=== PATIENT | female | born 1980 | race Caucasian/White ===

== ENCOUNTER 2017-02-12 12:36 | Emergency (ER) | payer MEDICAID, OTHER ==
[~2017-02-12] VITALS: Ht 185.4 cm; Wt 174.6 kg
[2017-02-12] MEDS ORDERED: METF500T4 (12:55)
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
--- NOTE | 2017-02-12 13:52 | Diagnostic Imaging Report ---
EXAMINATION: CT scan of the thoracic and lumbar spine was performed without intravenous contrast. Coronal and sagittal reconstructions were performed. INDICATION: Fall. FINDINGS: CT THORACIC SPINE: The alignment of the posterior spinal line is satisfactory. The vertebral body heights are preserved. There is straightening of the normal kyphotic curvature, probably positional. There is satisfactory alignment of the facet joints. Minimal anterior osteophytes at the mid thoracic spine levels are seen. No fracture is identified. CT LUMBAR SPINE: There is satisfactory alignment of the posterior spinal line. Posterior osteophytes at the L2-3 and L5-S1 levels are seen. There is no compression fracture. There is no pars defect or fracture seen. The alignment of the facet joints is satisfactory. No fracture is seen. Vacuum phenomenon at the SI joints with mild degenerative sclerosis is suggested. There is suggestion of spinal canal stenosis of a probably moderate degree at the L2-3 level from disc herniation and posterior osteophytes. IMPRESSION: CT THORACIC SPINE: No fracture is seen. CT LUMBAR SPINE: 1. No fracture is seen. 2. Prominent disc herniation and posterior osteophytes at the L2-3 level appear to result in spinal canal stenosis which can be better evaluated with a followup outpatient MRI evaluation when the patient recovers from the acute injury. Dictated by: Dictated on workstation # [id number]
--- NOTE | 2017-02-12 13:56 | Diagnostic Imaging Report ---
Supine AP view of the chest. INDICATION: Fall. FINDINGS: There is elevation of the right hemidiaphragm. No prior studies are available to assess for from chronicity. Minimal right basilar atelectasis is also seen. The heart size is normal. No effusion or pneumothorax. The mediastinum and maida appear unremarkable. IMPRESSION: Elevation of the right hemidiaphragm with mild right basilar atelectasis. Dictated by: Dictated on workstation # [id number]
--- NOTE | 2017-02-12 13:58 | Diagnostic Imaging Report ---
EXAMINATION: AP view of the pelvis. INDICATION: Fall. FINDINGS: Mild deformity of the symphysis pubis is seen which may relate to prior injury or vaginal delivery. No acute fracture. Mild spur formation at the lateral aspect of the right acetabulum and along the greater trochanter is seen. The SI joints have normal alignment. Normal alignment of the hip joints is also seen. IMPRESSION: No acute process. Dictated by: Dictated on workstation # [id number]
--- NOTE | 2017-02-12 14:02 | Diagnostic Imaging Report ---
PROCEDURE: CT head and CT cervical spine without contrast. TECHNIQUE: Multiple contiguous axial images were obtained through the brain and cervical spine without the use of intravenous contrast. Sagittal and coronal reformations through the cervical spine were then performed. INDICATION: Fall. FINDINGS: CT head: There is no intracranial hemorrhage, edema or mass effect. The brain parenchyma and garsia-white matter differentiation is preserved. No hydrocephalus. No extra-axial fluid collection is seen. The calvarium, the paranasal sinuses and orbits appear grossly unremarkable. CT cervical spine: There is straightening of the cervical spine. The vertebral body heights are preserved. There is preserved disc heights. The alignment of the posterior spinal line, and the facet joints and the lateral masses of C1 and C2 and atlantooccipital joints is satisfactory. There is no widening of the predental space. No fracture seen. IMPRESSION: CT head: Unremarkable exam. CT cervical spine: No fracture seen. Dictated by: Dictated on workstation # [id number]
--- NOTE | 2017-02-12 14:03 | Diagnostic Imaging Report ---
INDICATION: Pain status post fall. COMPARISON: None. FINDINGS: Two views of the right forearm show no fractures, dislocations, or other acute bony abnormalities identified. Joint spaces are well maintained throughout. The soft tissues appear unremarkable. No radiopaque foreign bodies are identified. IMPRESSION: No acute fractures or dislocations of the right forearm. Dictated by: Dictated on workstation # [id number]
[2017-02-12] MEDS ORDERED: NAPR500T4 PO (14:18)
[2017-02-12] MEDS ORDERED: CYCL10TA9 PO (14:18)
[2017-02-12 14:23] VITALS: BP 131/64
== END 2017-02-12 14:23 | disposition home or self-care (01) ==
LOC: ER 12:41
DX: M54.5 Low back pain (principal); G89.29 Other chronic pain; E66.01 Morbid (severe) obesity due to excess calories; E11.9 Type 2 diabetes mellitus without complications; F41.9 Anxiety disorder, unspecified; F32.9 Major depressive disorder, single episode, unspecified; F12.10 Cannabis abuse, uncomplicated; F15.10 Other stimulant abuse, uncomplicated; F17.210 Nicotine dependence, cigarettes, uncomplicated; Z87.59 Personal history of other complications of pregnancy, childbirth and the puerperium; Z98.51 Tubal ligation status; W18.30XA Fall on same level, unspecified, initial encounter
CPT/HCPCS: 70450; 71010; 72125; 72128; 72131; 72170; 73090; 82962; 99283

== ENCOUNTER 2017-03-22 22:25 | Emergency (ER) | payer MEDICAID ==
[~2017-03-22] VITALS: Ht 185.4 cm; Wt 174.6 kg
[~2017-03-22 22:25] MED LIST: CYCL10TA9 PO; METF500T4; NAPR500T4 PO
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
[2017-03-23] MEDS ORDERED: AZIT250T12 PO (00:11)
[2017-03-23 00:15] VITALS: BP 133/70
[2017-03-23] MEDS ORDERED: AZITHROMYCIN 250 MG TAB (ZITHROMAX) PO ONE (00:15)
[2017-03-23] MEDS ORDERED: FLUT9.9S NSEACH (00:18)
== END 2017-03-23 00:15 | disposition home or self-care (01) ==
LOC: EDUNIT# 22:25 → ER 22:27
DX: H66.91 Otitis media, unspecified, right ear (principal); J01.90 Acute sinusitis, unspecified; E11.9 Type 2 diabetes mellitus without complications; E66.01 Morbid (severe) obesity due to excess calories; F41.9 Anxiety disorder, unspecified; F32.9 Major depressive disorder, single episode, unspecified; Z79.84 Long term (current) use of oral hypoglycemic drugs; Z87.59 Personal history of other complications of pregnancy, childbirth and the puerperium; Z98.51 Tubal ligation status; Z86.73 Personal history of transient ischemic attack (TIA), and cerebral infarction without residual deficits
CPT/HCPCS: 99283

== ENCOUNTER 2017-05-17 18:03 | Emergency (ER) | payer MEDICAID ==
[~2017-05-17] VITALS: Ht 185.4 cm; Wt 181.4 kg
[~2017-05-17 18:03] MED LIST changes: +AZIT250T12 PO; +FLUT9.9S NSEACH; +NAPR-915 PO; -NAPR500T4 PO
--- NOTE | 2017-05-17 18:25 | ED Abdominal Pain ---
General Chief Complaint: Abdominal/GI Problems Stated Complaint: ABD PAIN Nursing Triage Note: ARRIVED VIA AMB TO ROOM 07. COMPLAINS OF ABD PAIN/N/V/D Sepsis Screen: No Definite Risk Source of Information: Patient Exam Limitations: No Limitations History of Present Illness Date Seen by Provider: May 17, 2017 Time Seen by Provider: 18:24 Initial Comments To ER with c/o nausea, vomiting, diarrhea, fever up to 101, abdominal cramping x3 days. Timing/Duration: 2-3 Days Severity/Quality: Cramping Location: Generalized Abdomen Radiation: No Radiation Activities at Onset: None Allergies and Home Medications Allergies Coded Allergies: fentanyl (Verified Allergy, Severe, SOA, 02/12/17) morphine (Verified Allergy, Severe, SOA, 02/12/17) Penicillins (Verified Allergy, Unknown, 02/12/17) codeine (Verified Allergy, Unknown, 02/12/17) hydromorphone (Verified Allergy, Unknown, 02/12/17) iodine (Verified Allergy, Unknown, 02/12/17) latex (Verified Allergy, Unknown, 02/12/17) tramadol (Verified Allergy, Unknown, 02/12/17) Review of Systems Constitutional: see HPI, fever EENTM: No Symptoms Reported Respiratory: No Symptoms Reported Cardiovascular: No Symptoms Reported Gastrointestinal: See HPI, Abdominal Pain, Blood Streaked Stools, Diarrhea, Nausea, Vomiting Genitourinary: No Symptoms Reported Musculoskeletal: no symptoms reported Skin: no symptoms reported Psychiatric/Neurological: No Symptoms Reported Endocrine: No Symptoms Reported Past Vwtsirt-Ixclbu-Geompw Hx Patient Social History Type Used: Cigarettes 2nd Hand Smoke Exposure: No Recent Foreign Travel: No Contact w/Someone Who Travel: No Recent Infectious Disease Expo: No Recent Hopitalizations: No Seasonal Allergies Seasonal Allergies: No Surgeries History of Surgeries: Yes ( X 2; BTL; BREAST BIOPSY-BENIGN) Surgeries: Breast, Section, Gallbladder, Tubal Ligation Respiratory History of Respiratory Disorde: Yes (PT STATES SHE WAS ON A VENTILATOR AND IN A COMA AFTER THE OF A CHILD) Cardiovascular History of Cardiac Disorders: No Neurological History of Neurological Disord: Yes (PT STATES SHE WAS ON A VENTILATOR AND IN A COMA AFTER THE OF A CHILD) Neurological Disorders: Stroke Reproductive System Female Reproductive Disorders: Denies [employer] History: Tubal Ligation Genitourinary History of Genitourinary Disor: No Gastrointestinal History of Gastrointestinal Di: No Musculoskeletal History of Musculoskeletal Dis: Yes (FREQUENT FALLY) Musculoskeletal Disorders: Chronic Back Pain Endocrine History of Endocrine Disorders: Yes (MORBID OBESITY) Endocrine Disorders: Diabetes, Non-Insulin dep HEENT History of HEENT Disorders: No Cancer History of Cancer: No Psychosocial History of Psychiatric Problem: Yes Behavioral Health Disorders: Anxiety, Depression Integumentary History of Skin or Integumenta: No Blood Transfusions History of Blood Disorders: No Physical Exam Vital Signs VS - Last 72 Hours, by Label 05/17/17 18:10 Temp 98.4 Pulse 105 Resp 18 B/P (MAP) 110/78 (89) Pulse Ox 95 Capillary Refill : Less Than 3 Seconds General Appearance: WD/WN, no apparent distress, obese HEENT: PERRL/EOMI, normal ENT inspection Respiratory: normal breath sounds, no respiratory distress, no accessory muscle use Cardiovascular: regular rate, rhythm, no murmur Gastrointestinal: normal bowel sounds, soft, tenderness Extremities: normal range of motion, non-tender, normal inspection Neurologic/Psychiatric: alert, normal mood/affect, oriented x 3 Skin: normal color, warm/dry Progress/Results/Core Measures Results/Orders Lab Results Laboratory Tests Test 05/17/17 18:35 05/17/17 18:44 Range/Units White Blood Count 8.3 4.3-11.0 10^3/uL Red Blood Count 5.15 4.35-5.85 10^6/uL Hemoglobin 15.2 11.5-16.0 G/DL Hematocrit 45 35-52 % Mean Corpuscular Volume 88 80-99 FL Mean Corpuscular Hemoglobin 30 25-34 PG Mean Corpuscular Hemoglobin Concent 34 32-36 G/DL Red Cell Distribution Width 13.3 10.0-14.5 % Platelet Count 357 130-400 10^3/uL Mean Platelet Volume 8.9 7.4-10.4 FL Neutrophils (%) (Auto) 63 42-75 % Lymphocytes (%) (Auto) 27 12-44 % Monocytes (%) (Auto) 8 0-12 % Eosinophils (%) (Auto) 2 0-10 % Basophils (%) (Auto) 0 0-10 % Neutrophils # (Auto) 5.2 1.8-7.8 X 10^3 Lymphocytes # (Auto) 2.3 1.0-4.0 X 10^3 Monocytes # (Auto) 0.7 0.0-1.0 X 10^3 Eosinophils # (Auto) 0.2 0.0-0.3 10^3/uL Basophils # (Auto) 0.0 0.0-0.1 10^3/uL Sodium Level 140 135-145 MMOL/L Potassium Level 3.8 3.6-5.0 MMOL/L Chloride Level 102 98-107 MMOL/L Carbon Dioxide Level 23 21-32 MMOL/L Anion Gap 15 H 5-14 MMOL/L Blood Urea Nitrogen 13 7-18 MG/DL Creatinine 0.66 0.60-1.30 MG/DL Estimat Glomerular Filtration Rate > 60 BUN/Creatinine Ratio 20 Glucose Level 159 H 70-105 MG/DL Calcium Level 9.1 8.5-10.1 MG/DL Total Bilirubin 0.9 0.1-1.0 MG/DL Aspartate Amino Transf (AST/SGOT) 70 H 5-34 U/L Alanine Aminotransferase (ALT/SGPT) 54 0-55 U/L Alkaline Phosphatase 130 40-136 U/L Total Protein 7.4 6.4-8.2 GM/DL Albumin 4.0 3.2-4.5 GM/DL Lipase 13 8-78 U/L Urine Color YELLOW Urine Clarity SLIGHTLY CLOUDY Urine pH 6 5-9 Urine Specific [place] 1.020 1.016-1.022 Urine Protein 2+ H NEGATIVE Urine Glucose (UA) NEGATIVE NEGATIVE Urine Ketones NEGATIVE NEGATIVE Urine Nitrite POSITIVE H NEGATIVE Urine Bilirubin NEGATIVE NEGATIVE Urine Urobilinogen 1 NORMAL MG/DL Urine Leukocyte Esterase 1+ H NEGATIVE Urine RBC (Auto) NEGATIVE NEGATIVE Urine RBC RARE /HPF Urine WBC 5-10 H /HPF Urine Squamous Epithelial Cells 25-50 H /HPF Urine Renal Epithelial Cells NONE /HPF Urine Crystals NONE /LPF Urine Bacteria LARGE H /HPF Urine Casts PRESENT /LPF Urine Hyaline Casts 5-10 H /LPF Urine Mucus NEGATIVE /LPF Urine Culture Indicated YES My Orders Orders - CLAIRE DE LEON APRN Cbc With Automated Diff (05/17/17 18:21) Comprehensive Metabolic Panel (05/17/17 18:21) Lipase (05/17/17 18:21) Ua Culture If Indicated (05/17/17 18:21) Saline Lock/Iv-Start (05/17/17 18:21) Urine Bedside (05/17/17 18:21) Lactated Ringers (Lr 1000 Ml Iv Solution (05/17/17 18:30) Ondansetron Injection (Zofran Injectio (05/17/17 18:30) Hyoscyamine Sl Tablet (Levsin Sl Tablet) (05/17/17 18:30) Urine Culture (05/17/17 18:44) Medications Given in ED Current Medications Medications Dose Ordered Sig/Maurice Route Start Time Stop Time Status Last Admin Dose Admin Hyoscyamine Sulfate 0.25 mg ONCE ONCE PO 05/17/17 18:30 05/17/17 18:31 DC 05/17/17 18:35 0.25 MG Ondansetron HCl 8 mg ONCE ONCE IVP 05/17/17 18:30 05/17/17 18:31 DC 05/17/17 18:35 8 MG Vital Signs/I&O Vital Sign - Last 12Hours 05/17/17 18:10 Temp 98.4 Pulse 105 Resp 18 B/P (MAP) 110/78 (89) Pulse Ox 95 Blood Pressure Mean: 89 Departure Impression Impression: Primary Impression: Nausea vomiting and diarrhea Additional Impression: Urinary tract infection Disposition: 01 HOME, SELF-CARE Condition: Stable Departure-Patient Inst. Decision time for Depature: 19:16 Referrals: NO,LOCAL PHYSICIAN (PCP/Family) Primary Care Physician Patient Instructions: [id number], Urinary Tract Infection, Adult (DC) Add. Discharge Instructions: 1. Drink plenty of fluids. Gatorade or Pedialyte would be a great choice. Use the nausea medication as directed to keep nausea under control. Antibiotics as directed for the bladder infection, Levsin as directed for the abdominal cramping. All discharge instructions reviewed with patient and/or family. Voiced understanding. Scripts Ondansetron (Zofran Odt) 8 Mg Tab.rapdis 8 MG PO Q6H Y for NAUSEA/VOMITING-1ST LINE, #10 TAB Prov: CLAIRE DE LEON APRN 05/17/17 Sulfamethoxazole/Trimethoprim (Bactrim Ds Tablet) 1 Each Tablet 1 EACH PO BID, #10 TAB Prov: CLAIRE DE LEON APRN 05/17/17 Hyoscyamine Sulfate (Levsin-Sl) 0.125 Mg Tab.subl 0.125 MG SL Q4H Y for CRAMPS, #10 TAB Prov: CLAIRE DE LEON APRN 05/17/17 Work/School Note: Work Release Form Date Seen in the Emergency Department: May 17, 2017 Return to Work: May 20, 2017 CLAIRE DE LEON APRN May 17, 2017 18:25
[2017-05-17] MEDS ORDERED: HYOSCYAMINE 0.125 MG (LEVSIN) TAB PO ONE (18:30)
[2017-05-17] MEDS ORDERED: ONDANSETRON 4 MG/2 ML (SDV) Z0FRAN IVP ONE (18:30)
[2017-05-17] MEDS ORDERED: LACTATED RINGERS 1,000 ML IV SCH (18:30)
[2017-05-17 18:52] LABS: BILIRUBIN,URINE NEGATIVE (NEGATIVE); CLARITY,URINE SLIGHTLY CLOUDY; COLOR,URINE YELLOW; GLUCOSE, URINE (UA) NEGATIVE (NEGATIVE); KETONES,URINE NEGATIVE (NEGATIVE); LEUKOCYTE ESTERASE ,URINE 1+ (NEGATIVE); NITRITE,URINE POSITIVE (NEGATIVE); PH,URINE 6 (5-9); PROTEIN,URINE 2+ (NEGATIVE); UROBILINOGEN,URINE 1 MG/DL (NORMAL)
[2017-05-17 18:56] LABS: BASOPHILS % (AUTO) 0 % (0-10); EOSINOPHILS # (AUTO) 0.2 10^3/uL (0.0-0.3); EOSINOPHILS % (AUTO) 2 % (0-10); HEMATOCRIT 45 % (35-52); HEMOGLOBIN 15.2 G/DL (11.5-16.0); LYMPHOCYTES # (AUTO) 2.3 X 10^3 (1.0-4.0); LYMPHOCYTES % (AUTO) 27 % (12-44); MEAN CORPUSCULAR HEMOGLOBIN 30 PG (25-34); MEAN CORPUSCULAR HGB CONC 34 G/DL (32-36); MEAN CORPUSCULAR VOLUME 88 FL (80-99); MEAN PLATELET VOLUME 8.9 FL (7.4-10.4); MONOCYTES # (AUTO) 0.7 X 10^3 (0.0-1.0); MONOCYTES % (AUTO) 8 % (0-12); NEUTROPHILS # (AUTO) 5.2 X 10^3 (1.8-7.8); NEUTROPHILS % (AUTO) 63 % (42-75); PLATELET COUNT 357 10^3/uL (130-400); RED BLOOD COUNT 5.15 10^6/uL (4.35-5.85); RED CELL DISTRIBUTION WIDTH 13.3 % (10.0-14.5); WHITE BLOOD COUNT 8.3 10^3/uL (4.3-11.0)
[2017-05-17 19:01] LABS: ALANINE AMINOTRANSFERASE 54 U/L (0-55); ALKALINE PHOSPHATASE 130 U/L (40-136); BILIRUBIN,TOTAL 0.9 MG/DL (0.1-1.0); BUN/CREATININE RATIO 20; CALCIUM 9.1 MG/DL (8.5-10.1); CARBON DIOXIDE 23 MMOL/L (21-32); CHLORIDE 102 MMOL/L (98-107); CREATININE SERUM 0.66 MG/DL (0.60-1.30); GFR ESTIMATED > 60; GLUCOSE 159 MG/DL (70-105); LIPASE 13 U/L (8-78); POTASSIUM 3.8 MMOL/L (3.6-5.0); SODIUM 140 MMOL/L (135-145); TOTAL PROTEIN 7.4 GM/DL (6.4-8.2)
[2017-05-17 19:14] LABS: BACTERIA,URINE LARGE /HPF; RBC,URINE RARE /HPF; SQUAMOUS EPITHELIAL CELL,UR 25-50 /HPF
[2017-05-17] MEDS ORDERED: ONDA8TAB9 PO (19:18)
[2017-05-17] MEDS ORDERED: HYOS0.1283 SL (19:18)
[2017-05-17] MEDS ORDERED: SULF1TAB35 PO (19:18)
[2017-05-17] MEDS ORDERED: IBUPROFEN 800 MG (MOTRIN) TAB PO ONE (19:30)
[2017-05-17] MEDS ORDERED: TRIM/SULFAMETH 160/800 (SEPTRA DS) TAB PO ONE (19:30)
[2017-05-17 19:32] VITALS: BP 115/74
== END 2017-05-17 19:32 | disposition home or self-care (01) ==
LOC: EDUNIT# 18:03 → ER 18:04
DX: N39.0 Urinary tract infection, site not specified (principal); R11.2 Nausea with vomiting, unspecified; R19.7 Diarrhea, unspecified; F41.9 Anxiety disorder, unspecified; F32.9 Major depressive disorder, single episode, unspecified; E11.9 Type 2 diabetes mellitus without complications; E66.01 Morbid (severe) obesity due to excess calories; Z32.00 Encounter for pregnancy test, result unknown; Z98.51 Tubal ligation status; Z86.73 Personal history of transient ischemic attack (TIA), and cerebral infarction without residual deficits; Z87.59 Personal history of other complications of pregnancy, childbirth and the puerperium; Z88.0 Allergy status to penicillin; Z91.040 Latex allergy status; Z88.5 Allergy status to narcotic agent; Z88.1 Allergy status to other antibiotic agents; Z91.041 Radiographic dye allergy status
CPT/HCPCS: 36415; 80053; 81000; 83690; 84703; 85025; 87077; 87088; 87186; 96361; 96374

== ENCOUNTER 2017-06-19 15:57 | Emergency (ER) | payer MEDICAID ==
[~2017-06-19] VITALS: Ht 182.9 cm; Wt 186.0 kg
[~2017-06-19 15:57] MED LIST changes: +HYOS0.1283 SL; +ONDA8TAB9 PO; +SULF1TAB35 PO
[2017-06-19 16:27] LABS: BILIRUBIN,URINE NEGATIVE (NEGATIVE); CLARITY,URINE CLEAR; COLOR,URINE YELLOW; GLUCOSE, URINE (UA) NEGATIVE (NEGATIVE); KETONES,URINE NEGATIVE (NEGATIVE); LEUKOCYTE ESTERASE ,URINE 1+ (NEGATIVE); NITRITE,URINE NEGATIVE (NEGATIVE); PH,URINE 7 (5-9); PROTEIN,URINE 3+ (NEGATIVE); UROBILINOGEN,URINE 1 MG/DL (NORMAL)
[2017-06-19] MEDS ORDERED: ONDA8TAB13 (16:32)
[2017-06-19] MEDS ORDERED: RANI150T11 (16:32)
[2017-06-19] MEDS ORDERED: SITA1TAB2 (16:32)
[2017-06-19 16:34] LABS: BASOPHILS % (AUTO) 0 % (0-10); EOSINOPHILS # (AUTO) 0.1 10^3/uL (0.0-0.3); EOSINOPHILS % (AUTO) 1 % (0-10); HEMATOCRIT 43 % (35-52); HEMOGLOBIN 13.8 G/DL (11.5-16.0); LYMPHOCYTES # (AUTO) 1.7 X 10^3 (1.0-4.0); LYMPHOCYTES % (AUTO) 22 % (12-44); MEAN CORPUSCULAR HEMOGLOBIN 30 PG (25-34); MEAN CORPUSCULAR HGB CONC 32 G/DL (32-36); MEAN CORPUSCULAR VOLUME 92 FL (80-99); MEAN PLATELET VOLUME 9.2 FL (7.4-10.4); MONOCYTES # (AUTO) 0.6 X 10^3 (0.0-1.0); MONOCYTES % (AUTO) 7 % (0-12); NEUTROPHILS # (AUTO) 5.5 X 10^3 (1.8-7.8); NEUTROPHILS % (AUTO) 69 % (42-75); PLATELET COUNT 303 10^3/uL (130-400); RED BLOOD COUNT 4.64 10^6/uL (4.35-5.85)
[2017-06-19] MEDS ORDERED: ONDANSETRON 4 MG/2 ML (SDV) Z0FRAN IVP ONE (16:45)
[2017-06-19] MEDS ORDERED: KETOROLAC 30 MG/ML VIAL IVP ONE (16:45)
--- NOTE | 2017-06-19 16:45 | ED Abdominal Pain ---
General Chief Complaint: Abdominal/GI Problems Stated Complaint: ABD PAINS, PAINS FROM 7YR OLD CSECTION Nursing Triage Note: TO ROOM C/O LOW ABD PAIN FOR 4 WEEKS WAS SEEN IN ED AT THAT TIME. WAS SEEN AT [facility] 2 WEKS AGO AND STARED ON ZANTAC Sepsis Screen: No Definite Risk Source of Information: Patient Exam Limitations: No Limitations History of Present Illness Date Seen by Provider: Jun 19, 2017 Time Seen by Provider: 16:44 Initial Comments Suprapubic and RLQ abdominal pain for 4 weeks. Alternating diarrhea/ constipation. No dysuria. Timing/Duration: 2-3 Days Severity/Quality: Moderate Location: LLQ Radiation: No Radiation Activities at Onset: None Associated Symptoms: Nausea/Vomiting Allergies and Home Medications Allergies Coded Allergies: fentanyl (Verified Allergy, Severe, SOA, 02/12/17) morphine (Verified Allergy, Severe, SOA, 02/12/17) Penicillins (Verified Allergy, Unknown, 02/12/17) codeine (Verified Allergy, Unknown, 02/12/17) hydromorphone (Verified Allergy, Unknown, 02/12/17) iodine (Verified Allergy, Unknown, 02/12/17) latex (Verified Allergy, Unknown, 02/12/17) tramadol (Verified Allergy, Unknown, 02/12/17) Home Medications Dicyclomine HCl 20 Mg Tablet, 20 MG PO QID Prescribed by: CLAIRE DE LEON on 06/19/178 Hyoscyamine Sulfate 0.125 Mg Tab.subl, 0.125 MG SL Q4H PRN for CRAMPS Prescribed by: CLAIRE DE LEON on 05/17/171917 Ondansetron 8 Mg Tab.rapdis, 8 MG PO Q6H PRN for NAUSEA/VOMITING-1ST LINE Prescribed by: CLAIRE DE LEON on 05/17/171917 Review of Systems Constitutional: see HPI, No chills (History), No fever EENTM: No Symptoms Reported Respiratory: No Symptoms Reported Cardiovascular: No Symptoms Reported Gastrointestinal: See HPI, Abdominal Pain, Constipated, Diarrhea, Nausea Genitourinary: No Symptoms Reported Musculoskeletal: no symptoms reported Skin: no symptoms reported Psychiatric/Neurological: No Symptoms Reported Past Xmistcq-Xewnaj-Wtlack Hx Patient Social History Alcohol Use: Denies Use Recreational Drug Use: No Smoking Status: Former Smoker Type Used: Cigarettes 2nd Hand Smoke Exposure: No Recent Foreign Travel: No Contact w/Someone Who Travel: No Recent Infectious Disease Expo: No Recent Hopitalizations: No Seasonal Allergies Seasonal Allergies: No Surgeries History of Surgeries: Yes ( X 2; BTL; BREAST BIOPSY-BENIGN) Surgeries: Breast, Section, Gallbladder, Tubal Ligation Respiratory History of Respiratory Disorde: Yes (PT STATES SHE WAS ON A VENTILATOR AND IN A COMA AFTER THE OF A CHILD) Cardiovascular History of Cardiac Disorders: No Neurological History of Neurological Disord: Yes (PT STATES SHE WAS ON A VENTILATOR AND IN A COMA AFTER THE OF A CHILD) Neurological Disorders: Stroke Reproductive System Female Reproductive Disorders: Denies [employer] History: Tubal Ligation Genitourinary History of Genitourinary Disor: No Gastrointestinal History of Gastrointestinal Di: No Musculoskeletal History of Musculoskeletal Dis: Yes (FREQUENT FALLY) Musculoskeletal Disorders: Chronic Back Pain Endocrine History of Endocrine Disorders: Yes (MORBID OBESITY) Endocrine Disorders: Diabetes, Non-Insulin dep HEENT History of HEENT Disorders: No Cancer History of Cancer: No Psychosocial History of Psychiatric Problem: Yes Behavioral Health Disorders: Anxiety, Depression Integumentary History of Skin or Integumenta: No Blood Transfusions History of Blood Disorders: No Physical Exam Vital Signs VS - Last 72 Hours, by Label 06/19/17 16:03 Temp 97.7 Pulse 86 Resp 18 B/P (MAP) 140/107 (118) Pulse Ox 98 O2 Delivery Room Air Capillary Refill : Less Than 3 Seconds General Appearance: WD/WN, no apparent distress, obese HEENT: PERRL/EOMI, normal ENT inspection Neck: non-tender, full range of motion Respiratory: normal breath sounds, no respiratory distress, no accessory muscle use Cardiovascular: regular rate, rhythm, no murmur Gastrointestinal: normal bowel sounds, soft, tenderness (LLQ) Extremities: normal range of motion, non-tender Neurologic/Psychiatric: alert, normal mood/affect, oriented x 3 Skin: normal color, warm/dry Progress/Results/Core Measures Results/Orders Lab Results Laboratory Tests Test 06/19/17 16:15 Range/Units White Blood Count 8.0 4.3-11.0 10^3/uL Red Blood Count 4.64 4.35-5.85 10^6/uL Hemoglobin 13.8 11.5-16.0 G/DL Hematocrit 43 35-52 % Mean Corpuscular Volume 92 80-99 FL Mean Corpuscular Hemoglobin 30 25-34 PG Mean Corpuscular Hemoglobin Concent 32 32-36 G/DL Red Cell Distribution Width 14.0 10.0-14.5 % Platelet Count 303 130-400 10^3/uL Mean Platelet Volume 9.2 7.4-10.4 FL Neutrophils (%) (Auto) 69 42-75 % Lymphocytes (%) (Auto) 22 12-44 % Monocytes (%) (Auto) 7 0-12 % Eosinophils (%) (Auto) 1 0-10 % Basophils (%) (Auto) 0 0-10 % Neutrophils # (Auto) 5.5 1.8-7.8 X 10^3 Lymphocytes # (Auto) 1.7 1.0-4.0 X 10^3 Monocytes # (Auto) 0.6 0.0-1.0 X 10^3 Eosinophils # (Auto) 0.1 0.0-0.3 10^3/uL Basophils # (Auto) 0.0 0.0-0.1 10^3/uL Urine Color YELLOW Urine Clarity CLEAR Urine pH 7 5-9 Urine Specific [place] 1.010 L 1.016-1.022 Urine Protein 3+ H NEGATIVE Urine Glucose (UA) NEGATIVE NEGATIVE Urine Ketones NEGATIVE NEGATIVE Urine Nitrite NEGATIVE NEGATIVE Urine Bilirubin NEGATIVE NEGATIVE Urine Urobilinogen 1 NORMAL MG/DL Urine Leukocyte Esterase 1+ H NEGATIVE Urine RBC (Auto) NEGATIVE NEGATIVE Urine RBC NONE /HPF Urine WBC 2-5 /HPF Urine Squamous Epithelial Cells 5-10 /HPF Urine Crystals NONE /LPF Urine Bacteria NONE /HPF Urine Casts NONE /LPF Urine Mucus SMALL H /LPF Urine Culture Indicated NO Sodium Level 138 135-145 MMOL/L Potassium Level 4.2 3.6-5.0 MMOL/L Chloride Level 99 98-107 MMOL/L Carbon Dioxide Level 30 21-32 MMOL/L Anion Gap 9 5-14 MMOL/L Blood Urea Nitrogen 9 7-18 MG/DL Creatinine 0.60 0.60-1.30 MG/DL Estimat Glomerular Filtration Rate > 60 BUN/Creatinine Ratio 15 Glucose Level 161 H 70-105 MG/DL Calcium Level 8.8 8.5-10.1 MG/DL Total Bilirubin 0.7 0.1-1.0 MG/DL Aspartate Amino Transf (AST/SGOT) 50 H 5-34 U/L Alanine Aminotransferase (ALT/SGPT) 37 0-55 U/L Alkaline Phosphatase 113 40-136 U/L Total Protein 7.0 6.4-8.2 GM/DL Albumin 3.9 3.2-4.5 GM/DL My Orders Orders - CLAIRE DE LEON APRN Cbc With Automated Diff (06/19/17 16:07) Comprehensive Metabolic Panel (06/19/17 16:07) Ua Culture If Indicated (06/19/17 16:07) Urine Bedside (06/19/17 16:07) Saline Lock/Iv-Start (06/19/17 16:07) Ct Abdomen/Pelvis Wo (06/19/17 16:45) Ketorolac Injection (Toradol Injection) (06/19/17 16:45) Ondansetron Injection (Zofran Injectio (06/19/17 16:45) Medications Given in ED Current Medications Medications Dose Ordered Sig/Maurice Route Start Time Stop Time Status Last Admin Dose Admin Ketorolac Tromethamine 30 mg ONCE ONCE IVP 06/19/17 16:45 06/19/17 16:48 DC 06/19/17 17:00 30 MG Ondansetron HCl 4 mg ONCE ONCE IVP 06/19/17 16:45 06/19/17 16:48 DC 06/19/17 16:59 4 MG Vital Signs/I&O Vital Sign - Last 12Hours 06/19/17 16:03 Temp 97.7 Pulse 86 Resp 18 B/P (MAP) 140/107 (118) Pulse Ox 98 O2 Delivery Room Air Blood Pressure Mean: 118 Point of Care Testing Urine -Bedside: Negative Departure Communication (Admissions) Progress Notes 1736- I suspect her symptoms may be due to irritable bowel in the absence of findings on CT, labs, ua Impression Impression: Primary Impression: LLQ abdominal pain Disposition: 01 HOME, SELF-CARE Condition: Stable Departure-Patient Inst. Decision time for Depature: 17:32 Referrals: CONNIE MALAVE MD (PCP) Primary Care Physician [facility] (Family) Primary Care Physician Patient Instructions: NO INSTRUCTIONS GIVEN Add. Discharge Instructions: 1. Return to ER for any concerns 2. Medication as directed 2. Follow-up with your doctor this week. All discharge instructions reviewed with patient and/or family. Voiced understanding. Scripts Ondansetron (Zofran Odt) 8 Mg Tab.rapdis 8 MG PO Q6H Y for PAIN-SEVERE, #10 TAB Prov: CLAIRE DE LEON APRN 06/19/17 Dicyclomine HCl (Dicyclomine HCl) 20 Mg Tablet 20 MG PO QID, #28 TAB Prov: CLAIRE DE LEON APRN 06/19/17 CLAIRE DE LEON APRN Jun 19, 2017 16:45
[2017-06-19 16:46] LABS: ALANINE AMINOTRANSFERASE 37 U/L (0-55); ALBUMIN 3.9 GM/DL (3.2-4.5); ALKALINE PHOSPHATASE 113 U/L (40-136); BILIRUBIN,TOTAL 0.7 MG/DL (0.1-1.0); BUN/CREATININE RATIO 15; CALCIUM 8.8 MG/DL (8.5-10.1); CARBON DIOXIDE 30 MMOL/L (21-32); CHLORIDE 99 MMOL/L (98-107); GFR ESTIMATED > 60; GLUCOSE 161 MG/DL (70-105); POTASSIUM 4.2 MMOL/L (3.6-5.0); SODIUM 138 MMOL/L (135-145)
--- NOTE | 2017-06-19 17:06 | Diagnostic Imaging Report ---
PROCEDURE: CT abdomen and pelvis without contrast. TECHNIQUE: Multiple contiguous axial images were obtained through the abdomen and pelvis without the use of intravenous contrast. INDICATION: Abdominal pain. COMPARISON: None. FINDINGS: Lung bases are clear. Cholecystectomy. The liver, pancreas, spleen, adrenals, kidneys and collecting systems are negative on this noncontrast exam. Negative appendix. The reproductive structures are grossly unremarkable. No free intraperitoneal air or fluid. No lymphadenopathy. No evidence of bowel obstruction. Fat-containing umbilical hernia, measuring up to 5.2 cm. Possible spondylotic changes in the lower cervical spine. No acute osseous findings. IMPRESSION: 1. No acute CT findings in the abdomen or pelvis on this noncontrast exam. 2. Fat-containing umbilical hernia measuring up to 5.2 cm. There is no substantial inflammatory change or fluid collections about this hernia at this time. Dictated by: Dictated on workstation # [id number]
[2017-06-19] MEDS ORDERED: DICY20TA10 PO (17:38)
[2017-06-19] MEDS ORDERED: ONDA8TAB9 PO (18:11)
[2017-06-19] MEDS ORDERED: DICYCLOMINE 10 MG (BENTYL) CAP PO SCH (18:15)
[2017-06-19 18:29] VITALS: BP 142/92
== END 2017-06-19 18:29 | disposition home or self-care (01) ==
LOC: EDUNIT# 15:57 → ER 16:00
DX: R10.32 Left lower quadrant pain (principal); E66.01 Morbid (severe) obesity due to excess calories; E11.9 Type 2 diabetes mellitus without complications; F41.9 Anxiety disorder, unspecified; F32.9 Major depressive disorder, single episode, unspecified; Z88.5 Allergy status to narcotic agent; Z88.0 Allergy status to penicillin; Z68.43 Body mass index [BMI] 50.0-59.9, adult; Z88.8 Allergy status to other drugs, medicaments and biological substances; Z91.040 Latex allergy status; Z91.041 Radiographic dye allergy status; Z88.6 Allergy status to analgesic agent; Z87.891 Personal history of nicotine dependence; Z87.59 Personal history of other complications of pregnancy, childbirth and the puerperium; Z98.51 Tubal ligation status; Z86.73 Personal history of transient ischemic attack (TIA), and cerebral infarction without residual deficits
CPT/HCPCS: 36415; 74176; 80053; 81000; 84703; 85025; 96374; 96375

== ENCOUNTER 2017-07-28 22:24 | Emergency (ER) | payer MEDICAID ==
[~2017-07-28] VITALS: Ht 185.4 cm; Wt 181.9 kg
[~2017-07-28 22:24] MED LIST changes: +DICY20TA10 PO; -METF500T4; +METF500T5; +ONDA8TAB13; +RANI150T11; +SITA1TAB2
[2017-07-28] MEDS ORDERED: FLUO40CA (22:35)
[2017-07-28] MEDS ORDERED: METF500T5 (22:35)
--- NOTE | 2017-07-28 22:35 | ED Upper Extremity ---
General Chief Complaint: Upper Extremity Stated Complaint: L ELBOW PAIN Source: patient Exam Limitations: no limitations History of Present Illness Date Seen by Provider: July 28, 2017 Time Seen by Provider: 22:35 Initial Comments To ER with left elbow pain. This began about a month ago when she mentioned it to her doctor. The pain then resolved. Today, the pain recurred, with extension the pain goes all the way down the arm starting at the elbow, when flexing the elbow the pain is over the medial epicondyle. No known injury. Onset: just prior to arrival Severity: moderate Pain/Injury Location: left elbow Modifying Factors: Worse With Movement Allergies and Home Medications Allergies Coded Allergies: fentanyl (Verified Allergy, Severe, SOA, 02/12/17) morphine (Verified Allergy, Severe, SOA, 02/12/17) Penicillins (Verified Allergy, Unknown, 02/12/17) codeine (Verified Allergy, Unknown, 02/12/17) hydromorphone (Verified Allergy, Unknown, 02/12/17) iodine (Verified Allergy, Unknown, 02/12/17) latex (Verified Allergy, Unknown, 02/12/17) tramadol (Verified Allergy, Unknown, 02/12/17) Home Medications Dicyclomine HCl 20 Mg Tablet, 20 MG PO QID Prescribed by: CLAIRE DE LEON on 06/19/17 1738 Ondansetron 8 Mg Tab.rapdis, 8 MG PO Q6H PRN for NAUSEA/VOMITING-1ST LINE Prescribed by: CLAIRE DE LEON on 05/17/17 1918 Patient Home Medication List Home Medication List Reviewed: Yes Constitutional: see HPI EENTM: see HPI Respiratory: no symptoms reported Cardiovascular: no symptoms reported Genitourinary: no symptoms reported Musculoskeletal: see HPI Skin: no symptoms reported Psychiatric/Neurological: No Symptoms Reported Past Rrfoyee-Pnluvy-Gqyplk Hx Patient Social History Type Used: Cigarettes 2nd Hand Smoke Exposure: No Recent Foreign Travel: No Contact w/Someone Who Travel: No Recent Hopitalizations: No Seasonal Allergies Seasonal Allergies: No Past Medical History Surgeries: Yes ( X 2; BTL; BREAST BIOPSY-BENIGN) Breast, Section, Gallbladder, Tubal Ligation Respiratory: Yes (PT STATES SHE WAS ON A VENTILATOR AND IN A COMA AFTER THE OF A CHILD) Cardiac: No Neurological: Yes (PT STATES SHE WAS ON A VENTILATOR AND IN A COMA AFTER THE OF A CHILD) Stroke Female Reproductive Disorders: Denies 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 Genitourinary: No Gastrointestinal: No Musculoskeletal: Yes (FREQUENT FALLY) Chronic Back Pain Endocrine: Yes (MORBID OBESITY) Diabetes, Non-Insulin dep HEENT: No Cancer: No Psychosocial: Yes Anxiety, Depression Integumentary: No Blood Disorders: No Physical Exam Vital Signs Capillary Refill : General Appearance: WD/WN, no apparent distress, obese HEENT: PERRL/EOMI, normal ENT inspection Neck: non-tender, full range of motion Respiratory: no respiratory distress, no accessory muscle use Gastrointestinal: normal bowel sounds, non tender Shoulder: normal inspection, non-tender Elbow/Forearm: normal inspection, normal ROM (Pain changes in location with range of motion, when flexed pain is over the medial humerus epicondyle, when extended pain goes down the dorsal aspect of the arm all the way to the wrist.) , Left Neurologic/Psychiatric: alert, normal mood/affect, oriented x 3 Skin: normal color, warm/dry Comments Radial pulses +2, distal sensation is normal. Progress/Results/Core Measures Results/Orders My Orders Orders - CLAIRE DE LEON APRN Elbow, Left, 3 Views (07/28/17 22:34) Departure Impression Primary Impression: Left elbow pain Additional Impression: Medial epicondylitis, left elbow Disposition: 01 HOME, SELF-CARE Condition: Stable Departure-Patient Inst. Decision time for Depature: 22:41 Referrals: CONNIE MALAVE MD (PCP) Primary Care Physician [facility] (Family) Primary Care Physician Patient Instructions: Medial Epicondylitis (DC), Medial Epicondylitis Exercises Add. Discharge Instructions: 1. Ice pack to left elbow several times per day. 2. Follow up with your dotor next week for recurrent pain 3. Antiinflammatories as directed All discharge instructions reviewed with patient and/or family. Voiced understanding. Scripts Naproxen (Naprosyn) 500 Mg Tablet 500 MG PO BID PRN for PAIN-MODERATE TO SEVERE, #30 TAB Prov: CLAIRE DE LEON APRN 07/28/17 CLAIRE DE LEON APRN July 28, 2017 22:35
[2017-07-28] MEDS ORDERED: NAPR-1071 PO (22:43)
[2017-07-28] MEDS ORDERED: KETOROLAC 60 MG/2 ML VIAL IM ONE (22:45)
[2017-07-28 22:53] VITALS: BP 121/89
--- NOTE | 2017-07-29 06:27 | Diagnostic Imaging Report ---
EXAMINATION: ELBOW, LEFT, 3 VIEWS. INDICATION: Left elbow pain x1 month. COMPARISON: None. FINDINGS: Small, subcentimeter well-corticated osseous bodies adjacent to both the medial and lateral distal humeral epicondyles. Moderate degenerative changes in the left elbow . No left elbow joint effusion. Soft tissue shadows are unremarkable. No radiopaque foreign bodies. IMPRESSION: 1. Small well-corticated osseous bodies adjacent to both the medial and lateral humeral epicondyles may be due to old avulsion fractures. No acute fractures are identified. No left elbow joint effusion. 2. Moderate degenerative changes in the left elbow. Dictated by: Dictated on workstation # [id number]
== END 2017-07-28 22:53 | disposition home or self-care (01) ==
LOC: EDUNIT# 22:24 → ER 22:25
DX: M77.02 Medial epicondylitis, left elbow (principal); E66.01 Morbid (severe) obesity due to excess calories; E11.9 Type 2 diabetes mellitus without complications; F41.9 Anxiety disorder, unspecified; F32.9 Major depressive disorder, single episode, unspecified; Z88.5 Allergy status to narcotic agent; Z88.0 Allergy status to penicillin; Z88.8 Allergy status to other drugs, medicaments and biological substances; Z91.040 Latex allergy status; Z88.6 Allergy status to analgesic agent; Z87.59 Personal history of other complications of pregnancy, childbirth and the puerperium; Z98.51 Tubal ligation status; Z86.73 Personal history of transient ischemic attack (TIA), and cerebral infarction without residual deficits
CPT/HCPCS: 73080; 96372

== ENCOUNTER 2017-09-22 19:31 | Emergency (ER) | payer MEDICAID ==
[~2017-09-22] VITALS: Ht 185.4 cm; Wt 185.1 kg
[~2017-09-22 19:31] MED LIST changes: +FLUO40CA; +NAPR-1071 PO
--- OUTSIDE RECORDS SUMMARY | 2017-09-22 19:36 | XMS REPORT ---
Author Author ALEXIS Holguin Organization [facility] Address [address] [place] [address] Care Team Providers Care Fur Farmer Name Role Phone ALEXIS Holguin Unavailable PROBLEMS Type Condition ICD9-CM Code [id number] Code Onset Dates Condition Status SNOMED Code Problem Left elbow pain M25.522 Active 08452916 Problem BMI 50.0-59.9, adult Z68.43 Active 745951131 Problem Type 2 diabetes mellitus without complication, without long-term current use of insulin E11.9 Active 080248777 Problem ESTHELA (obstructive sleep apnea) G47.33 Active 81192020 Problem Essential hypertension I10 Active 70593418 ALLERGIES Substance Reaction Event Type Date Status Penicillin G Sodium Unknown Drug Allergy Feb, Active Iodine Unknown Drug Allergy Feb, Active "all pain meds except Hydrocodone" Unknown Non Drug Allergy Feb, Active ENCOUNTERS Encounter Location Date Diagnosis [place] [id number] [place] [address]47[address] 5175 Aug, [place] [id number] [place] [address] 20629- 6558 Aug, [facility] [id number] [place] [address] 63776- 4391 July, Left elbow pain M25.522 ; BMI 50.0-59.9, adult Z68.43 and Essential hypertension I10 [facility] [address] [address] Jun, [facility] [id number] [place] [address] 59172- 4260 18 Jun, 2017 Abdominal wall pain R10.9 and BMI 50.0-59.9, adult Z68.43 [place] [id number] [place] [address] 07787- 8537 Jun, [place] [address] 39[address]- [address] Jun, Left lower quadrant pain R10.32 ; Blood in stool K92.1 and BMI 50.0-59.9, adult Z68.43 [place] [address] [address]- 4887 May, [place] [id number] [place] [address] 09836- 5666 May, [place] [address] 78[address]- 99[address] May, Type 2 diabetes mellitus without complication, without long- term current use of insulin E11.9 ; BMI 50.0-59.9, adult Z68.43 and Generalized abdominal pain R10.84 [facility] [place] [id number] [place] [address]228 [address]1367 May, [place] [id number] [place] [address] 83552- 3036 May, [place] [id number] [place] [address] 02561- 8810 Mar, [facility] [place] [id number] [place] [address]298 Mar, [place] [id number] [place] [address] 31266- 7941 Mar, Type 2 diabetes mellitus without complication, without long- term current use of insulin E11.9 ; BMI 50.0-59.9, adult Z68.43 ; Acute suppurative otitis media of both ears without spontaneous rupture of tympanic membranes, recurrence not specified H66.003 ; ESTHELA (obstructive sleep apnea) G47.33 and Essential hypertension I10 [place] [id number] [place] [address] 35254- 6909 Mar, [facility] [address] [facility] [id number] [place] [address] Feb, BMI 50.0-59.9, adult Z68.43 ; Encounter for immunization Z23 and Cough R05 [facility] [address] [facility] [id number] [place] [address] Jan, [facility] [address] [facility] [id number] [address] Jan, [facility] [address] [facility] [id number] [address] Jan, Type 2 diabetes mellitus without complication, without long -term current use of insulin E11.9 ; BMI 50.0-59.9, adult Z68.43 ; BMI 60.0-69.9 , adult Z68.44 and Family history of coronary artery disease Z82.49 IMMUNIZATIONS Vaccine Route Administration Date Status FLULAVAL QUAD (6 MO AND UP) 2016 IM Intramuscular Mar 14, 2017 Administered SOCIAL HISTORY Never Assessed REASON FOR VISIT chest congestion/feels like chest is full of fluid paulino witt PLAN OF CARE Activity Details Follow Up prn Reason: VITAL SIGNS Height 71.5 in 2017-03-14 Weight 393.4 lbs 2017-03-14 Temperature 97.8 degrees Fahrenheit 2017-03-14 Heart Rate 98 bpm 2017-03-14 Respiratory Rate 22 2017-03-14 Oximetry 97 % 2017-03-14 BMI 54.10 kg/m2 2017-03-14 Blood pressure systolic 122 mmHg 2017-03-14 Blood pressure diastolic 68 mmHg 2017-03-14 MEDICATIONS Medication Instructions Dosage Frequency Start Date End Date Duration Status Glucocard Expression Monitor w/Device as directed Jan, Active Tessalon Perles 100 mg Orally Three times a day as needed for cough 1 capsule Active Metformin HCl 500 MG Orally Take one tablet daily with meals x 7 days then increase to twice daily with meals. as directed Jan, 30 day(s) Active Glucocard Expression Test - In Vitro 2 times a day as directed 12h Jan, Active RESULTS No Results PROCEDURES Procedure Date Ordered Result Body Site MEASURE BLOOD OXYGEN LEVEL Mar 14, 2017 FLULAVAL QUAD (6 MO AND UP) 2016Mar 14, 2017 SINGLE IMMUNIZATION ADMIN Mar 14, 2017 INSTRUCTIONS MEDICATIONS ADMINISTERED No Known Medications MEDICAL (GENERAL) HISTORY Type Description Date Medical History Type 2 Diabetes Medical History Sleep apnea Surgical History section x2 Surgical History lumpectomy, right breast Surgical History cholecystectomy Surgical History bilateral tubal ligation (BTL) Hospitalization History Collapsed lung-Coma for 9 days 2008 Hospitalization History Chest pain/pulled muscle in chest-[facility] [place], [place] 2011
--- OUTSIDE RECORDS SUMMARY | 2017-09-22 19:36 | XMS REPORT ---
Author Author CONNIE MALAVE Organization [facility] Address [address] [place] [address] Care Team Providers Care Mixed Animal Veterinarian Name Role Phone CONNIE MALAVE Unavailable PROBLEMS Type Condition ICD9-CM Code UIT49-YA Code Onset Dates Condition Status SNOMED Code Problem Type 2 diabetes mellitus without complication, without long-term current use of insulin E11.9 Active 280245862 Problem Seasonal allergies J30.2 Active 945148319 Problem Sleep apnea, unspecified type G47.30 Active 14144602 Problem Essential hypertension I10 Active 92105864 Problem ESTHELA (obstructive sleep apnea) G47.33 Active 90383931 Problem Left elbow pain M25.522 Active 40069505 Problem BMI 50.0-59.9, adult Z68.43 Active 142748133 ALLERGIES No Information ENCOUNTERS Encounter Location Date Diagnosis [place] [address] [address] Oct, [place] [address] 17[address]- 1585 Aug, [place] [id number] [place] [address] 16923- 0365 Aug, [place] [address] 08923- [address]172 Aug, BMI 50.0-59.9, adult Z68.43 ; Sleep apnea, unspecified type G47.30 and Seasonal allergies J30.2 [place] [address] 71426- [address]61 July, Left elbow pain M25.522 ; BMI 50.0-59.9, adult Z68.43 and Essential hypertension I10 [place] [address] 13290- 18[address] Jun, [facility] [address] [address] Jun, Abdominal wall pain R10.9 and BMI 50.0-59.9, adult Z68.43 [place] [address] [address] Jun, [facility] [address] [place] [id number] [place] [address] 82503- 7363 Jun, Left lower quadrant pain R10.32 ; Blood in stool K92.1 and BMI 50.0-59.9, adult Z68.43 [place] [id number] [place] [address] 17089- 4253 30 May, 2017 [place] [id number] [place] [address] 78606- 0823 May, [place] [id number] [place] [address] 14644- 2060 May, Type 2 diabetes mellitus without complication, without long- term current use of insulin E11.9 ; BMI 50.0-59.9, adult Z68.43 and Generalized abdominal pain R10.84 [facility] [facility] [address] [address] May, [place] [address] [address] May, [facility] [id number] [place] [address] 45652- 4209 Mar, [facility] [id number] [place] [address] 21683 -8310 Mar, [place] [id number] [place] [address] 74467- 6603 Mar, Type 2 diabetes mellitus without complication, without long- term current use of insulin E11.9 ; BMI 50.0-59.9, adult Z68.43 ; Acute suppurative otitis media of both ears without spontaneous rupture of tympanic membranes, recurrence not specified H66.003 ; ESTHELA (obstructive sleep apnea) G47.33 and Essential hypertension I10 [facility] [id number] [place] [address] 60511- 7348 Mar, [facility] [id number] [place] [address] Feb, BMI 50.0-59.9, adult Z68.43 ; Encounter for immunization Z23 and Cough R05 [facility] [address] [id number] [place] [address] 45067- 0474 Jan, [facility] [address] 07[address]- 2540 Jan, [facility] [id number] [place] [address] 69825 -0535 Jan, Type 2 diabetes mellitus without complication, without long -term current use of insulin E11.9 ; BMI 50.0-59.9, adult Z68.43 ; BMI 60.0-69.9 , adult Z68.44 and Family history of coronary artery disease Z82.49 IMMUNIZATIONS No Known Immunizations SOCIAL HISTORY Never Assessed REASON FOR VISIT Referrals-[facility] PLAN OF CARE VITAL SIGNS MEDICATIONS Medication Instructions Dosage Frequency Start Date End Date Duration Status Fluoxetine HCl 20 MG 1 tablet x1 week and then take 2 to equal 40mg Mar, 30 day(s) Active RESULTS No Results PROCEDURES No Known procedures INSTRUCTIONS MEDICATIONS ADMINISTERED No Known Medications MEDICAL (GENERAL) HISTORY Type Description Date Medical History Type 2 Diabetes Medical History Sleep apnea Surgical History section x2 Surgical History lumpectomy, right breast Surgical History cholecystectomy Surgical History bilateral tubal ligation (BTL) Hospitalization History Collapsed lung-Coma for 9 days 2008 Hospitalization History Chest pain/pulled muscle in chest-[facility] [place], [place] 2011
--- OUTSIDE RECORDS SUMMARY | 2017-09-22 19:36 | XMS REPORT ---
Author Author LETA ROJAS [facility] Address [address] [place] [address] Care Team Providers Care Senior Software Qa Engineer Name Role Phone LETA ROJAS Unavailable PROBLEMS Type Condition ICD9-CM Code TRQ88-[id number] Code Onset Dates Condition Status SNOMED Code Problem Type 2 diabetes mellitus without complication, without long-term current use of insulin E11.9 Active 511985016 Problem Seasonal allergies J30.2 Active 741990269 Problem Sleep apnea, unspecified type G47.30 Active 16922040 Problem Essential hypertension I10 Active 36738686 Problem ESTHELA (obstructive sleep apnea) G47.33 Active 33444343 Problem Left elbow pain M25.522 Active 20248085 Problem BMI 50.0-59.9, adult Z68.43 Active 424524097 ALLERGIES No Information ENCOUNTERS Encounter Location Date Diagnosis [place] [address] [address] Oct, [place] [address] [address]- [address] Aug, [place] [address] [address]- [address] Aug, [place] [address] 17987- [address]657 Aug, BMI 50.0-59.9, adult Z68.43 ; Sleep apnea, unspecified type G47.30 and Seasonal allergies J30.2 [place] [address] 6[address]- [address] July, Left elbow pain M25.522 ; BMI 50.0-59.9, adult Z68.43 and Essential hypertension I10 [place] [address] 19797- [address] Jun, [facility] [id number] [place] [address] 36659- 8294 Jun, Abdominal wall pain R10.9 and BMI 50.0-59.9, adult Z68.43 [place] [id number] [place] [address] 46636- 2572 Jun, [facility] [address] [id number] [place] [address] 76266- 8002 Jun, Left lower quadrant pain R10.32 ; Blood in stool K92.1 and BMI 50.0-59.9, adult Z68.43 [place] [id number] [place] [address] 96201- [address] May, [place] [address] [id number] [place] [address] 39357- 6270 May, [place] [id number] [place] [address] 42940- 4154 May, Type 2 diabetes mellitus without complication, without long- term current use of insulin E11.9 ; BMI 50.0-59.9, adult Z68.43 and Generalized abdominal pain R10.84 [facility] [address] [address] May, [place] [address] [place] [address] 53088- 6852 May, [facility] [address] [place] [address] 67033- 4777 Mar, [facility] [address] [id number] [place] [address] 03635 -2880 Mar, [facility] [id number] [place] [address] 4[address]- 2627 Mar, Type 2 diabetes mellitus without complication, without long- term current use of insulin E11.9 ; BMI 50.0-59.9, adult Z68.43 ; Acute suppurative otitis media of both ears without spontaneous rupture of tympanic membranes, recurrence not specified H66.003 ; ESTHELA (obstructive sleep apnea) G47.33 and Essential hypertension I10 [facility] [address] [id number] [place] [address] 98849- 6820 Mar, [facility] [address] [place] [id number] [place] [address]43 -[address]695 Feb, BMI 50.0-59.9, adult Z68.43 ; Encounter for immunization Z23 and Cough R05 [facility] [address] [address]- [address] Jan, [facility] [address] 86[address]- 9876 Jan, [facility] [address] [place] [id number] [place] [address] 75498 -[address]296 Jan, Type 2 diabetes mellitus without complication, without long -term current use of insulin E11.9 ; BMI 50.0-59.9, adult Z68.43 ; BMI 60.0-69.9 , adult Z68.44 and Family history of coronary artery disease Z82.49 IMMUNIZATIONS No Known Immunizations SOCIAL HISTORY Never Assessed REASON FOR VISIT PLAN OF CARE VITAL SIGNS MEDICATIONS Unknown Medications RESULTS No Results PROCEDURES No Known procedures INSTRUCTIONS MEDICATIONS ADMINISTERED No Known Medications MEDICAL (GENERAL) HISTORY Type Description Date Medical History Type 2 Diabetes Medical History Sleep apnea Surgical History section x2 Surgical History lumpectomy, right breast Surgical History cholecystectomy Surgical History bilateral tubal ligation (BTL) Hospitalization History Collapsed lung-Coma for 9 days 2008 Hospitalization History Chest pain/pulled muscle in chest-[facility] [place], [place] 2011
[2017-09-22 19:59] LABS: BASOPHILS % (AUTO) 0 % (0-10); EOSINOPHILS # (AUTO) 0.1 10^3/uL (0.0-0.3); EOSINOPHILS % (AUTO) 1 % (0-10); HEMATOCRIT 41 % (35-52); HEMOGLOBIN 13.8 G/DL (11.5-16.0); LYMPHOCYTES # (AUTO) 1.6 X 10^3 (1.0-4.0); LYMPHOCYTES % (AUTO) 25 % (12-44); MEAN CORPUSCULAR HEMOGLOBIN 31 PG (25-34); MEAN CORPUSCULAR HGB CONC 34 G/DL (32-36); MEAN CORPUSCULAR VOLUME 91 FL (80-99); MONOCYTES # (AUTO) 0.4 X 10^3 (0.0-1.0); MONOCYTES % (AUTO) 6 % (0-12); NEUTROPHILS # (AUTO) 4.4 X 10^3 (1.8-7.8); NEUTROPHILS % (AUTO) 67 % (42-75); PLATELET COUNT 280 10^3/uL (130-400); RED BLOOD COUNT 4.44 10^6/uL (4.35-5.85); RED CELL DISTRIBUTION WIDTH 13.4 % (10.0-14.5); WHITE BLOOD COUNT 6.5 10^3/uL (4.3-11.0)
[2017-09-22 20:11] LABS: ALANINE AMINOTRANSFERASE 51 U/L (0-55); ALBUMIN 3.9 GM/DL (3.2-4.5); ALKALINE PHOSPHATASE 112 U/L (40-136); BILIRUBIN,TOTAL 0.6 MG/DL (0.1-1.0); BUN/CREATININE RATIO 9; CALCIUM 9.6 MG/DL (8.5-10.1); CARBON DIOXIDE 25 MMOL/L (21-32); CHLORIDE 101 MMOL/L (98-107); CREATININE SERUM 0.65 MG/DL (0.60-1.30); GFR ESTIMATED > 60; GLUCOSE 214 MG/DL (70-105); SODIUM 140 MMOL/L (135-145); TOTAL PROTEIN 6.7 GM/DL (6.4-8.2)
--- NOTE | 2017-09-22 20:12 | ED Chest Pain ---
General Chief Complaint: Chest Pain Stated Complaint: CHEST PAIN/NECK AND ARM PAIN Nursing Triage Note: PATIENT STATES THAT SHE WOKE UP WITH SEVERE CHEST PAIN THAT RADIATES DOWN BILAT ARMS AND UP NECK. SHE IS ALSO SOA AND NAUSEATED. SHE STATES IT HURTS HER CHEST TO WEAR A BRA.SHE ALSO STATES THAT ROLAIDS AND XANAX HAVE NOT HELPED HER SYMPTOMS. Nursing Sepsis Screen: No Definite Risk Source: patient Exam Limitations: no limitations History of Present Illness Date Seen by Provider: Sep 22, 2017 Time Seen by Provider: 20:10 Initial Comments to ER per private vehicle with reports of chest pain left-sided in location that radiates to the left arm and left side of her neck constant since this morning. She does have associated shortness of breath. She is overweight and diabetic. She denies any history of this. Timing/Duration: 12 hours Severity/Quality: moderate Location: central Radiation: arms, neck Activities at Onset: none ASA po SHOPPING INSPECTOR: No NTG SL SHOPPING INSPECTOR: No Allergies and Home Medications Allergies Coded Allergies: fentanyl (Verified Allergy, Severe, SOA, 02/12/17) morphine (Verified Allergy, Severe, SOA, 02/12/17) Penicillins (Verified Allergy, Unknown, 02/12/17) codeine (Verified Allergy, Unknown, 02/12/17) hydromorphone (Verified Allergy, Unknown, 02/12/17) iodine (Verified Allergy, Unknown, 02/12/17) latex (Verified Allergy, Unknown, 02/12/17) tramadol (Verified Allergy, Unknown, 02/12/17) Home Medications Dicyclomine HCl 20 Mg Tablet, 20 MG PO QID Prescribed by: CLAIRE DE LEON on 06/19/17 1738 Doxycycline Monohydrate 100 Mg Tablet, 100 MG PO BID Prescribed by: CLAIRE DE LEON on 09/22/17 2108 Naproxen 500 Mg Tablet, 500 MG PO BID PRN for PAIN-MODERATE TO SEVERE Prescribed by: CLAIRE DE LEON on 07/28/17 2243 Ondansetron 8 Mg Tab.rapdis, 8 MG PO Q6H PRN for NAUSEA/VOMITING-1ST LINE Prescribed by: CLAIRE DE LEON on 05/17/17 1918 Patient Home Medication List Home Medication List Reviewed: Yes Review of Systems Constitutional: see HPI EENTM: No Symptoms Reported Respiratory: No Symptoms Reported Cardiovascular: See HPI, Chest Pain Gastrointestinal: See HPI Genitourinary: No Symptoms Reported Musculoskeletal: no symptoms reported Skin: no symptoms reported Psychiatric/Neurological: No Symptoms Reported Endocrine: No Symptoms Reported Hematologic/Lymphatic: No Symptoms Reported Past Mliiumm-Suicxh-Afupzg Hx Patient Social History Type Used: Cigarettes 2nd Hand Smoke Exposure: No Recent Foreign Travel: No Contact w/Someone Who Travel: No Recent Infectious Disease Expo: No Recent Hopitalizations: No Seasonal Allergies Seasonal Allergies: No Past Medical History Surgeries: Yes ( X 2; BTL; BREAST BIOPSY-BENIGN) Breast, Section, Gallbladder, Tubal Ligation Respiratory: Yes (PT STATES SHE WAS ON A VENTILATOR AND IN A COMA AFTER THE OF A CHILD) Cardiac: No Neurological: Yes (PT STATES SHE WAS ON A VENTILATOR AND IN A COMA AFTER THE OF A CHILD) Stroke Female Reproductive Disorders: Denies 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 Genitourinary: No Gastrointestinal: No Musculoskeletal: Yes (FREQUENT FALLY) Chronic Back Pain Endocrine: Yes (MORBID OBESITY) Diabetes, Non-Insulin dep HEENT: No Cancer: No Psychosocial: Yes Anxiety, Depression Integumentary: No Blood Disorders: No Physical Exam Vital Signs Vital Signs - First Documented 09/22/17 19:33 Temp 98.8 Pulse 90 Resp 18 B/P (MAP) 141/91 (108) Pulse Ox 95 O2 Delivery Room Air Capillary Refill : Less Than 3 Seconds General Appearance: No Apparent Distress, WD/WN, Obese, Other (no distress, heart rate 88, oxygen saturation 96% on room air.) HEENT: PERRL/EOMI, TMs Normal Neck: Full Range of Motion, Normal Inspection Respiratory: No Accessory Muscle Use, No Respiratory Distress Cardiovascular: Regular Rate, Rhythm, Normal Peripheral Pulses Gastrointestinal: Normal Bowel Sounds, Non Tender, Soft Extremity: Normal Capillary Refill, Normal Inspection Neurologic/Psychiatric: Alert, Oriented x3 Skin: Normal Color, Warm/Dry Progress/Results/Core Measures Results/Orders Lab Results Laboratory Tests Test 09/22/17 19:39 09/22/17 19:58 09/22/17 20:05 Range/Units White Blood Count 6.5 4.3-11.0 10^3/uL Red Blood Count 4.44 4.35-5.85 10^6/uL Hemoglobin 13.8 11.5-16.0 G/DL Hematocrit 41 35-52 % Mean Corpuscular Volume 91 80-99 FL Mean Corpuscular Hemoglobin 31 25-34 PG Mean Corpuscular Hemoglobin Concent 34 32-36 G/DL Red Cell Distribution Width 13.4 10.0-14.5 % Platelet Count 280 130-400 10^3/uL Mean Platelet Volume 9.0 7.4-10.4 FL Neutrophils (%) (Auto) 67 42-75 % Lymphocytes (%) (Auto) 25 12-44 % Monocytes (%) (Auto) 6 0-12 % Eosinophils (%) (Auto) 1 0-10 % Basophils (%) (Auto) 0 0-10 % Neutrophils # (Auto) 4.4 1.8-7.8 X 10^3 Lymphocytes # (Auto) 1.6 1.0-4.0 X 10^3 Monocytes # (Auto) 0.4 0.0-1.0 X 10^3 Eosinophils # (Auto) 0.1 0.0-0.3 10^3/uL Basophils # (Auto) 0.0 0.0-0.1 10^3/uL Sodium Level 140 135-145 MMOL/L Potassium Level 4.0 3.6-5.0 MMOL/L Chloride Level 101 98-107 MMOL/L Carbon Dioxide Level 25 21-32 MMOL/L Anion Gap 14 5-14 MMOL/L Blood Urea Nitrogen 6 L 7-18 MG/DL Creatinine 0.65 0.60-1.30 MG/DL Estimat Glomerular Filtration Rate > 60 BUN/Creatinine Ratio 9 Glucose Level 214 H 70-105 MG/DL Calcium Level 9.6 8.5-10.1 MG/DL Total Bilirubin 0.6 0.1-1.0 MG/DL Aspartate Amino Transf (AST/SGOT) 45 H 5-34 U/L Alanine Aminotransferase (ALT/SGPT) 51 0-55 U/L Alkaline Phosphatase 112 40-136 U/L Troponin I < 0.30 <0.30 NG/ML Total Protein 6.7 6.4-8.2 GM/DL Albumin 3.9 3.2-4.5 GM/DL D-Dimer 0.38 0.00-0.49 UG/ML B-Type Natriuretic Peptide 34.3 <100.0 PG/ML Urine Color YELLOW Urine Clarity CLEAR Urine pH 6 5-9 Urine Specific [place] 1.020 1.016-1.022 Urine Protein 3+ H NEGATIVE Urine Glucose (UA) 3+ H NEGATIVE Urine Ketones NEGATIVE NEGATIVE Urine Nitrite NEGATIVE NEGATIVE Urine Bilirubin NEGATIVE NEGATIVE Urine Urobilinogen NORMAL NORMAL MG/DL Urine Leukocyte Esterase 1+ H NEGATIVE Urine RBC (Auto) NEGATIVE NEGATIVE Urine RBC NONE /HPF Urine WBC 2-5 /HPF Urine Squamous Epithelial Cells 5-10 /HPF Urine Crystals NONE /LPF Urine Bacteria TRACE /HPF Urine Casts NONE /LPF Urine Mucus NEGATIVE /LPF Urine Culture Indicated NO My Orders Orders - CLAIRE DE LEON APRN Cbc With Automated Diff (09/22/17 19:53) Comprehensive Metabolic Panel (09/22/17 19:53) Ua Culture If Indicated (09/22/17 19:53) Urine Bedside (09/22/17 19:53) Iv Heplock-Insert (Order) (09/22/17 19:53) Ekg Tracing (09/22/17 19:53) Troponin I (09/22/17 19:53) Chest Pa/Lat (2 View) (09/22/17 19:53) BNP (09/22/17 20:08) Ketorolac Injection (Toradol Injection) (09/22/17 20:15) Orphenadrine Injection (Norflex Injectio (09/22/17 20:15) Fibrin Degradation Products (09/22/17 20:10) Albuterol/Ipra Inhalation Soln (Duoneb I (09/22/17 20:30) Svn Small Volume Nebulizer (09/22/17 20:29) Medications Given in ED Current Medications Medications Dose Ordered Sig/Maurice Route Start Time Stop Time Status Last Admin Dose Admin Albuterol/ Ipratropium 3 ml ONCE ONCE INH 09/22/17 20:30 09/22/17 20:31 DC 09/22/17 20:38 3 ML Ketorolac Tromethamine 15 mg ONCE ONCE IVP 09/22/17 20:15 09/22/17 20:16 DC 09/22/17 20:31 15 MG Orphenadrine Citrate 60 mg ONCE ONCE IV 09/22/17 20:15 09/22/17 20:16 DC 09/22/17 20:31 60 MG Vital Signs/I&O 09/22/17 09/22/17 19:33 20:38 Temp 98.8 Pulse 90 Resp 18 B/P (MAP) 141/91 (108) Pulse Ox 95 96 O2 Delivery Room Air Room Air Blood Pressure Mean: 108 Urine -Bedside: Negative Diagnostic Imaging Diagonstic Imaging: Xray Plain Films/CT/US/NM/MRI: chest Comments NAME: [facility] REC#: [id number] PT STATUS: REG ER : 1980 PHYSICIAN: CLAIRE DE LEON APRN ADMIT DATE: 09/22/17/ER Draft Date of Exam:09/22/17 CHEST PA/LAT (2 VIEW) INDICATION: Left upper chest pain. COMPARISON: 02/12/2017. FINDINGS: Stable asymmetric elevation of right hemidiaphragm. There is a small amount of compressive subsegmental atelectasis in the right lung base associated with the asymmetric hemidiaphragm elevation. Potential patchy opacities in left lower lobe in retrocardiac position. No pleural effusion or pneumothorax. Heart is normal in size. IMPRESSION: Potential patchy airspace consolidations in left lower lobe. If patient has appropriate symptoms, this could represent pneumonia. Otherwise, this may be due to atelectasis. Dictated on workstation # [id number] Dict: 09/22/172048 Trans: 09/22/17 2100 [facility] [id number] Interpreted by: EVELYN BLACKBURN MD Electronically signed by: Departure Communication (Admissions) 2110-feeling better at this time, sleeping. Oxygen saturation 94% rroom air. Did not notice any improvement after the DuoNeb. Impression Primary Impression: LLL pneumonia Disposition: HOME, SELF-CARE Condition: Stable/Unchanged Departure-Patient Inst. Decision time for Depature: 21:07 Referrals: CONNIE MALAVE MD (PCP) Primary Care Physician [facility]/JAMIE (Family) Primary Care Physician Patient Instructions: Community-Acquired Pneumonia in Adults Add. Discharge Instructions: Antibiotics as directed starting tomorrow. Return to ER for any worsening shortness of breath, high fevers or other concerns. Follow-up with your doctor later this week. Scripts Doxycycline Monohydrate (Doxycycline Monohydrate) 100 Mg Tablet 100 MG PO BID, #14 TAB Prov: CLAIRE DE LEON APRN 09/22/17 Work/School Note: Work Release Form Date Seen in the Emergency Department: Sep 22, 2017 Return to Work: Sep 25, 2017 CLAIRE DE LEON APRN Sep 22, 2017 20:12
[2017-09-22 20:13] LABS: BILIRUBIN,URINE NEGATIVE (NEGATIVE); CLARITY,URINE CLEAR; COLOR,URINE YELLOW; GLUCOSE, URINE (UA) 3+ (NEGATIVE); KETONES,URINE NEGATIVE (NEGATIVE); LEUKOCYTE ESTERASE ,URINE 1+ (NEGATIVE); NITRITE,URINE NEGATIVE (NEGATIVE); PH,URINE 6 (5-9); PROTEIN,URINE 3+ (NEGATIVE); UROBILINOGEN,URINE NORMAL (NORMAL)
[2017-09-22] MEDS ORDERED: ORPHENADRINE 60 MG/2 ML (NORFLEX) AMP IV ONE (20:15)
[2017-09-22] MEDS ORDERED: KETOROLAC 30 MG/ML VIAL IVP ONE (20:15)
[2017-09-22 20:25] LABS: BACTERIA,URINE TRACE /HPF
[2017-09-22] MEDS ORDERED: RT-ALBUTEROL/IPRATROPIUM 3 ML (DUONEB) VIAL INH ONE (20:30)
--- NOTE | 2017-09-22 21:01 | Diagnostic Imaging Report ---
INDICATION: Left upper chest pain. COMPARISON: 02/12/2017. FINDINGS: Stable asymmetric elevation of right hemidiaphragm. There is a small amount of compressive subsegmental atelectasis in the right lung base associated with the asymmetric hemidiaphragm elevation. Potential patchy opacities in left lower lobe in retrocardiac position. No pleural effusion or pneumothorax. Heart is normal in size. IMPRESSION: Potential patchy airspace consolidations in left lower lobe. If patient has appropriate symptoms, this could represent pneumonia. Otherwise, this may be due to atelectasis. Dictated by: Dictated on workstation # [id number]
[2017-09-22] MEDS ORDERED: DOXY100T19 PO (21:08)
[2017-09-22] MEDS ORDERED: DOXYCYCLINE 100 MG (VIBRAMYCIN) TABLET PO SCH (21:15)
[2017-09-22 21:19] VITALS: BP 141/91
== END 2017-09-22 21:22 | disposition home or self-care (01) ==
LOC: EDUNIT# 19:31 → ER 19:32
DX: J18.1 Lobar pneumonia, unspecified organism (principal); E66.01 Morbid (severe) obesity due to excess calories; F41.9 Anxiety disorder, unspecified; F32.9 Major depressive disorder, single episode, unspecified; E11.9 Type 2 diabetes mellitus without complications; Z86.73 Personal history of transient ischemic attack (TIA), and cerebral infarction without residual deficits; Z87.59 Personal history of other complications of pregnancy, childbirth and the puerperium; Z98.51 Tubal ligation status; Z98.890 Other specified postprocedural states; Z88.5 Allergy status to narcotic agent; Z88.0 Allergy status to penicillin; Z88.6 Allergy status to analgesic agent; Z88.8 Allergy status to other drugs, medicaments and biological substances; Z91.040 Latex allergy status; Z68.43 Body mass index [BMI] 50.0-59.9, adult
CPT/HCPCS: 36415; 71046; 80053; 81000; 83880; 84484; 84703; 85025; 85379; 93005; 94640; 96374; 96375

== ENCOUNTER → 2017-10-16 | Outpatient (CLI) | payer MEDICAID ==
[~2017-10-16] MED LIST changes: +DOXY100T19 PO; +REGADENOSON 0.4 MG/5 ML SYR (LEXISCAN) IV ONE
[2017-10-16] MEDS: CATHETER FLUSH 10 ML SYR IV PRN ×2 (07:52→09:26)
[2017-10-16 09:24] VITALS: BP 140/93
--- NOTE | 2017-10-16 17:07 | Cardiology Stress Test Report ---
Stress Test Report Type of NM Stress Test: Test Type: LEXISCAN 0.4MG/5ML Date of Procedure/Referring: Date of Procedure: Oct 16, 2017 PCP Kerry Boland MD Admitting Physician Kerry Boland MD Indications: Atypical chest pain, diabetes, morbid obesity. Baseline Blood Pressure: Blood Pressure Systolic: 140 Blood Pressure Diastolic: 93 Summary: The patient was brought to the stress lab after informed consent was taken. Lexiscan stress test was performed according to the protocol. 0.4 mg of IV Lexiscan was given. Low-grade exercise was performed. Baseline EKG showed sinus rhythm at 85 BPM with blood pressure 153/90 mmHg. Maximum heart rate of 107 bpm and blood pressure of 140/93 mmHg. No chest pain, EKG changes or arrhythmias were noted. 10.42 mCi of Myoview were given for rest imaging and 31.1 mCi of Myoview were given for stress imaging. Transient ischemic dilatation score 1.11. Ejection fraction 61 percent with no wall motion abnormalities. Nondiagnostic due to morbid obesity. Conclusion: Nondiagnostic myocardial perfusion imaging due to morbid obesity. Coronary angiography is recommended if high risk for obstructive CAD. Hesham ROCA MD Oct 16, 2017 5:07 pm
== END ==
LOC: CARD 07:32
PROVIDERS: ATTEND Family Medicine
DX: R07.89 Other chest pain (principal)
CPT/HCPCS: 78452; 93017

== ENCOUNTER 2017-12-09 21:09 | Emergency (ER) | payer MEDICAID ==
[~2017-12-09] VITALS: Ht 185.4 cm; Wt 176.0 kg
[~2017-12-09 21:09] MED LIST changes: +METF-397; -METF500T5; -REGADENOSON 0.4 MG/5 ML SYR (LEXISCAN) IV ONE
--- OUTSIDE RECORDS SUMMARY | 2017-12-09 21:14 | XMS REPORT ---
Author Author CONNIE MALAVE Organization [facility] Address [address] [place] [address] Care Team Providers Care Aeroplane Pilot Name Role Phone CONNIE MALAVE Unavailable PROBLEMS Type Condition ICD9-CM Code [id number] Code Onset Dates Condition Status SNOMED Code Problem Type 2 diabetes mellitus without complication, without long-term current use of insulin E11.9 Active 679293411 Problem Seasonal allergies J30.2 Active 390729132 Problem Sleep apnea, unspecified type G47.30 Active 27843844 Problem Essential hypertension I10 Active 73468424 Problem ESTHELA (obstructive sleep apnea) G47.33 Active 10892806 Problem Left elbow pain M25.522 Active 19629351 Problem BMI 50.0-59.9, adult Z68.43 Active 823147619 ALLERGIES No Information ENCOUNTERS Encounter Location Date Diagnosis [facility] [address] [address] Dec, [facility] [address] [address] Nov, [facility] [id number] [place] [address] Nov, [facility] [address] [address] 17 Nov, 2017 [facility] [address] [address] 12 Nov, 2017 BMI 50.0-59.9, adult Z68.43 and Viral gastroenteritis A08.4 [facility] [id number] [place] [address] Oct, Injury of left knee, initial encounter S89.92XA and BMI 50.0-59.9, adult Z68.43 [place] [id number] [place] [address] Oct, [place] [address] [address] Sep, Atypical chest pain R07.89 ; Pneumonia due to infectious organism, unspecified laterality, unspecified part of lung J18.9 ; BMI 50.0-59.9 , adult Z68.43 and Sleep apnea, unspecified type G47.30 [place] [address] [address] Aug, [place] [address] [address] Aug, BMI 50.0-59.9, adult Z68.43 ; Sleep apnea, unspecified type G47.30 ; Seasonal allergies J30.2 and Generalized abdominal pain R10.84 [place] [address] [address] July, Left elbow pain M25.522 ; BMI 50.0-59.9, adult Z68.43 and Essential hypertension I10 [place] [address] [address] Jun, [place] [id number] [place] [address] Jun, Abdominal wall pain R10.9 and BMI 50.0-59.9, adult Z68.43 [place] [id number] [place] [address] Jun, [place] [address] [address] Jun, Left lower quadrant pain R10.32 ; Blood in stool K92.1 and BMI 50.0-59.9, adult Z68.43 [place] [id number] [place] [address] May, [place] [id number] [place] [address] May, [place] [id number] [place] [address] May, Type 2 diabetes mellitus without complication, without long- term current use of insulin E11.9 ; BMI 50.0-59.9, adult Z68.43 and Generalized abdominal pain R10.84 [facility] [place] [id number] [place] [address] May, [place] [id number] [place] [address] May, [place] [id number] [place] [address] Mar, [facility] [place] [id number] [place] [address] Mar, [place] [id number] [place] [address] Mar, Type 2 diabetes mellitus without complication, without long- term current use of insulin E11.9 ; BMI 50.0-59.9, adult Z68.43 ; Acute suppurative otitis media of both ears without spontaneous rupture of tympanic membranes, recurrence not specified H66.003 ; ESTHELA (obstructive sleep apnea) G47.33 and Essential hypertension I10 [place] [id number] [place] [address] Mar, [facility] [place] [id number] [place] [address] Feb, BMI 50.0-59.9, adult Z68.43 ; Encounter for immunization Z23 and Cough R05 [place] [id number] [place] [address] Jan, [place] [id number] [place] [address] Jan, [facility] [id number] [place] [address] Jan, Type 2 diabetes mellitus without complication, without long -term current use of insulin E11.9 ; BMI 50.0-59.9, adult Z68.43 ; BMI 60.0-69.9 , adult Z68.44 and Family history of coronary artery disease Z82.49 IMMUNIZATIONS No Known Immunizations SOCIAL HISTORY Never Assessed REASON FOR VISIT Requests return call PLAN OF CARE VITAL SIGNS MEDICATIONS Unknown [...] Hospitalization History Chest pain/pulled muscle in chest-[facility] [place], [place] 2011
--- OUTSIDE RECORDS SUMMARY | 2017-12-09 21:15 | XMS REPORT ---
Author Author CONNIE MALAVE Organization [facility] Address [address] [place] [address] Care Team Providers Care Digester Name Role Phone CONNIE MALAVE Unavailable PROBLEMS Type Condition ICD9-CM Code [id number] Code Onset Dates Condition Status SNOMED Code Problem Type 2 diabetes mellitus without complication, without long-term current use of insulin E11.9 Active 865017104 Problem Seasonal allergies J30.2 Active 252832145 Problem Sleep apnea, unspecified type G47.30 Active 01049533 Problem Essential hypertension I10 Active 11015846 Problem ESTHELA (obstructive sleep apnea) G47.33 Active 39033953 Problem Left elbow pain M25.522 Active 72141063 Problem BMI 50.0-59.9, adult Z68.43 Active 659633099 ALLERGIES Substance Reaction Event Type Date Status Penicillin G Sodium Unknown Drug Allergy Jun, Active Iodine Unknown Drug Allergy Jun, Active "all pain meds except Hydrocodone" Unknown Non Drug Allergy Jun, Active ENCOUNTERS Encounter Location Date Diagnosis [place] [id number] [place] [address] Nov, [place] [id number] [place] [address] Oct, [facility] [id number] [place] [address] Sep, Atypical chest pain R07.89 ; Pneumonia due to infectious organism, unspecified laterality, unspecified part of lung J18.9 ; BMI 50.0-59.9 , adult Z68.43 and Sleep apnea, unspecified type G47.30 [place] [id number] [place] [address] Aug, [place] [address] [place] [address] Aug, BMI 50.0-59.9, adult Z68.43 ; Sleep apnea, unspecified type G47.30 ; Seasonal allergies J30.2 and Generalized abdominal pain R10.84 [place] [id number] [place] [address] July, Left elbow pain M25.522 ; BMI 50.0-59.9, adult Z68.43 and Essential hypertension I10 [place] [address] [address] Jun, [place] [address] [address] Jun, Abdominal wall pain R10.9 and BMI 50.0-59.9, adult Z68.43 [place] [address] [address] Jun, [place] [address] [address] Jun, Left lower quadrant pain R10.32 ; Blood in stool K92.1 and BMI 50.0-59.9, adult Z68.43 [place] [id number] [place] [address] May, [place] [id number] [place] [address] May, [place] [address] [address] May, Type 2 diabetes mellitus without complication, without long- term current use of insulin E11.9 ; BMI 50.0-59.9, adult Z68.43 and Generalized abdominal pain R10.84 [facility] [id number] [place] [address] May, [place] [address] [address] May, [place] [id number] [place] [address] Mar, [place] [address] [address] Mar, [place] [address] [address] Mar, Type 2 diabetes mellitus without complication, without long- term current use of insulin E11.9 ; BMI 50.0-59.9, adult Z68.43 ; Acute suppurative otitis media of both ears without spontaneous rupture of tympanic membranes, recurrence not specified H66.003 ; ESTHELA (obstructive sleep apnea) G47.33 and Essential hypertension I10 [place] [address] [address] Mar, [place] [address] [address] Feb, BMI 50.0-59.9, adult Z68.43 ; Encounter for immunization Z23 and Cough R05 [address] [address] Jan, [place] [address] [address] Jan, [place] [address] [address] Jan, Type 2 diabetes mellitus without complication, without long -term current use of insulin E11.9 ; BMI 50.0-59.9, adult Z68.43 ; BMI 60.0-69.9 , adult Z68.44 and Family history of coronary artery disease Z82.49 IMMUNIZATIONS Vaccine Route Administration Date Status TORADOL (IM) 60 MG/2ML (UP TO 15 MG) IM Intramuscular July 09, 2017 Administered SOCIAL HISTORY Never Assessed REASON FOR VISIT trouble walking/pain --tcuppettRn, -Left groin/lower abd pain x 1 week PLAN OF CARE Activity Details Follow Up 2 Weeks with Krystian for f.u abd pain Reason: VITAL SIGNS Height 71.5 in 2017-07-09 Weight 404.4 lbs 2017-07-09 Temperature 97.5 degrees Fahrenheit 2017-07-09 Heart Rate 88 bpm 2017-07-09 Respiratory Rate 20 2017-07-09 BMI 55.61 kg/m2 2017-07-09 Blood pressure systolic 138 mmHg 2017-07-09 Blood pressure diastolic 90 mmHg 2017-07-09 MEDICATIONS Medication Instructions Dosage Frequency Start Date End Date Duration Status Glucocard Expression Monitor w/Device as directed Jan, Active Janumet 50-500 MG Orally Twice a day 1 tablet with meals 12h May, 30 day(s) Active Test strips glucocard expression Mar, Active Prozac 40 MG Orally Once a day 1 capsule 24h Active Glucocard Expression Test - In Vitro 2 times a day as directed 12h Jan, Active Metformin HCl 500 mg Orally Twice a day 1 tablet with meals 12h Mar, 30 day(s) Not-Taking Ondansetron HCl 8 MG Active Dicyclomine HCl 20 mg Orally 2 times a day 1 tablet 12h May, Sep, 30 day(s) Not-Taking Ranitidine HCl 150 MG Orally Once a day 1 tablet at bedtime 24h May, 30 day(s) Active RESULTS No Results PROCEDURES Procedure Date Ordered Result Body Site TORADOL (IM) 60 MG/2ML (UP TO 15 MG) July 09, 2017 THER/PROPH/DIAG INJ, SC/IM July 09, 2017 INSTRUCTIONS MEDICATIONS ADMINISTERED No Known Medications MEDICAL (GENERAL) HISTORY Type Description Date Medical History Type 2 Diabetes Medical History Sleep apnea Surgical History section x2 Surgical History lumpectomy, right breast Surgical History cholecystectomy Surgical History bilateral tubal ligation (BTL) Hospitalization History Collapsed lung-[facility] for 9 days 2008 Hospitalization History Chest pain/pulled muscle in chest-[facility] [place], [place] 2011
--- OUTSIDE RECORDS SUMMARY | 2017-12-09 21:15 | XMS REPORT ---
Author Author CONNIE MALAVE Organization [facility] Address [address] [place] [address] Care Team Providers Care Transferrer Name Role Phone CONNIE MALAVE Unavailable PROBLEMS Type Condition ICD9-CM Code FUU54-ZE Code Onset Dates Condition Status SNOMED Code Problem Type 2 diabetes mellitus without complication, without long-term current use of insulin E11.9 Active 058123784 Problem Seasonal allergies J30.2 Active 938468832 Problem Sleep apnea, unspecified type G47.30 Active 30605671 Problem Essential hypertension I10 Active 10085883 Problem ESTHELA (obstructive sleep apnea) G47.33 Active 77697232 Problem Left elbow pain M25.522 Active 00287003 Problem BMI 50.0-59.9, adult Z68.43 Active 624063349 ALLERGIES Substance Reaction Event Type Date Status Penicillin G Sodium Unknown Drug Allergy Sep, Active Iodine Unknown Drug Allergy Sep, Active "all pain meds except Hydrocodone" Unknown Non Drug Allergy Sep, Active ENCOUNTERS Encounter Location Date Diagnosis [facility] [id number] [place] [address] 11687- 6416 Nov, [facility] [id number] [place] [address] 46428- 2494 Nov, [facility] [id number] [place] [address] 28037- 3732 Nov, [facility] [id number] [place] [address] 89037 -3075 Oct, Injury of left knee, initial encounter S89.92XA and BMI 50.0-59.9, adult Z68.43 [facility] [id number] [place] [address] 79840- 2156 Oct, [facility] [id number] [place] [address] 54674- 6449 Sep, Atypical chest pain R07.89 ; Pneumonia due to infectious organism, unspecified laterality, unspecified part of lung J18.9 ; BMI 50.0-59.9 , adult Z68.43 and Sleep apnea, unspecified type G47.30 [place] [id number] [place] [address] 11528- 1176 Aug, [place] [address] 64082- 1194 Aug, BMI 50.0-59.9, adult Z68.43 ; Sleep apnea, unspecified type G47.30 ; Seasonal allergies J30.2 and Generalized abdominal pain R10.84 [place] [address] 16813- 4358 July, Left elbow pain M25.522 ; BMI 50.0-59.9, adult Z68.43 and Essential hypertension I10 [place] [address] 24593- 3232 Jun, [place] [address] 93385- 6122 18 Jun, 2017 Abdominal wall pain R10.9 and BMI 50.0-59.9, adult Z68.43 [place] [id number] [place] [address] 24342- 0093 Jun, [place] [address] 78437- 5131 Jun, Left lower quadrant pain R10.32 ; Blood in stool K92.1 and BMI 50.0-59.9, adult Z68.43 [place] [address] 99480- 9407 May, [place] [address] 31530- 3638 May, [place] [address] 69044- 0052 May, Type 2 diabetes mellitus without complication, without long- term current use of insulin E11.9 ; BMI 50.0-59.9, adult Z68.43 and Generalized abdominal pain R10.84 [facility] [place] [address] [address] May, [place] [address] 0[address]- 5733 May, [place] [address] 17952- 9351 Mar, [facility] [address] 158[address]9487 Mar, [place] [address] 86417- 2940 Mar, Type 2 diabetes mellitus without complication, without long- term current use of insulin E11.9 ; BMI 50.0-59.9, adult Z68.43 ; Acute suppurative otitis media of both ears without spontaneous rupture of tympanic membranes, recurrence not specified H66.003 ; ESTHELA (obstructive sleep apnea) G47.33 and Essential hypertension I10 [place] [address] 88439- 0695 Mar, [facility] [address] [address]89 Feb, BMI 50.0-59.9, adult Z68.43 ; Encounter for immunization Z23 and Cough R05 [address] [address]- [address]67 Jan, [address] 73372- 3437 Jan, [facility] [address] 71865 [address] Jan, Type 2 diabetes mellitus without complication, without long -term current use of insulin E11.9 ; BMI 50.0-59.9, adult Z68.43 ; BMI 60.0-69.9 , adult Z68.44 and Family history of coronary artery disease Z82.49 IMMUNIZATIONS No Known Immunizations SOCIAL HISTORY Never Assessed REASON FOR VISIT Pneumonia f/u , having shortness of breath -- perez ayala PLAN OF CARE Activity Details Follow Up 4 Weeks with Krystian waters stress testing Reason: Pending Test Lexiscan Stress Nuclear Test VITAL SIGNS Height 71.5 in 2017-10-01 Weight 405.0 lbs 2017-10-01 Temperature 98.7 degrees Fahrenheit 2017-10-01 Heart Rate 95 bpm 2017-10-01 Respiratory Rate 24 2017-10-01 Oximetry 95 % 2017-10-01 BMI 55.69 kg/m2 2017-10-01 Blood pressure systolic 138 mmHg 2017-10-01 Blood pressure diastolic 92 mmHg 2017-10-01 MEDICATIONS Medication Instructions Dosage Frequency Start Date End Date Duration Status Glucocard Expression Monitor w/Device as directed Jan, Active Aspir-81 81 MG Orally Once a day 1 tablet 24h 11 Sep, 2017 Oct, 30 day(s) Active Glucocard Expression Test - In Vitro 2 times a day as directed 12h 24 Jan, 2017 Active Ranitidine HCl 150 MG Orally Once a day 1 tablet at bedtime 24h May, 30 day(s) Active Janumet 50-500 MG Orally Twice a day 1 tablet with meals 12h May, 30 day(s) Active Prozac 40 MG Orally Once a day 1 capsule 24h Active Claritin 10 mg Orally Once a day 1 tablet 24h 13 Aug, 2017 Mar, 30 day(s) Active RESULTS No Results [...] Hospitalization History Chest pain/pulled muscle in chest[place], [place] 2011
--- OUTSIDE RECORDS SUMMARY | 2017-12-09 21:15 | XMS REPORT ---
Author Author CONNIE MALAVE Organization [facility] Address [address] [place] [address] Care Team Providers Care Orthotic Practitioner Name Role Phone CONNIE MALAVE Unavailable PROBLEMS Type Condition ICD9-CM Code PZP24-DN Code Onset Dates Condition Status SNOMED Code Problem Type 2 diabetes mellitus without complication, without long-term current use of insulin E11.9 Active 057164797 Problem Seasonal allergies J30.2 Active 605510748 Problem Sleep apnea, unspecified type G47.30 Active 57486427 Problem Essential hypertension I10 Active 57780909 Problem ESTHELA (obstructive sleep apnea) G47.33 Active 14138328 Problem Left elbow pain M25.522 Active 12151411 Problem BMI 50.0-59.9, adult Z68.43 Active 785866385 ALLERGIES No Information ENCOUNTERS Encounter Location Date Diagnosis [facility] [address] [address] 19 Nov, 2017 [facility] [address] 5[address] 5495 17 Nov, 2017 [facility] [address] 28881- 9969 Nov, [facility] [id number] [place] [address] 66313 -1002 Oct, Injury of left knee, initial encounter S89.92XA and BMI 50.0-59.9, adult Z68.43 [facility] [address] 88781- 8839 Oct, [facility] [id number] [place] [address] 57444- 7841 Sep, Atypical chest pain R07.89 ; Pneumonia due to infectious organism, unspecified laterality, unspecified part of lung J18.9 ; BMI 50.0-59.9 , adult Z68.43 and Sleep apnea, unspecified type G47.30 [place] [address] [place] [id number] [place] [address] 59799- 9146 28 Aug, 2017 [place] [address] [place] [id number] [place] [address] 03412- 1659 13 Aug, 2017 BMI 50.0-59.9, adult Z68.43 ; Sleep apnea, unspecified type G47.30 ; Seasonal allergies J30.2 and Generalized abdominal pain R10.84 [place] [address] 92072- 4612 July, Left elbow pain M25.522 ; BMI 50.0-59.9, adult Z68.43 and Essential hypertension I10 [place] [address] 92167- 9209 Jun, [place] [address] 47401- 4211 18 Jun, 2017 Abdominal wall pain R10.9 and BMI 50.0-59.9, adult Z68.43 [place] [address] [place] [id number] [place] [address] 73624- 7108 Jun, [place] [address] [place] [address] [id number] [place] [address] 52624- 8485 Jun, Left lower quadrant pain R10.32 ; Blood in stool K92.1 and BMI 50.0-59.9, adult Z68.43 [place] [address] [place] [id number] [place] [address] 25515- 9758 May, [place] [address] 31919- 1042 May, [place] [address] [place] [id number] [place] [address] 27465- 8075 May, Type 2 diabetes mellitus without complication, without long- term current use of insulin E11.9 ; BMI 50.0-59.9, adult Z68.43 and Generalized abdominal pain R10.84 [facility] [place] [address] [id number] [place] [address] 81143 -5356 May, [place] [address] 58455- 7707 May, [place] [address] 41314- 7176 Mar, [facility] [place] [address] [address] [id number] [place] [address] 35745 -9555 Mar, [place] [address] 52719- 9223 Mar, Type 2 diabetes mellitus without complication, without long- term current use of insulin E11.9 ; BMI 50.0-59.9, adult Z68.43 ; Acute suppurative otitis media of both ears without spontaneous rupture of tympanic membranes, recurrence not specified H66.003 ; ESTHELA (obstructive sleep apnea) G47.33 and Essential hypertension I10 [place] [address] [place] [id number] [place] [address] 98910- 0883 Mar, [facility] [place] [id number] [place] [address] 67602 -4343 Feb, BMI 50.0-59.9, adult Z68.43 ; Encounter for immunization Z23 and Cough R05 [place] [id number] [place] [address] 76399- 7286 Jan, [place] [address] [place] [id number] [place] [address] 54614- 8249 Jan, [facility] [place] [id number] [place] [address] 99517 -6528 Jan, Type 2 diabetes mellitus without complication, [...] Hospitalization History Chest pain/pulled muscle in chest-[facility], [place] 2011
--- OUTSIDE RECORDS SUMMARY | 2017-12-09 21:15 | XMS REPORT ---
Author Author CONNIE MALAVE Organization [facility] Address [address] [place] [address] Care Team Providers Care Cardiographer Name Role Phone CONNIE MALAVE Unavailable PROBLEMS Type Condition ICD9-CM Code ZIN56-CU Code Onset Dates Condition Status SNOMED Code Problem Type 2 diabetes mellitus without complication, without long-term current use of insulin E11.9 Active 495114623 Problem Seasonal allergies J30.2 Active 692094691 Problem Sleep apnea, unspecified type G47.30 Active 28160939 Problem Essential hypertension I10 Active 55397764 Problem ESTHELA (obstructive sleep apnea) G47.33 Active 36731967 Problem Left elbow pain M25.522 Active 82791797 Problem BMI 50.0-59.9, adult Z68.43 Active 542405879 ALLERGIES Substance Reaction Event Type Date Status Penicillin G Sodium Unknown Drug Allergy Aug, Active Iodine Unknown Drug Allergy Aug, Active "all pain meds except Hydrocodone" Unknown Non Drug Allergy Aug, Active ENCOUNTERS Encounter Location Date Diagnosis [facility] [address] [id number] [place] [address] 41156- 1159 Dec, [facility] [id number] [place] [address] 82704- 9602 Nov, [facility] [id number] [place] [address] 66359- 6651 Nov, [facility] [id number] [place] [address] 71034 -5115 Oct, Injury of left knee, initial encounter S89.92XA and BMI 50.0-59.9, adult Z68.43 [facility] [id number] [place] [address] 90778- 4693 Oct, [facility] [id number] [place] [address] 28555- 7522 Sep, Atypical chest pain R07.89 ; Pneumonia due to infectious organism, unspecified laterality, unspecified part of lung J18.9 ; BMI 50.0-59.9 , adult Z68.43 and Sleep apnea, unspecified type G47.30 [place] [address] [id number] [place] [address] 80453- 9564 Aug, [place] [address] 90758- 9759 Aug, BMI 50.0-59.9, adult Z68.43 ; Sleep apnea, unspecified type G47.30 ; Seasonal allergies J30.2 and Generalized abdominal pain R10.84 [place] [address] 67002- 5183 July, Left elbow pain M25.522 ; BMI 50.0-59.9, adult Z68.43 and Essential hypertension I10 [place] [address] 61807- 7513 Jun, [place] [address] 23204- 0569 18 Jun, 2017 Abdominal wall pain R10.9 and BMI 50.0-59.9, adult Z68.43 [place] [address] [place] [address] [id number] [place] [address] 06767- 8900 Jun, [place] [address] 09636- 9167 Jun, Left lower quadrant pain R10.32 ; Blood in stool K92.1 and BMI 50.0-59.9, adult Z68.43 [place] [address] 81319- 4915 May, [place] [address] 03804- 2132 May, [place] [address] 13502- 8181 May, Type 2 diabetes mellitus without complication, without long- term current use of insulin E11.9 ; BMI 50.0-59.9, adult Z68.43 and Generalized abdominal pain R10.84 [facility] [place] [address] 67897 -6939 May, [place] [address] 72705- 8967 May, [place] [address] 61451- 2890 Mar, [facility] [address] 36[address] -4309 Mar, [place] [address] 26391- 8558 Mar, Type 2 diabetes mellitus without complication, without long- term current use of insulin E11.9 ; BMI 50.0-59.9, adult Z68.43 ; Acute suppurative otitis media of both ears without spontaneous rupture of tympanic membranes, recurrence not specified H66.003 ; ESTHELA (obstructive sleep apnea) G47.33 and Essential hypertension I10 [place] [address] 13038- 9479 Mar, [facility] [address] 57566 -8731 Feb, BMI 50.0-59.9, adult Z68.43 ; Encounter for immunization Z23 and Cough R05 [address] 48710- 1811 Jan, [address] 58553- 9611 Jan, [facility] [address] 82823 -7819 Jan, Type 2 diabetes mellitus without complication, without long -term current use of insulin E11.9 ; BMI 50.0-59.9, adult Z68.43 ; BMI 60.0-69.9 , adult Z68.44 and Family history of coronary artery disease Z82.49 IMMUNIZATIONS No Known Immunizations SOCIAL HISTORY Never Assessed REASON FOR VISIT Weight management.--[email or web address], --Increased fatigue. Has sleep apnea, but does not have cpap machine. Never finished the testing for it in [place] before she moved., --Too early for DM visit. Needs to be after the for insurance PLAN OF CARE Activity Details Follow Up 3 Months with Krystian for weight management Reason: VITAL SIGNS Height 71.5 in 2017-09-03 Weight 408.5 lbs 2017-09-03 Temperature 98.2 degrees Fahrenheit 2017-09-03 Heart Rate 88 bpm 2017-09-03 Respiratory Rate 20 2017-09-03 BMI 56.17 kg/m2 2017-09-03 Blood pressure systolic 118 mmHg 2017-09-03 Blood pressure diastolic 82 mmHg 2017-09-03 MEDICATIONS Medication Instructions Dosage Frequency Start Date End Date Duration Status Glucocard Expression Test - In Vitro 2 times a day as directed 12h 24 Jan, 2017 Active Claritin 10 mg Orally Once a day 1 tablet 24h 13 Aug, 2017 Mar, 30 day(s) Active Janumet 50-500 MG Orally Twice a day 1 tablet with meals 12h May, 30 day(s) Active Naproxen 500 MG Orally every 12 hrs 1 tablet with food or milk as needed 12h Not-Taking Prozac 40 MG Orally Once a day 1 capsule 24h Active Glucocard Expression Monitor w/Device as directed Jan, Active Ranitidine HCl 150 MG Orally Once [...] Hospitalization History Chest pain/pulled muscle in chest[place], [place] 2011
--- OUTSIDE RECORDS SUMMARY | 2017-12-09 21:15 | XMS REPORT ---
Author Author CONNIE MALAVE Organization [facility] Address [address] [place] [address] Care Team Providers Care Floor Renovator Name Role Phone CONNIE MALAVE Unavailable PROBLEMS Type Condition ICD9-CM Code YPA64-LD Code Onset Dates Condition Status SNOMED Code Problem Type 2 diabetes mellitus without complication, without long-term current use of insulin E11.9 Active 473654608 Problem Seasonal allergies J30.2 Active 756724623 Problem Sleep apnea, unspecified type G47.30 Active 96059114 Problem Essential hypertension I10 Active 09401304 Problem ESTHELA (obstructive sleep apnea) G47.33 Active 35326337 Problem Left elbow pain M25.522 Active 51667839 Problem BMI 50.0-59.9, adult Z68.43 Active 203319721 ALLERGIES No Information ENCOUNTERS Encounter Location Date Diagnosis [place] [address] [place] [id number] [place] [address] 09951- 8987 Oct, [place] [address] 40269- 6173 Sep, Atypical chest pain R07.89 ; Pneumonia due to infectious organism, unspecified laterality, unspecified part of lung J18.9 ; BMI 50.0-59.9 , adult Z68.43 and Sleep apnea, unspecified type G47.30 [facility] [address] [place] [address] [id number] [place] [address] 12118- 7431 Aug, [place] [address] 53345- 1618 Aug, BMI 50.0-59.9, adult Z68.43 ; Sleep apnea, unspecified type G47.30 ; Seasonal allergies J30.2 and Generalized abdominal pain R10.84 [place] [address] [place] [id number] [place] [address] 56665- 3595 July, Left elbow pain M25.522 ; BMI 50.0-59.9, adult Z68.43 and Essential hypertension I10 [facility] [address] [place] [id number] [place] [address] 80143- 0062 Jun, [facility] [address] [place] [id number] [place] [address] 82985- 3410 Jun, Abdominal wall pain R10.9 and BMI 50.0-59.9, adult Z68.43 [facility] [address] [place] [id number] [place] [address] 70327- 8667 Jun, [facility] [address] [place] [id number] [place] [address] 54662- 8857 Jun, Left lower quadrant pain R10.32 ; Blood in stool K92.1 and BMI 50.0-59.9, adult Z68.43 [facility] [address] [place] [id number] [place] [address] 20976- 4267 30 May, 2017 [facility] [address] [place] [id number] [place] [address] 00966- 3619 May, [facility] [address] [place] [id number] [place] [address] 81317- 2764 May, Type 2 diabetes mellitus without complication, without long- term current use of insulin E11.9 ; BMI 50.0-59.9, adult Z68.43 and Generalized abdominal pain R10.84 [facility] [address] [place] [address] 07034 -1962 May, [facility] [address] [place] [id number] [place] [address] 29338- 1258 May, [facility] [address] [place] [id number] [place] [address] 08914- 2016 Mar, [facility] [address] [place] [address] 89837 -2518 Mar, [facility] [address] [place] [id number] [place] [address] 65961- 1140 Mar, Type 2 diabetes mellitus without complication, without long- term current use of insulin E11.9 ; BMI 50.0-59.9, adult Z68.43 ; Acute suppurative otitis media of both ears without spontaneous rupture of tympanic membranes, recurrence not specified H66.003 ; ESTHELA (obstructive sleep apnea) G47.33 and Essential hypertension I10 [facility] [address] 17681- 2486 Mar, [facility] [address] 65579 -8379 Feb, BMI 50.0-59.9, adult Z68.43 ; Encounter for immunization Z23 and Cough R05 [place] [id number] [place] [address] 07577- 7419 Jan, [address] [address]- 7429 Jan, [place] [id number] [place] [address] 77126 -4869 Jan, Type 2 diabetes mellitus without complication, without long -term current use of insulin E11.9 ; BMI 50.0-59.9, adult Z68.43 ; BMI 60.0-69.9 , adult Z68.44 and Family history of coronary artery disease Z82.49 IMMUNIZATIONS No Known Immunizations SOCIAL HISTORY Never Assessed REASON FOR VISIT Medication refill request PLAN OF CARE VITAL SIGNS MEDICATIONS Unknown [...] Hospitalization History Chest pain/pulled muscle in chest-[facility], [place] 2011
--- OUTSIDE RECORDS SUMMARY | 2017-12-09 21:15 | XMS REPORT ---
Author Author CONNIE MALAVE Organization [facility] Address [address] [place] [address] Care Team Providers Care Provider Scribe Name Role Phone CONNIE MALAVE Unavailable PROBLEMS Type Condition ICD9-CM Code QIE03-UM Code Onset Dates Condition Status SNOMED Code Problem Type 2 diabetes mellitus without complication, without long-term current use of insulin E11.9 Active 079307492 Problem Seasonal allergies J30.2 Active 501342157 Problem Sleep apnea, unspecified type G47.30 Active 35126587 Problem Essential hypertension I10 Active 58557270 Problem ESTHELA (obstructive sleep apnea) G47.33 Active 34690282 Problem Left elbow pain M25.522 Active 32095922 Problem BMI 50.0-59.9, adult Z68.43 Active 079367618 ALLERGIES Substance Reaction Event Type Date Status Penicillin G Sodium Unknown Drug Allergy July, Active Iodine Unknown Drug Allergy July, Active "all pain meds except Hydrocodone" Unknown Non Drug Allergy July, Active ENCOUNTERS Encounter Location Date Diagnosis [place] [id number] [place] [address] 05169- 5137 Oct, [place] [address] [place] [address] 06166- 6767 Sep, Atypical chest pain R07.89 ; Pneumonia due to infectious organism, unspecified laterality, unspecified part of lung J18.9 ; BMI 50.0-59.9 , adult Z68.43 and Sleep apnea, unspecified type G47.30 [place] [address] [place] [address] 56154- 9687 Aug, [place] [address] [place] [address] 18529- 5916 Aug, BMI 50.0-59.9, adult Z68.43 ; Sleep apnea, unspecified type G47.30 ; Seasonal allergies J30.2 and Generalized abdominal pain R10.84 [place] [address] 07019- 6137 July, Left elbow pain M25.522 ; BMI 50.0-59.9, adult Z68.43 and Essential hypertension I10 [place] [address] 47993- 6651 Jun, [place] [address] 22159- 7060 Jun, Abdominal wall pain R10.9 and BMI 50.0-59.9, adult Z68.43 [place] [address] 04055- 6425 Jun, [place] [address] 15283- 3425 Jun, Left lower quadrant pain R10.32 ; Blood in stool K92.1 and BMI 50.0-59.9, adult Z68.43 [place] [address] [place] [id number] [place] [address] 44413- 6193 May, [place] [address] 20923- 5868 May, [place] [address] [place] [id number] [place] [address] 01234- 4429 May, Type 2 diabetes mellitus without complication, without long- term current use of insulin E11.9 ; BMI 50.0-59.9, adult Z68.43 and Generalized abdominal pain R10.84 [facility] [address] [place] [id number] [place] [address] 20765 -3315 May, [facility] [address] 60020- 8559 May, [facility] [address] 68568- 9131 Mar, [facility] [address] 068[address] -3024 Mar, [place] [address] 64154- 1934 Mar, Type 2 diabetes mellitus without complication, without long- term current use of insulin E11.9 ; BMI 50.0-59.9, adult Z68.43 ; Acute suppurative otitis media of both ears without spontaneous rupture of tympanic membranes, recurrence not specified H66.003 ; ESTHELA (obstructive sleep apnea) G47.33 and Essential hypertension I10 [place] [address] 42074- 6203 Mar, [facility] [address] 40547 -8327 Feb, BMI 50.0-59.9, adult Z68.43 ; Encounter for immunization Z23 and Cough R05 [place] [address] 53731- 5835 Jan, [place] [address] 79759- 0384 Jan, [place] [address] 57936 -2558 Jan, Type 2 diabetes mellitus without complication, without long -term current use of insulin E11.9 ; BMI 50.0-59.9, adult Z68.43 ; BMI 60.0-69.9 , adult Z68.44 and Family history of coronary artery disease Z82.49 IMMUNIZATIONS No Known Immunizations SOCIAL HISTORY Never Assessed REASON FOR VISIT Hospital f/u- [facility], had a bone spur on left elbow PLAN OF CARE Activity Details Follow Up 4 Weeks with [facility] weight management Reason: VITAL SIGNS Height 71.5 in 2017-08-05 Weight 403 lbs 2017-08-05 Temperature 98.1 degrees Fahrenheit 2017-08-05 Heart Rate 92 bpm 2017-08-05 Respiratory Rate 20 2017-08-05 BMI 55.42 kg/m2 2017-08-05 Blood pressure systolic 116 mmHg 2017-08-05 Blood pressure diastolic 74 mmHg 2017-08-05 MEDICATIONS Medication Instructions Dosage Frequency Start Date End Date Duration Status Naproxen 500 MG Orally every 12 hrs 1 tablet with food or milk as needed 12h Active Prozac 40 MG Orally Once a day 1 capsule 24h Active Glucocard Expression Test - In Vitro 2 times a day as directed 12h 24 Jan, 2017 Active Glucocard Expression Monitor w/Device as directed Jan, Active Janumet 50-500 MG Orally Twice a day 1 tablet with meals 12h May, 30 day(s) Active Ranitidine HCl 150 MG Orally Once [...] Hospitalization History Chest pain/pulled muscle in chest-[facility] [place], [place] 2011
--- OUTSIDE RECORDS SUMMARY | 2017-12-09 21:15 | XMS REPORT ---
Author Author CONNIE MALAVE Organization [facility] Address [address] [place] [address] Care Team Providers Care Laboratory Specialist Name Role Phone CONNIE MALAVE Unavailable PROBLEMS Type Condition ICD9-CM Code XDN77-LM Code Onset Dates Condition Status SNOMED Code Problem Type 2 diabetes mellitus without complication, without long-term current use of insulin E11.9 Active 772896404 Problem Seasonal allergies J30.2 Active 410199054 Problem Sleep apnea, unspecified type G47.30 Active 08249592 Problem Essential hypertension I10 Active 21624583 Problem ESTHELA (obstructive sleep apnea) G47.33 Active 36553015 Problem Left elbow pain M25.522 Active 15996626 Problem BMI 50.0-59.9, adult Z68.43 Active 110086217 ALLERGIES Substance Reaction Event Type Date Status Penicillin G Sodium Unknown Drug Allergy Jun, Active Iodine Unknown Drug Allergy Jun, Active "all pain meds except Hydrocodone" Unknown Non Drug Allergy Jun, Active ENCOUNTERS Encounter Location Date Diagnosis [place] [address] [place] [id number] [place] [address] 66567- 5881 Oct, [place] [address] [place] [id number] [place] [address] 24702- 2565 Oct, [facility] [address] [place] [id number] [place] [address] 75892- 0244 Sep, Atypical chest pain R07.89 ; Pneumonia due to infectious organism, unspecified laterality, unspecified part of lung J18.9 ; BMI 50.0-59.9 , adult Z68.43 and Sleep apnea, unspecified type G47.30 [place] [address] [place] [id number] [place] [address] 76511- 4575 Aug, [facility] [address] [place] [address]01 Aug, BMI 50.0-59.9, adult Z68.43 ; Sleep apnea, unspecified type G47.30 ; Seasonal allergies J30.2 and Generalized abdominal pain R10.84 [place] [address] [place] [id number] [place] [address] 95926- 5119 July, Left elbow pain M25.522 ; BMI 50.0-59.9, adult Z68.43 and Essential hypertension I10 [place] [address] 34820- 6202 Jun, [place] [address] 29915- 5735 Jun, Abdominal wall pain R10.9 and BMI 50.0-59.9, adult Z68.43 [place] [address] 53819- 2457 Jun, [place] [address] 55377- 4808 Jun, Left lower quadrant pain R10.32 ; Blood in stool K92.1 and BMI 50.0-59.9, adult Z68.43 [place] [address] [place] [id number] [place] [address] 41416- 2804 May, [place] [address] [place] [id number] [place] [address] 67104- 3934 May, [place] [address] 46288- 4685 May, Type 2 diabetes mellitus without complication, without long- term current use of insulin E11.9 ; BMI 50.0-59.9, adult Z68.43 and Generalized abdominal pain R10.84 [facility] [address] [place] [id number] [place] [address] 66298 -8595 May, [place] [address] 71054- 7592 May, [facility] [address] [place] [id number] [place] [address] 71931- 6079 Mar, [place] [address] 96131 -9214 Mar, [place] [address] 24150- 3105 Mar, Type 2 diabetes mellitus without complication, without long- term current use of insulin E11.9 ; BMI 50.0-59.9, adult Z68.43 ; Acute suppurative otitis media of both ears without spontaneous rupture of tympanic membranes, recurrence not specified H66.003 ; ESTHELA (obstructive sleep apnea) G47.33 and Essential hypertension I10 [place] [address] 67200- 1044 Mar, [place] [address] 20697 -9283 Feb, BMI 50.0-59.9, adult Z68.43 ; Encounter for immunization Z23 and Cough R05 [place] [address] 94072- 5922 Jan, [place] [address] 17187- 7941 Jan, [place] [address] 92473 -4016 Jan, Type 2 diabetes mellitus without complication, without long -term current use of insulin E11.9 ; BMI 50.0-59.9, adult Z68.43 ; BMI 60.0-69.9 , adult Z68.44 and Family history of coronary artery disease Z82.49 IMMUNIZATIONS No Known Immunizations SOCIAL HISTORY Never Assessed REASON FOR VISIT Hospital f/u--[facility] PLAN OF CARE Activity Details Follow Up make appt after scope is completed Reason: VITAL SIGNS Height 71.5 in 2017-06-24 Weight 404.4 lbs 2017-06-24 Temperature 98.4 degrees Fahrenheit 2017-06-24 Heart Rate 92 bpm 2017-06-24 Respiratory Rate 20 2017-06-24 BMI 55.61 kg/m2 2017-06-24 Blood pressure systolic 124 mmHg 2017-06-24 Blood pressure diastolic 78 mmHg 2017-06-24 MEDICATIONS Medication Instructions Dosage Frequency Start Date End Date Duration Status Glucocard Expression Monitor w/Device as directed Jan, Active Glucocard Expression Test - In Vitro 2 times a day as directed 12h Jan, Active Janumet 50-500 MG Orally Twice a day 1 tablet with meals 12h May, 30 day(s) Active Metformin HCl 500 mg Orally Twice a day 1 tablet with meals 12h Mar, 30 day(s) Not-Taking Test strips glucocard expression Mar, Active Dicyclomine HCl 20 mg Orally 2 times a day 1 tablet 12h May, Sep, 30 day(s) Active Ranitidine HCl 150 MG Orally Once a day 1 tablet at bedtime 24h May, 30 day(s) Active Prozac 40 MG Orally Once a day 1 capsule 24h Active Ondansetron HCl 8 MG Active RESULTS No Results PROCEDURES No Known procedures INSTRUCTIONS MEDICATIONS ADMINISTERED No Known Medications MEDICAL (GENERAL) HISTORY Type Description Date Medical History Type 2 Diabetes Medical History Sleep apnea Surgical History section x2 Surgical History lumpectomy, right breast Surgical History cholecystectomy Surgical History bilateral tubal ligation (BTL) Hospitalization History Collapsed lung-[facility] for 9 days 2008 Hospitalization History Chest pain/pulled muscle in chest-[facility] [place], [place] 2011
--- OUTSIDE RECORDS SUMMARY | 2017-12-09 21:16 | XMS REPORT ---
Author Author CONNIE MALAVE Organization [facility] [place] Address [address] [place] [address] Care Team Providers Care Quarter Seamer Name Role Phone CONNIE MALAVE Unavailable PROBLEMS Type Condition ICD9-CM Code TLC65-NF Code Onset Dates Condition Status SNOMED Code Problem Type 2 diabetes mellitus without complication, without long-term current use of insulin E11.9 Active 059039738 Problem Seasonal allergies J30.2 Active 669982812 Problem Sleep apnea, unspecified type G47.30 Active 27225117 Problem Essential hypertension I10 Active 09327456 Problem ESTHELA (obstructive sleep apnea) G47.33 Active 08468832 Problem Left elbow pain M25.522 Active 33309021 Problem BMI 50.0-59.9, adult Z68.43 Active 510314824 ALLERGIES No Information ENCOUNTERS Encounter Location Date Diagnosis [place] [address] [address]250- 5038 Oct, [place] [address] 50626- 3081 Oct, [place] [address] [place] [id number] [place] [address] 20006- 3300 Sep, Atypical chest pain R07.89 ; Pneumonia due to infectious organism, unspecified laterality, unspecified part of lung J18.9 ; BMI 50.0-59.9 , adult Z68.43 and Sleep apnea, unspecified type G47.30 [place] [address] 50980- 9039 Aug, [place] [address] 02401- 5338 Aug, BMI 50.0-59.9, adult Z68.43 ; Sleep apnea, unspecified type G47.30 ; Seasonal allergies J30.2 and Generalized abdominal pain R10.84 [facility] [place] [address] [place] [id number] [place] [address] 24854- 7793 July, Left elbow pain M25.522 ; BMI 50.0-59.9, adult Z68.43 and Essential hypertension I10 [facility] [address] [place] [id number] [place] [address] 52692- 8295 Jun, [facility] [address] [place] [id number] [place] [address] 61557- 3773 Jun, Abdominal wall pain R10.9 and BMI 50.0-59.9, adult Z68.43 [place] [address] [place] [id number] [place] [address] 17475- 0398 Jun, [place] [address] [place] [id number] [place] [address] 92889- 8500 Jun, Left lower quadrant pain R10.32 ; Blood in stool K92.1 and BMI 50.0-59.9, adult Z68.43 [place] [address] [place] [id number] [place] [address] 87312- 6234 May, [place] [address] [place] [id number] [place] [address] 52050- 5492 May, [place] [address] [place] [id number] [place] [address] 12652- 4545 May, Type 2 diabetes mellitus without complication, without long- term current use of insulin E11.9 ; BMI 50.0-59.9, adult Z68.43 and Generalized abdominal pain R10.84 [facility] [address] [place] [id number] [place] [address] 88131 -3197 May, [facility] [address] [place] [id number] [place] [address] 33508- 7439 May, [facility] [place] [address] [place] [address] 61181- 8677 Mar, [facility] [address] [place] [id number] [place] [address] 31669 -2496 Mar, [facility] [place] [address] [place] [id number] [place] [address] 87548- 1627 Mar, Type 2 diabetes mellitus without complication, without long- term current use of insulin E11.9 ; BMI 50.0-59.9, adult Z68.43 ; Acute suppurative otitis media of both ears without spontaneous rupture of tympanic membranes, recurrence not specified H66.003 ; ESTHELA (obstructive sleep apnea) G47.33 and Essential hypertension I10 [place] [address] 35404- 1862 Mar, [facility] [address] 77121 -8793 Feb, BMI 50.0-59.9, adult Z68.43 ; Encounter for immunization Z23 and Cough R05 [address] 93484- 2453 Jan, [facility] [place] [address] [place] [id number] [place] [address] 91783- 7276 Jan, [facility] [address] [place] [id number] [place] [address] 62172 -4700 Jan, Type 2 diabetes mellitus without complication, without long -term current use of insulin E11.9 ; BMI 50.0-59.9, adult Z68.43 ; BMI 60.0-69.9 , adult Z68.44 and Family history of coronary artery disease Z82.49 IMMUNIZATIONS No Known Immunizations SOCIAL HISTORY Never Assessed REASON FOR VISIT FYI only PLAN OF CARE VITAL SIGNS MEDICATIONS Unknown [...] Hospitalization History Chest pain/pulled muscle in chest[place] [place], [place] 2011
--- OUTSIDE RECORDS SUMMARY | 2017-12-09 21:16 | XMS REPORT ---
Author Author CONNIE MALAVE Organization [facility] Address [address] [place] [address] Care Team Providers Care Shirt Creaser Name Role Phone CONNIE MALAVE Unavailable PROBLEMS Type Condition ICD9-CM Code OOL00-YJ Code Onset Dates Condition Status SNOMED Code Problem Type 2 diabetes mellitus without complication, without long-term current use of insulin E11.9 Active 334030371 Problem Seasonal allergies J30.2 Active 945490014 Problem Sleep apnea, unspecified type G47.30 Active 53509992 Problem Essential hypertension I10 Active 15217500 Problem ESTHELA (obstructive sleep apnea) G47.33 Active 99591987 Problem Left elbow pain M25.522 Active 48430753 Problem BMI 50.0-59.9, adult Z68.43 Active 800975753 ALLERGIES No Information ENCOUNTERS Encounter Location Date Diagnosis [place] [address] 72482- 9201 Oct, [place] [address] 84951- 6361 Oct, [place] [address] [place] [id number] [place] [address] 11699- 0212 Sep, Atypical chest pain R07.89 ; Pneumonia due to infectious organism, unspecified laterality, unspecified part of lung J18.9 ; BMI 50.0-59.9 , adult Z68.43 and Sleep apnea, unspecified type G47.30 [place] [address] 94343- 2707 Aug, [place] [address] 81384- 4186 Aug, BMI 50.0-59.9, adult Z68.43 ; Sleep apnea, unspecified type G47.30 and Seasonal allergies J30.2 [facility] [address] [place] [id number] [place] [address] 79053- 6535 July, Left elbow pain M25.522 ; BMI 50.0-59.9, adult Z68.43 and Essential hypertension I10 [place] [address] [place] [id number] [place] [address] 38444- 9404 Jun, [facility] [address] 94754- 9579 Jun, Abdominal wall pain R10.9 and BMI 50.0-59.9, adult Z68.43 [place] [address] 50379- 3798 Jun, [place] [address] [place] [id number] [place] [address] 72394- 1569 Jun, Left lower quadrant pain R10.32 ; Blood in stool K92.1 and BMI 50.0-59.9, adult Z68.43 [place] [address] [place] [id number] [place] [address] 25864- 2450 May, [place] [address] [place] [id number] [place] [address] 99968- 3337 May, [place] [address] [place] [id number] [place] [address] 18574- 2541 May, Type 2 diabetes mellitus without complication, without long- term current use of insulin E11.9 ; BMI 50.0-59.9, adult Z68.43 and Generalized abdominal pain R10.84 [facility] [address] [place] [id number] [place] [address] 49200 -8633 May, [facility] [address] [place] [id number] [place] [address] 94823- 3961 May, [facility] [address] [place] [id number] [place] [address] 63788- 5097 Mar, [facility] [address] [place] [id number] [place] [address] 74630 -9195 Mar, [facility] [address] [place] [address] 33126- 2097 Mar, Type 2 diabetes mellitus without complication, without long- term current use of insulin E11.9 ; BMI 50.0-59.9, adult Z68.43 ; Acute suppurative otitis media of both ears without spontaneous rupture of tympanic membranes, recurrence not specified H66.003 ; ESTHELA (obstructive sleep apnea) G47.33 and Essential hypertension I10 [facility] [address] [place] [id number] [place] [address] 14945- 2706 Mar, [facility] [address] 49861 -5091 Feb, BMI 50.0-59.9, adult Z68.43 ; Encounter for immunization Z23 and Cough R05 [address] 54756- 7756 Jan, [facility] [address] [place] [id number] [place] [address] 34397- 1520 Jan, [facility] [address] [place] [id number] [place] [address] 57129 -2451 Jan, Type 2 diabetes mellitus without complication, [...] Hospitalization History Chest pain/pulled muscle in [place] [place], [place] 2011
--- OUTSIDE RECORDS SUMMARY | 2017-12-09 21:16 | XMS REPORT ---
Author Author CONNIE MALAVE Organization [facility] Address [address] [place] [address] Care Team Providers Care District Scout Executive Name Role Phone CONNIE MALAVE Unavailable PROBLEMS Type Condition ICD9-CM Code [id number] Code Onset Dates Condition Status SNOMED Code Problem Type 2 diabetes mellitus without complication, without long-term current use of insulin E11.9 Active 917504988 Problem Seasonal allergies J30.2 Active 485892188 Problem Sleep apnea, unspecified type G47.30 Active 53021190 Problem Essential hypertension I10 Active 82095860 Problem ESTHELA (obstructive sleep apnea) G47.33 Active 95225563 Problem Left elbow pain M25.522 Active 13533618 Problem BMI 50.0-59.9, adult Z68.43 Active 034805601 ALLERGIES Substance Reaction Event Type Date Status Penicillin G Sodium Unknown Drug Allergy May, Active Iodine Unknown Drug Allergy May, Active "all pain meds except Hydrocodone" Unknown Non Drug Allergy May, Active ENCOUNTERS Encounter Location Date Diagnosis [place] [id number] [place] [id number] [place] [address]45- 6180 Oct, [place] [address] [place] [id number] [place] [address] 64726- 6445 Oct, [facility] [id number] [place] [address] 91435- 7624 Sep, Atypical chest pain R07.89 ; Pneumonia due to infectious organism, unspecified laterality, unspecified part of lung J18.9 ; BMI 50.0-59.9 , adult Z68.43 and Sleep apnea, unspecified type G47.30 [place] [address] [place] [id number] [place] [address] 14288- 0245 Aug, [facility] [address] [place] [address] Aug, BMI 50.0-59.9, adult Z68.43 ; Sleep apnea, unspecified type G47.30 and Seasonal allergies J30.2 [place] [address] [address] July, Left elbow pain M25.522 ; BMI 50.0-59.9, adult Z68.43 and Essential hypertension I10 [place] [address] 70784- 1775 Jun, [place] [address] 8[address]- 7103 Jun, Abdominal wall pain R10.9 and BMI 50.0-59.9, adult Z68.43 [place] [address] 94[address]- 0110 Jun, [place] [address] 71413- 0026 Jun, Left lower quadrant pain R10.32 ; Blood in stool K92.1 and BMI 50.0-59.9, adult Z68.43 [place] [id number] [place] [address] 18434- 2215 May, [place] [id number] [place] [address] 34746- 1593 May, [place] [address] 6[address]- 1145 May, Type 2 diabetes mellitus without complication, without long- term current use of insulin E11.9 ; BMI 50.0-59.9, adult Z68.43 and Generalized abdominal pain R10.84 [facility] [id number] [place] [address] 62[address] -1127 May, [place] [id number] [place] [address] 12794- 7846 May, [place] [address] 14441- 3614 Mar, [facility] [address] 495[address] Mar, [place] [address] 87381- 5288 Mar, Type 2 diabetes mellitus without complication, without long- term current use of insulin E11.9 ; BMI 50.0-59.9, adult Z68.43 ; Acute suppurative otitis media of both ears without spontaneous rupture of tympanic membranes, recurrence not specified H66.003 ; ESTHELA (obstructive sleep apnea) G47.33 and Essential hypertension I10 [address] [address]- [address] Mar, [facility] [address] [address] Feb, BMI 50.0-59.9, adult Z68.43 ; Encounter for immunization Z23 and Cough R05 [place] [address] 96428- 9640 Jan, [address] [address]- 66[address] Jan, [facility] [address] 9110[address] Jan, Type 2 diabetes mellitus without complication, without long -term current use of insulin E11.9 ; BMI 50.0-59.9, adult Z68.43 ; BMI 60.0-69.9 , adult Z68.44 and Family history of coronary artery disease Z82.49 IMMUNIZATIONS No Known Immunizations SOCIAL HISTORY Never Assessed REASON FOR VISIT Diabetes fu -- perez ayala, patient wanst to fu also from her ER visit , feeling nauseas after eating and having stomach pain PLAN OF CARE Activity Details Follow Up 3 Months with [facility] f/u DM Reason: VITAL SIGNS Height 71.5 in 2017-06-09 Weight 398.0 lbs 2017-06-09 Temperature 97.5 degrees Fahrenheit 2017-06-09 BMI 54.73 kg/m2 2017-06-09 Blood pressure systolic 138 mmHg 2017-06-09 Blood pressure diastolic 86 mmHg 2017-06-09 MEDICATIONS Medication Instructions Dosage Frequency Start Date End Date Duration Status Glucocard Expression Test - In Vitro 2 times a day as directed 12h 24 Jan, 2017 Active Janumet 50-500 MG Orally Twice a day 1 tablet with meals 12h May, 30 day(s) Active Metformin HCl 500 mg Orally Twice a day 1 tablet with meals 12h Mar, 30 day(s) Active Test strips glucocard expression Mar, Active Glucocard Expression Monitor w/Device as directed Jan, Active Ranitidine HCl 150 MG Orally Once a day 1 tablet at bedtime 24h May, 30 day(s) Active RESULTS Name Result Date Reference Range A1C (IN HOUSE) 2017-06-09 A1C IN HOUSE 9.1 4.3 - 5.6 % Previous A1c 8.7 Lot [id number] Exp date 01/2019 H PYLORI (IN HOUSE) 2017-06-09 H. PYLORI negative Control + Lot # [id number] Exp date 08/2017 PROCEDURES Procedure Date Ordered Result Body Site IMMUNOASSAY,INFECTIOUS AGENT June 09, 2017 INSTRUCTIONS MEDICATIONS ADMINISTERED No Known Medications MEDICAL (GENERAL) HISTORY Type Description Date Medical History Type 2 Diabetes Medical History Sleep apnea Surgical History section x2 Surgical History lumpectomy, right breast Surgical History cholecystectomy Surgical History bilateral tubal ligation (BTL) Hospitalization History Collapsed lung-Coma for 9 days 2008 Hospitalization History Chest pain/pulled muscle in chest-[facility] [place], [place] 2011
--- OUTSIDE RECORDS SUMMARY | 2017-12-09 21:16 | XMS REPORT ---
Author Author CONNIE ALBARADO Organization [facility] Address [address] [place] [address] Care Team Providers Care Physicist Astrophysics Name Role Phone CONNIE ALBARADO Unavailable PROBLEMS Type Condition ICD9-CM Code LPH58-LH Code Onset Dates Condition Status SNOMED Code Problem Type 2 diabetes mellitus without complication, without long-term current use of insulin E11.9 Active 274008233 Problem Seasonal allergies J30.2 Active 515428103 Problem Sleep apnea, unspecified type G47.30 Active 49991380 Problem Essential hypertension I10 Active 33378009 Problem ESTHELA (obstructive sleep apnea) G47.33 Active 14065349 Problem Left elbow pain M25.522 Active 44729866 Problem BMI 50.0-59.9, adult Z68.43 Active 206913976 ALLERGIES Substance Reaction Event Type Date Status Penicillin G Sodium Unknown Drug Allergy May, Active Iodine Unknown Drug Allergy May, Active "all pain meds except Hydrocodone" Unknown Non Drug Allergy May, Active ENCOUNTERS Encounter Location Date Diagnosis [place] [address] [place] [id number] [place] [address] 77396- 6567 Oct, [place] [address] [place] [id number] [place] [address] 92645- 0966 Oct, [facility] [id number] [place] [address] 13957- 4138 Sep, Atypical chest pain R07.89 ; Pneumonia due to infectious organism, unspecified laterality, unspecified part of lung J18.9 ; BMI 50.0-59.9 , adult Z68.43 and Sleep apnea, unspecified type G47.30 [place] [address] [place] [id number] [place] [address] 35494- 0942 Aug, [facility] [address] [place] [address] Aug, BMI 50.0-59.9, adult Z68.43 ; Sleep apnea, unspecified type G47.30 and Seasonal allergies J30.2 [place] [address] [address]- [address]377 July, Left elbow pain M25.522 ; BMI 50.0-59.9, adult Z68.43 and Essential hypertension I10 [place] [address] [address]- [address] Jun, [place] [address] 51226- 7118 Jun, Abdominal wall pain R10.9 and BMI 50.0-59.9, adult Z68.43 [place] [address] 00954- 5449 Jun, [place] [address] 75029- 7875 Jun, Left lower quadrant pain R10.32 ; Blood in stool K92.1 and BMI 50.0-59.9, adult Z68.43 [place] [address] [id number] [place] [address] 43906- 6802 May, [place] [address] [address] [id number] [place] [address] 81135- 0306 May, [place] [address] 90140- 9757 May, Type 2 diabetes mellitus without complication, without long- term current use of insulin E11.9 ; BMI 50.0-59.9, adult Z68.43 and Generalized abdominal pain R10.84 [facility] [address] [id number] [place] [address] 99897 -4738 May, [place] [address] [address] [id number] [place] [address] 42061- 0944 May, [place] [address] [address] [id number] [place] [address] 52137- 8549 Mar, [address] [address] Mar, [address] 0[address]- 4160 Mar, Type 2 diabetes mellitus without complication, without long- term current use of insulin E11.9 ; BMI 50.0-59.9, adult Z68.43 ; Acute suppurative otitis media of both ears without spontaneous rupture of tympanic membranes, recurrence not specified H66.003 ; ESTHELA (obstructive sleep apnea) G47.33 and Essential hypertension I10 [address] [address]- 9615 Mar, [address] 81830 -6258 Feb, BMI 50.0-59.9, adult Z68.43 ; Encounter for immunization Z23 and Cough R05 [address] 09[address]- 5618 Jan, [address] 82923- 6490 Jan, [address] 61425 -[address] Jan, Type 2 diabetes mellitus without complication, without long -term current use of insulin E11.9 ; BMI 50.0-59.9, adult Z68.43 ; BMI 60.0-69.9 , adult Z68.44 and Family history of coronary artery disease Z82.49 IMMUNIZATIONS No Known Immunizations SOCIAL HISTORY Never Assessed REASON FOR VISIT was in the ER for bladder infection and N/D and cramping in stomach. was told to fu with pcp. pt has an appt with dr albarado on friday. sudha, pt has missed her behavioral health appt.X 3 because she hasnt felt like going and because her cell phone has no minutes on it. , Instructed pt to keep her fu appt with dr albarado on friday and can go to the ER if she becomes worse. pt verbalized understanding PLAN OF CARE VITAL SIGNS Height 71.5 in 2017-06-06 Weight 297.2 lbs 2017-06-06 Temperature 97.5 degrees Fahrenheit 2017-06-06 Heart Rate 90 bpm 2017-06-06 Respiratory Rate 20 2017-06-06 BMI 40.87 kg/m2 2017-06-06 Blood pressure systolic 146 mmHg 2017-06-06 Blood pressure diastolic 84 mmHg 2017-06-06 MEDICATIONS Medication Instructions Dosage Frequency Start Date End Date Duration Status Glucocard Expression Test - In Vitro 2 times a day as directed 12h 24 Jan, 2017 Active Naproxen 500 MG Orally every 12 hrs 1 tablet with food or milk as needed 12h Not-Taking Flexeril 10 MG Orally Three times a day 1 tablet as needed 8h Not- Taking Test strips glucocard expression Mar, Active Metformin HCl 500 mg Orally 2 times a day as directed 12h 21 Jan, 2017 Active Glucocard Expression Monitor w/Device as directed Jan, Active Metformin HCl 500 mg Orally Twice a day 1 tablet with meals 12h Mar, 30 day(s) Active Tessalon Perles 100 mg Orally Three times a day as needed for cough 1 capsule Not-Taking Fluoxetine HCl 40 MG Orally Once a day 1 capsule in the morning 24h Mar 30 day(s) Not-Taking RESULTS No Results PROCEDURES No Known procedures INSTRUCTIONS MEDICATIONS ADMINISTERED No Known Medications MEDICAL (GENERAL) HISTORY Type Description Date Medical History Type 2 Diabetes Medical History Sleep apnea Surgical History section x2 Surgical History lumpectomy, right breast Surgical History cholecystectomy Surgical History bilateral tubal ligation (BTL) Hospitalization History Collapsed lung-Coma for 9 days 2008 Hospitalization History Chest pain/pulled muscle in chest-[facility] [place], [place] 2011
--- OUTSIDE RECORDS SUMMARY | 2017-12-09 21:16 | XMS REPORT ---
Author Author CONNIE MALAVE Organization [facility] Address [address] [place] [address] Care Team Providers Care Cogeneration Technician Name Role Phone CONNIE MALAVE Unavailable PROBLEMS Type Condition ICD9-CM Code [id number] Code Onset Dates Condition Status SNOMED Code Problem Type 2 diabetes mellitus without complication, without long-term current use of insulin E11.9 Active 964031491 Problem Seasonal allergies J30.2 Active 713221419 Problem Sleep apnea, unspecified type G47.30 Active 53979225 Problem Essential hypertension I10 Active 01605415 Problem ESTHELA (obstructive sleep apnea) G47.33 Active 19159923 Problem Left elbow pain M25.522 Active 31326984 Problem BMI 50.0-59.9, adult Z68.43 Active 272880080 ALLERGIES No Information ENCOUNTERS Encounter Location Date Diagnosis [place] [address] [address] Oct, [place] [address] 8[address]- 0677 Oct, [place] [address] [place] [id number] [place] [address] 89508- 1734 Sep, Atypical chest pain R07.89 ; Pneumonia due to infectious organism, unspecified laterality, unspecified part of lung J18.9 ; BMI 50.0-59.9 , adult Z68.43 and Sleep apnea, unspecified type G47.30 [place] [address] 36766- 8307 Aug, [place] [address] 71[address]- [address]10 Aug, BMI 50.0-59.9, adult Z68.43 ; Sleep apnea, unspecified type G47.30 and Seasonal allergies J30.2 [facility] [address] [place] [id number] [place] [address] 02937- 2904 July, Left elbow pain M25.522 ; BMI 50.0-59.9, adult Z68.43 and Essential hypertension I10 [place] [address] [id number] [place] [address] 75164- 8427 Jun, [facility] [address] 39267- 4569 Jun, Abdominal wall pain R10.9 and BMI 50.0-59.9, adult Z68.43 [place] [address] 43367- [address] Jun, [place] [address] [place] [address] [address] [place] [address] 43411- 1368 Jun, Left lower quadrant pain R10.32 ; Blood in stool K92.1 and BMI 50.0-59.9, adult Z68.43 [place] [address] [place] [address] [place] [address] 36047- 6136 May, [place] [address] [place] [address] [id number] [place] [address] 79168- 4642 May, [place] [address] [place] [address] [address] [place] [address] 37615- 7913 May, Type 2 diabetes mellitus without complication, without long- term current use of insulin E11.9 ; BMI 50.0-59.9, adult Z68.43 and Generalized abdominal pain R10.84 [facility] [address] [place] [id number] [place] [address] 25618 -7698 May, [facility] [address] [place] [id number] [place] [address] 34048- 3413 May, [facility] [address] [place] [address] [id number] [place] [address] 12467- 6041 Mar, [facility] [address] [place] [id number] [place] [address] 50539 -2705 Mar, [facility] [address] [place] [id number] [place] [address] 45187- 2934 Mar, Type 2 diabetes mellitus without complication, without long- term current use of insulin E11.9 ; BMI 50.0-59.9, adult Z68.43 ; Acute suppurative otitis media of both ears without spontaneous rupture of tympanic membranes, recurrence not specified H66.003 ; ESTHELA (obstructive sleep apnea) G47.33 and Essential hypertension I10 [facility] [address] [place] [id number] [place] [address] 88261- 2264 Mar, [facility] [address] [address]83 Feb, BMI 50.0-59.9, adult Z68.43 ; Encounter for immunization Z23 and Cough R05 [place] [address] 70285- 1219 Jan, [facility] [address] [place] [address] [id number] [place] [address] 34137- 7415 Jan, [facility] [address] [place] [address] [id number] [place] [address] 24601 -3245 Jan, Type 2 diabetes mellitus without complication, without long -term current use of insulin E11.9 ; BMI 50.0-59.9, adult Z68.43 ; BMI 60.0-69.9 , adult Z68.44 and Family history of coronary artery disease Z82.49 IMMUNIZATIONS No Known Immunizations SOCIAL HISTORY Never Assessed REASON FOR VISIT Phone call PLAN OF CARE VITAL SIGNS MEDICATIONS Medication Instructions Dosage Frequency Start Date End Date Duration Status Dicyclomine HCl 20 mg Orally 2 times a day 1 tablet 12h May, Sep, 30 day(s) Active RESULTS No Results PROCEDURES [...] Hospitalization History Chest pain/pulled muscle in chest-[facility] [place], [place] 2012
--- OUTSIDE RECORDS SUMMARY | 2017-12-09 21:16 | XMS REPORT ---
Author Author CONNIE MALAVE Organization [facility] Address [address] [place] [address] Care Team Providers Care Oracle Sql Developer Name Role Phone CONNIE MALAVE Unavailable PROBLEMS Type Condition ICD9-CM Code EJH76-QR Code Onset Dates Condition Status SNOMED Code Problem Type 2 diabetes mellitus without complication, without long-term current use of insulin E11.9 Active 458004153 Problem Seasonal allergies J30.2 Active 154723424 Problem Sleep apnea, unspecified type G47.30 Active 43410143 Problem Essential hypertension I10 Active 83303339 Problem ESTHELA (obstructive sleep apnea) G47.33 Active 80139712 Problem Left elbow pain M25.522 Active 56549920 Problem BMI 50.0-59.9, adult Z68.43 Active 462871866 ALLERGIES Substance Reaction Event Type Date Status Penicillin G Sodium Unknown Drug Allergy Mar, Active Iodine Unknown Drug Allergy Mar, Active "all pain meds except Hydrocodone" Unknown Non Drug Allergy Mar, Active ENCOUNTERS Encounter Location Date Diagnosis [place] [address] [place] [id number] [place] [address] 17027- 4699 Oct, [facility] [address] [place] [id number] [place] [address] 06366- 4513 Aug, [facility] [address] [id number] [place] [address] 73023- 0519 Aug, [facility] [address] [address]35- [address]88 Aug, BMI 50.0-59.9, adult Z68.43 ; Sleep apnea, unspecified type G47.30 and Seasonal allergies J30.2 [facility] [address] [id number] [place] [address] 34412- 7661 July, Left elbow pain M25.522 ; BMI 50.0-59.9, adult Z68.43 and Essential hypertension I10 [facility] [id number] [place] [address] 60520- 3513 Jun, [facility] [id number] [place] [address] 21543- 9644 18 Jun, 2017 Abdominal wall pain R10.9 and BMI 50.0-59.9, adult Z68.43 [facility] [address] 15482- 8573 Jun, [facility] [address] 04904- 7357 Jun, Left lower quadrant pain R10.32 ; Blood in stool K92.1 and BMI 50.0-59.9, adult Z68.43 [place] [address] [place] [id number] [place] [address] 93598- 2650 30 May, 2017 [facility] [id number] [place] [address] 38934- 9115 May, [facility] [address] [place] [id number] [place] [address] 39292- 5942 May, Type 2 diabetes mellitus without complication, without long- term current use of insulin E11.9 ; BMI 50.0-59.9, adult Z68.43 and Generalized abdominal pain R10.84 [facility] [id number] [place] [address] 18470 -2247 May, [facility] [id number] [place] [address] 49712- 7823 May, [facility] [address] [place] [address] [id number] [place] [address] 71304- 4842 Mar, [facility] [address] [id number] [place] [address] 76709 -3651 Mar, [facility] [address] [place] [address] [id number] [place] [address] 51346- 5879 Mar, Type 2 diabetes mellitus without complication, without long- term current use of insulin E11.9 ; BMI 50.0-59.9, adult Z68.43 ; Acute suppurative otitis media of both ears without spontaneous rupture of tympanic membranes, recurrence not specified H66.003 ; ESTHELA (obstructive sleep apnea) G47.33 and Essential hypertension I10 [facility] [address] [address]- [address]64 Mar, [facility] [address] [address] -[address] Feb, BMI 50.0-59.9, adult Z68.43 ; Encounter for immunization Z23 and Cough R05 [place] [address] 36807- 7645 Jan, [place] [address] 78669- 4285 Jan, [facility] [address] [address] Jan, Type 2 diabetes mellitus without complication, without long -term current use of insulin E11.9 ; BMI 50.0-59.9, adult Z68.43 ; BMI 60.0-69.9 , adult Z68.44 and Family history of coronary artery disease Z82.49 IMMUNIZATIONS No Known Immunizations SOCIAL HISTORY Never Assessed REASON FOR VISIT Establish Care-tjanssenMA, Diabetic check, wt gain, sleep apnea (no machine, needs help getting one), ER visit Friday night, Ear infection in the RT ear, which has now went to the left side. ER gave her medication but she was unable to fill it. , -previously on prozac to help with depression, questions about getting back on it. PLAN OF CARE Activity Details Follow Up 2 Months with Krystian f/u RELL Reason: VITAL SIGNS Height 71.5 in 2017-03-27 Weight 394.5 lbs 2017-03-27 Temperature 99.3 degrees Fahrenheit 2017-03-27 Heart Rate 92 bpm 2017-03-27 Respiratory Rate 20 2017-03-27 BMI 54.25 kg/m2 2017-03-27 Blood pressure systolic 152 mmHg 2017-03-27 Blood pressure diastolic 80 mmHg 2017-03-27 MEDICATIONS Medication Instructions Dosage Frequency Start Date End Date Duration Status Tessalon Perles 100 mg Orally Three times a day as needed for cough 1 capsule Active Metformin HCl 500 mg Orally Twice a day 1 tablet with meals 12h Mar, 30 day(s) Active Azithromycin 250 MG Orally Once a day 2 tablets on the first day, then 1 tablet daily for 4 days 24h Mar, Mar, 5 day(s) Active Test strips glucocard expression Mar, Active Glucocard Expression Monitor w/Device as directed Jan, Active Naproxen 500 MG Orally every 12 hrs 1 tablet with food or milk as needed 12h Active Glucocard Expression Test - In Vitro 2 times a day as directed 12h Jan, Active Flexeril 10 MG Orally Three times a day 1 tablet as needed 8h Active Metformin HCl 500 mg Orally 2 times a day as directed 12h Jan, Active RESULTS No Results PROCEDURES No Known procedures INSTRUCTIONS MEDICATIONS ADMINISTERED No Known Medications MEDICAL (GENERAL) HISTORY Type Description Date Medical History Type 2 Diabetes Medical History Sleep apnea Surgical History section x2 Surgical History lumpectomy, right breast Surgical History cholecystectomy Surgical History bilateral tubal ligation (BTL) Hospitalization History Collapsed lung-Coma for 9 days 2008 Hospitalization History Chest pain/pulled muscle in chest-[facility] [place], [place] 2011
--- OUTSIDE RECORDS SUMMARY | 2017-12-09 21:16 | XMS REPORT ---
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 Name Role Phone CONNIE MALAVE Unavailable PROBLEMS Type Condition ICD9-CM Code BEG08-MP Code Onset Dates Condition Status SNOMED Code Problem Type 2 diabetes mellitus without complication, without long-term current use of insulin E11.9 Active 973567508 Problem Seasonal allergies J30.2 Active 190810206 Problem Sleep apnea, unspecified type G47.30 Active 52333575 Problem Essential hypertension I10 Active 92548786 Problem ESTHELA (obstructive sleep apnea) G47.33 Active 41878601 Problem Left elbow pain M25.522 Active 35034312 Problem BMI 50.0-59.9, adult Z68.43 Active 898228822 ALLERGIES No Information ENCOUNTERS Encounter Location Date Diagnosis [place] [id number] [address] Oct, [place] [address] [address] Oct, [place] [address] [place] [id number] [place] [address] Sep, Atypical chest pain R07.89 ; Pneumonia due to infectious organism, unspecified laterality, unspecified part of lung J18.9 ; BMI 50.0-59.9 , adult Z68.43 and Sleep apnea, unspecified type G47.30 [place] [address] [address] Aug, [place] [address] [address] Aug, BMI 50.0-59.9, adult Z68.43 ; Sleep apnea, unspecified type G47.30 and Seasonal allergies J30.2 [facility] [address] [place] [id number] [place] [address] July, Left elbow pain M25.522 ; BMI 50.0-59.9, adult Z68.43 and Essential hypertension I10 [place] [address] [place] [id number] [place] [address] Jun, [facility] [address] [address] Jun, Abdominal wall pain R10.9 and BMI 50.0-59.9, adult Z68.43 [place] [address] [address] Jun, [place] [address] [place] [id number] [place] [address] Jun, Left lower quadrant pain R10.32 ; Blood in stool K92.1 and BMI 50.0-59.9, adult Z68.43 [place] [address] [place] [id number] [place] [address] May, [place] [address] [place] [id number] [place] [address]- [address] May, [place] [address] [place] [id number] [place] [address]- [address] May, Type 2 diabetes mellitus without complication, without long- term current use of insulin E11.9 ; BMI 50.0-59.9, adult Z68.43 and Generalized abdominal pain R10.84 [facility] [address] [place] [id number] [place] [address] May, [facility] [address] [place] [id number] [place] [address] 94[address]- 38[address] May, [facility] [address] [place] [id number] [place] [address] 95681- 6692 Mar, [facility] [address] [place] [id number] [place] [address] Mar, [facility] [address] [place] [address] 28[address]- [address] Mar, Type 2 diabetes mellitus without complication, without long- term current use of insulin E11.9 ; BMI 50.0-59.9, adult Z68.43 ; Acute suppurative otitis media of both ears without spontaneous rupture of tympanic membranes, recurrence not specified H66.003 ; ESTHELA (obstructive sleep apnea) G47.33 and Essential hypertension I10 [facility] [address] [place] [id number] [place] [address] Mar, [facility] [address] [address] Feb, BMI 50.0-59.9, adult Z68.43 ; Encounter for immunization Z23 and Cough R[address] [address] Jan, [facility] [address] [place] [id number] [place] [address]56- [address] Jan, [facility] [address] [place] [id number] [place] [address] Jan, Type 2 diabetes mellitus without complication, without long -term current use of insulin E11.9 ; BMI 50.0-59.9, adult Z68.43 ; BMI 60.0-69.9 , adult Z68.44 and Family history of coronary artery disease Z82.49 IMMUNIZATIONS No Known Immunizations SOCIAL HISTORY Never Assessed REASON FOR VISIT refill PLAN OF CARE VITAL SIGNS MEDICATIONS Medication Instructions Dosage Frequency Start Date End Date Duration Status Fluoxetine HCl 40 MG Orally Once a day 1 capsule in the morning 24h Mar 30 day(s) Active RESULTS No Results PROCEDURES [...] Hospitalization History Chest pain/pulled muscle in chest[place] [place], [place] 2011
--- OUTSIDE RECORDS SUMMARY | 2017-12-09 21:17 | XMS REPORT ---
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 Name Role Phone CONNIE MALAVE Unavailable PROBLEMS Type Condition ICD9-CM Code OVI96-HL Code Onset Dates Condition Status SNOMED Code Problem Type 2 diabetes mellitus without complication, without long-term current use of insulin E11.9 Active 057199345 Problem Seasonal allergies J30.2 Active 558150356 Problem Sleep apnea, unspecified type G47.30 Active 50480486 Problem Essential hypertension I10 Active 80528113 Problem ESTHELA (obstructive sleep apnea) G47.33 Active 75042026 Problem Left elbow pain M25.522 Active 31630331 Problem BMI 50.0-59.9, adult Z68.43 Active 456081516 ALLERGIES Substance Reaction Event Type Date Status Penicillin G Sodium Unknown Drug Allergy Mar, Active Iodine Unknown Drug Allergy Mar, Active "all pain meds except Hydrocodone" Unknown Non Drug Allergy Mar, Active ENCOUNTERS Encounter Location Date Diagnosis [place] [id number] [place] [id number] [place] [address] Oct, [facility] [place] [address] [place] [id number] [place] [address] Aug, [facility] [place] [address] [place] [id number] [place] [address]- [address] Aug, [facility] [place] [address] [address] Aug, BMI 50.0-59.9, adult Z68.43 ; Sleep apnea, unspecified type G47.30 and Seasonal allergies J30.2 [facility] [place] [address] [place] [id number] [place] [address]- [address] July, Left elbow pain M25.522 ; BMI 50.0-59.9, adult Z68.43 and Essential hypertension I10 [facility] [place] [address] [place] [id number] [place] [address]- [address] Jun, [facility] [place] [address] [place] [id number] [place] [address] 58068- [address] 18 Jun, 2017 Abdominal wall pain R10.9 and BMI 50.0-59.9, adult Z68.43 [facility] [place] [address] [address] Jun, [facility] [place] [address] [address]- [address] Jun, Left lower quadrant pain R10.32 ; Blood in stool K92.1 and BMI 50.0-59.9, adult Z68.43 [place] [address] [place] [id number] [place] [address]- [address] 30 May, 2017 [facility] [place] [address] [place] [id number] [place] [address] 6[address]- [address] May, [facility] [place] [address] [place] [id number] [place] [address]- [address] May, Type 2 diabetes mellitus without complication, without long- term current use of insulin E11.9 ; BMI 50.0-59.9, adult Z68.43 and Generalized abdominal pain R10.84 [facility] [address] [place] [id number] [place] [address] May, [facility] [place] [address] [place] [id number] [place] [address]678- [address] May, [facility] [place] [address] [place] [id number] [place] [address]- [address] Mar, [facility] [address] [place] [id number] [place] [address] Mar, [facility] [place] [address] [place] [id number] [place] [address] 16886- 267[address] Mar, Type 2 diabetes mellitus without complication, without long- term current use of insulin E11.9 ; BMI 50.0-59.9, adult Z68.43 ; Acute suppurative otitis media of both ears without spontaneous rupture of tympanic membranes, recurrence not specified H66.003 ; ESTHELA (obstructive sleep apnea) G47.33 and Essential hypertension I10 [facility] [place] [address] [address] Mar, [facility] [address] [address] Feb, BMI 50.0-59.9, adult Z68.43 ; Encounter for immunization Z23 and Cough R05 [place] [address] [address] Jan, [facility] [place] [address] [address] Jan, [facility] [address] [address] Jan, Type 2 diabetes mellitus without complication, without long -term current use of insulin E11.9 ; BMI 50.0-59.9, adult Z68.43 ; BMI 60.0-69.9 , adult Z68.44 and Family history of coronary artery disease Z82.49 IMMUNIZATIONS No Known Immunizations SOCIAL HISTORY Never Assessed REASON FOR VISIT [facility] PLAN OF CARE VITAL SIGNS MEDICATIONS Medication Instructions Dosage Frequency Start Date End Date Duration Status Glucocard Expression Monitor w/Device as directed Jan, Active Glucocard Expression Test - In Vitro 2 times a day as directed 12h Jan, Active Metformin HCl 500 MG Orally Take one tablet daily with meals x 7 days then increase to twice daily with meals. as directed Jan, 30 day(s) Active Tessalon Perles 100 mg Orally Three times a day as needed for cough 1 capsule Not-Taking RESULTS No Results PROCEDURES No Known procedures INSTRUCTIONS MEDICATIONS ADMINISTERED No Known Medications MEDICAL (GENERAL) HISTORY Type Description Date Medical History Type 2 Diabetes Medical History Sleep apnea Surgical History section x2 Surgical History lumpectomy, right breast Surgical History cholecystectomy Surgical History bilateral tubal ligation (BTL) Hospitalization History Collapsed lung-[facility] for 9 days 2008 Hospitalization History Chest pain/pulled muscle in chest-[facility] [place], [place] 2012
--- OUTSIDE RECORDS SUMMARY | 2017-12-09 21:18 | XMS REPORT | Continuity of Care Document ---
Author Author [facility] Address Unknown Phone Unavailable Allergies Active Description Code Type Severity Reaction Onset Reported/Identified Relationship to Patient Clinical Status Yes fentanyl [id number] Drug Allergy Severe SOA 02/12/2017 Yes morphine [id number] Drug Allergy Severe SOA 02/12/2017 Yes codeine [id number] Drug Allergy Unknown N/A 02/12/2017 Yes hydromorphone [id number] Drug Allergy Unknown N/A 02/12/2017 Yes iodine [id number] Drug Allergy Unknown N/A 02/12/2017 Yes latex [id number] Drug Allergy Unknown N/A 02/12/2017 Yes Penicillins [id number] Drug Allergy Unknown N/A 02/12/2017 Yes tramadol [id number] Drug Allergy Unknown N/A 02/12/2017 Medications There is no data. Problems Date Dx Coded Attending Type Code Diagnosis Diagnosed By 02/12/2017 JANINE MEHTA DO, Ot E11.9 TYPE 2 DIABETES MELLITUS WITHOUT COMPLIC 02/12/2017 JANINE MEHTA DO Ot E66.01 MORBID (SEVERE) OBESITY DUE TO EXCESS CA 02/12/2017 JANINE MEHTA DO Ot F12.10 CANNABIS ABUSE, UNCOMPLICATED 02/12/2017 JANINE MEHTA DO Ot F15.10 OTHER STIMULANT ABUSE, UNCOMPLICATED 02/12/2017 JANINE MEHTA DO Ot F17.210 NICOTINE DEPENDENCE, CIGARETTES, UNCOMPL 02/12/2017 JANINE MEHTA DO Ot F32.9 MAJOR DEPRESSIVE DISORDER, SINGLE EPISOD 02/12/2017 JANINE MEHTA DO Ot F41.9 ANXIETY DISORDER, UNSPECIFIED 02/12/2017 JANINE MEHTA DO Ot G89.29 OTHER CHRONIC PAIN 02/12/2017 JANINE MEHTA DO Ot M54.5 LOW BACK PAIN 02/12/2017 JANINE MEHTA DO Ot R51 HEADACHE 02/12/2017 JANINE MEHTA DO Ot W18.30XA FALL ON SAME LEVEL, UNSPECIFIED, INITIAL 02/12/2017 TYSON JANINE REDMAN Ot Z87.59 PERSONAL HISTORY OF COMP OF PREG, CHLDBR 02/12/2017 TYSON JANINE REDMAN Ot Z98.51 TUBAL LIGATION STATUS 03/20/2017 TYSON JANINE REDMAN K Ot E11.9 TYPE 2 DIABETES MELLITUS WITHOUT COMPLIC 03/20/2017 TYSON LACIE REDMANA K Ot E66.01 MORBID (SEVERE) OBESITY DUE TO EXCESS CA 03/20/2017 TYSON , JANINE K Ot F12.10 CANNABIS ABUSE, UNCOMPLICATED 03/20/2017 TYSON , JANINE K Ot F15.10 OTHER STIMULANT ABUSE, UNCOMPLICATED 03/20/2017 TYSON , JANINE K Ot F17.210 NICOTINE DEPENDENCE, CIGARETTES, UNCOMPL 03/20/2017 TYSON JANINE K Ot F32.9 MAJOR DEPRESSIVE DISORDER, SINGLE EPISOD 03/20/2017 TYSON JANINE K Ot F41.9 ANXIETY DISORDER, UNSPECIFIED 03/20/2017 TYSON JANINE REDMAN Ot G89.29 OTHER CHRONIC PAIN 03/20/2017 TYSON JANINE REDMAN K Ot M54.5 LOW BACK PAIN 03/20/2017 TYSON JANINE REDMAN Ot R51 HEADACHE 03/20/2017 TYSON JANINE REDMAN Ot W18.30XA FALL ON SAME LEVEL, UNSPECIFIED, INITIAL 03/20/2017 TYSON JANINE REDMAN Ot Z87.59 PERSONAL HISTORY OF COMP OF PREG, CHLDBR 03/20/2017 TYSON JANINE REDMAN Ot Z98.51 TUBAL LIGATION STATUS 03/23/2017 BREANNE ROCHE, REY Redmond Ot E11.9 TYPE 2 DIABETES MELLITUS WITHOUT COMPLIC 03/23/2017 BREANNE ROCHE, REY Redmond Ot E66.01 MORBID (SEVERE) OBESITY DUE TO EXCESS CA 03/23/2017 REY RAYMUNDO MD Ot F32.9 MAJOR DEPRESSIVE DISORDER, SINGLE EPISOD 03/23/2017 REY RAYMUNDO MD Ot F41.9 ANXIETY DISORDER, UNSPECIFIED 03/23/2017 REY RAYMUNDO MD Ot H66.91 OTITIS MEDIA, UNSPECIFIED, RIGHT EAR 03/23/2017 REY RAYMUNDO MD Ot H92.01 OTALGIA, RIGHT EAR 03/23/2017 REY RAYMUNDO MD Ot J01.90 ACUTE SINUSITIS, UNSPECIFIED 03/23/2017 REY RAYMUNDO MD Ot Z79.84 PENITENTIARY (CURRENT) USE OF ORAL HYPOGLYC 03/23/2017 REY RAYMUNDO MD Ot Z86.73 PRSNL HX OF TIA (TIA), AND CEREB INFRC W 03/23/2017 REY RAYMUNDO MD Ot Z87.59 PERSONAL HISTORY OF COMP OF PREG, CHLDBR 03/23/2017 REY RAYMUNDO MD Ot Z98.51 TUBAL LIGATION STATUS 05/02/2017 REY RAYMUNDO MD Ot E11.9 TYPE 2 DIABETES MELLITUS WITHOUT COMPLIC 05/02/2017 REY RAYMUNDO MD Ot E66.01 MORBID (SEVERE) OBESITY DUE TO EXCESS CA 05/02/2017 REY RAYMUNDO MD Ot F32.9 MAJOR DEPRESSIVE DISORDER, SINGLE EPISOD 05/02/2017 REY RAYMUNDO MD Ot F41.9 ANXIETY DISORDER, UNSPECIFIED 05/02/2017 REY RAYMUNDO MD Ot H66.91 OTITIS MEDIA, UNSPECIFIED, RIGHT EAR 05/02/2017 REY RAYMUNDO MD Ot H92.01 OTALGIA, RIGHT EAR 05/02/2017 REY RAYMUNDO MD Ot J01.90 ACUTE SINUSITIS, UNSPECIFIED 05/02/2017 REY RAYMUNDO MD Ot Z79.84 PENITENTIARY (CURRENT) USE OF ORAL HYPOGLYC 05/02/2017 REY RAYMUNDO MD Ot Z86.73 PRSNL HX OF TIA (TIA), AND CEREB INFRC W 05/02/2017 REY RAYMUNDO MD Ot Z87.59 PERSONAL HISTORY OF COMP OF PREG, CHLDBR 05/02/2017 REY RAYMUNDO MD Ot Z98.51 TUBAL LIGATION STATUS 05/17/2017 CLAIRE DE LEON APRN Ot E11.9 TYPE 2 DIABETES MELLITUS WITHOUT COMPLIC 05/17/2017 CLAIRE DE LEON APRN Ot E66.01 MORBID (SEVERE) OBESITY DUE TO EXCESS CA 05/17/2017 CLAIRE DE LEON APRN Ot F32.9 MAJOR DEPRESSIVE DISORDER, SINGLE EPISOD 05/17/2017 CLAIRE DE LEON APRN Ot F41.9 ANXIETY DISORDER, UNSPECIFIED 05/17/2017 CLAIRE DE LEON APRN Ot N39.0 URINARY TRACT INFECTION, SITE NOT SPECIF 05/17/2017 CLAIRE DE LEON APRN Ot R11.2 NAUSEA WITH VOMITING, UNSPECIFIED 05/17/2017 CLAIRE DE LEON APRN Ot R19.7 DIARRHEA, UNSPECIFIED 05/17/2017 CLAIRE DE LEON APRN Ot Z32.00 ENCOUNTER FOR TEST, RESULT UNK 05/17/2017 CLAIRE DE LEON APRN Ot Z86.73 PRSNL HX OF TIA (TIA), AND CEREB INFRC W 05/17/2017 CLAIRE DE LEON APRN Ot Z87.59 PERSONAL HISTORY OF COMP OF PREG, CHLDBR 05/17/2017 CLAIRE DE LEON APRN Ot Z88.0 ALLERGY STATUS TO PENICILLIN 05/17/2017 CLAIRE DE LEON APRN Ot Z88.1 ALLERGY STATUS TO OTHER ANTIBIOTIC AGENT 05/17/2017 CLAIRE DE LEON APRN Ot Z88.5 ALLERGY STATUS TO NARCOTIC AGENT STATUS 05/17/2017 CLAIRE DE LEON APRN Ot Z91.040 LATEX ALLERGY STATUS 05/17/2017 CLAIRE DE LEON APRN Ot Z91.041 RADIOGRAPHIC DYE ALLERGY STATUS 05/17/2017 CLAIRE DE LEON APRN Ot Z98.51 TUBAL LIGATION STATUS 05/19/2017 CLAIRE DE LEON APRN Ot E11.9 TYPE 2 DIABETES MELLITUS WITHOUT COMPLIC 05/19/2017 CLAIRE DE LEON APRN Ot E66.01 MORBID (SEVERE) OBESITY DUE TO EXCESS CA 05/19/2017 CLAIRE DE LEON APRN Ot F32.9 MAJOR DEPRESSIVE DISORDER, SINGLE EPISOD 05/19/2017 CLAIRE DE LEON APRN Ot F41.9 ANXIETY DISORDER, UNSPECIFIED 05/19/2017 CLAIRE DE LEON APRN Ot N39.0 URINARY TRACT INFECTION, SITE NOT SPECIF 05/19/2017 CLAIRE DE LEON APRN Ot R11.2 NAUSEA WITH VOMITING, UNSPECIFIED 05/19/2017 CLAIRE DE LEON APRN Ot R19.7 DIARRHEA, UNSPECIFIED 05/19/2017 CLAIRE DE LEON APRN Ot Z32.00 ENCOUNTER FOR TEST, RESULT UNK 05/19/2017 CLAIRE DE LEON APRN Ot Z86.73 PRSNL HX OF TIA (TIA), AND CEREB INFRC W 05/19/2017 CLAIRE DE LEON APRN Ot Z87.59 PERSONAL HISTORY OF COMP OF PREG, CHLDBR 05/19/2017 CLAIRE DE LEON APRN Ot Z88.0 ALLERGY STATUS TO PENICILLIN 05/19/2017 CLAIRE DE LEON APRN Ot Z88.1 ALLERGY STATUS TO OTHER ANTIBIOTIC AGENT 05/19/2017 CLAIRE DE LEON APRN Ot Z88.5 ALLERGY STATUS TO NARCOTIC AGENT STATUS 05/19/2017 CLAIRE DE LEON APRN Ot Z91.040 LATEX ALLERGY STATUS 05/19/2017 CLAIRE DE LEON APRN Ot Z91.041 RADIOGRAPHIC DYE ALLERGY STATUS 05/19/2017 CLAIRE DE LEON APRN Ot Z98.51 TUBAL LIGATION STATUS 06/19/2017 CLAIRE DE LEON APRN Ot E11.9 TYPE 2 DIABETES MELLITUS WITHOUT COMPLIC 06/19/2017 CLAIRE DE LEON APRN Ot E66.01 MORBID (SEVERE) OBESITY DUE TO EXCESS CA 06/19/2017 CLAIRE DE LEON APRN Ot F32.9 MAJOR DEPRESSIVE DISORDER, SINGLE EPISOD 06/19/2017 CLAIRE DE LEON APRN Ot F41.9 ANXIETY DISORDER, UNSPECIFIED 06/19/2017 CLAIRE DE LEON APRN Ot R10.31 RIGHT LOWER QUADRANT PAIN 06/19/2017 CLAIRE DE LEON APRN Ot R10.32 LEFT LOWER QUADRANT PAIN 06/19/2017 CLAIRE DE LEON APRN Ot Z68.43 BODY MASS INDEX (BMI) 50-59.9 , ADULT 06/19/2017 CLAIRE DE LEON APRN Ot Z86.73 PRSNL HX OF TIA (TIA), AND CEREB INFRC W 06/19/2017 CLAIRE DE LEON APRN Ot Z87.59 PERSONAL HISTORY OF COMP OF PREG, CHLDBR 06/19/2017 CLAIRE DE LEON APRN Ot Z87.891 PERSONAL HISTORY OF NICOTINE DEPENDENCE 06/19/2017 CLAIRE DE LEON APRN Ot Z88.0 ALLERGY STATUS TO PENICILLIN 06/19/2017 CLAIRE DE LEON APRN Ot Z88.5 ALLERGY STATUS TO NARCOTIC AGENT STATUS 06/19/2017 CLAIRE DE LEON APRN Ot Z88.6 ALLERGY STATUS TO ANALGESIC AGENT STATUS 06/19/2017 CLAIRE DE LEON APRN Ot Z88.8 ALLERGY STATUS TO OTH DRUG/MEDS/BIOL SUB 06/19/2017 CLAIRE DE LEON APRN Ot Z91.040 LATEX ALLERGY STATUS 06/19/2017 CLAIRE DE LEON APRN Ot Z91.041 RADIOGRAPHIC DYE ALLERGY STATUS 06/19/2017 CLAIRE DE LEON APRN Ot Z98.51 TUBAL LIGATION STATUS 06/23/2017 CLAIRE DE LEON APRN Ot E11.9 TYPE 2 DIABETES MELLITUS WITHOUT COMPLIC 06/23/2017 CLAIRE DE LEON APRN Ot E66.01 MORBID (SEVERE) OBESITY DUE TO EXCESS CA 06/23/2017 CLAIRE DE LEON APRN Ot F32.9 MAJOR DEPRESSIVE DISORDER, SINGLE EPISOD 06/23/2017 CLAIRE DE LEON APRN Ot F41.9 ANXIETY DISORDER, UNSPECIFIED 06/23/2017 CLAIRE DE LEON APRN Ot R10.31 RIGHT LOWER QUADRANT PAIN 06/23/2017 CLAIRE DE LEON APRN Ot R10.32 LEFT LOWER QUADRANT PAIN 06/23/2017 CLAIRE DE LEON APRN Ot Z68.43 BODY MASS INDEX (BMI) 50-59.9 , ADULT 06/23/2017 CLAIRE DE LEON APRN Ot Z86.73 PRSNL HX OF TIA (TIA), AND CEREB INFRC W 06/23/2017 CLAIRE DE LEON APRN Ot Z87.59 PERSONAL HISTORY OF COMP OF PREG, CHLDBR 06/23/2017 CLAIRE DE LEON APRN Ot Z87.891 PERSONAL HISTORY OF NICOTINE DEPENDENCE 06/23/2017 CLAIRE DE LEON APRN Ot Z88.0 ALLERGY STATUS TO PENICILLIN 06/23/2017 CLAIRE DE LEON APRN Ot Z88.5 ALLERGY STATUS TO NARCOTIC AGENT STATUS 06/23/2017 CLAIRE DE LEON APRN Ot Z88.6 ALLERGY STATUS TO ANALGESIC AGENT STATUS 06/23/2017 CLAIRE DE LEON APRN Ot Z88.8 ALLERGY STATUS TO OTH DRUG/MEDS/BIOL SUB 06/23/2017 CLAIRE DE LEON APRN Ot Z91.040 LATEX ALLERGY STATUS 06/23/2017 CLAIRE DE LEON APRN Ot Z91.041 RADIOGRAPHIC DYE ALLERGY STATUS 06/23/2017 CLAIRE DE LEON APRN Ot Z98.51 TUBAL LIGATION STATUS 07/28/2017 CLAIRE DE LEON APRN Ot E11.9 TYPE 2 DIABETES MELLITUS WITHOUT COMPLIC 07/28/2017 CLAIRE DE LEON APRN Ot E66.01 MORBID (SEVERE) OBESITY DUE TO EXCESS CA 07/28/2017 CLAIRE DE LEON APRN Ot F32.9 MAJOR DEPRESSIVE DISORDER, SINGLE EPISOD 07/28/2017 CLAIRE DE LEON APRN Ot F41.9 ANXIETY DISORDER, UNSPECIFIED 07/28/2017 CLAIRE DE LEON APRN Ot M25.522 PAIN IN LEFT ELBOW 07/28/2017 CLAIRE DE LEON APRN Ot M77.02 MEDIAL EPICONDYLITIS, LEFT ELBOW 07/28/2017 CLAIRE DE LEON APRN Ot Z86.73 PRSNL HX OF TIA (TIA), AND CEREB INFRC W 07/28/2017 CLAIRE DE LEON APRN Ot Z87.59 PERSONAL HISTORY OF COMP OF PREG, CHLDBR 07/28/2017 CLAIRE DE LEON APRN Ot Z88.0 ALLERGY STATUS TO PENICILLIN 07/28/2017 CLAIRE DE LEON APRN Ot Z88.5 ALLERGY STATUS TO NARCOTIC AGENT STATUS 07/28/2017 CLAIRE DE LEON APRN Ot Z88.6 ALLERGY STATUS TO ANALGESIC AGENT STATUS 07/28/2017 CLAIRE DE LEON APRN Ot Z88.8 ALLERGY STATUS TO OTH DRUG/MEDS/BIOL SUB 07/28/2017 CLAIRE DE LEON APRN Ot Z91.040 LATEX ALLERGY STATUS 07/28/2017 CLAIRE DE LEON APRN Ot Z98.51 TUBAL LIGATION STATUS 07/30/2017 CLAIRE DE LEON APRN Ot E11.9 TYPE 2 DIABETES MELLITUS WITHOUT COMPLIC 07/30/2017 CLAIRE DE LEON APRN Ot E66.01 MORBID (SEVERE) OBESITY DUE TO EXCESS CA 07/30/2017 CLAIRE DE LEON APRN Ot F32.9 MAJOR DEPRESSIVE DISORDER, SINGLE EPISOD 07/30/2017 CLAIRE DE LEON APRN Ot F41.9 ANXIETY DISORDER, UNSPECIFIED 07/30/2017 CLAIRE DE LEON APRN Ot M25.522 PAIN IN LEFT ELBOW 07/30/2017 CLAIRE DE LEON APRN Ot M77.02 MEDIAL EPICONDYLITIS, LEFT ELBOW 07/30/2017 CLAIRE DE LEON APRN Ot Z86.73 PRSNL HX OF TIA (TIA), AND CEREB INFRC W 07/30/2017 CLAIRE DE LEON APRN Ot Z87.59 PERSONAL HISTORY OF COMP OF PREG, CHLDBR 07/30/2017 CLAIRE DE LEON APRN Ot Z88.0 ALLERGY STATUS TO PENICILLIN 07/30/2017 CLAIRE DE LEON APRN Ot Z88.5 ALLERGY STATUS TO NARCOTIC AGENT STATUS 07/30/2017 CLAIRE DE LEON APRN Ot Z88.6 ALLERGY STATUS TO ANALGESIC AGENT STATUS 07/30/2017 CLAIRE DE LEON APRN Ot Z88.8 ALLERGY STATUS TO OTH DRUG/MEDS/BIOL SUB 07/30/2017 CLAIRE DE LEON APRN Ot Z91.040 LATEX ALLERGY STATUS 07/30/2017 CLAIRE DE LEON APRN Ot Z98.51 TUBAL LIGATION STATUS 09/22/2017 CLAIRE DE LEON APRN Ot E11.9 TYPE 2 DIABETES MELLITUS WITHOUT COMPLIC 09/22/2017 CLAIRE DE LEON APRN Ot E66.01 MORBID (SEVERE) OBESITY DUE TO EXCESS CA 09/22/2017 CLAIRE DE LEON APRN Ot F32.9 MAJOR DEPRESSIVE DISORDER, SINGLE EPISOD 09/22/2017 CLAIRE DE LEON APRN Ot F41.9 ANXIETY DISORDER, UNSPECIFIED 09/22/2017 CLAIRE DE LEON APRN Ot J18.1 LOBAR PNEUMONIA, UNSPECIFIED ORGANISM 09/22/2017 CLAIRE DE LEON APRN Ot R07.9 CHEST PAIN, UNSPECIFIED 09/22/2017 CLAIRE DE LEON APRN Ot Z68.43 BODY MASS INDEX (BMI) 50-59.9 , ADULT 09/22/2017 CLAIRE DE LEON APRN Ot Z86.73 PRSNL HX OF TIA (TIA), AND CEREB INFRC W 09/22/2017 CLAIRE DE LEON APRN Ot Z87.59 PERSONAL HISTORY OF COMP OF PREG, CHLDBR 09/22/2017 CLAIRE DE LEON APRN Ot Z88.0 ALLERGY STATUS TO PENICILLIN 09/22/2017 CLAIRE DE LEON APRN Ot Z88.5 ALLERGY STATUS TO NARCOTIC AGENT STATUS 09/22/2017 CLAIRE DE LEON APRN Ot Z88.6 ALLERGY STATUS TO ANALGESIC AGENT STATUS 09/22/2017 CLAIRE DE LEON APRN Ot Z88.8 ALLERGY STATUS TO OTH DRUG/MEDS/BIOL SUB 09/22/2017 CLAIRE DE LEON APRN Ot Z91.040 LATEX ALLERGY STATUS 09/22/2017 CLAIRE DE LEON APRN Ot Z98.51 TUBAL LIGATION STATUS 09/22/2017 CLAIRE DE LEON APRN Ot Z98.890 OTHER SPECIFIED POSTPROCEDURAL STATES 09/24/2017 CLAIRE DE LEON APRN Ot E11.9 TYPE 2 DIABETES MELLITUS WITHOUT COMPLIC 09/24/2017 CLAIRE DE LEON APRN Ot E66.01 MORBID (SEVERE) OBESITY DUE TO EXCESS CA 09/24/2017 CLAIRE DE LEON APRN Ot F32.9 MAJOR DEPRESSIVE DISORDER, SINGLE EPISOD 09/24/2017 CLAIRE DE LEON APRN Ot F41.9 ANXIETY DISORDER, UNSPECIFIED 09/24/2017 CLAIRE DE LEON APRN Ot J18.1 LOBAR PNEUMONIA, UNSPECIFIED ORGANISM 09/24/2017 CLAIRE DE LEON APRN Ot R07.9 CHEST PAIN, UNSPECIFIED 09/24/2017 CLAIRE DE LEON APRN Ot Z68.43 BODY MASS INDEX (BMI) 50-59.9 , ADULT 09/24/2017 CLAIRE DE LEON APRN Ot Z86.73 PRSNL HX OF TIA (TIA), AND CEREB INFRC W 09/24/2017 CLAIRE DE LEON APRN Ot Z87.59 PERSONAL HISTORY OF COMP OF PREG, CHLDBR 09/24/2017 CLAIRE DE LEON APRN Ot Z88.0 ALLERGY STATUS TO PENICILLIN 09/24/2017 CLAIRE DE LEON APRN Ot Z88.5 ALLERGY STATUS TO NARCOTIC AGENT STATUS 09/24/2017 CLAIRE DE LEON APRN Ot Z88.6 ALLERGY STATUS TO ANALGESIC AGENT STATUS 09/24/2017 CLAIRE DE LEON APRN Ot Z88.8 ALLERGY STATUS TO OTH DRUG/MEDS/BIOL SUB 09/24/2017 CLAIRE DE LEON APRN Ot Z91.040 LATEX ALLERGY STATUS 09/24/2017 CLAIRE DE LEON APRN Ot Z98.51 TUBAL LIGATION STATUS 09/24/2017 CLAIRE DE LEON APRN Ot Z98.890 OTHER SPECIFIED POSTPROCEDURAL STATES 09/24/2017 CLAIRE DE LEON APRN Ot E11.9 TYPE 2 DIABETES MELLITUS WITHOUT COMPLIC 09/24/2017 CLAIRE DE LEON APRN Ot E66.01 MORBID (SEVERE) OBESITY DUE TO EXCESS CA 09/24/2017 CLAIRE DE LEON APRN Ot F32.9 MAJOR DEPRESSIVE DISORDER, SINGLE EPISOD 09/24/2017 CLAIRE DE LEON APRN Ot F41.9 ANXIETY DISORDER, UNSPECIFIED 09/24/2017 CLAIRE DE LEON APRN Ot J18.1 LOBAR PNEUMONIA, UNSPECIFIED ORGANISM 09/24/2017 CLAIRE DE LEON APRN Ot R07.9 CHEST PAIN, UNSPECIFIED 09/24/2017 CLAIRE DE LEON APRN Ot Z68.43 BODY MASS INDEX (BMI) 50-59.9 , ADULT 09/24/2017 CLAIRE DE LEON APRN Ot Z86.73 PRSNL HX OF TIA (TIA), AND CEREB INFRC W 09/24/2017 CLAIRE DE LEON APRN Ot Z87.59 PERSONAL HISTORY OF COMP OF PREG, CHLDBR 09/24/2017 CLAIRE DE LEON APRN Ot Z88.0 ALLERGY STATUS TO PENICILLIN 09/24/2017 CLAIRE DE LEON APRN Ot Z88.5 ALLERGY STATUS TO NARCOTIC AGENT STATUS 09/24/2017 CLAIRE DE LEON APRN Ot Z88.6 ALLERGY STATUS TO ANALGESIC AGENT STATUS 09/24/2017 CLAIRE DE LEON APRN Ot Z88.8 ALLERGY STATUS TO OTH DRUG/MEDS/BIOL SUB 09/24/2017 CLAIRE DE LEON APRN Ot Z91.040 LATEX ALLERGY STATUS 09/24/2017 CLAIRE DE LEON APRN Ot Z98.51 TUBAL LIGATION STATUS 09/24/2017 CLAIRE DE LEON APRN Ot Z98.890 OTHER SPECIFIED POSTPROCEDURAL STATES 09/30/2017 CLAIRE DE LEON APRN Ot E11.9 TYPE 2 DIABETES MELLITUS WITHOUT COMPLIC 09/30/2017 CLAIRE DE LEON APRN Ot E66.01 MORBID (SEVERE) OBESITY DUE TO EXCESS CA 09/30/2017 CLAIRE DE LEON APRN Ot F32.9 MAJOR DEPRESSIVE DISORDER, SINGLE EPISOD 09/30/2017 CLAIRE DE LEON APRN Ot F41.9 ANXIETY DISORDER, UNSPECIFIED 09/30/2017 CLAIRE DE LEON APRN Ot N39.0 URINARY TRACT INFECTION, SITE NOT SPECIF 09/30/2017 CLAIRE DE LEON APRN Ot R11.2 NAUSEA WITH VOMITING, UNSPECIFIED 09/30/2017 CLAIRE DE LEON APRN Ot R19.7 DIARRHEA, UNSPECIFIED 09/30/2017 CLAIRE DE LEON APRN Ot Z32.00 ENCOUNTER FOR TEST, RESULT UNK 09/30/2017 CLAIRE DE LEON APRN Ot Z86.73 PRSNL HX OF TIA (TIA), AND CEREB INFRC W 09/30/2017 CLAIRE DE LEON APRN Ot Z87.59 PERSONAL HISTORY OF COMP OF PREG, CHLDBR 09/30/2017 CLAIRE DE LEON APRN Ot Z88.0 ALLERGY STATUS TO PENICILLIN 09/30/2017 CLAIRE DE LEON APRN Ot Z88.1 ALLERGY STATUS TO OTHER ANTIBIOTIC AGENT 09/30/2017 CLAIRE DE LEON APRN Ot Z88.5 ALLERGY STATUS TO NARCOTIC AGENT STATUS 09/30/2017 CLAIRE DE LEON APRN Ot Z91.040 LATEX ALLERGY STATUS 09/30/2017 CLAIRE DE LEON APRN Ot Z91.041 RADIOGRAPHIC DYE ALLERGY STATUS 09/30/2017 CLAIRE DE LEON APRN Ot Z98.51 TUBAL LIGATION STATUS 10/20/2017 ANANDA ROCHE, CONNIE Leblanc Ot R07.89 OTHER CHEST PAIN 11/12/2017 CHARLEEN HARO HEDGE [employer]D ACCOUNTANT Ot S89.92XA UNSPECIFIED INJURY OF LEFT LOWER LEG, IN 11/27/2017 CHARLEEN HARO HED[employer]D ACCOUNTANT Ot S89.92XA UNSPECIFIED INJURY OF LEFT LOWER LEG, IN Procedures There is no data. Results Test Result Range Capillary blood glucose measurement by glucometer (mass/volume) - 02/12/17 13: 04 Capillary blood glucose measurement by glucometer (mass/volume) 207 mg/dL 70-110 Comprehensive metabolic panel - 05/17/17 18:35 Serum or plasma sodium measurement (moles/volume) 140 mmol/L 135-145 Serum or plasma potassium measurement (moles/volume) 3.8 mmol/L 3.6-5.0 Serum or plasma chloride measurement (moles/volume) 102 mmol/L 98-107 Carbon dioxide 23 mmol/L 21-32 Serum or plasma anion gap determination (moles/volume) 15 mmol/L 5-14 Serum or plasma urea nitrogen measurement (mass/volume) 13 mg/dL 7-18 Serum or plasma creatinine measurement (mass/volume) 0.66 mg/dL 0.60-1.30 Serum or plasma urea nitrogen/creatinine mass ratio 20 NRG Serum or plasma creatinine measurement with calculation of estimated glomerular filtration rate > NRG Serum or plasma glucose measurement (mass/volume) 159 mg/dL 70-105 Serum or plasma calcium measurement (mass/volume) 9.1 mg/dL 8.5-10.1 Serum or plasma total bilirubin measurement (mass/volume) 0.9 mg/dL 0.1-1.0 Serum or plasma alkaline phosphatase measurement (enzymatic activity/volume) 130 U/L 40-136 Serum or plasma aspartate aminotransferase measurement (enzymatic activity/ volume) 70 U/L 5-34 Serum or plasma alanine aminotransferase measurement (enzymatic activity/volume ) 54 U/L 0-55 Serum or plasma protein measurement (mass/volume) 7.4 g/dL 6.4-8.2 Serum or plasma albumin measurement (mass/volume) 4.0 g/dL 3.2-4.5 Lipase - 05/17/17 18:35 Lipase 13 U/L 8-78 Complete blood count (CBC) with automated white blood cell (WBC) differential - 05/17/17 18:35 Blood leukocytes automated count (number/volume) 8.3 10*3/uL 4.3-11.0 Blood erythrocytes automated count (number/volume) 5.15 10*6/uL 4.35-5.85 Venous blood hemoglobin measurement (mass/volume) 15.2 g/dL 11.5-16.0 Blood hematocrit (volume fraction) 45 % 35-52 Automated erythrocyte mean corpuscular volume 88 [foz_us] 80-99 Automated erythrocyte mean corpuscular hemoglobin (mass per erythrocyte) 30 pg 25-34 Automated erythrocyte mean corpuscular hemoglobin concentration measurement ( mass/volume) 34 g/dL 32-36 Automated erythrocyte distribution width ratio 13.3 % 10.0-14.5 Automated blood platelet count (count/volume) 357 10*3/uL 130-400 Automated blood platelet mean volume measurement 8.9 [foz_us] 7.4-10.4 Automated blood neutrophils/100 leukocytes 63 % 42-75 Automated blood lymphocytes/100 leukocytes 27 % 12-44 Blood monocytes/100 leukocytes 8 % 0-12 Automated blood eosinophils/100 leukocytes 2 % 0-10 Automated blood basophils/100 leukocytes 0 % 0-10 Blood neutrophils automated count (number/volume) 5.2 10*3 1.8-7.8 Blood lymphocytes automated count (number/volume) 2.3 10*3 1.0-4.0 Blood monocytes automated count (number/volume) 0.7 10*3 0.0-1.0 Automated eosinophil count 0.2 10*3/uL 0.0-0.3 Automated blood basophil count (count/volume) 0.0 10*3/uL 0.0-0.1 Complete urinalysis with reflex to culture - 05/17/17 18:44 Urine color determination YELLOW NRG Urine clarity determination SLIGHTLY CLOUDY NRG Urine pH measurement by test strip 6 5-9 Specific gravity of urine by test strip 1.020 1.016- 1.022 Urine protein assay by test strip, semi-quantitative 2+ NEGATIVE Urine glucose detection by automated test strip NEGATIVE NEGATIVE Erythrocytes detection in urine sediment by light microscopy NEGATIVE NEGATIVE Urine ketones detection by automated test strip NEGATIVE NEGATIVE Urine nitrite detection by test strip POSITIVE NEGATIVE Urine total bilirubin detection by test strip NEGATIVE NEGATIVE Urine urobilinogen measurement by automated test strip (mass/volume) 1 mg/dL NORMAL Urine leukocyte esterase detection by dipstick 1+ NEGATIVE Automated urine sediment erythrocyte count by microscopy (number/high power field) RARE NRG Automated urine sediment leukocyte count by microscopy (number/high power field ) [HPF] NRG Bacteria detection in urine sediment by light microscopy LARGE NRG Squamous epithelial cells detection in urine sediment by light microscopy 25-50 NRG Crystals detection in urine sediment by light microscopy NONE NRG Casts detection in urine sediment by light microscopy PRESENT NRG Mucus detection in urine sediment by light microscopy NEGATIVE NRG Complete urinalysis with reflex to culture YES NRG Hyaline casts detection in urine sediment by light microscopy 5-10 NRG Renal epithelial cells detection in urine sediment by light microscopy NONE NRG Bacterial urine culture - 05/17/17 18:44 Bacterial urine culture [id number] NRG COLONY COUNT >100,000/ML NRG FTX;REPORTABLE SENSITIVITY REPORTED 05/19/17 8:30 NRG FREE TEXT ENTRY 2 PLUS, MIXED GRAM POSITIVES 10-100,000/ML NRG FREE TEXT ENTRY 3 > 3 ISOLATES NRG Bacterial susceptibility panel - 05/17/17 18:44 Gentamicin susceptibility test by minimum inhibitory concentration < = NRG Trimethoprim/sulfamethoxazole susceptibility test by minimum inhibitoryconcentration S NRG Ampicillin susceptibility test by minimum inhibitory concentration < = NRG Tobramycin susceptibility test by minimum inhibitory concentration < = NRG Cefazolin susceptibility test by minimum inhibitory concentration < = NRG Ceftriaxone susceptibility test by minimum inhibitory concentration <= NRG Ampicillin/sulbactam susceptibility test by minimum inhibitory concentration <= NRG Piperacillin/tazobactam susceptibility test by minimum inhibitory concentration S NRG Ciprofloxacin susceptibility test by minimum inhibitory concentration <= NRG Meropenem susceptibility test by minimum inhibitory concentration < = NRG Nitrofurantoin susceptibility test by minimum inhibitory concentration <= NRG Aztreonam susceptibility test by minimum inhibitory concentration < = NRG Extended spectrum beta lactamase (ESBL) producing bacteria susceptibility test by minimum inhibitory concentration - NRG Complete urinalysis with reflex to culture - 06/19/17 16:15 Urine color determination YELLOW NRG Urine clarity determination CLEAR NRG Urine pH measurement by test strip 7 5-9 Specific gravity of urine by test strip 1.010 1.016- 1.022 Urine protein assay by test strip, semi-quantitative 3+ NEGATIVE Urine glucose detection by automated test strip NEGATIVE NEGATIVE Erythrocytes detection in urine sediment by light microscopy NEGATIVE NEGATIVE Urine ketones detection by automated test strip NEGATIVE NEGATIVE Urine nitrite detection by test strip NEGATIVE NEGATIVE Urine total bilirubin detection by test strip NEGATIVE NEGATIVE Urine urobilinogen measurement by automated test strip (mass/volume) 1 mg/dL NORMAL Urine leukocyte esterase detection by dipstick 1+ NEGATIVE Automated urine sediment erythrocyte count by microscopy (number/high power field) NONE NRG Automated urine sediment leukocyte count by microscopy (number/high power field ) [HPF] NRG Bacteria detection in urine sediment by light microscopy NONE NRG Squamous epithelial cells detection in urine sediment by light microscopy 5-10 NRG Crystals detection in urine sediment by light microscopy NONE NRG Casts detection in urine sediment by light microscopy NONE NRG Mucus detection in urine sediment by light microscopy SMALL NRG Complete urinalysis with reflex to culture NO NRG Complete blood count (CBC) with automated white blood cell (WBC) differential - 06/19/17 16:15 Blood leukocytes automated count (number/volume) 8.0 10*3/uL 4.3-11.0 Blood erythrocytes automated count (number/volume) 4.64 10*6/uL 4.35-5.85 Venous blood hemoglobin measurement (mass/volume) 13.8 g/dL 11.5-16.0 Blood hematocrit (volume fraction) 43 % 35-52 Automated erythrocyte mean corpuscular volume 92 [foz_us] 80-99 Automated erythrocyte mean corpuscular hemoglobin (mass per erythrocyte) 30 pg 25-34 Automated erythrocyte mean corpuscular hemoglobin concentration measurement ( mass/volume) 32 g/dL 32-36 Automated erythrocyte distribution width ratio 14.0 % 10.0-14.5 Automated blood platelet count (count/volume) 303 10*3/uL 130-400 Automated blood platelet mean volume measurement 9.2 [foz_us] 7.4-10.4 Automated blood neutrophils/100 leukocytes 69 % 42-75 Automated blood lymphocytes/100 leukocytes 22 % 12-44 Blood monocytes/100 leukocytes 7 % 0-12 Automated blood eosinophils/100 leukocytes 1 % 0-10 Automated blood basophils/100 leukocytes 0 % 0-10 Blood neutrophils automated count (number/volume) 5.5 10*3 1.8-7.8 Blood lymphocytes automated count (number/volume) 1.7 10*3 1.0-4.0 Blood monocytes automated count (number/volume) 0.6 10*3 0.0-1.0 Automated eosinophil count 0.1 10*3/uL 0.0-0.3 Automated blood basophil count (count/volume) 0.0 10*3/uL 0.0-0.1 Comprehensive metabolic panel - 06/19/17 16:15 Serum or plasma sodium measurement (moles/volume) 138 mmol/L 135-145 Serum or plasma potassium measurement (moles/volume) 4.2 mmol/L 3.6-5.0 Serum or plasma chloride measurement (moles/volume) 99 mmol/L 98-107 Carbon dioxide 30 mmol/L 21-32 Serum or plasma anion gap determination (moles/volume) 9 mmol/L 5-14 Serum or plasma urea nitrogen measurement (mass/volume) 9 mg/dL 7-18 Serum or plasma creatinine measurement (mass/volume) 0.60 mg/dL 0.60-1.30 Serum or plasma urea nitrogen/creatinine mass ratio 15 NRG Serum or plasma creatinine measurement with calculation of estimated glomerular filtration rate > NRG Serum or plasma glucose measurement (mass/volume) 161 mg/dL 70-105 Serum or plasma calcium measurement (mass/volume) 8.8 mg/dL 8.5-10.1 Serum or plasma total bilirubin measurement (mass/volume) 0.7 mg/dL 0.1-1.0 Serum or plasma alkaline phosphatase measurement (enzymatic activity/volume) 113 U/L 40-136 Serum or plasma aspartate aminotransferase measurement (enzymatic activity/ volume) 50 U/L 5-34 Serum or plasma alanine aminotransferase measurement (enzymatic activity/volume ) 37 U/L 0-55 Serum or plasma protein measurement (mass/volume) 7.0 g/dL 6.4-8.2 Serum or plasma albumin measurement (mass/volume) 3.9 g/dL 3.2-4.5 Complete blood count (CBC) with automated white blood cell (WBC) differential - 09/22/17 19:39 Blood leukocytes automated count (number/volume) 6.5 10*3/uL 4.3-11.0 Blood erythrocytes automated count (number/volume) 4.44 10*6/uL 4.35-5.85 Venous blood hemoglobin measurement (mass/volume) 13.8 g/dL 11.5-16.0 Blood hematocrit (volume fraction) 41 % 35-52 Automated erythrocyte mean corpuscular volume 91 [foz_us] 80-99 Automated erythrocyte mean corpuscular hemoglobin (mass per erythrocyte) 31 pg 25-34 Automated erythrocyte mean corpuscular hemoglobin concentration measurement ( mass/volume) 34 g/dL 32-36 Automated erythrocyte distribution width ratio 13.4 % 10.0-14.5 Automated blood platelet count (count/volume) 280 10*3/uL 130-400 Automated blood platelet mean volume measurement 9.0 [foz_us] 7.4-10.4 Automated blood neutrophils/100 leukocytes 67 % 42-75 Automated blood lymphocytes/100 leukocytes 25 % 12-44 Blood monocytes/100 leukocytes 6 % 0-12 Automated blood eosinophils/100 leukocytes 1 % 0-10 Automated blood basophils/100 leukocytes 0 % 0-10 Blood neutrophils automated count (number/volume) 4.4 10*3 1.8-7.8 Blood lymphocytes automated count (number/volume) 1.6 10*3 1.0-4.0 Blood monocytes automated count (number/volume) 0.4 10*3 0.0-1.0 Automated eosinophil count 0.1 10*3/uL 0.0-0.3 Automated blood basophil count (count/volume) 0.0 10*3/uL 0.0-0.1 Comprehensive metabolic panel - 09/22/17 19:39 Serum or plasma sodium measurement (moles/volume) 140 mmol/L 135-145 Serum or plasma potassium measurement (moles/volume) 4.0 mmol/L 3.6-5.0 Serum or plasma chloride measurement (moles/volume) 101 mmol/L 98-107 Carbon dioxide 25 mmol/L 21-32 Serum or plasma anion gap determination (moles/volume) 14 mmol/L 5-14 Serum or plasma urea nitrogen measurement (mass/volume) 6 mg/dL 7-18 Serum or plasma creatinine measurement (mass/volume) 0.65 mg/dL 0.60-1.30 Serum or plasma urea nitrogen/creatinine mass ratio 9 NRG Serum or plasma creatinine measurement with calculation of estimated glomerular filtration rate > NRG Serum or plasma glucose measurement (mass/volume) 214 mg/dL 70-105 Serum or plasma calcium measurement (mass/volume) 9.6 mg/dL 8.5-10.1 Serum or plasma total bilirubin measurement (mass/volume) 0.6 mg/dL 0.1-1.0 Serum or plasma alkaline phosphatase measurement (enzymatic activity/volume) 112 U/L 40-136 Serum or plasma aspartate aminotransferase measurement (enzymatic activity/ volume) 45 U/L 5-34 Serum or plasma alanine aminotransferase measurement (enzymatic activity/volume ) 51 U/L 0-55 Serum or plasma protein measurement (mass/volume) 6.7 g/dL 6.4-8.2 Serum or plasma albumin measurement (mass/volume) 3.9 g/dL 3.2-4.5 Serum or plasma troponin i.cardiac measurement (mass/volume) - 09/22/17 19:39 Serum or plasma troponin i.cardiac measurement (mass/volume) < ng/ mL <0.30 Fibrin D-dimer FEU measurement in platelet poor plasma (mass/volume) - 19:58 Fibrin D-dimer FEU measurement in platelet poor plasma (mass/volume) 0.38 ug/mL 0.00-0.49 Serum or plasma lithium measurement (moles/volume) - 09/22/17 19:58 BNP level 34.3 pg/mL <100.0 Complete urinalysis with reflex to culture - 09/22/17 20:05 Urine color determination YELLOW NRG Urine clarity determination CLEAR NRG Urine pH measurement by test strip 6 5-9 Specific gravity of urine by test strip 1.020 1.016- 1.022 Urine protein assay by test strip, semi-quantitative 3+ NEGATIVE Urine glucose detection by automated test strip 3+ NEGATIVE Erythrocytes detection in urine sediment by light microscopy NEGATIVE NEGATIVE Urine ketones detection by automated test strip NEGATIVE NEGATIVE Urine nitrite detection by test strip NEGATIVE NEGATIVE Urine total bilirubin detection by test strip NEGATIVE NEGATIVE Urine urobilinogen measurement by automated test strip (mass/volume) NORMAL NORMAL Urine leukocyte esterase detection by dipstick 1+ NEGATIVE Automated urine sediment erythrocyte count by microscopy (number/high power field) NONE NRG Automated urine sediment leukocyte count by microscopy (number/high power field ) [HPF] NRG Bacteria detection in urine sediment by light microscopy TRACE NRG Squamous epithelial cells detection in urine sediment by light microscopy 5-10 NRG Crystals detection in urine sediment by light microscopy NONE NRG Casts detection in urine sediment by light microscopy NONE NRG Mucus detection in urine sediment by light microscopy NEGATIVE NRG Complete urinalysis with reflex to culture NO NRG Encounters ACCT No. Visit Date/Time Discharge Status Pt. Type Provider Facility Loc./Unit Complaint [id number] 10/01/2017 15:40:00 10/01/2017 23:59:59 CLS Outpatient CONNIE MALAVE [facility] [id number] 11/11/2017 17:37:00 11/11/2017 23:59:59 CLS Outpatient CHARLEEN HARO APRN [facility] RAD INJURY OF LEFT KNEE, INITIAL ENCOUNTER [id number] 10/16/2017 07:32:00 10/16/2017 23:59:59 CLS Outpatient CONNIE MALAVE MD [facility] CARD ATYPICAL CHEST PAIN [id number] 09/22/2017 19:32:00 09/22/2017 21:22:00 DIS Emergency CLAIRE DE LEON HEDGE FUND ACCOUNTANT [facility] ER CHEST PAIN/NECK AND ARM PAIN [id number] 07/28/2017 22:25:00 07/28/2017 22:53:00 DIS Emergency CLAIRE DE LEON HEDGE FUND ACCOUNTANT [facility] ER L ELBOW PAIN [id number] 06/19/2017 16:00:00 06/19/2017 18:29:00 DIS Emergency CLAIRE DE LEON APRN [facility] ER ABD PAINS, PAINS FROM 7YR OLD CSECTION [id number] 05/17/2017 18:04:00 05/17/2017 19:32:00 DIS Outpatient CLAIRE DE LEON APRN [facility] ER ABD PAIN [id number] 03/22/2017 22:27:00 03/23/2017 00:15:00 DIS Emergency BREANNE ROCHE, REY Redmond [facility] ER EAR PAIN [id number] 02/12/2017 12:41:00 02/12/2017 14:23:00 DIS Emergency JANINE MEHTA DO [facility] ER FALL,BACK/SHOULDER PAIN
--- NOTE | 2017-12-09 22:32 | ED GU-Female ---
General Chief Complaint: -Female Stated Complaint: BOIL IN PELVIC REGION Nursing Triage Note: Pt c/o vaginal dryness that began approximately two days ago. Pt states, "My taint feels like it is scratched." Pt bwgan using new toilet paper two days ago and is correlating the symptoms with that. Nursing Sepsis Screen: No Definite Risk Source: patient Exam Limitations: no limitations History of Present Illness Date Seen by Provider: Dec 09, 2017 Time Seen by Provider: 22:30 Initial Comments Patient is a 37 year old female who presents to the emergency room with complains of pain to the area between her perineal area. She reports that she thinks that she feels like she scratched the area. She reports changing toilet paper brands and thinks she might be allergic to the new paper. Timing/Duration: other (two days ago) Severity/Quality: burning Activities at Onset: none Associated Symptoms: denies symptoms Allergies and Home Medications Allergies Coded Allergies: fentanyl (Verified Allergy, Severe, SOA, 02/12/17) morphine (Verified Allergy, Severe, SOA, 02/12/17) Penicillins (Verified Allergy, Unknown, 02/12/17) codeine (Verified Allergy, Unknown, 02/12/17) hydromorphone (Verified Allergy, Unknown, 02/12/17) iodine (Verified Allergy, Unknown, 02/12/17) latex (Verified Allergy, Unknown, 02/12/17) tramadol (Verified Allergy, Unknown, 02/12/17) Home Medications Dicyclomine HCl 20 Mg Tablet, 20 MG PO QID Prescribed by: CLAIRE DE LEON on 06/19/17 1738 Doxycycline Monohydrate 100 Mg Tablet, 100 MG PO BID Prescribed by: CLAIRE DE LEON on 09/22/17 2108 Naproxen 500 Mg Tablet, 500 MG PO BID PRN for PAIN-MODERATE TO SEVERE Prescribed by: CLAIRE DE LEON on 07/28/17 2243 Ondansetron 8 Mg Tab.rapdis, 8 MG PO Q6H PRN for NAUSEA/VOMITING-1ST LINE Prescribed by: CALIRE DE LEON on 05/17/17 1918 Patient Home Medication List Home Medication List Reviewed: Yes Review of Systems Review of Systems Constitutional: see HPI; No chills, No fever Genitourinary: see HPI, pain (to perianal area) All Other Systemes Reviewed Negative Unless Noted: Yes Past Aahowog-Xjmlzg-Gbkgoj Hx Past Med/Social Hx: Reviewed Nursing Past Med/Soc Hx Patient Social History Alcohol Use: Denies Use Recreational Drug Use: No Smoking Status: Former Smoker Type Used: Cigarettes 2nd Hand Smoke Exposure: No Recent Foreign Travel: No Contact w/Someone Who Travel: No Recent Infectious Disease Expo: No Recent Hopitalizations: No Seasonal Allergies Seasonal Allergies: No Past Medical History Surgeries: Yes ( X 2; BTL; BREAST BIOPSY-BENIGN) Breast, Section, Gallbladder, Tubal Ligation Respiratory: Yes (PT STATES SHE WAS ON A VENTILATOR AND IN A COMA AFTER THE OF A CHILD) Cardiac: No Neurological: Yes (PT STATES SHE WAS ON A VENTILATOR AND IN A COMA AFTER THE OF A CHILD) Stroke Female Reproductive Disorders: Denies DIRECTOR 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 0oz. 175.430434in; BMI Method:Stated General Appearance: WD/WN, no apparent distress Cardiovascular: normal peripheral pulses, regular rate, rhythm, no edema, no gallop, no JVD, no murmur Respiratory: chest non-tender, lungs clear, normal breath sounds, no respiratory distress, no accessory muscle use, respiratory distress Pelvic: lesions (there is a fissure to the area between the vagina and the anus. Exam was assiasted by Jillian STRICKLAND.) Neurologic/Psychiatric: alert, normal mood/affect, oriented x 3 Skin: normal color, warm/dry Progress/Results/Core Measures Suspected Sepsis Recent Fever Within 48 Hours: No Infection Criteria Present: None New/Unexplained Altered Menta: No Sepsis Screen: No Definite Risk SIRS Temperature:97.9 Pulse: 90 Respiratory Rate: 12 Blood Pressure 145 /95 Mean: 112 Results/Orders My Orders Orders - BERNOTDEBBIE Lidocaine 2% Viscous 15 Ml (Xylocaine Vi (12/09/17 22:45) Mupirocin Ointment (Bactroban Ointment (12/10/17 09:00) Mupirocin Ointment (Bactroban Ointment (12/09/17 22:47) Medications Given in ED Current Medications Medications Dose Ordered Sig/Maurice Route Start Time Stop Time Status Last Admin Dose Admin Lidocaine HCl 5 ml ONCE ONCE PO 12/09/17 22:45 12/09/17 22:46 DC 12/09/17 22:53 5 ML Mupirocin 22 gm STK-MED ONCE .ROUTE 12/09/17 22:47 12/09/17 22:51 DC 12/09/17 22:53 22 GM Vital Signs/I&O 12/09/17 12/09/17 21:45 22:55 Temp 97.9 97.9 Pulse 90 90 Resp 12 12 B/P (MAP) 145/95 (112) 145/95 (112) Pulse Ox 95 95 O2 Delivery Room Air Room Air Capillary Refill : Less Than 3 Seconds Blood Pressure Mean: 112 Progress Note : Time: 22:40 Progress Note I have seen and evaluated the patient. I have given her bactroban ointment and topical lidocaine for use. She has an appointment with [facility] later this week for a check up already in place. She agrees with plan of care, return precautions were given. Departure Impression Primary Impression: Perianal fissure Disposition: 01 HOME, SELF-CARE Condition: Stable/Unchanged Departure-Patient Inst. Decision time for Depature: 22:42 Referrals: CONNIE MALAVE MD (PCP/Family) Primary Care Physician Patient Instructions: Anal Fissure (DC) Add. Discharge Instructions: Applied antibiotic ointment 2-3 times per day. Use the topical lidocaine as needed for discomfort. Tylenol and ibuprofen for pain. Follow-up with Dr. Malave at [facility] within 1 week for recheck. Return back to the emergency room for any worsening symptoms or concerns as needed. All discharge instructions reviewed with patient and/or family. Voiced understanding. DEBBIE RAMIREZ Dec 09, 2017 22:32
[2017-12-09] MEDS ORDERED: LIDOCAINE 2% VISCOUS 15 ML UDC PO ONE (22:45)
[2017-12-09] MEDS ORDERED: MUPIROCIN 2% OINT 22 GM (BACTROBAN) TUBE ONE (22:47)
[2017-12-09 22:55] VITALS: BP 145/95
[2017-12-10] MEDS ORDERED: MUPIROCIN 2% OINT 22 GM (BACTROBAN) TUBE TOP SCH (09:00)
== END 2017-12-09 22:55 | disposition home or self-care (01) ==
LOC: EDUNIT# 21:09 → ER 21:10
DX: K60.2 Anal fissure, unspecified (principal); E11.9 Type 2 diabetes mellitus without complications; E66.01 Morbid (severe) obesity due to excess calories; F41.9 Anxiety disorder, unspecified; F32.9 Major depressive disorder, single episode, unspecified; Z91.81 History of falling; Z98.890 Other specified postprocedural states; Z86.73 Personal history of transient ischemic attack (TIA), and cerebral infarction without residual deficits; Z98.51 Tubal ligation status; Z87.891 Personal history of nicotine dependence; Z88.5 Allergy status to narcotic agent; Z88.0 Allergy status to penicillin; Z88.6 Allergy status to analgesic agent; Z88.8 Allergy status to other drugs, medicaments and biological substances; Z91.041 Radiographic dye allergy status; Z91.040 Latex allergy status
CPT/HCPCS: 99284

== ENCOUNTER 2018-01-02 16:46 | Emergency (ER) | payer MEDICAID ==
[~2018-01-02] VITALS: Ht 185.4 cm; Wt 188.2 kg
[2018-01-02 17:30] VITALS: BP 105/56
[2018-01-02] MEDS ORDERED: ASPIRIN 81 MG CHEW (CHILDREN'S ASA) PO ONE (17:30)
[2018-01-02 17:32] LABS: BASOPHILS % (AUTO) 0 % (0-10); EOSINOPHILS # (AUTO) 0.1 10^3/uL (0.0-0.3); EOSINOPHILS % (AUTO) 1 % (0-10); HEMATOCRIT 45 % (35-52); LYMPHOCYTES # (AUTO) 1.6 X 10^3 (1.0-4.0); LYMPHOCYTES % (AUTO) 16 % (12-44); MEAN CORPUSCULAR HEMOGLOBIN 30 PG (25-34); MEAN CORPUSCULAR HGB CONC 33 G/DL (32-36); MEAN CORPUSCULAR VOLUME 89 FL (80-99); MONOCYTES # (AUTO) 0.6 X 10^3 (0.0-1.0); MONOCYTES % (AUTO) 5 % (0-12); NEUTROPHILS % (AUTO) 78 % (42-75); PLATELET COUNT 299 10^3/uL (130-400); RED BLOOD COUNT 5.06 10^6/uL (4.35-5.85); RED CELL DISTRIBUTION WIDTH 13.8 % (10.0-14.5); WHITE BLOOD COUNT 10.3 10^3/uL (4.3-11.0)
[2018-01-02 17:38] LABS: PROTHROMBIN TIME PATIENT 13.1 SEC (12.2-14.7)
[2018-01-02 17:45] LABS: ALANINE AMINOTRANSFERASE 44 U/L (0-55); ALBUMIN 3.8 GM/DL (3.2-4.5); ALKALINE PHOSPHATASE 114 U/L (40-136); BILIRUBIN,TOTAL 0.8 MG/DL (0.1-1.0); BUN/CREATININE RATIO 15; CARBON DIOXIDE 25 MMOL/L (21-32); CHLORIDE 99 MMOL/L (98-107); CREATININE SERUM 0.67 MG/DL (0.60-1.30); GFR ESTIMATED > 60; GLUCOSE 241 MG/DL (70-105); LIPASE 20 U/L (8-78); MAGNESIUM 1.5 MG/DL (1.8-2.4); POTASSIUM 4.2 MMOL/L (3.6-5.0); SODIUM 137 MMOL/L (135-145); TOTAL PROTEIN 7.3 GM/DL (6.4-8.2)
[2018-01-02 17:51] LABS: MYOGLOBIN SERUM 22.5 NG/ML (10.0-92.0)
[2018-01-02 18:00] VITALS: BP 120/77
--- NOTE | 2018-01-02 18:00 | ED Chest Pain ---
General Chief Complaint: Chest Pain Stated Complaint: CP SINCE YESTERDAY/BILAT ARM PAIN/NECK PAIN/NAUSEA Source: patient Exam Limitations: no limitations History of Present Illness Date Seen by Provider: Jan 02, 2018 Time Seen by Provider: 17:59 Initial Comments To ER with reports of chest pain since yesterday, bilateral arm pain and neck pain and nausea. Timing/Duration: 24 hours Severity/Quality: moderate Location: central Radiation: arms Activities at Onset: none ASA po CUSHION COVER INSPECTOR: No NTG SL CUSHION COVER INSPECTOR: No Associated Symptoms: nausea/vomiting Allergies and Home Medications Allergies Coded Allergies: fentanyl (Verified Allergy, Severe, SOA, 02/12/17) morphine (Verified Allergy, Severe, SOA, 02/12/17) Penicillins (Verified Allergy, Unknown, 02/12/17) codeine (Verified Allergy, Unknown, 02/12/17) hydromorphone (Verified Allergy, Unknown, 02/12/17) iodine (Verified Allergy, Unknown, 02/12/17) latex (Verified Allergy, Unknown, 02/12/17) tramadol (Verified Allergy, Unknown, 02/12/17) Home Medications Dicyclomine HCl 20 Mg Tablet, 20 MG PO QID Prescribed by: CLAIRE DE LEON on 06/19/17 1738 Doxycycline Monohydrate 100 Mg Tablet, 100 MG PO BID Prescribed by: CLAIRE DE LEON on 09/22/17 2108 Naproxen 500 Mg Tablet, 500 MG PO BID PRN for PAIN-MODERATE TO SEVERE Prescribed by: CLAIRE DE LEON on 07/28/17 2243 Ondansetron 8 Mg Tab.rapdis, 8 MG PO Q6H PRN for NAUSEA/VOMITING-1ST LINE Prescribed by: CLAIRE DE LEON on 05/17/17 1918 Patient Home Medication List Home Medication List Reviewed: Yes Review of Systems Review of Systems Constitutional: see HPI EENTM: No Symptoms Reported Respiratory: No Symptoms Reported Cardiovascular: See HPI, Chest Pain Gastrointestinal: See HPI, Nausea Genitourinary: No Symptoms Reported Musculoskeletal: no symptoms reported Skin: no symptoms reported Psychiatric/Neurological: No Symptoms Reported Endocrine: No Symptoms Reported Hematologic/Lymphatic: No Symptoms Reported Past Vkccuaw-Gxynus-Mrlqyd Hx Patient Social History Type Used: Cigarettes 2nd Hand Smoke Exposure: No Recent Hopitalizations: No Seasonal Allergies Seasonal Allergies: No Past Medical History Surgeries: Yes ( X 2; BTL; BREAST BIOPSY-BENIGN) Breast, Section, Gallbladder, Tubal Ligation Respiratory: Yes (PT STATES SHE WAS ON A VENTILATOR AND IN A COMA AFTER THE OF A CHILD) Cardiac: No Neurological: Yes (PT STATES SHE WAS ON A VENTILATOR AND IN A COMA AFTER THE OF A CHILD) Stroke Female Reproductive Disorders: Denies 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 0oz. 175.080793kc; BMI Method:Stated General Appearance: No Apparent Distress, WD/WN, Obese HEENT: TMs Normal Respiratory: No Accessory Muscle Use, No Respiratory Distress Extremity: Normal Capillary Refill, Normal Inspection Neurologic/Psychiatric: Alert, Oriented x3 Skin: Normal Color, Warm/Dry Progress/Results/Core Measures Results/Orders Lab Results Laboratory Tests Test 01/02/18 17:15 Range/Units White Blood Count 10.3 4.3-11.0 10^3/uL Red Blood Count 5.06 4.35-5.85 10^6/uL Hemoglobin 15.0 11.5-16.0 G/DL Hematocrit 45 35-52 % Mean Corpuscular Volume 89 80-99 FL Mean Corpuscular Hemoglobin 30 25-34 PG Mean Corpuscular Hemoglobin Concent 33 32-36 G/DL Red Cell Distribution Width 13.8 10.0-14.5 % Platelet Count 299 130-400 10^3/uL Mean Platelet Volume 9.0 7.4-10.4 FL Neutrophils (%) (Auto) 78 H 42-75 % Lymphocytes (%) (Auto) 16 12-44 % Monocytes (%) (Auto) 5 0-12 % Eosinophils (%) (Auto) 1 0-10 % Basophils (%) (Auto) 0 0-10 % Neutrophils # (Auto) 8.0 H 1.8-7.8 X 10^3 Lymphocytes # (Auto) 1.6 1.0-4.0 X 10^3 Monocytes # (Auto) 0.6 0.0-1.0 X 10^3 Eosinophils # (Auto) 0.1 0.0-0.3 10^3/uL Basophils # (Auto) 0.0 0.0-0.1 10^3/uL Prothrombin Time 13.1 12.2-14.7 SEC INR Comment 1.0 0.8-1.4 Activated Partial Thromboplast Time 25 24-35 SEC D-Dimer 0.27 0.00-0.49 UG/ML Sodium Level 137 135-145 MMOL/L Potassium Level 4.2 3.6-5.0 MMOL/L Chloride Level 99 98-107 MMOL/L Carbon Dioxide Level 25 21-32 MMOL/L Anion Gap 13 5-14 MMOL/L Blood Urea Nitrogen 10 7-18 MG/DL Creatinine 0.67 0.60-1.30 MG/DL Estimat Glomerular Filtration Rate > 60 BUN/Creatinine Ratio 15 Glucose Level 241 H 70-105 MG/DL Calcium Level 9.0 8.5-10.1 MG/DL Corrected Calcium 9.2 8.5-10.1 MG/DL Magnesium Level 1.5 L 1.8-2.4 MG/DL Total Bilirubin 0.8 0.1-1.0 MG/DL Aspartate Amino Transf (AST/SGOT) 54 H 5-34 U/L Alanine Aminotransferase (ALT/SGPT) 44 0-55 U/L Alkaline Phosphatase 114 40-136 U/L Myoglobin 22.5 10.0-92.0 NG/ML Troponin I < 0.30 <0.30 NG/ML B-Type Natriuretic Peptide 10.7 <100.0 PG/ML Total Protein 7.3 6.4-8.2 GM/DL Albumin 3.8 3.2-4.5 GM/DL Lipase 20 8-78 U/L My Orders Orders - CLAIRE DE LEON APRN Cbc With Automated Diff (01/02/18 17:) Magnesium (01/02/18:) Chest 1 View, Ap/Pa Only (01/02/18) Ekg Tracing (01/02/18) Cardiac Profile 1 (01/02/18) Comprehensive Metabolic Panel (01/02/18:) Myoglobin Serum (01/02/18:) Protime With Inr (01/02/18) Partial Thromboplastin Time (10/12/18 17:27) O2 (01/02/18 17:27) Monitor-Rhythm Ecg Trace Only (01/02/18 17:27) Lipid Panel (01/03/18 06:00) Aspirin Chewable Tablet (Baby Aspirin Ch (01/02/18 17:30) Saline Lock/Iv-Start (01/02/18 17:27) Lipase (01/02/18 17:27) BNP (01/02/18 17:) Fibrin Degradation Products (01/02/18 17:) Medications Given in ED Current Medications Medications Dose Ordered Sig/Maurice Route Start Time Stop Time Status Last Admin Dose Admin Aspirin 324 mg ONCE ONCE PO 01/02/18 17:30 01/02/18 17:31 DC 01/02/18 17:55 324 MG Departure Impression Primary Impression: Chest pain Disposition: 01 HOME, SELF-CARE Condition: Stable Departure-Patient Inst. Decision time for Depature: 18:05 Referrals: CONNIE MALAVE MD (PCP/Family) Primary Care Physician Patient Instructions: Chest Pain That Is Not Caused by the Heart (DC) CLAIRE DE LEON APRN Jan 02, 2018 18:00
--- NOTE | 2018-01-02 18:02 | Diagnostic Imaging Report ---
INDICATION: Chest pain radiating to the arms. FINDINGS: Portable chest shows normal heart size and vascularity. The lungs are clear. There is no effusion or pneumothorax. IMPRESSION: Normal chest. There is no change from 09/22/2017. Dictated by: Dictated on workstation # [id number]
[2018-01-02] MEDS ORDERED: MAGNESIUM OXIDE (MAG-OX)400 MG TAB PO ONE (18:15)
[2018-01-02] MEDS ORDERED: KETOROLAC 30 MG/ML VIAL IVP ONE (18:30)
[2018-01-02 18:40] VITALS: BP 120/81
--- OUTSIDE RECORDS SUMMARY | 2018-01-03 12:08 | XMS REPORT ---
Author Author CONNIE MALAVE Organization [facility] Address [address] [place] [address] Care Team Providers Care Delinquent Tax Collector Assistant Name Role Phone CONNIE MALAVE Unavailable PROBLEMS Type Condition ICD9-CM Code JUF79-VQ Code Onset Dates Condition Status SNOMED Code Problem Essential hypertension I10 Active 81378363 Problem Type 2 diabetes mellitus without complication, without long-term current use of insulin E11.9 Active 703467559 Problem Anxiety state, unspecified F41.1 Active 328075887 Problem Seasonal allergies J30.2 Active 872302266 Problem BMI 50.0-59.9, adult Z68.43 Active 440135755 Problem ESTHELA (obstructive sleep apnea) G47.33 Active 20638219 Problem Sleep apnea, unspecified type G47.30 Active 51936712 Problem Left elbow pain M25.522 Active 23310914 ALLERGIES No Information ENCOUNTERS Encounter Location Date Diagnosis [facility] [id number] [place] [address] 65937- 7686 Dec, [facility] [id number] [place] [address] 85068- 9487 Dec, [facility] [id number] [place] [address] 05926- 1290 Dec, [facility] [id number] [place] [address] 45736- 5411 Dec, [facility] [id number] [place] [address] 10740- 5720 Nov, [facility] [id number] [place] [address] 97390- 9706 Nov, Anxiety state, unspecified F41.1 [facility] [id number] [place] [address] 89634- 6645 19 Nov, 2017 Anxiety state, unspecified F41.1 [place] [address] 93723- 5003 17 Nov, 2017 [facility] N [address] [address]54 -[address]13 Nov, BMI 50.0-59.9, adult Z68.43 and Viral gastroenteritis A08.4 [facility] WALK IN [facility] [address] 78099 [address]2784 Oct, Injury of left knee, initial encounter S89.92XA and BMI 50.0-59.9, adult Z68.43 [place] [address] 86174- 9237 Oct, [place] [address] 41827- 4080 Sep, Atypical chest pain R07.89 ; Pneumonia due to infectious organism, unspecified laterality, unspecified part of lung J18.9 ; BMI 50.0-59.9 , adult Z68.43 and Sleep apnea, unspecified type G47.30 [place] [address] 35657- 7569 Aug, [place] [address] 47843- 1243 Aug, BMI 50.0-59.9, adult Z68.43 ; Sleep apnea, unspecified type G47.30 ; Seasonal allergies J30.2 and Generalized abdominal pain R10.84 [place] [address] 37746- 0120 July, Left elbow pain M25.522 ; BMI 50.0-59.9, adult Z68.43 and Essential hypertension I10 [place] [address] 12046- 1657 Jun, [place] [address] 09793- 0592 18 Jun, 2017 Abdominal wall pain R10.9 and BMI 50.0-59.9, adult Z68.43 [place] [address] 08133- 2077 Jun, [facility] [id number] [place] [address] 47381- 1981 Jun, Left lower quadrant pain R10.32 ; Blood in stool K92.1 and BMI 50.0-59.9, adult Z68.43 [place] [id number] [place] [address] 46856- 8984 30 May, 2017 [place] [address] 42962- 6438 May, [place] [id number] [place] [address] 00754- 1385 May, Type 2 diabetes mellitus without complication, without long- term current use of insulin E11.9 ; BMI 50.0-59.9, adult Z68.43 and Generalized abdominal pain R10.84 [facility]ALK [facility] [id number] [place] [address] 68838 -5450 May, [facility] [id number] [place] [address] 77178- 2765 May, [place] [id number] [place] [address] 58356- 8536 Mar, [facility] [id number] [place] [address] 76216 -8990 Mar, [facility] [id number] [place] [address] 39177- 6657 Mar, Type 2 diabetes mellitus without complication, without long- term current use of insulin E11.9 ; BMI 50.0-59.9, adult Z68.43 ; Acute suppurative otitis media of both ears without spontaneous rupture of tympanic membranes, recurrence not specified H66.003 ; ESTHELA (obstructive sleep apnea) G47.33 and Essential hypertension I10 [facility] [id number] [address] Mar, [facility] IN [facility] [address] [place] [address] 56848 -3064 Feb, BMI 50.0-59.9, adult Z68.43 ; Encounter for immunization Z23 and Cough R05 [facility] [id number] [place] [address] 45552- 0848 Jan, [facility] [id number] [place] [address] 37861- 6472 Jan, [facility] IN [facility] [address] [place] [address] 46292 -5383 Jan, Type 2 diabetes mellitus without complication, [...] Hospitalization History Chest pain/pulled muscle in chest[place] [place], [place] 2011
--- OUTSIDE RECORDS SUMMARY | 2018-01-03 12:08 | XMS REPORT ---
Author Author CHARLEEN HARO [facility]ALK IN [facility] Address [address] [place] [address] Care Team Providers Care Virtual Office Assistant Name Role Phone CHARLEEN HARO Unavailable PROBLEMS Type Condition ICD9-CM Code VFO63-TY Code Onset Dates Condition Status SNOMED Code Problem Essential hypertension I10 Active 17656925 Problem Type 2 diabetes mellitus without complication, without long-term current use of insulin E11.9 Active 117026571 Problem Anxiety state, unspecified F41.1 Active 617759763 Problem Seasonal allergies J30.2 Active 916609430 Problem BMI 50.0-59.9, adult Z68.43 Active 342956906 Problem ESTHELA (obstructive sleep apnea) G47.33 Active 17617441 Problem Sleep apnea, unspecified type G47.30 Active 80620953 Problem Left elbow pain M25.522 Active 29166013 ALLERGIES Substance Reaction Event Type Date Status Penicillin G Sodium Unknown Drug Allergy Oct, Active Iodine Unknown Drug Allergy Oct, Active "all pain meds except Hydrocodone" Unknown Non Drug Allergy Oct, Active ENCOUNTERS Encounter Location Date Diagnosis [facility] [address] [place] [address] 64818- 5994 Dec, [facility] [id number] [place] [address] 65050- 8481 Nov, [facility] [id number] [place] [address] 99791- 9387 Nov, [facility] [id number] [place] [address] 61805- 5661 19 Nov, 2017 Anxiety state, unspecified F41.1 [facility] [address] [address] 7772 17 Nov, 2017 [facility] [id number] [place] [address] 77948 -8810 12 Nov, 2017 BMI 50.0-59.9, adult Z68.43 and Viral gastroenteritis A08.4 [facility] IN [facility] [id number] [place] [address] 48846 -0780 Oct, Injury of left knee, initial encounter S89.92XA and BMI 50.0-59.9, adult Z68.43 [place] [address] 53018- 5376 Oct, [place] [address] 06209- 9822 Sep, Atypical chest pain R07.89 ; Pneumonia due to infectious organism, unspecified laterality, unspecified part of lung J18.9 ; BMI 50.0-59.9 , adult Z68.43 and Sleep apnea, unspecified type G47.30 [place] [address] 89833- 1566 Aug, [place] [address] 73334- 7121 Aug, BMI 50.0-59.9, adult Z68.43 ; Sleep apnea, unspecified type G47.30 ; Seasonal allergies J30.2 and Generalized abdominal pain R10.84 [place] [id number] [place] [address] 68504- 6783 July, Left elbow pain M25.522 ; BMI 50.0-59.9, adult Z68.43 and Essential hypertension I10 [place] [id number] [place] [address] 44906- 8598 Jun, [place] [address] 47529- 6951 Jun, Abdominal wall pain R10.9 and BMI 50.0-59.9, adult Z68.43 [place] [address] 32352- 7792 Jun, [place] [id number] [place] [address] 26406- 7058 Jun, Left lower quadrant pain R10.32 ; Blood in stool K92.1 and BMI 50.0-59.9, adult Z68.43 [place] [id number] [place] [address] 51327- 6637 May, [place] [address] 39410- 8290 May, [place] [id number] [place] [address] 75461- 9998 May, Type 2 diabetes mellitus without complication, without long- term current use of insulin E11.9 ; BMI 50.0-59.9, adult Z68.43 and Generalized abdominal pain R10.84 [facility] [place] [id number] [place] [address] 40195 -4326 May, [place] [id number] [place] [address] 31234- 7930 May, [place] [id number] [place] [address] 08555- 0259 Mar, [facility] IN [place] [id number] [place] [address] 11222 -9492 Mar, [place] [id number] [place] [address] 87613- 0905 Mar, Type 2 diabetes mellitus without complication, without long- term current use of insulin E11.9 ; BMI 50.0-59.9, adult Z68.43 ; Acute suppurative otitis media of both ears without spontaneous rupture of tympanic membranes, recurrence not specified H66.003 ; ESTHELA (obstructive sleep apnea) G47.33 and Essential hypertension I10 [place] [id number] [place] [address] 13494- 0655 Mar, [facility] IN [place] [id number] [place] [address] 84435 -6971 Feb, BMI 50.0-59.9, adult Z68.43 ; Encounter for immunization Z23 and Cough R05 [facility] [address] [facility] [id number] [place] [address]- 9541 Jan, [facility] [address] [facility] [id number] [place] [address]- 7469 Jan, [facility] [address] [facility] [id number] [address] Jan, Type 2 diabetes mellitus without complication, without long -term current use of insulin E11.9 ; BMI 50.0-59.9, adult Z68.43 ; BMI 60.0-69.9 , adult Z68.44 and Family history of coronary artery disease Z82.49 IMMUNIZATIONS No Known Immunizations SOCIAL HISTORY Never Assessed REASON FOR VISIT knee pain- ran it into a pole a few days ago JStrasserRN PLAN OF CARE Activity Details Follow Up w/ PCP, 2 Weeks Reason:left knee injury VITAL SIGNS Height 71.5 in 2017-11-11 Weight 399.6 lbs 2017-11-11 Temperature 98.0 degrees Fahrenheit 2017-11-11 Heart Rate 66 bpm 2017-11-11 Respiratory Rate 20 2017-11-11 BMI 54.95 kg/m2 2017-11-11 Blood pressure systolic 120 mmHg 2017-11-11 Blood pressure diastolic 70 mmHg 2017-11-11 MEDICATIONS Medication Instructions Dosage Frequency Start Date End Date Duration Status Janumet 50-500 MG Orally Twice a day 1 tablet with meals 12h May, 30 day(s) Active Prozac 40 MG Orally Once a day 1 capsule 24h Active Glucocard Expression Monitor w/Device as directed Jan, Active Claritin 10 mg Orally Once a day 1 tablet 24h 13 Aug, 2017 Mar, 30 day(s) Active Glucocard Expression Test - In Vitro 2 times a day as directed 12h Jan, Active Ranitidine HCl 150 MG Orally Once a day 1 tablet at bedtime 24h May, 30 day(s) Active RESULTS Name Result Date Reference Range Xray : Knee, Left 2017-11-11 PROCEDURES No Known procedures INSTRUCTIONS MEDICATIONS ADMINISTERED No Known Medications MEDICAL (GENERAL) HISTORY Type Description Date Medical History Type 2 Diabetes Medical History Sleep apnea Surgical History section x2 Surgical History lumpectomy, right breast Surgical History cholecystectomy Surgical History bilateral tubal ligation (BTL) Hospitalization History Collapsed lung-[facility] for 9 days 2008 Hospitalization History Chest pain/pulled muscle in chest-[facility] [place], [place] 2012
--- OUTSIDE RECORDS SUMMARY | 2018-01-03 12:08 | XMS REPORT ---
Author Author CONNIE MALAVE Organization [facility] Address [address] [place] [address] Care Team Providers Care Human Resources Operations Coordinator Name Role Phone CONNIE MALAVE Unavailable PROBLEMS Type Condition ICD9-CM Code QOT19-QA Code Onset Dates Condition Status SNOMED Code Problem Essential hypertension I10 Active 33780862 Problem Type 2 diabetes mellitus without complication, without long-term current use of insulin E11.9 Active 152982451 Problem Anxiety state, unspecified F41.1 Active 978247036 Problem Seasonal allergies J30.2 Active 302525722 Problem BMI 50.0-59.9, adult Z68.43 Active 055253803 Problem ESTHELA (obstructive sleep apnea) G47.33 Active 28213547 Problem Sleep apnea, unspecified type G47.30 Active 75499193 Problem Left elbow pain M25.522 Active 32173425 ALLERGIES No Information ENCOUNTERS Encounter Location Date Diagnosis [facility] [address] 23012- 1258 Dec, [facility] [id number] [place] [address] 02090- 3699 Dec, [facility] [id number] [place] [address] 68416- 2485 Dec, [facility] [id number] [place] [address] 62836- 8041 09 Dec, 2017 [facility] [address] 38690 -2082 04 Dec, 2017 Bronchitis J40 and BMI 50.0-59.9, adult Z68.43 [facility] [address] 42601- 2786 Nov, [facility] [address] [place] [address]- 0500 24 Nov, 2017 Anxiety state, unspecified F41.1 [place] [address] 24146- 5947 19 Nov, 2017 Anxiety state, unspecified F41.1 [place] [id number] [place] [address] 12375- 9921 17 Nov, 2017 [facility] WALK IN [place] [address] 83796 -7164 Nov, BMI 50.0-59.9, adult Z68.43 and Viral gastroenteritis A08.4 [facility] WALK IN [place] [address] 22608 -9693 Oct, Injury of left knee, initial encounter S89.92XA and BMI 50.0-59.9, adult Z68.43 [place] [address] 89299- 5465 Oct, [place] [address] 25012- 8989 Sep, Atypical chest pain R07.89 ; Pneumonia due to infectious organism, unspecified laterality, unspecified part of lung J18.9 ; BMI 50.0-59.9 , adult Z68.43 and Sleep apnea, unspecified type G47.30 [place] [id number] [place] [address] 87898- 1836 Aug, [place] [address] 39354- 2799 13 Aug, 2017 BMI 50.0-59.9, adult Z68.43 ; Sleep apnea, unspecified type G47.30 ; Seasonal allergies J30.2 and Generalized abdominal pain R10.84 [place] [id number] [place] [address] 12639- 5425 July, Left elbow pain M25.522 ; BMI 50.0-59.9, adult Z68.43 and Essential hypertension I10 [place] [address] [address]- 7207 Jun, [facility] [address] [place] [address] 56635- 2685 18 Jun, 2017 Abdominal wall pain R10.9 and BMI 50.0-59.9, adult Z68.43 [facility] [address] [place] [address] 50291- 8470 Jun, [facility] [id number] [place] [address] 01195- 5213 Jun, Left lower quadrant pain R10.32 ; Blood in stool K92.1 and BMI 50.0-59.9, adult Z68.43 [facility] [address] [address]- 8008 30 May, 2017 [place] [id number] [place] [address] 43296- 9541 May, [facility] [address] [place] [address] 88970- 1942 May, Type 2 diabetes mellitus without complication, without long- term current use of insulin E11.9 ; BMI 50.0-59.9, adult Z68.43 and Generalized abdominal pain R10.84 [facility] [address] [address]5339 May, [facility] [address] [address]- 1420 May, [facility] [address] [place] [address] 65816- 5522 Mar, [facility] [address] [place] [address] 26042 -4747 Mar, [facility] [address] [address]- 8057 Mar, Type 2 diabetes mellitus without complication, without long- term current use of insulin E11.9 ; BMI 50.0-59.9, adult Z68.43 ; Acute suppurative otitis media of both ears without spontaneous rupture of tympanic membranes, recurrence not specified H66.003 ; ESTHELA (obstructive sleep apnea) G47.33 and Essential hypertension I10 [facility] [address] [place] [address] 77364- 8855 Mar, [facility] [id number] [place] [address] 12422 -7934 Feb, BMI 50.0-59.9, adult Z68.43 ; Encounter for immunization Z23 and Cough R05 [facility] [address] 15474- 3590 Jan, [facility] [id number] [place] [address] 07380- 6033 Jan, [facility] [id number] [place] [address] 78093 -8407 Jan, Type 2 diabetes mellitus without complication, without long -term current use of insulin E11.9 ; BMI 50.0-59.9, adult Z68.43 ; BMI 60.0-69.9 , adult Z68.44 and Family history of coronary artery disease Z82.49 IMMUNIZATIONS No Known Immunizations SOCIAL HISTORY Never Assessed REASON FOR VISIT Eye exam PLAN OF CARE VITAL SIGNS MEDICATIONS Unknown [...] Hospitalization History Chest pain/pulled muscle in [facility] [place], [place] 2011
--- OUTSIDE RECORDS SUMMARY | 2018-01-03 12:08 | XMS REPORT ---
Author Author LISA MOSES [facility] IN [facility] Address [address] [place] [address] Care Team Providers Care Assistant Clinical Director Name Role Phone LISA MOSES Unavailable PROBLEMS Type Condition ICD9-CM Code RNS07-WL Code Onset Dates Condition Status SNOMED Code Problem Essential hypertension I10 Active 54643560 Problem Type 2 diabetes mellitus without complication, without long-term current use of insulin E11.9 Active 929986373 Problem Anxiety state, unspecified F41.1 Active 168567066 Problem Seasonal allergies J30.2 Active 626904011 Problem BMI 50.0-59.9, adult Z68.43 Active 829644010 Problem ESTHELA (obstructive sleep apnea) G47.33 Active 68289606 Problem Sleep apnea, unspecified type G47.30 Active 35552311 Problem Left elbow pain M25.522 Active 95624730 ALLERGIES Substance Reaction Event Type Date Status Penicillin G Sodium Unknown Drug Allergy Nov, Active Iodine Unknown Drug Allergy Nov, Active "all pain meds except Hydrocodone" Unknown Non Drug Allergy Nov, Active ENCOUNTERS Encounter Location Date Diagnosis [facility] [address] [address] Dec, [facility] [address] [place] [address] Dec, [facility] [address] [place] [id number] [place] [address]77[address] Dec, [facility] [id number] [place] [address] 17441[address] 4158 Dec, [facility] [address] [place] [address] 82717- [address] Nov, [facility] [address] [place] [address] 24 Nov, 2017 Anxiety state, unspecified F41.1 [place] [address] [address] 19 Nov, 2017 Anxiety state, unspecified F41.1 [place] [address] [address] 17 Nov, 2017 [facility] [place] [address] [address] Nov, BMI 50.0-59.9, adult Z68.43 and Viral gastroenteritis A08.4 [facility] [address] [address] Oct, Injury of left knee, initial encounter S89.92XA and BMI 50.0-59.9, adult Z68.[address] [address] Oct, [place] [address] [address] Sep, Atypical chest pain R07.89 ; Pneumonia due to infectious organism, unspecified laterality, unspecified part of lung J18.9 ; BMI 50.0-59.9 , adult Z68.43 and Sleep apnea, unspecified type G47.[address] [address] Aug, [address] [address] Aug, BMI 50.0-59.9, adult Z68.43 ; Sleep apnea, unspecified type G47.30 ; Seasonal allergies J30.2 and Generalized abdominal pain R10.84 [place] [id number] [place] [address]658- 2261 July, Left elbow pain M25.522 ; BMI 50.0-59.9, adult Z68.43 and Essential hypertension I10 [address] [id number] [address] Jun, [facility] [id number] [place] [address]77[address] 53[address] Jun, Abdominal wall pain R10.9 and BMI 50.0-59.9, adult Z68.43 [facility] [address] [place] [address] [id number] [place] [address] 89071- 2976 Jun, [facility] [address] [address] [id number] [place] [address] 71175- 1726 Jun, Left lower quadrant pain R10.32 ; Blood in stool K92.1 and BMI 50.0-59.9, adult Z68.43 [place] [address] [id number] [place] [address]94- 359[address] 30 May, 2017 [place] [address] [id number] [place] [address]92[address] 3[address] May, [facility] [address] [place] [address] [id number] [place] [address] 32450- 7047 May, Type 2 diabetes mellitus without complication, without long- term current use of insulin E11.9 ; BMI 50.0-59.9, adult Z68.43 and Generalized abdominal pain R10.84 [facility] [address] [address] May, [facility] [address] [place] [id number] [place] [address] 23765- 7[address] May, [facility] [address] [place] [address] 07957[address] 4790 Mar, [facility] [id number] [place] [address]354 [address]0067 Mar, [facility] [address] [address] Mar, Type 2 diabetes mellitus without complication, without long- term current use of insulin E11.9 ; BMI 50.0-59.9, adult Z68.43 ; Acute suppurative otitis media of both ears without spontaneous rupture of tympanic membranes, recurrence not specified H66.003 ; ESTHELA (obstructive sleep apnea) G47.33 and Essential hypertension I10 [facility] [address] [place] [address]94- 2412 Mar, [facility] IN [facility] [id number] [place] [address]709 [address] Feb, BMI 50.0-59.9, adult Z68.43 ; Encounter for immunization Z23 and Cough R05 [place] [address] [address] Jan, [facility] [id number] [place] [address] 85972- 2186 Jan, [facility] [address] [address] Jan, Type 2 diabetes mellitus without complication, without long -term current use of insulin E11.9 ; BMI 50.0-59.9, adult Z68.43 ; BMI 60.0-69.9 , adult Z68.44 and Family history of coronary artery disease Z82.49 IMMUNIZATIONS No Known Immunizations SOCIAL HISTORY Never Assessed REASON FOR VISIT Nausea-pt's son has been throwing up all night and she is now feeling nauseous. _ _SHERIF Ortega PLAN OF CARE Activity Details Follow Up prn Reason: VITAL SIGNS Height 71.5 in 2017-12-03 Weight 395 lbs 2017-12-03 Temperature 97.6 degrees Fahrenheit 2017-12-03 Heart Rate 90 bpm 2017-12-03 Respiratory Rate 20 2017-12-03 Oximetry 92 % 2017-12-03 BMI 54.32 kg/m2 2017-12-03 Blood pressure systolic 126 mmHg 2017-12-03 Blood pressure diastolic 78 mmHg 2017-12-03 MEDICATIONS Medication Instructions Dosage Frequency Start Date End Date Duration Status Janumet 50-500 MG Orally Twice a day 1 tablet with meals 12h 19 May, 2017 30 day(s) Active Claritin 10 mg Orally Once a day 1 tablet 24h 13 Aug, 2017 Mar, 30 day(s) Active Ranitidine HCl 150 MG Orally Once a day 1 tablet at bedtime 24h May, 30 day(s) Active Prozac 40 MG Orally Once a day 1 capsule 24h Active Glucocard Expression Test - In Vitro 2 times a day as directed 12h Jan, Active Glucocard Expression Monitor w/Device as directed Jan, Active RESULTS No Results PROCEDURES No [...] History Chest pain/pulled muscle in chest-[facility] [place], [place] 2011
--- OUTSIDE RECORDS SUMMARY | 2018-01-03 12:08 | XMS REPORT ---
Author Author LEANDRA GUTIÉRREZ Organization [facility] Address [address] [place] [address] Care Team Providers Care Gauntlet Pairer Name Role Phone LEANDRA GUTIÉRREZ Unavailable PROBLEMS Type Condition ICD9-CM Code MMI75-IS Code Onset Dates Condition Status SNOMED Code Problem Essential hypertension I10 Active 36162309 Problem Type 2 diabetes mellitus without complication, without long-term current use of insulin E11.9 Active 415020519 Problem Anxiety state, unspecified F41.1 Active 588596629 Problem Seasonal allergies J30.2 Active 190348094 Problem BMI 50.0-59.9, adult Z68.43 Active 311178883 Problem ESTHELA (obstructive sleep apnea) G47.33 Active 80285099 Problem Sleep apnea, unspecified type G47.30 Active 33118682 Problem Left elbow pain M25.522 Active 24591939 ALLERGIES No Information ENCOUNTERS Encounter Location Date Diagnosis [facility] [address] [address] Dec, [facility] [address] [place] [id number] [place] [address]- [address] Dec, [facility] [address] [address] Dec, [facility] [address] [place] [id number] [place] [address]113- [address] 09 Dec, 2017 [facility] [address] [address] 04 Dec, 2017 Bronchitis J40 and BMI 50.0-59.9, adult Z68.43 [facility] [address] [place] [id number] [place] [address] 01643- [address] Nov, [facility] [address] [place] [address] 24 Nov, 2017 Anxiety state, unspecified F41.1 [place] [address] [address] 19 Nov, 2017 Anxiety state, unspecified F41.1 [place] [address] [place] [id number] [place] [address]70- 36[address] 17 Nov, 2017 [facility] [address] [address] Nov, BMI 50.0-59.9, adult Z68.43 and Viral gastroenteritis A08.4 [facility] [address] [address] Oct, Injury of left knee, initial encounter S89.92XA and BMI 50.0-59.9, adult Z68.[address] [address] Oct, [address] [address] Sep, Atypical chest pain R07.89 ; Pneumonia due to infectious organism, unspecified laterality, unspecified part of lung J18.9 ; BMI 50.0-59.9 , adult Z68.43 and Sleep apnea, unspecified type G47.[address] [address] Aug, [address] [address]- [address] Aug, BMI 50.0-59.9, adult Z68.43 ; Sleep apnea, unspecified type G47.30 ; Seasonal allergies J30.2 and Generalized abdominal pain R10.84 [place] [id number] [place] [address] 09867- [address] July, Left elbow pain M25.522 ; BMI 50.0-59.9, adult Z68.43 and Essential hypertension I[address] [id number] [address] Jun, [facility] [address] [place] [id number] [place] [address] 35022- 7015 Jun, Abdominal wall pain R10.9 and BMI 50.0-59.9, adult Z68.43 [facility] [address] [place] [id number] [place] [address] 52103- 5634 Jun, [facility] [address] [place] [id number] [place] [address] 96536- 1147 Jun, Left lower quadrant pain R10.32 ; Blood in stool K92.1 and BMI 50.0-59.9, adult Z68.43 [place] [address] [place] [id number] [place] [address] 10610- 34[address] 30 May, 2017 [place] [address] [place] [id number] [place] [address] 17480- 9506 May, [facility] [address] [place] [id number] [place] [address] 36519- 0814 May, Type 2 diabetes mellitus without complication, without long- term current use of insulin E11.9 ; BMI 50.0-59.9, adult Z68.43 and Generalized abdominal pain R10.84 [facility] [address] [address] May, [facility] [address] [place] [id number] [place] [address] 116[address]- 78[address] May, [facility] [address] [place] [address] 00238- 6363 Mar, [facility] [address] [place] [id number] [place] [address]47 [address] Mar, [facility] [address] [place] [address] 77362- 8311 Mar, Type 2 diabetes mellitus without complication, without long- term current use of insulin E11.9 ; BMI 50.0-59.9, adult Z68.43 ; Acute suppurative otitis media of both ears without spontaneous rupture of tympanic membranes, recurrence not specified H66.003 ; ESTHELA (obstructive sleep apnea) G47.33 and Essential hypertension I10 [facility] [address] [place] [address] 30913- 1871 Mar, [facility] [address] [place] [id number] [place] [address]809 [address]4 Feb, BMI 50.0-59.9, adult Z68.43 ; Encounter for immunization Z23 and Cough R05 [facility] [address] [address]- [address] Jan, [facility] [address] [place] [id number] [place] [address] 59926- 4330 Jan, [facility] [address] [place] [id number] [place] [address] 45948 -0084 Jan, Type 2 diabetes mellitus without complication, without long -term current use of insulin E11.9 ; BMI 50.0-59.9, adult Z68.43 ; BMI 60.0-69.9 , adult Z68.44 and Family history of coronary artery disease Z82.49 IMMUNIZATIONS No Known Immunizations SOCIAL HISTORY Never Assessed REASON FOR VISIT intake PLAN OF CARE Activity Details Follow Up Next available Reason:anxiety VITAL SIGNS MEDICATIONS Unknown Medications RESULTS No Results PROCEDURES Procedure Date Ordered Result Body Site Psychotherapy, patient &/family, 30 minutes, established patient Dec 15, 2017 INSTRUCTIONS MEDICATIONS ADMINISTERED No Known Medications MEDICAL (GENERAL) HISTORY Type Description Date Medical History Type 2 Diabetes Medical History Sleep apnea Surgical History section x2 Surgical History lumpectomy, right breast Surgical History cholecystectomy Surgical History bilateral tubal ligation (BTL) Hospitalization History Collapsed lung-[facility] for 9 days 2008 Hospitalization History Chest pain/pulled muscle in chest-[facility], [place] 2011
--- OUTSIDE RECORDS SUMMARY | 2018-01-03 12:11 | XMS REPORT | Continuity of Care Document ---
Author Author [facility] Address Unknown Phone Unavailable Allergies Active Description Code Type Severity Reaction Onset Reported/Identified Relationship to Patient Clinical Status Yes fentanyl [id number] Drug Allergy Severe SOA 02/12/2017 Yes morphine [id number] Drug Allergy Severe SOA 02/12/2017 Yes codeine [id number] Drug Allergy Unknown N/A 02/12/2017 Yes hydromorphone [id number] Drug Allergy Unknown N/A 02/12/2017 Yes iodine [id number] Drug Allergy Unknown N/A 02/12/2017 Yes latex [id number] Drug Allergy Unknown N/A 02/12/2017 Yes Penicillins [id number] Drug Allergy Unknown N/A 02/12/2017 Yes tramadol [id number] Drug Allergy Unknown N/A 02/12/2017 Medications There [...] UNSPECIFIED 03/23/2017 REY RAYMUNDO MD Ot Z79.84 [facility] (CURRENT) USE OF ORAL HYPOGLYC 03/23/2017 REY [...] UNSPECIFIED 05/02/2017 REY RAYMUNDO MD Ot Z79.84 [facility] (CURRENT) USE OF ORAL HYPOGLYC 05/02/2017 REY [...] APRN Ot Z98.51 TUBAL LIGATION STATUS 09/22/2017 CLAIER DE LEON APRN Ot Z98.890 OTHER SPECIFIED POSTPROCEDURAL STATES 09/24/2017 CLAIRE DE LEON APRN Ot E11.9 TYPE 2 DIABETES MELLITUS WITHOUT COMPLIC 09/24/2017 CLAIRE D ELEON APRN Ot E66.01 MORBID (SEVERE) OBESITY DUE [...] R07.89 OTHER CHEST PAIN 11/12/2017 CHARLEEN HARO UTILITY MECHANIC Ot S89.92XA UNSPECIFIED INJURY OF LEFT LOWER LEG, IN 11/27/2017 CHARLEEN HARO UTILITY MECHANIC Ot S89.92XA UNSPECIFIED INJURY OF LEFT LOWER LEG, IN 12/09/2017 DEBBIE RAMIREZ Ot E11.9 TYPE 2 DIABETES MELLITUS WITHOUT COMPLIC 12/09/2017 DEBBIE RAMIREZ Ot E66.01 MORBID (SEVERE) OBESITY DUE TO EXCESS CA 12/09/2017 DEBBIE RAMIREZ Ot F32.9 MAJOR DEPRESSIVE DISORDER, SINGLE EPISOD 12/09/2017 DEBBIE RAMIREZ Ot F41.9 ANXIETY DISORDER, UNSPECIFIED 12/09/2017 DEBBIE RAMIREZ Ot K60.2 ANAL FISSURE, UNSPECIFIED 12/09/2017 DEBBIE RAMIREZ Ot R10.2 PELVIC AND PERINEAL PAIN 12/09/2017 DEBBIE RAMIREZ Ot Z86.73 PRSNL HX OF TIA (TIA), AND CEREB INFRC W 12/09/2017 BERNOT, DEBBIE Ot Z87.891 PERSONAL HISTORY OF NICOTINE DEPENDENCE 12/09/2017 BERNCHIKI, DEBBIE Ot Z88.0 ALLERGY STATUS TO PENICILLIN 12/09/2017 BERNCHIKI, DEBBIE Ot Z88.5 ALLERGY STATUS TO NARCOTIC AGENT STATUS 12/09/2017 BERNCHIKI, DEBBIE Ot Z88.6 ALLERGY STATUS TO ANALGESIC AGENT STATUS 12/09/2017 BERNCHIKI, DEBBIE Ot Z88.8 ALLERGY STATUS TO OTH DRUG/MEDS/BIOL SUB 12/09/2017 BERNOT DEBBIE Ot Z91.040 LATEX ALLERGY STATUS 12/09/2017 BERNOT, DEBBIE Ot Z91.041 RADIOGRAPHIC DYE ALLERGY STATUS 12/09/2017 BERNCHIKI, DEBBIE Ot Z91.81 HISTORY OF FALLING 12/09/2017 BERNCHIKI DEBBIE Ot Z98.51 TUBAL LIGATION STATUS 12/09/2017 JAMES DEBBIE Ot Z98.890 OTHER SPECIFIED POSTPROCEDURAL STATES 12/11/2017 INGRID RAMIREZIS Ot E11.9 TYPE 2 DIABETES MELLITUS WITHOUT COMPLIC 12/11/2017 JAMES DEBBIE Ot E66.01 MORBID (SEVERE) OBESITY DUE TO EXCESS CA 12/11/2017 JAMES DEBBIE Ot F32.9 MAJOR DEPRESSIVE DISORDER, SINGLE EPISOD 12/11/2017 JAMES DEBBIE Ot F41.9 ANXIETY DISORDER, UNSPECIFIED 12/11/2017 JAMES DEBBIE Ot K60.2 ANAL FISSURE, UNSPECIFIED 12/11/2017 JAMES DEBBIE Ot R10.2 PELVIC AND PERINEAL PAIN 12/11/2017 JAMES DEBBIE Ot Z86.73 PRSNL HX OF TIA (TIA), AND CEREB INFRC W 12/11/2017 JAMES DEBBIE Ot Z87.891 PERSONAL HISTORY OF NICOTINE DEPENDENCE 12/11/2017 JAMES DEBBIE Ot Z88.0 ALLERGY STATUS TO PENICILLIN 12/11/2017 JAMES DEBBIE Ot Z88.5 ALLERGY STATUS TO NARCOTIC AGENT STATUS 12/11/2017 BERNCHIKI DEBBIE Ot Z88.6 ALLERGY STATUS TO ANALGESIC AGENT STATUS 12/11/2017 BERNCHIKI DEBBIE Ot Z88.8 ALLERGY STATUS TO OTH DRUG/MEDS/BIOL SUB 12/11/2017 BERNOT DEBBIE Ot Z91.040 LATEX ALLERGY STATUS 12/11/2017 BERNOT, DEBBIE Ot Z91.041 RADIOGRAPHIC DYE ALLERGY STATUS 12/11/2017 DEBBIE RAMIREZ Ot Z91.81 HISTORY OF FALLING 12/11/2017 DEBBIE RAMIREZ Ot Z98.51 TUBAL LIGATION STATUS 12/11/2017 DEBBIE RAMIREZ Ot Z98.890 OTHER SPECIFIED POSTPROCEDURAL STATES Procedures There is no data. Results Test [...] culture - 05/17/17 18:44 Bacterial urine culture [id number] NRG COLONY COUNT >100,000/ML NRG FTX;REPORTABLE SENSITIVITY [...] automated white blood cell (WBC) differential - 01/02/18 17:15 Blood leukocytes automated count (number/volume) 10.3 10*3/uL 4.3-11.0 Blood erythrocytes automated count (number/volume) 5.06 10*6/uL 4.35-5.85 Venous blood hemoglobin measurement (mass/volume) 15.0 g/dL 11.5-16.0 Blood hematocrit (volume fraction) 45 % 35-52 Automated erythrocyte mean corpuscular volume 89 [foz_us] 80-99 Automated erythrocyte mean corpuscular hemoglobin (mass per erythrocyte) 30 pg 25-34 Automated erythrocyte mean corpuscular hemoglobin concentration measurement ( mass/volume) 33 g/dL 32-36 Automated erythrocyte distribution width ratio 13.8 % 10.0-14.5 Automated blood platelet count (count/volume) 299 10*3/uL 130-400 Automated blood platelet mean volume measurement 9.0 [foz_us] 7.4-10.4 Automated blood neutrophils/100 leukocytes 78 % 42-75 Automated blood lymphocytes/100 leukocytes 16 % 12-44 Blood monocytes/100 leukocytes 5 % 0-12 Automated blood eosinophils/100 leukocytes 1 % 0-10 Automated blood basophils/100 leukocytes 0 % 0-10 Blood neutrophils automated count (number/volume) 8.0 10*3 1.8-7.8 Blood lymphocytes automated count (number/volume) 1.6 10*3 1.0-4.0 Blood monocytes automated count (number/volume) 0.6 10*3 0.0-1.0 Automated eosinophil count 0.1 10*3/uL 0.0-0.3 Automated blood basophil count (count/volume) 0.0 10*3/uL 0.0-0.1 PT panel in platelet poor plasma by coagulation assay - 01/02/18 17:15 Prothrombin time (PT) in platelet poor plasma by coagulation assay 13.1 s 12.2-14.7 INR in platelet poor plasma or blood by coagulation assay 1.0 0.8-1.4 Activated partial thromboplastin time (aPTT) in platelet poor plasma bycoagulation assay - 01/02/18 17:15 Activated partial thromboplastin time (aPTT) in platelet poor plasma bycoagulation assay 25 s 24-35 Fibrin D-dimer FEU measurement in platelet poor plasma (mass/volume) - 17:15 Fibrin D-dimer FEU measurement in platelet poor plasma (mass/volume) 0.27 ug/mL 0.00-0.49 Comprehensive metabolic panel - 01/02/18 17:15 Serum or plasma sodium measurement (moles/volume) 137 mmol/L 135-145 Serum or plasma potassium measurement (moles/volume) 4.2 mmol/L 3.6-5.0 Serum or plasma chloride measurement (moles/volume) 99 mmol/L 98-107 Carbon dioxide 25 mmol/L 21-32 Serum or plasma anion gap determination (moles/volume) 13 mmol/L 5-14 Serum or plasma urea nitrogen measurement (mass/volume) 10 mg/dL 7-18 Serum or plasma creatinine measurement (mass/volume) 0.67 mg/dL 0.60-1.30 Serum or plasma urea nitrogen/creatinine mass ratio 15 NRG Serum or plasma creatinine measurement with calculation of estimated glomerular filtration rate > NRG Serum or plasma glucose measurement (mass/volume) 241 mg/dL 70-105 Serum or plasma calcium measurement (mass/volume) 9.0 mg/dL 8.5-10.1 Serum or plasma total bilirubin measurement (mass/volume) 0.8 mg/dL 0.1-1.0 Serum or plasma alkaline phosphatase measurement (enzymatic activity/volume) 114 U/L 40-136 Serum or plasma aspartate aminotransferase measurement (enzymatic activity/ volume) 54 U/L 5-34 Serum or plasma alanine aminotransferase measurement (enzymatic activity/volume ) 44 U/L 0-55 Serum or plasma protein measurement (mass/volume) 7.3 g/dL 6.4-8.2 Serum or plasma albumin measurement (mass/volume) 3.8 g/dL 3.2-4.5 CALCIUM CORRECTED 9.2 mg/dL 8.5-10.1 Magnesium - 01/02/18 17:15 Magnesium 1.5 mg/dL 1.8-2.4 Serum or plasma troponin i.cardiac measurement (mass/volume) - 01/02/18 17:15 Serum or plasma troponin i.cardiac measurement (mass/volume) < ng/ mL <0.30 Myoglobin, serum - 01/02/18 17:15 Myoglobin, serum 22.5 ng/mL 10.0-92.0 Serum or plasma lithium measurement (moles/volume) - 01/02/18 17:15 BNP level 10.7 pg/mL <100.0 Lipase - 01/02/18 17:15 Lipase 20 U/L 8-78 Encounters ACCT No. Visit Date/Time Discharge Status Pt. Type Provider Facility Loc./Unit Complaint [id number] 10/01/2017 15:40:00 10/01/2017 23:59:59 CLS Outpatient CONNIE MALAVEK [facility] [id number] 12/09/2017 21:10:00 12/09/2017 22:55:00 DIS Emergency DEBBIE RAMIREZ [facility] ER BOIL IN PELVIC REGION [id number] 11/11/2017 17:37:00 11/11/2017 23:59:59 CLS Outpatient CHARLEEN HARO UTILITY MECHANIC [facility] RAD INJURY OF LEFT KNEE, INITIAL ENCOUNTER [id number] 10/16/2017 07:32:00 10/16/2017 23:59:59 CLS Outpatient ANANDA ROCHE, CONNIE Leblanc [facility] CARD ATYPICAL CHEST PAIN [id number] 09/22/2017 19:32:00 09/22/2017 21:22:00 DIS Emergency CLAIRE DE LEON APRN [facility] ER CHEST PAIN/NECK AND ARM PAIN [id number] 07/28/2017 22:25:00 07/28/2017 22:53:00 DIS Emergency CLAIRE DE LEON APRN [facility] ER L ELBOW PAIN [id number] 06/19/2017 16:00:00 06/19/2017 18:29:00 DIS Emergency CLAIRE DE LEON UTILITY MECHANIC [facility] ER ABD PAINS, PAINS FROM 7YR OLD CSECTION [id number] 05/17/2017 18:04:00 05/17/2017 19:32:00 DIS Outpatient CLAIRE DE LEON UTILITY MECHANIC [facility] ER ABD PAIN [id number] 03/22/2017 22:27:00 03/23/2017 00:15:00 DIS Emergency BREANNE ROCHE, REY Redmond [facility] ER EAR PAIN [id number] 02/12/2017 12:41:00 02/12/2017 14:23:00 DIS Emergency JANINE MEHTA DO [facility] ER FALL,BACK/SHOULDER PAIN [id number] 01/02/2018 17:34:00 Document Registration
== END 2018-01-02 18:40 | disposition home or self-care (01) ==
LOC: EDUNIT# 16:46 → ER 16:48
DX: R07.89 Other chest pain (principal); E66.01 Morbid (severe) obesity due to excess calories; E11.9 Type 2 diabetes mellitus without complications; F41.9 Anxiety disorder, unspecified; F32.9 Major depressive disorder, single episode, unspecified; Z88.5 Allergy status to narcotic agent; Z68.43 Body mass index [BMI] 50.0-59.9, adult; Z88.0 Allergy status to penicillin; Z88.8 Allergy status to other drugs, medicaments and biological substances; Z91.040 Latex allergy status; Z91.041 Radiographic dye allergy status; Z88.6 Allergy status to analgesic agent; Z98.890 Other specified postprocedural states; Z98.51 Tubal ligation status; Z86.73 Personal history of transient ischemic attack (TIA), and cerebral infarction without residual deficits
CPT/HCPCS: 36415; 71045; 80053; 83690; 83735; 83874; 83880; 84484; 85025; 85379; 85610; 85730; 93041

== ENCOUNTER 2018-01-11 20:54 | Emergency (ER) | payer MEDICAID ==
[~2018-01-11] VITALS: Ht 182.9 cm; Wt 186.9 kg
--- OUTSIDE RECORDS SUMMARY | 2018-01-11 21:04 | XMS REPORT | Continuity of Care Document ---
Author Author [facility] of [facility] of [facility] [place] Address Unknown Phone Unavailable Allergies Active Description Code Type Severity Reaction Onset Reported/Identified Relationship to Patient Clinical Status Yes fentanyl [id number] Drug Allergy Severe SOA 02/12/2017 Yes morphine [id number] Drug Allergy Severe SOA 02/12/2017 Yes codeine [id number] Drug Allergy Unknown N/A 02/12/2017 Yes hydromorphone [id number] Drug Allergy Unknown N/A 02/12/2017 Yes iodine [id number] Drug Allergy Unknown N/A 02/12/2017 Yes latex [id number] Drug Allergy Unknown N/A 02/12/2017 Yes Penicillins [id number] Drug Allergy Unknown N/A 02/12/2017 Yes tramadol [id number] Drug Allergy Unknown N/A 02/12/2017 Medications There [...] UNSPECIFIED 03/23/2017 REY RAYMUNDO MD Ot Z79.84 GROUP HOME (CURRENT) USE OF ORAL HYPOGLYC 03/23/2017 REY [...] UNSPECIFIED 05/02/2017 REY RAYMUNDO MD Ot Z79.84 GROUP HOME (CURRENT) USE OF ORAL HYPOGLYC 05/02/2017 REY [...] F32.9 MAJOR DEPRESSIVE DISORDER, SINGLE EPISOD 09/24/2017 CLAIER DE LEON APRN Ot F41.9 ANXIETY DISORDER, [...] Z98.890 OTHER SPECIFIED POSTPROCEDURAL STATES 09/24/2017 CLAIRE ED LEON APRN Ot E11.9 TYPE 2 DIABETES [...] R07.89 OTHER CHEST PAIN 11/12/2017 CHARLEEN HARO ADVERTISING EXECUTIVE Ot S89.92XA UNSPECIFIED INJURY OF LEFT LOWER LEG, IN 11/27/2017 CHARLEEN HARO ADVERTISING EXECUTIVE Ot S89.92XA UNSPECIFIED INJURY OF LEFT LOWER LEG, IN 12/09/2017 DEBBIE RAMIREZ Ot E11.9 TYPE 2 DIABETES MELLITUS WITHOUT COMPLIC 12/09/2017 DEBBIE RAMIREZ Ot E66.01 MORBID (SEVERE) OBESITY DUE TO EXCESS CA 12/09/2017 DBEBIE RAMIREZ Ot F32.9 MAJOR DEPRESSIVE DISORDER, SINGLE [...] Ot Z91.041 RADIOGRAPHIC DYE ALLERGY STATUS 12/11/2017 JAMESDEBBIE Ot Z91.81 HISTORY OF FALLING 12/11/2017 NEHEMIASDEBBIE MONET Ot Z98.51 TUBAL LIGATION STATUS 12/11/2017 DEBBIE RAMIREZ Ot Z98.890 OTHER SPECIFIED POSTPROCEDURAL STATES 01/05/2018 CLAIRE DE LEON APRN Ot E11.9 TYPE 2 DIABETES MELLITUS WITHOUT COMPLIC 01/05/2018 CLAIRE DE LEON APRN Ot E66.01 MORBID (SEVERE) OBESITY DUE TO EXCESS CA 01/05/2018 CLAIRE DE LEON APRN Ot F32.9 MAJOR DEPRESSIVE DISORDER, SINGLE EPISOD 01/05/2018 CLAIRE DE LEON APRN Ot F41.9 ANXIETY DISORDER, UNSPECIFIED 01/05/2018 CLAIRE DE LEON APRN Ot R07.89 OTHER CHEST PAIN 01/05/2018 CLAIRE DE LEON APRN Ot Z68.43 BODY MASS INDEX (BMI) 50-59.9, ADULT 01/05/2018 CLAIRE DE LEON APRN Ot Z86.73 PRSNL HX OF TIA (TIA), AND CEREB INFRC W 01/05/2018 CLAIRE DE LEON APRN Ot Z88.0 ALLERGY STATUS TO PENICILLIN 01/05/2018 CLAIRE DE LEON APRN Ot Z88.5 ALLERGY STATUS TO NARCOTIC AGENT STATUS 01/05/2018 CLAIRE DE LEON APRN Ot Z88.6 ALLERGY STATUS TO ANALGESIC AGENT STATUS 01/05/2018 CLAIRE DE LEON APRN Ot Z88.8 ALLERGY STATUS TO OTH DRUG/MEDS/BIOL SUB 01/05/2018 CLAIRE DE LEON APRN Ot Z91.040 LATEX ALLERGY STATUS 01/05/2018 CLAIRE DE LEON APRN Ot Z91.041 RADIOGRAPHIC DYE ALLERGY STATUS 01/05/2018 CLAIRE DE LEON APRN Ot Z98.51 TUBAL LIGATION STATUS 01/05/2018 CLAIRE DE LEON APRN Ot Z98.890 OTHER SPECIFIED POSTPROCEDURAL STATES Procedures [...] culture - 05/17/17 18:44 Bacterial urine culture [id number] NRG COLONY COUNT >100,000/ML NRG FTX;REPORTABLE SENSITIVITY [...] Status Pt. Type Provider Facility Loc./Unit Complaint [id number] 10/01/2017 15:40:00 10/01/2017 23:59:59 CLS Outpatient CONNIE MALAVE [facility] [id number] 01/02/2018 16:48:00 01/02/2018 18:40:00 DIS Outpatient CLAIRE DE LEON APRN [facility] CP SINCE YESTERDAY/BILAT ARM PAIN/NECK PAIN/NAUSEA [id number] 12/09/2017 21:10:00 12/09/2017 22:55:00 DIS Emergency DEBBIE RAMIREZ [facility] BOIL IN [place] [id number] 11/11/2017 17:37:00 11/11/2017 23:59:59 CLS Outpatient TAHIR CHARLEEN Paulina ADVERTISING EXECUTIVE [facility] RAD INJURY OF LEFT KNEE, INITIAL ENCOUNTER [id number] 10/16/2017 07:32:00 10/16/2017 23:59:59 CLS Outpatient CONNIE MALAVE MD [facility] CARD ATYPICAL CHEST PAIN [id number] 09/22/2017 19:32:00 09/22/2017 21:22:00 DIS Emergency CLAIRE DE LEON ADVERTISING EXECUTIVE [facility] CHEST PAIN/NECK AND ARM PAIN [id number] 07/28/2017 22:25:00 07/28/2017 22:53:00 DIS Emergency CLAIRE DE LEON ADVERTISING EXECUTIVE [facility] L ELBOW PAIN [id number] 06/19/2017 16:00:00 06/19/2017 18:29:00 DIS Emergency CLAIRE DE LEON ADVERTISING EXECUTIVE [facility] ABD PAINS, PAINS FROM 7YR OLD CSECTION [id number] 05/17/2017 18:04:00 05/17/2017 19:32:00 DIS Outpatient CLAIRE DE LEON APRN [facility] ABD PAIN [id number] 03/22/2017 22:27:00 03/23/2017 00:15:00 DIS Emergency REY RAYMUNDO MD [facility] EAR PAIN [id number] 02/12/2017 12:41:00 02/12/2017 14:23:00 DIS Emergency TYSON DOJANINE K [facility] FALL,BACK/SHOULDER PAIN [id number] 01/11/2018 20:55:00 ACT Emergency REY RAYMUNDO MD [facility] STOMACH PAIN, PAIN IN LOWER ABD
[2018-01-11] MEDS ORDERED: LORA10TA7 (21:31)
[2018-01-11] MEDS ORDERED: RT-ALBUINH (21:31)
[2018-01-11 21:55] LABS: BILIRUBIN,URINE NEGATIVE (NEGATIVE); CLARITY,URINE VERY CLOUDY; COLOR,URINE YELLOW; GLUCOSE, URINE (UA) 4+ (NEGATIVE); KETONES,URINE 1+ (NEGATIVE); LEUKOCYTE ESTERASE ,URINE 3+ (NEGATIVE); NITRITE,URINE NEGATIVE (NEGATIVE); PH,URINE 6 (5-9); PROTEIN,URINE 4+ (NEGATIVE); UROBILINOGEN,URINE 1 MG/DL (NORMAL)
--- NOTE | 2018-01-11 22:08 | ED GU-Female ---
General Chief Complaint: -Female Stated Complaint: STOMACH PAIN, PAIN IN LOWER ABD Nursing Triage Note: vaginal burning/pain Nursing Sepsis Screen: No Definite Risk History of Present Illness Date Seen by Provider: Jan 11, 2018 Time Seen by Provider: 22:00 Initial Comments 37-year-old female reports vaginal pain with urination. She was seen her within the last month for perianal fissures. She reports changing her toilet paper approximately one month ago and since then she has been having perineal irritation. She has since returned to her old toilet paper and is also using bathroom wipes which seemed to be improving her situation. She denies any vaginal discharge, pruritus, history of yeast infections, PID, or endometriosis. She reports her last Pap/pelvic exam was proximally 4 years ago. Timing/Duration: week (2 weeks) Severity/Quality: mild Location: suprapubic Radiation: none Activities at Onset: none Prior Genitourinary Problems: similar symptoms Sexual [place] History: not active (for ) Associated Symptoms: abdominal pain, dysuria; No fever/chills, No loss of bladder control, No lower back pain; nausea/vomiting, polyuria, urinary frequency Allergies and Home Medications Allergies Coded Allergies: fentanyl (Verified Allergy, Severe, SOA, 02/12/17) morphine (Verified Allergy, Severe, SOA, 02/12/17) Penicillins (Verified Allergy, Unknown, 02/12/17) codeine (Verified Allergy, Unknown, 02/12/17) hydromorphone (Verified Allergy, Unknown, 02/12/17) iodine (Verified Allergy, Unknown, 02/12/17) latex (Verified Allergy, Unknown, 02/12/17) tramadol (Verified Allergy, Unknown, 02/12/17) Home Medications Doxycycline Monohydrate 100 Mg Tablet, 100 MG PO BID Prescribed by: CLAIRE DE LEON on 09/22/172107 Sulfamethoxazole/Trimethoprim 1 Each Tablet, 1 EACH PO BID Prescribed by: BELÉN SULLIVAN on 01/11/18 2240 Patient Home Medication List Home Medication List Reviewed: Yes Review of Systems Review of Systems Constitutional: no symptoms reported, see HPI Genitourinary: see HPI, burning, dysuria, frequency, pain All Other Systemes Reviewed Negative Unless Noted: Yes Past Njtichu-Bgxplp-Bdmkei Hx Past Med/Social Hx: Reviewed Nursing Past Med/Soc Hx Patient Social History Alcohol Use: Denies Use Recreational Drug Use: No Smoking Status: Current Someday Smoker Type Used: Cigarettes 2nd Hand Smoke Exposure: No Recent Foreign Travel: No Contact w/Someone Who Travel: No Recent Infectious Disease Expo: No Recent Hopitalizations: No Immunizations Up To Date Tetanus Booster (TDap): Unknown PED Vaccines UTD: Yes Seasonal Allergies Seasonal Allergies: No Past Medical History Surgeries: Yes ( X 2; BTL; BREAST BIOPSY-BENIGN) Breast, Section, Gallbladder, Tubal Ligation Respiratory: Yes Sleep Apnea Currently Using CPAP: No Currently Using BIPAP: No Cardiac: No Neurological: Yes Stroke : No Female Reproductive Disorders: Denies 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 0oz. 186.980694hp; BMI Method:Stated General Appearance: WD/WN, no apparent distress, obese Cardiovascular: normal peripheral pulses, regular rate, rhythm Respiratory: chest non-tender, lungs clear, normal breath sounds Gastrointestinal: normal bowel sounds, soft, distended; No guarding, No rebound ; tenderness (suprapubic) Neurologic/Psychiatric: no motor/sensory deficits, alert, normal mood/affect, oriented x 3 Skin: normal color, warm/dry Progress/Results/Core Measures Suspected Sepsis Recent Fever Within 48 Hours: No Infection Criteria Present: None New/Unexplained Altered Menta: No Sepsis Screen: No Definite Risk SIRS Temperature:98.8 Pulse: 95 Respiratory Rate: 18 Blood Pressure 123 /80 Mean: 94 Results/Orders Lab Results Laboratory Tests Test 01/11/18 21:30 Range/Units Urine Color YELLOW Urine Clarity VERY CLOUDY H Urine pH 6 5-9 Urine Specific [place] 1.020 1.016-1.022 Urine Protein 4+ NEGATIVE Urine Glucose (UA) 4+ H NEGATIVE Urine Ketones 1+ H NEGATIVE Urine Nitrite NEGATIVE NEGATIVE Urine Bilirubin NEGATIVE NEGATIVE Urine Urobilinogen 1 NORMAL MG/DL Urine Leukocyte Esterase 3+ H NEGATIVE Urine RBC (Auto) 4+ H NEGATIVE Urine RBC 10-25 H /HPF Urine WBC 50-100 H /HPF Urine Squamous Epithelial Cells 25-50 H /HPF Urine Crystals NONE /LPF Urine Bacteria MODERATE H /HPF Urine Casts NONE /LPF Urine Mucus LARGE H /LPF Urine Yeast FEW H /HPF Urine Culture Indicated YES Urine Test NEGATIVE NEGATIVE My Orders Orders - NATEBELÉN Ua Culture If Indicated (01/11/18 20:55) Urine Culture (01/11/18 21:30) Hcg,Qualitative Urine (01/11/18 22:21) Ondansetron Oral Dissolve Tab (Zofran (01/11/18 22:24) Levofloxacin Tablet (Levaquin Tablet) (01/11/18 22:30) Medications Given in ED Current Medications Medications Dose Ordered Sig/Maurice Route Start Time Stop Time Status Last Admin Dose Admin Levofloxacin 500 mg ONCE ONCE PO 01/11/18 22:30 01/11/18 22:31 DC 01/11/18 22:41 500 MG Vital Signs/I&O 01/11/18 01/11/18 21:25 22:51 Temp 98.8 98.6 Pulse 95 90 Resp 18 18 B/P (MAP) 123/80 (94) 127/81 (96) Pulse Ox 94 95 O2 Delivery Room Air Room Air Capillary Refill : Less Than 3 Seconds Blood Pressure Mean: 94 Departure Impression Primary Impression: Urinary tract infection Qualified Codes: N30.01 - Acute cystitis with hematuria Disposition: HOME, SELF-CARE Condition: Improved Departure-Patient Inst. Decision time for Depature: 22:15 Referrals: CONNIE BOLAND MD (PCP/Family) Primary Care Physician Patient Instructions: Urinary Tract Infection, Adult (DC) Add. Discharge Instructions: Increase water, one bottle every 2 hours while awake. Drink 1 glass of cranberry juice or eat 1 cup of blueberries daily. Take antibiotic as prescribed. Follow-up with Dr. Boland in 1-2 weeks, sooner if symptoms are not improving. You may take Tylenol 650 mg alternating with ibuprofen 800 mg every 4 hours for pain or fever. Return to the emergency department for new, acute health care problems. All discharge instructions reviewed with patient and/or family. Voiced understanding. Scripts Sulfamethoxazole/Trimethoprim (Bactrim 400-80 mg Tablet) 1 Each Tablet 1 EACH PO BID for 5 Days, #10 TAB 0 Refills Prov: BELÉN SULLIVAN 01/11/18 Copy Copies To 1: CONNIE BOLAND MD, AMY ARNP Jan 11, 2018 22:08
[2018-01-11 22:09] LABS: BACTERIA,URINE MODERATE /HPF; SQUAMOUS EPITHELIAL CELL,UR 25-50 /HPF; WBC,URINE 50-100 /HPF
[2018-01-11 22:10] LABS: YEAST,URINE FEW /HPF
[2018-01-11] MEDS ORDERED: ONDANSETRON 4 MG (ZOFRAN) ORAL DISSOLVE TAB SL STA (22:24)
[2018-01-11] MEDS ORDERED: LEVOFLOXACIN 500 MG TAB (LEVAQUIN) PO ONE (22:30)
[2018-01-11] MEDS ORDERED: SULF1TAB34 PO (22:40)
[2018-01-11 22:51] VITALS: BP 127/81
== END 2018-01-11 22:51 | disposition home or self-care (01) ==
LOC: EDUNIT# 20:54 → ER 20:55
DX: N39.0 Urinary tract infection, site not specified (principal); G47.30 Sleep apnea, unspecified; E11.9 Type 2 diabetes mellitus without complications; F41.9 Anxiety disorder, unspecified; F32.9 Major depressive disorder, single episode, unspecified; F17.210 Nicotine dependence, cigarettes, uncomplicated; Z98.890 Other specified postprocedural states; Z86.73 Personal history of transient ischemic attack (TIA), and cerebral infarction without residual deficits; Z98.51 Tubal ligation status; Z88.5 Allergy status to narcotic agent; Z88.0 Allergy status to penicillin; Z88.8 Allergy status to other drugs, medicaments and biological substances; Z91.040 Latex allergy status; Z88.6 Allergy status to analgesic agent
CPT/HCPCS: 81000; 84703; 87088; 99283

== ENCOUNTER 2018-03-13 16:57 | Emergency (ER) | payer MEDICAID ==
[~2018-03-13] VITALS: Ht 182.9 cm; Wt 181.4 kg
[~2018-03-13 16:57] MED LIST changes: +LORA10TA7; +RT-ALBUINH; +SULF1TAB34 PO
--- OUTSIDE RECORDS SUMMARY | 2018-03-13 17:03 | XMS REPORT ---
Author Author CONNIE MALAVE Organization [facility] Address [address] [place] [address] Care Team Providers Care Filter Assembler Name Role Phone CONNIE MALAVE Unavailable PROBLEMS Type Condition ICD9-CM Code [id number] Code Onset Dates Condition Status SNOMED Code Problem Type 2 diabetes mellitus without complication, without long-term current use of insulin E11.9 Active 988296584 Problem ESTHELA (obstructive sleep apnea) G47.33 Active 51947432 Problem Essential hypertension I10 Active 72105685 Problem Generalized anxiety disorder F41.1 Active 39500347 Problem Grief reaction F43.21 Active 706677096 Problem Left elbow pain M25.522 Active 18584392 Problem BMI 50.0-59.9, adult Z68.43 Active 336759763 Problem Sleep apnea, unspecified type G47.30 Active 07768258 Problem Seasonal allergies J30.2 Active 009425167 ALLERGIES Substance Reaction Event Type Date Status Penicillin G Sodium Unknown Drug Allergy Jan, Active Iodine Unknown Drug Allergy Jan, Active "all pain meds except Hydrocodone" Unknown Non Drug Allergy Jan, Active ENCOUNTERS Encounter Location Date Diagnosis [place] [id number], [place] [address] Feb, [facility] [address] [place] [phone] Feb, [facility] [address] [place] [phone] Feb, [facility] [address] [place] [id number] [place] [address] Feb, [facility] [address], [place] [address] Jan, Elevated LFTs R79.89 [place] [address] [place] [id number] [place] [phone] 27 Jan, 2018 Elevated LFTs R79.[address] [facility] [address] [place] [id number] [place] [phone] Jan, Abdominal wall cellulitis L03.311 and BMI 50.0-59.9, adult Z68.43 [place] [address] [address] Jan, ESTHELA (obstructive sleep apnea) G47.33 [place] [address] [address] 12 Jan, 2018 BMI 50.0-59.9, adult Z68.43 ; ESTHELA (obstructive sleep apnea) G47.33 ; Yeast infection involving the vagina and surrounding area B37.3 and Type 2 diabetes mellitus without complication, without long-term current use of insulin E11.9 [place] [address] [place] [id number] [place] [address] Dec, Generalized anxiety disorder F41.1 [place] [address] [place] [id number] [place] [address]06- 8714 Dec, Generalized anxiety disorder F41.1 [place] [address] [place] [id number] [place] [address]71- 74[address] Dec, BMI 50.0-59.9, adult Z68.43 ; ESTHELA (obstructive sleep apnea) G47.33 ; Generalized anxiety disorder F41.1 and Grief reaction F43.21 [facility] IN [facility] [address] [place] [id number] [place] [phone] 04 Dec, 2017 Bronchitis J40 and BMI 50.0-59.9, adult Z68.43 [place] [address] [place] [id number] [place] [address] Nov, [place] [address] [place] [id number] [place] [address] Nov, Anxiety state, unspecified F41.1 [place] [address] [place] [id number] [place] [address] 39557- 384[address] 19 Nov, 2017 Anxiety state, unspecified F41.1 [place] [address] [address] 17 Nov, [address] [facility] [place] [address] [address] 12 Nov, 2017 BMI 50.0-59.9, adult Z68.43 and Viral gastroenteritis A08.[address] [facility] [place] [address] [address] Oct, Injury of left knee, initial encounter S89.92XA and BMI 50.0-59.9, adult Z68.43 [place] [address] [place] [id number] [place] [address] Oct, [address] [address] Sep, Atypical chest pain R07.89 ; Pneumonia due to infectious organism, unspecified laterality, unspecified part of lung J18.9 ; BMI 50.0-59.9 , adult Z68.43 and Sleep apnea, unspecified type G47.30 [place] [address] [place] [id number] [place] [address]- [address] Aug, [place] [address] [place] [id number] [place] [address] 68[address] Aug, BMI 50.0-59.9, adult Z68.43 ; Sleep apnea, unspecified type G47.30 ; Seasonal allergies J30.2 and Generalized abdominal pain R10.[address] [address] July, Left elbow pain M25.522 ; BMI 50.0-59.9, adult Z68.43 and Essential hypertension I10 [place] [id number] [place] [address]63[address] Jun, [place] [address], [place] [address] 18 Jun, 2017 Abdominal wall pain R10.9 and BMI 50.0-59.9, adult Z68.43 [facility] [address] [place] [address] 6[address]33- [address] Jun, [facility] [address] [place] [id number] [place] [address] 29122- [address] 03 Jun, 2017 Left lower quadrant pain R10.32 ; Blood in stool K92.1 and BMI 50.0-59.9, adult Z68.43 [place] [address] [place] [id number] [place] [address] 88574- 56[address] 30 May, 2017 [place] [address] [place] [id number] [place] [address] 85632- [address]16 May, [place] [address] [place] [id number] [place] [address] 47[address] May, Type 2 diabetes mellitus without complication, without long- term current use of insulin E11.9 ; BMI 50.0-59.9, adult Z68.43 and Generalized abdominal pain R10.[address] [facility] [address] [place] [phone] May, [facility] [address] [place] [address] 23[address]- [address] May, [facility] [address] [place] [id number] [place] [address] 21545- 7658 Mar, [facility] [id number] [place] [address] 98793 -[phone] Mar, [facility] [address] [place] [id number] [place] [address] 77849- [address]94 Mar, Type 2 diabetes mellitus without complication, without long- term current use of insulin E11.9 ; BMI 50.0-59.9, adult Z68.43 ; Acute suppurative otitis media of both ears without spontaneous rupture of tympanic membranes, recurrence not specified H66.003 ; ESTHELA (obstructive sleep apnea) G47.33 and Essential hypertension I10 [facility] [address] [place] [id number] [place] [address]311[address] Mar, [facility] [address] [place] [id number] [place] [address] 566[address] Feb, BMI 50.0-59.9, adult Z68.43 ; Encounter for immunization Z23 and Cough R05 [facility] [address] [place] [id number] [place] [address]- [address] Jan, [facility] [address] [place] [id number] [place] [address] 65176- [address] Jan, [facility] IN [facility] [address] [place] [id number] [place] [address] 15197 -[address]64 Jan, Type 2 diabetes mellitus without complication, without long -term current use of insulin E11.9 ; BMI 50.0-59.9, adult Z68.43 ; BMI 60.0-69.9 , adult Z68.44 and Family history of coronary artery disease Z82.49 IMMUNIZATIONS No Known Immunizations SOCIAL HISTORY Never Assessed REASON FOR VISIT Weight management fu -- perez ayala, patient states she would like to be check today for a possible Lesion on her clitoris , states seh went to ER and they prescribe a cream but didn't help with the problem . PLAN OF CARE Activity Details Follow Up 2 Months with Krystian weight management Reason: VITAL SIGNS Height 71.5 in 2018-02-02 Weight 412.0 lbs 2018-02-02 Temperature 98.5 degrees Fahrenheit 2018-02-02 Heart Rate 104 bpm 2018-02-02 Respiratory Rate 24 2018-02-02 BMI 56.66 kg/m2 2018-02-02 Blood pressure systolic 136 mmHg 2018-02-02 Blood pressure diastolic 86 mmHg 2018-02-02 MEDICATIONS Medication Instructions Dosage Frequency Start Date End Date Duration Status Glucocard Expression Monitor w/Device as directed Jan, Active Prozac 40 MG Orally Once a day 1 capsule 24h Active Ranitidine HCl 150 MG Orally Once a day 1 tablet at bedtime 24h May, 30 day(s) Active Janumet 50-500 MG Orally Twice a day 1 tablet with meals 12h May, 30 day(s) Active Aspirin 81 81 MG Orally Once a day 1 tablet 24h 30 day(s) Active Nystatin 385511 UNIT/GM Externally Twice a day 1 application to affected area 12h Jan, Feb, 28 days Active Glucocard Expression Test - In Vitro 2 times a day as directed 12h 24 Jan, 2017 Active MethylPREDNISolone 4 MG Orally as directed as directed Dec, Not-Taking ProAir HFA 108 (90 Base) MCG/ACT Inhalation every 6 hrs 2 puffs as needed 6h 04 Dec, 2017 Active Claritin 10 mg Orally Once a day 1 tablet 24h 13 Aug, 2017 9 Mar, 2018 30 day(s) Active Ibuprofen 200 MG Orally Three times a day 1 tablet with food or milk as needed 8h Active Diflucan 100 mg Orally every 24 hrs 1 tablet Jan, Jan, 10 day(s) Active RESULTS No Results PROCEDURES Procedure Date Ordered Result Body Site [facility] Feb 02, 2018 Hemoglobin Test Send Out 0 dollar Feb 02, 2018 VENIPUNCT, ROUTINE* Feb 02, 2018 INSTRUCTIONS MEDICATIONS ADMINISTERED No Known Medications MEDICAL (GENERAL) HISTORY Type Description Date Medical History Type 2 Diabetes Medical History Sleep apnea Surgical History section x2 Surgical History lumpectomy, right breast Surgical History cholecystectomy Surgical History bilateral tubal ligation (BTL) Hospitalization History Collapsed lung-[facility] for 9 days 2008 Hospitalization History Chest pain/pulled muscle in chest-[facility] [place], [place] 2011
--- OUTSIDE RECORDS SUMMARY | 2018-03-13 17:03 | XMS REPORT ---
Author Author CONNIE MALAVE Organization [facility] Address [address] [place] [address] Care Team Providers Care Diesel Engine Operator Name Role Phone CONNIE MALAVE Unavailable PROBLEMS Type Condition ICD9-CM Code DUF28-BA Code Onset Dates Condition Status SNOMED Code Problem Type 2 diabetes mellitus without complication, without long-term current use of insulin E11.9 Active 068410573 Problem ESTHELA (obstructive sleep apnea) G47.33 Active 57958544 Problem Essential hypertension I10 Active 13546117 Problem Generalized anxiety disorder F41.1 Active 60745160 Problem Grief reaction F43.21 Active 809229573 Problem Left elbow pain M25.522 Active 67031127 Problem BMI 50.0-59.9, adult Z68.43 Active 149772533 Problem Sleep apnea, unspecified type G47.30 Active 40446643 Problem Seasonal allergies J30.2 Active 525583471 ALLERGIES Substance Reaction Event Type Date Status Penicillin G Sodium Unknown Drug Allergy Dec, Active Iodine Unknown Drug Allergy Dec, Active "all pain meds except Hydrocodone" Unknown Non Drug Allergy Dec, Active ENCOUNTERS Encounter Location Date Diagnosis [place] [address], [place] [address] Feb, [facility] [id number] [place] [address] 77286- 8670 Feb, [facility] [id number] [place] [address] 72159- 4601 Feb, [facility] [address] [place] [id number] [place] [address] 87022- 4277 Feb, [facility] [address], [place] [address] Jan, Elevated LFTs R79.89 [place] [address] [place] [id number] [place] [address] 60595- 3849 27 Jan, 2018 Elevated LFTs R79.89 [facility] [address] [place] [id number] [place] [address] 68345 -1208 Jan, Abdominal wall cellulitis L03.311 and BMI 50.0-59.9, adult Z68.43 [place] [address] 8[address]42- 9432 Jan, ESTHELA (obstructive sleep apnea) G47.33 [place] [address] 78431- 6287 12 Jan, 2018 BMI 50.0-59.9, adult Z68.43 ; ESTHELA (obstructive sleep apnea) G47.33 ; Yeast infection involving the vagina and surrounding area B37.3 and Type 2 diabetes mellitus without complication, without long-term current use of insulin E11.9 [place] [address] [place] [id number] [place] [address] 75256- 4041 Dec, Generalized anxiety disorder F41.1 [place] [address] [place] [id number] [place] [address] 57531- 7969 Dec, Generalized anxiety disorder F41.1 [place] [address] [place] [id number] [place] [address] 85780- 9764 Dec, BMI 50.0-59.9, adult Z68.43 ; ESTHELA (obstructive sleep apnea) G47.33 ; Generalized anxiety disorder F41.1 and Grief reaction F43.21 [facility] IN [facility] [address] [place] [address] [id number] [place] [address] 50949 -6520 04 Dec, 2017 Bronchitis J40 and BMI 50.0-59.9, adult Z68.43 [place] [address] [place] [id number] [place] [address] 50980- 0306 Nov, [place] [address] [place] [id number] [place] [address] 86424- 1689 Nov, Anxiety state, unspecified F41.1 [place] [address] [place] [id number] [place] [address] 35506- 8043 19 Nov, 2017 Anxiety state, unspecified F41.1 [place] [address] 78517- 8544 17 Nov, 2017 [facility] [place] [address] 12260 -2673 12 Nov, 2017 BMI 50.0-59.9, adult Z68.43 and Viral gastroenteritis A08.4 [facility] [place] [address] 18676 -9746 Oct, Injury of left knee, initial encounter S89.92XA and BMI 50.0-59.9, adult Z68.43 [place] [address] [place] [id number] [place] [address] 25604- 7228 Oct, [address] 43723- 2531 Sep, Atypical chest pain R07.89 ; Pneumonia due to infectious organism, unspecified laterality, unspecified part of lung J18.9 ; BMI 50.0-59.9 , adult Z68.43 and Sleep apnea, unspecified type G47.30 [place] [address] [place] [id number] [place] [address] 68382- 1627 Aug, [place] [address] [place] [id number] [place] [address] 74897- 1443 Aug, BMI 50.0-59.9, adult Z68.43 ; Sleep apnea, unspecified type G47.30 ; Seasonal allergies J30.2 and Generalized abdominal pain R10.[address] 55477- 2076 July, Left elbow pain M25.522 ; BMI 50.0-59.9, adult Z68.43 and Essential hypertension I10 [place] [id number] [place] [address] 62170- 0079 Jun, [place] [address], [place] [address] 4990 18 Jun, 2017 Abdominal wall pain R10.9 and BMI 50.0-59.9, adult Z68.43 [facility] [address] [place] [address] 85947- 4762 Jun, [facility] [address] [place] [id number] [place] [address] 60366- 3935 03 Jun, 2017 Left lower quadrant pain R10.32 ; Blood in stool K92.1 and BMI 50.0-59.9, adult Z68.43 [place] [address] [place] [id number] [place] [address] 84579- 8997 30 May, 2017 [place] [address] [place] [id number] [place] [address] 58499- 4523 May, [place] [address] [place] [id number] [place] [address] 53002- 7151 May, Type 2 diabetes mellitus without complication, without long- term current use of insulin E11.9 ; BMI 50.0-59.9, adult Z68.43 and Generalized abdominal pain R10.84 [facility] [address] [place] [address] 07613 -0412 May, [facility] [address] [place] [address] 39401- 7317 May, [facility] [address] [place] [id number] [place] [address] 62549- 3959 Mar, [facility] [address] [place] [address] 28823 -1838 Mar, [facility] [address] [place] [id number] [place] [address] 90947- 2903 Mar, Type 2 diabetes mellitus without complication, without long- term current use of insulin E11.9 ; BMI 50.0-59.9, adult Z68.43 ; Acute suppurative otitis media of both ears without spontaneous rupture of tympanic membranes, recurrence not specified H66.003 ; ESTHELA (obstructive sleep apnea) G47.33 and Essential hypertension I10 [facility] [address] [place] [address] 31195- 3000 Mar, [facility] [address] [place] [id number] [place] [address] 95643 -2871 Feb, BMI 50.0-59.9, adult Z68.43 ; Encounter for immunization Z23 and Cough R05 [facility] [address] [place] [id number] [place] [address] 38450- 0698 Jan, [facility] [address] [place] [address] [id number] [place] [address] 69191- 5507 Jan, [facility] IN [facility] [address] [place] [address] [id number] [place] [address] 65600 -7756 Jan, Type 2 diabetes mellitus without complication, without long -term current use of insulin E11.9 ; BMI 50.0-59.9, adult Z68.43 ; BMI 60.0-69.9 , adult Z68.44 and Family history of coronary artery disease Z82.49 IMMUNIZATIONS No Known Immunizations SOCIAL HISTORY Never Assessed REASON FOR VISIT f/u wt mgmt-- perez ayala PLAN OF CARE Activity Details Follow Up 2 Months with Krystian for weight management Reason: VITAL SIGNS Height 71.5 in 2017-12-31 Weight 407.9 lbs 2017-12-31 Temperature 98.78 degrees Fahrenheit 2017-12-31 BMI 56.09 kg/m2 2017-12-31 Blood pressure systolic 130 mmHg 2017-12-31 Blood pressure diastolic 76 mmHg 2017-12-31 MEDICATIONS Medication Instructions Dosage Frequency Start Date End Date Duration Status ProAir HFA 108 (90 Base) MCG/ACT Inhalation every 6 hrs 2 puffs as needed 6h Dec, Active MethylPREDNISolone 4 MG Orally as directed as directed Dec, Not-Taking Prozac 40 MG Orally Once a day 1 capsule 24h Active Glucocard Expression Test - In Vitro 2 times a day as directed 12h 24 Jan, 2017 Active Ranitidine HCl 150 MG Orally Once a day 1 tablet at bedtime 24h May, 30 day(s) Active Claritin 10 mg Orally Once a day 1 tablet 24h 13 Aug, 2017 Mar, 30 day(s) Active Ibuprofen 200 MG Orally Three times a day 1 tablet with food or milk as needed 8h Active Janumet 50-500 MG Orally Twice a day 1 tablet with meals 12h May, 30 day(s) Active Aspirin 81 81 MG Orally Once a day 1 tablet 24h 30 day(s) Active Glucocard Expression Monitor w/Device as directed [...] Hospitalization History Chest pain/pulled muscle in chest-[facility] [place], [place] 2011
--- OUTSIDE RECORDS SUMMARY | 2018-03-13 17:03 | XMS REPORT ---
Author Author CONNIE MALAVE Organization [facility] Address [address] [place] [address] Care Team Providers Care Pet Sitting Name Role Phone CONNIE MALAVE Unavailable PROBLEMS Type Condition ICD9-CM Code MTV18-CA Code Onset Dates Condition Status SNOMED Code Problem Essential hypertension I10 Active 94642025 Problem Type 2 diabetes mellitus without complication, without long-term current use of insulin E11.9 Active 359003848 Problem Generalized anxiety disorder F41.1 Active 94435598 Problem Seasonal allergies J30.2 Active 429879000 Problem BMI 50.0-59.9, adult Z68.43 Active 899878150 Problem ESTHELA (obstructive sleep apnea) G47.33 Active 01036135 Problem Sleep apnea, unspecified type G47.30 Active 36258927 Problem Left elbow pain M25.522 Active 93871355 ALLERGIES No Information ENCOUNTERS Encounter Location Date Diagnosis [facility] [address] [place] [id number] [place] [address] 18860- 6743 Feb, [facility] [address] [place] [id number] [place] [address] 68584- 8855 Feb, [facility] [address] [place] [id number] [place] [address] 35908- 4384 Feb, [facility] [address] [place] [id number] [place] [address] 66140- 5937 Jan, Elevated LFTs R79.89 [facility] [address] 91219- 2443 Jan, Elevated LFTs R79.89 [facility] [address] [place] [id number] [place] [address] 95836 -7700 Jan, Abdominal wall cellulitis L03.311 and BMI 50.0-59.9, adult Z68.43 [place] [address] [place] [id number] [place] [address] 12771- 9036 Jan, ESTHELA (obstructive sleep apnea) G47.33 [place] [address] 86435- 1676 Jan, BMI 50.0-59.9, adult Z68.43 ; ESTHELA (obstructive sleep apnea) G47.33 ; Yeast infection involving the vagina and surrounding area B37.3 and Type 2 diabetes mellitus without complication, without long-term current use of insulin E11.9 [place] [address] 17427- 0356 Dec, Generalized anxiety disorder F41.1 [place] [address] 80060- 9857 Dec, Generalized anxiety disorder F41.1 [place] [address] 96382- 9176 Dec, BMI 50.0-59.9, adult Z68.43 and ESTHELA (obstructive sleep apnea ) G47.33 [facility] WALK IN [place] [address] 48589 -9245 04 Dec, 2017 Bronchitis J40 and BMI 50.0-59.9, adult Z68.43 [place] [address] 02213- 1617 Nov, [place] [address] 19811- 5557 24 Nov, 2017 Anxiety state, unspecified F41.1 [place] [address] 00114- 2699 Nov, Anxiety state, unspecified F41.1 [place] [address] 12830- 1121 17 Nov, 2017 [facility] [address] 94490 -5602 Nov, BMI 50.0-59.9, adult Z68.43 and Viral gastroenteritis A08.4 [facility] [address] [place] [id number] [place] [address] 20315 -4630 Oct, Injury of left knee, initial encounter S89.92XA and BMI 50.0-59.9, adult Z68.43 [place] [address] 08105- 8308 Oct, [place] [address] 93067- 5640 Sep, Atypical chest pain R07.89 ; Pneumonia due to infectious organism, unspecified laterality, unspecified part of lung J18.9 ; BMI 50.0-59.9 , adult Z68.43 and Sleep apnea, unspecified type G47.30 [place] [address] 24183- 4003 Aug, [place] [address] 29790- 4894 Aug, BMI 50.0-59.9, adult Z68.43 ; Sleep apnea, unspecified type G47.30 ; Seasonal allergies J30.2 and Generalized abdominal pain R10.84 [place] [address] 61250- 7621 July, Left elbow pain M25.522 ; BMI 50.0-59.9, adult Z68.43 and Essential hypertension I10 [place] [address] 96135- 5112 Jun, [place] [address] 73961- 3815 Jun, Abdominal wall pain R10.9 and BMI 50.0-59.9, adult Z68.43 [place] [address] 54639- 2991 Jun, [place] [address] 85321- 1361 Jun, Left lower quadrant pain R10.32 ; Blood in stool K92.1 and BMI 50.0-59.9, adult Z68.43 [place] [address] 80678- 3644 30 May, 2017 [place] [address] 88207- 2880 May, [place] [address] 67023- 6051 May, Type 2 diabetes mellitus without complication, without long- term current use of insulin E11.9 ; BMI 50.0-59.9, adult Z68.43 and Generalized abdominal pain R10.84 [facility] [place] [address] 84015 -0850 May, [place] [address] 22698- 2316 May, [place] [address] 14626- 9194 Mar, [facility] W[facility] IN [address] 25870 -1121 Mar, [place] [address] 98469- 0782 Mar, Type 2 diabetes mellitus without complication, without long- term current use of insulin E11.9 ; BMI 50.0-59.9, adult Z68.43 ; Acute suppurative otitis media of both ears without spontaneous rupture of tympanic membranes, recurrence not specified H66.003 ; ESTHELA (obstructive sleep apnea) G47.33 and Essential hypertension I10 [place] [address] 39429- 1396 Mar, [facility] [place] [address] 89998 -6264 Feb, BMI 50.0-59.9, adult Z68.43 ; Encounter for immunization Z23 and Cough R05 [facility] [address] [facility] [id number] [address]- 2985 Jan, [facility] [address] [facility] [id number] [address]- 0[address] Jan, [facility] [address] [facility] [id number] [address]487 Jan, Type 2 diabetes mellitus without complication, without long -term current use of insulin E11.9 ; BMI 50.0-59.9, adult Z68.43 ; BMI 60.0-69.9 , adult Z68.44 and Family history of coronary artery disease Z82.49 IMMUNIZATIONS No Known Immunizations SOCIAL HISTORY Never Assessed REASON FOR VISIT Ultrasound order correction PLAN OF CARE VITAL SIGNS MEDICATIONS Unknown [...] Hospitalization History Chest pain/pulled muscle in chest-[facility] [place], [place] 2011
--- OUTSIDE RECORDS SUMMARY | 2018-03-13 17:03 | XMS REPORT ---
Author Author CONNIE MALAVE Organization [facility] Address [address] [place] [address] Care Team Providers Care Well Testing Operator Name Role Phone CONNIE MALAVE Unavailable PROBLEMS Type Condition ICD9-CM Code UOZ81-RG Code Onset Dates Condition Status SNOMED Code Problem Type 2 diabetes mellitus without complication, without long-term current use of insulin E11.9 Active 092324844 Problem ESTHELA (obstructive sleep apnea) G47.33 Active 77910124 Problem Essential hypertension I10 Active 97089219 Problem Generalized anxiety disorder F41.1 Active 12188215 Problem Grief reaction F43.21 Active 824826626 Problem Left elbow pain M25.522 Active 33319162 Problem BMI 50.0-59.9, adult Z68.43 Active 351218340 Problem Sleep apnea, unspecified type G47.30 Active 74305430 Problem Seasonal allergies J30.2 Active 930949130 ALLERGIES No Information ENCOUNTERS Encounter Location Date Diagnosis [facility] [address] [place] [id number] [place] [address] 83589- 7081 Feb, [facility] [address] [place] [id number] [place] [address] 12586- 6740 Feb, [facility] [address] [place] [id number] [place] [address] 36633- 3228 Feb, [facility] [address] [place] [id number] [place] [address] 12656- 8058 Feb, [facility] [address] 31936- 6499 Feb, Elevated LFTs R79.89 [facility] [address] [place] [id number] [place] [address] 89691- 6349 Jan, Elevated LFTs R79.89 [facility] [address] [place] [id number] [place] [address] 62956- 2601 27 Jan, 2018 Elevated LFTs R79.89 [facility] [address] 10772 -3277 Jan, Abdominal wall cellulitis L03.311 and BMI 50.0-59.9, adult Z68.43 [place] [address] 10079- 5022 Jan, ESTHELA (obstructive sleep apnea) G47.33 [place] [address] 71494- 4131 12 Jan, 2018 BMI 50.0-59.9, adult Z68.43 ; ESTHELA (obstructive sleep apnea) G47.33 ; Yeast infection involving the vagina and surrounding area B37.3 and Type 2 diabetes mellitus without complication, without long-term current use of insulin E11.[address] 91220- 1916 Dec, Generalized anxiety disorder F41.1 [place] [address] [place] [id number] [place] [address] 15175- 3213 Dec, Generalized anxiety disorder F41.1 [place] [address] [place] [id number] [place] [address] 96561- 4590 10 Dec, 2017 BMI 50.0-59.9, adult Z68.43 ; ESTHELA (obstructive sleep apnea) G47.33 ; Generalized anxiety disorder F41.1 and Grief reaction F43.21 [facility] [address] [place] [id number] [place] [address] 83194 -8727 04 Dec, 2017 Bronchitis J40 and BMI 50.0-59.9, adult Z68.43 [place] [address] [place] [id number] [place] [address] 76676- 4425 Nov, [place] [address] [place] [id number] [place] [address] 82188- 5017 Nov, Anxiety state, unspecified F41.1 [place] [address] [place] [id number] [place] [address] 59781- 6667 19 Nov, 2017 Anxiety state, unspecified F41.1 [place] [address] 50500- 1409 17 Nov, 2017 [facility] [address] [place] [id number] [place] [address] 68031 -0180 12 Nov, 2017 BMI 50.0-59.9, adult Z68.43 and Viral gastroenteritis A08.4 [facility] [address] 45871 -3784 Oct, Injury of left knee, initial encounter S89.92XA and BMI 50.0-59.9, adult Z68.43 [place] [address] 55198- 7228 Oct, [address] 86492- 1678 Sep, Atypical chest pain R07.89 ; Pneumonia due to infectious organism, unspecified laterality, unspecified part of lung J18.9 ; BMI 50.0-59.9 , adult Z68.43 and Sleep apnea, unspecified type G47.30 [place] [id number] [place] [address] 49512- 9303 Aug, [address] 75124- 8996 Aug, BMI 50.0-59.9, adult Z68.43 ; Sleep apnea, unspecified type G47.30 ; Seasonal allergies J30.2 and Generalized abdominal pain R10.[address] 43507- 1000 July, Left elbow pain M25.522 ; BMI 50.0-59.9, adult Z68.43 and Essential hypertension I10 [address] 07168- 4576 Jun, [place] [address] [place] [id number] [place] [address] 86529- 0593 18 Jun, 2017 Abdominal wall pain R10.9 and BMI 50.0-59.9, adult Z68.43 [place] [address] [place] [id number] [place] [address] 26866- 7498 Jun, [facility] [address] [place] [id number] [place] [address] 23300- 5266 Jun, Left lower quadrant pain R10.32 ; Blood in stool K92.1 and BMI 50.0-59.9, adult Z68.43 [place] [address] [place] [id number] [place] [address] 49012- 4636 30 May, 2017 [place] [address] [place] [id number] [place] [address] 56707- 7134 May, [place] [address] [place] [id number] [place] [address] 20797- 6000 May, Type 2 diabetes mellitus without complication, without long- term current use of insulin E11.9 ; BMI 50.0-59.9, adult Z68.43 and Generalized abdominal pain R10.84 [facility] [address] [id number] [place] [address] 52888 -0124 May, [place] [address] [place] [id number] [place] [address] 30708- 6798 May, [facility] [address] [place] [id number] [place] [address] 35235- 8264 Mar, [facility] [address] [place] [id number] [place] [address] 95964 -9626 Mar, [place] [address] [place] [id number] [place] [address] 87416- 0700 Mar, Type 2 diabetes mellitus without complication, without long- term current use of insulin E11.9 ; BMI 50.0-59.9, adult Z68.43 ; Acute suppurative otitis media of both ears without spontaneous rupture of tympanic membranes, recurrence not specified H66.003 ; ESTHELA (obstructive sleep apnea) G47.33 and Essential hypertension I10 [facility] [address], [place] [address]- 3203 Mar, [facility] [address] [place] [address] 39844 -0829 Feb, BMI 50.0-59.9, adult Z68.43 ; Encounter for immunization Z23 and Cough R05 [facility] [address] [place] [id number] [place] [address] 41151- 8187 Jan, [facility] [address] [place] [id number] [place] [address] 87731- 0045 Jan, [facility] [address] [place] [address] 56015 -9514 Jan, Type 2 diabetes mellitus without complication, without long -term current use of insulin E11.9 ; BMI 50.0-59.9, adult Z68.43 ; BMI 60.0-69.9 , adult Z68.44 and Family history of coronary artery disease Z82.49 IMMUNIZATIONS No Known Immunizations SOCIAL HISTORY Never Assessed REASON FOR VISIT Lab (walk-in) PLAN OF CARE Activity Details Pending Test HEPATITIS PROFILE VITAL SIGNS MEDICATIONS Unknown Medications RESULTS No Results PROCEDURES Procedure Date Ordered Result Body Site LAB NOT BILLED BY [facility] Feb 25, 2018 INSTRUCTIONS MEDICATIONS ADMINISTERED No Known Medications MEDICAL (GENERAL) HISTORY Type Description Date Medical History Type 2 Diabetes Medical History Sleep apnea Surgical History section x2 Surgical History lumpectomy, right breast Surgical History cholecystectomy Surgical History bilateral tubal ligation (BTL) Hospitalization History Collapsed lung-[facility] for 9 days 2008 Hospitalization History Chest pain/pulled muscle in chest[place] [place], [place] 2011
--- OUTSIDE RECORDS SUMMARY | 2018-03-13 17:03 | XMS REPORT ---
Author Author BERTA LEW [facility] IN [facility] Address [address] [place] [address] Care Team Providers Care Forestry Support Specialist Name Role Phone BERTA LEW Unavailable PROBLEMS Type Condition ICD9-CM Code RRH19-CU Code Onset Dates Condition Status SNOMED Code Problem Type 2 diabetes mellitus without complication, without long-term current use of insulin E11.9 Active 981080366 Problem ESTHELA (obstructive sleep apnea) G47.33 Active 14889615 Problem Essential hypertension I10 Active 94599378 Problem Generalized anxiety disorder F41.1 Active 71469358 Problem Grief reaction F43.21 Active 509440440 Problem Left elbow pain M25.522 Active 58146689 Problem BMI 50.0-59.9, adult Z68.43 Active 139540650 Problem Sleep apnea, unspecified type G47.30 Active 14338695 Problem Seasonal allergies J30.2 Active 309041157 ALLERGIES Substance Reaction Event Type Date Status Penicillin G Sodium Unknown Drug Allergy Jan, Active Iodine Unknown Drug Allergy Jan, Active "all pain meds except Hydrocodone" Unknown Non Drug Allergy Jan, Active ENCOUNTERS Encounter Location Date Diagnosis [facility] [address], [place] [address] Feb, [facility] [address] [place] [address]2525- 4906 Feb, [facility] [id number] [place] [address] 44427- 5884 Feb, Elevated LFTs R79.89 [facility] [address] [place] [address] 20338- 9442 Jan, Elevated LFTs R79.89 [facility] [address] [place] [id number] [place] [address] 49125- 8107 Jan, Elevated LFTs R79.89 [facility] [id number] [place] [address] 12756 -3084 Jan, Abdominal wall cellulitis L03.311 and BMI 50.0-59.9, adult Z68.43 [place] [id number] [place] [address] 72517- 6707 Jan, ESTHELA (obstructive sleep apnea) G47.33 [place] [address] [address]45- 0349 12 Jan, 2018 BMI 50.0-59.9, adult Z68.43 ; ESTHELA (obstructive sleep apnea) G47.33 ; Yeast infection involving the vagina and surrounding area B37.3 and Type 2 diabetes mellitus without complication, without long-term current use of insulin E11.9 [place] [address] 13057- 2446 Dec, Generalized anxiety disorder F41.1 [place] [address] 00186- 7029 Dec, Generalized anxiety disorder F41.1 [place] [address] 98204- 0170 10 Dec, 2017 BMI 50.0-59.9, adult Z68.43 ; ESTHELA (obstructive sleep apnea) G47.33 ; Generalized anxiety disorder F41.1 and Grief reaction F43.[address] [facility] IN [facility] [id number] [place] [address] 93401 -4409 Dec, Bronchitis J40 and BMI 50.0-59.9, adult Z68.43 [place] [address] [address] [id number] [place] [address] 52140- 8967 Nov, [place] [address] 74427- 3551 24 Nov, 2017 Anxiety state, unspecified F41.1 [place] [address] 12645- 5820 Nov, Anxiety state, unspecified F41.1 [place] [address] 83647- 1275 17 Nov, 2017 [facility] [address] 30653 -2816 Nov, BMI 50.0-59.9, adult Z68.43 and Viral gastroenteritis A08.4 [facility] [address] 6[address]86 -7198 Oct, Injury of left knee, initial encounter S89.92XA and BMI 50.0-59.9, adult Z68.43 [place] [address] 52094- 1304 Oct, [place] [address] 99015- 0149 Sep, Atypical chest pain R07.89 ; Pneumonia due to infectious organism, unspecified laterality, unspecified part of lung J18.9 ; BMI 50.0-59.9 , adult Z68.43 and Sleep apnea, unspecified type G47.30 [place] [address] 51676- 2266 Aug, [place] [address] 62156- 2229 Aug, BMI 50.0-59.9, adult Z68.43 ; Sleep apnea, unspecified type G47.30 ; Seasonal allergies J30.2 and Generalized abdominal pain R10.84 [place] [address] 07134- 7343 July, Left elbow pain M25.522 ; BMI 50.0-59.9, adult Z68.43 and Essential hypertension I10 [place] [address] 20173- 3578 Jun, [place] [address] 04380- 3504 Jun, Abdominal wall pain R10.9 and BMI 50.0-59.9, adult Z68.43 [place] [id number] [place] [address] 29905- 9700 Jun, [place] [id number] [place] [address] 43386- 4932 Jun, Left lower quadrant pain R10.32 ; Blood in stool K92.1 and BMI 50.0-59.9, adult Z68.43 [place] [id number] [place] [address] 29969- 1949 30 May, 2017 [place] [address] 36552- 6413 May, [place] [address] [id number] [place] [address] 78971- 6352 May, Type 2 diabetes mellitus without complication, without long- term current use of insulin E11.9 ; BMI 50.0-59.9, adult Z68.43 and Generalized abdominal pain R10.84 [facility] [id number] [place] [address] 01764 -7021 May, [place] [id number] [place] [address] 92648- 0077 May, [place] [address] [id number] [place] [address] 85224- 1287 Mar, [facility] [id number] [place] [address] 80314 -2002 Mar, [place] [address] [id number] [place] [address] 97264- 1336 Mar, Type 2 diabetes mellitus without complication, without long- term current use of insulin E11.9 ; BMI 50.0-59.9, adult Z68.43 ; Acute suppurative otitis media of both ears without spontaneous rupture of tympanic membranes, recurrence not specified H66.003 ; ESTHELA (obstructive sleep apnea) G47.33 and Essential hypertension I10 [place] [address] [facility] [id number] [address] Mar, [facility] [address], [place] [address] Feb, BMI 50.0-59.9, adult Z68.43 ; Encounter for immunization Z23 and Cough R05 [facility] [address] [place] [address] 83644- 4034 Jan, [facility] [address] [place] [address] 85998- 3982 Jan, [facility] [address] [place] [address] 89853 -2766 Jan, Type 2 diabetes mellitus without complication, without long -term current use of insulin E11.9 ; BMI 50.0-59.9, adult Z68.43 ; BMI 60.0-69.9 , adult Z68.44 and Family history of coronary artery disease Z82.49 IMMUNIZATIONS No Known Immunizations SOCIAL HISTORY Never Assessed REASON FOR VISIT sore, red area on her abdomen under her umbilicus. reports some nausea. reports there is a herd center in this sore area. denies any drainage. sudha, thinks this has been there for 4 days. PLAN OF CARE Activity Details Follow Up if not improving with PCP or reg follow up Reason: VITAL SIGNS Height 71.5 in 2018-02-15 Weight 419.6 lbs 2018-02-15 Temperature 97.7 degrees Fahrenheit 2018-02-15 Heart Rate 86 bpm 2018-02-15 Respiratory Rate 20 2018-02-15 BMI 57.70 kg/m2 2018-02-15 Blood pressure systolic 130 mmHg 2018-02-15 Blood pressure diastolic 80 mmHg 2018-02-15 MEDICATIONS Medication Instructions Dosage Frequency Start Date End Date Duration Status Kentonumet 50-500 MG Orally Twice a day 1 tablet with meals 12h May, 30 day(s) Active MethylPREDNISolone 4 MG Orally as directed as directed Dec, Not-Taking Bactrim DS 800-160 MG Orally Twice a day 1 tablet 12h Jan, 10 day(s) Active Nystatin 946217 UNIT/GM Externally Twice a day 1 application to affected area 12h 12 Jan, 2018 Feb, 28 days Active Claritin 10 mg Orally Once a day 1 tablet 24h 13 Aug, 2017 Mar, 30 day(s) Active ProAir HFA 108 (90 Base) MCG/ACT Inhalation every 6 hrs 2 puffs as needed 6h 04 Dec, 2017 Active Prozac 40 MG Orally Once a day 1 capsule 24h Active Ibuprofen 200 MG Orally Three times a day 1 tablet with food or milk as needed 8h Active Aspirin 81 81 MG Orally Once a day 1 tablet 24h 30 day(s) Active Ranitidine HCl 150 MG Orally Once a day 1 tablet at bedtime 24h May, 30 day(s) Active Glucocard Expression Monitor w/Device [...] Hospitalization History Chest pain/pulled muscle in chest[place] 2011
--- OUTSIDE RECORDS SUMMARY | 2018-03-13 17:04 | XMS REPORT ---
Author Author LEANDRA GUTIÉRREZ Organization [facility] Address [address] [place] [address] Care Team Providers Care Wedger Machine Name Role Phone BROCK LEANDRA Unavailable PROBLEMS Type Condition ICD9-CM Code DFQ60-VI Code Onset Dates Condition Status SNOMED Code Problem Essential hypertension I10 Active 91556682 Problem Type 2 diabetes mellitus without complication, without long-term current use of insulin E11.9 Active 180933581 Problem Generalized anxiety disorder F41.1 Active 64457373 Problem Seasonal allergies J30.2 Active 803438239 Problem BMI 50.0-59.9, adult Z68.43 Active 183618358 Problem ESTHELA (obstructive sleep apnea) G47.33 Active 79641511 Problem Sleep apnea, unspecified type G47.30 Active 80967181 Problem Left elbow pain M25.522 Active 34040851 ALLERGIES No Information ENCOUNTERS Encounter Location Date Diagnosis [place] [address] [address]- 1385 Jan, [facility] [address] [place] [address] [id number] [place] [address] 48590- 2724 Jan, [facility] [id number] [place] [address] 18330- 0684 Jan, [facility] [id number] [place] [address] 00335- 5422 Jan, [facility] [address] 07899- 0460 30 Dec, 2017 Generalized anxiety disorder F41.1 [facility] [address] 90476- 5526 15 Dec, 2017 Generalized anxiety disorder F41.1 [facility] [address] 24721- 8898 10 Dec, 2017 BMI 50.0-59.9, adult Z68.43 and ESTHELA (obstructive sleep apnea ) G47.33 [facility] [place] [address] 78704 -2832 04 Dec, 2017 Bronchitis J40 and BMI 50.0-59.9, adult Z68.43 [place] [address] 88414- 0690 Nov, [place] [address] 09983- 8773 24 Nov, 2017 Anxiety state, unspecified F41.1 [place] [address] 59217- 8983 19 Nov, 2017 Anxiety state, unspecified F41.1 [place] [address] 79466- 8150 Nov, [facility] IN [place] [address] 53921 -0592 Nov, BMI 50.0-59.9, adult Z68.43 and Viral gastroenteritis A08.4 [facility] IN [address] [address] -68[address] Oct, Injury of left knee, initial encounter S89.92XA and BMI 50.0-59.9, adult Z68.43 [place] [address] 02401- 2645 Oct, [place] [address] 70690- 8021 Sep, Atypical chest pain R07.89 ; Pneumonia due to infectious organism, unspecified laterality, unspecified part of lung J18.9 ; BMI 50.0-59.9 , adult Z68.43 and Sleep apnea, unspecified type G47.30 [place] [address] 53416- 3415 Aug, [place] [address] [place] [id number] [place] [address] 17397- 2834 13 Aug, 2017 BMI 50.0-59.9, adult Z68.43 ; Sleep apnea, unspecified type G47.30 ; Seasonal allergies J30.2 and Generalized abdominal pain R10.84 [place] [address] [place] [id number] [place] [address] 34281- 3198 July, Left elbow pain M25.522 ; BMI 50.0-59.9, adult Z68.43 and Essential hypertension I10 [place] [address] 05662- 8204 Jun, [place] [address] 47857- 4151 Jun, Abdominal wall pain R10.9 and BMI 50.0-59.9, adult Z68.43 [place] [address] 49636- 3608 Jun, [place] [address] 84014- 0463 Jun, Left lower quadrant pain R10.32 ; Blood in stool K92.1 and BMI 50.0-59.9, adult Z68.43 [place] [address] [place] [id number] [place] [address] 12656- 9315 30 May, 2017 [place] [address] [place] [id number] [place] [address] 36347- 7523 May, [place] [address] [place] [id number] [place] [address] 14833- 9847 May, Type 2 diabetes mellitus without complication, without long- term current use of insulin E11.9 ; BMI 50.0-59.9, adult Z68.43 and Generalized abdominal pain R10.84 [facility] IN [facility] [id number] [place] [address] 95420 -5591 16 May, 2017 [place] [address] 40925- 5618 May, [facility] [address] 58703- 0155 Mar, [facility] [address] 45199 -0685 Mar, [place] [address] 81138- 2997 Mar, Type 2 diabetes mellitus without complication, without long- term current use of insulin E11.9 ; BMI 50.0-59.9, adult Z68.43 ; Acute suppurative otitis media of both ears without spontaneous rupture of tympanic membranes, recurrence not specified H66.003 ; ESTHELA (obstructive sleep apnea) G47.33 and Essential hypertension I10 [place] [address] 85137- 4122 Mar, [facility] [address] 32408 -9405 Feb, BMI 50.0-59.9, adult Z68.43 ; Encounter for immunization Z23 and Cough R05 [address] 92230- 2631 Jan, [place] [address] 71840- 5766 Jan, [place] [address] 59501 -7077 Jan, Type 2 diabetes mellitus without complication, without long -term current use of insulin E11.9 ; BMI 50.0-59.9, adult Z68.43 ; BMI 60.0-69.9 , adult Z68.44 and Family history of coronary artery disease Z82.49 IMMUNIZATIONS No Known Immunizations SOCIAL HISTORY Never Assessed REASON FOR VISIT f/u PLAN OF CARE Activity Details Follow Up Next available Reason:anxiety VITAL SIGNS MEDICATIONS Unknown Medications RESULTS No Results PROCEDURES Procedure Date Ordered Result Body Site Psychotherapy, patient &/family, 45 minutes, established patient Jan 20, 2018 INSTRUCTIONS MEDICATIONS ADMINISTERED No Known Medications MEDICAL (GENERAL) HISTORY Type Description Date Medical History Type 2 Diabetes Medical History Sleep apnea Surgical History section x2 Surgical History lumpectomy, right breast Surgical History cholecystectomy Surgical History bilateral tubal ligation (BTL) Hospitalization History Collapsed lung-[facility] for 9 days 2008 Hospitalization History Chest pain/pulled muscle in chest-[facility] [place], [place] 2011
--- OUTSIDE RECORDS SUMMARY | 2018-03-13 17:04 | XMS REPORT ---
Author Author JITENDRA GOMES [facility] Address [address] [place] [address] Care Team Providers Care Bill Peddler Name Role Phone JOAQUIN GOMESTA Unavailable PROBLEMS Type Condition ICD9-CM Code IDE96-AD Code Onset Dates Condition Status SNOMED Code Problem Essential hypertension I10 Active 15614138 Problem Type 2 diabetes mellitus without complication, without long-term current use of insulin E11.9 Active 332074242 Problem Generalized anxiety disorder F41.1 Active 81254378 Problem Seasonal allergies J30.2 Active 061663774 Problem BMI 50.0-59.9, adult Z68.43 Active 045534001 Problem ESTHELA (obstructive sleep apnea) G47.33 Active 95057321 Problem Sleep apnea, unspecified type G47.30 Active 13769439 Problem Left elbow pain M25.522 Active 42011470 ALLERGIES Substance Reaction Event Type Date Status Penicillin G Sodium Unknown Drug Allergy Dec, Active Iodine Unknown Drug Allergy Dec, Active "all pain meds except Hydrocodone" Unknown Non Drug Allergy Dec, Active ENCOUNTERS Encounter Location Date Diagnosis [facility] [address] [place] [address] 18499- 8237 Jan, [facility] [address] [place] [id number] [place] [address] 94422- 8531 Jan, [facility] [address] [place] [address] [id number] [place] [address] 24784- 7623 Jan, [facility] [address] [place] [id number] [place] [address] 03001- 1569 Jan, [facility] [address] [place] [id number] [place] [address] 75359- 4398 Dec, Generalized anxiety disorder F41.1 [facility] [address] [place] [id number] [place] [address] 50357- 0350 15 Dec, 2017 Generalized anxiety disorder F41.1 [place] [address] [place] [id number] [place] [address] 74955- 5383 10 Dec, 2017 BMI 50.0-59.9, adult Z68.43 and ESTHELA (obstructive sleep apnea ) G47.33 [facility] [place] [address] [place] [id number] [place] [address] 02484 -1019 04 Dec, 2017 Bronchitis J40 and BMI 50.0-59.9, adult Z68.43 [place] [address] [place] [id number] [place] [address] 40549- 0390 Nov, [place] [address] 19001- 5999 24 Nov, 2017 Anxiety state, unspecified F41.1 [place] [address] [place] [id number] [place] [address] 86621- 6487 19 Nov, 2017 Anxiety state, unspecified F41.1 [place] [address] [place] [id number] [place] [address] 23894- 3489 17 Nov, 2017 [facility] [place] [address] [place] [id number] [place] [address] 83372 -8398 Nov, BMI 50.0-59.9, adult Z68.43 and Viral gastroenteritis A08.4 [facility] [place] [address] [place] [id number] [place] [address] 58329 -0538 Oct, Injury of left knee, initial encounter S89.92XA and BMI 50.0-59.9, adult Z68.43 [place] [address] [place] [id number] [place] [address] 33730- 3803 Oct, [place] [address] [place] [id number] [place] [address] 36868- 9104 Sep, Atypical chest pain R07.89 ; Pneumonia due to infectious organism, unspecified laterality, unspecified part of lung J18.9 ; BMI 50.0-59.9 , adult Z68.43 and Sleep apnea, unspecified type G47.30 [place] [address] [place] [id number] [place] [address] 22798- 3090 Aug, [place] [address] [place] [id number] [place] [address] 22080- 2799 Aug, BMI 50.0-59.9, adult Z68.43 ; Sleep apnea, unspecified type G47.30 ; Seasonal allergies J30.2 and Generalized abdominal pain R10.84 [place] [address] 06704- 0822 July, Left elbow pain M25.522 ; BMI 50.0-59.9, adult Z68.43 and Essential hypertension I10 [place] [address] [place] [id number] [place] [address] 52740- 8554 Jun, [place] [address] [place] [id number] [place] [address] 18879- 5698 18 Jun, 2017 Abdominal wall pain R10.9 and BMI 50.0-59.9, adult Z68.43 [place] [address] [place] [id number] [place] [address] 02356- 9124 Jun, [place] [address] 19108- 8767 Jun, Left lower quadrant pain R10.32 ; Blood in stool K92.1 and BMI 50.0-59.9, adult Z68.43 [place] [address] [place] [id number] [place] [address] 62877- 1488 May, [place] [address] [place] [id number] [place] [address] 63274- 3503 May, [place] [address] [place] [id number] [place] [address] 03263- 3217 May, Type 2 diabetes mellitus without complication, without long- term current use of insulin E11.9 ; BMI 50.0-59.9, adult Z68.43 and Generalized abdominal pain R10.84 [facility] [address] [place] [id number] [address] May, [place] [address] [place] [id number] [place] [address] 79978- 0380 May, [facility] [address] [place] [id number] [place] [address] 85719- 8377 Mar, [facility] IN [place] [address] [place] [id number] [place] [address] 34987 -8946 Mar, [place] [address] [place] [id number] [place] [address] 59521- 6940 Mar, Type 2 diabetes mellitus without complication, without long- term current use of insulin E11.9 ; BMI 50.0-59.9, adult Z68.43 ; Acute suppurative otitis media of both ears without spontaneous rupture of tympanic membranes, recurrence not specified H66.003 ; ESTHELA (obstructive sleep apnea) G47.33 and Essential hypertension I10 [place] [address] [place] [id number] [place] [address] 73733- 5678 Mar, [facility] [place] [address] [place] [id number] [place] [address] 20649 -4892 Feb, BMI 50.0-59.9, adult Z68.43 ; Encounter for immunization Z23 and Cough R05 [place] [address] [place] [id number] [place] [address] 73917- 6225 Jan, [place] [address] [place] [id number] [place] [address] 15052- 3000 Jan, [facility] [place] [address] [place] [address] 95228 -5170 Jan, Type 2 diabetes mellitus without complication, without long -term current use of insulin E11.9 ; BMI 50.0-59.9, adult Z68.43 ; BMI 60.0-69.9 , adult Z68.44 and Family history of coronary artery disease Z82.49 IMMUNIZATIONS No Known Immunizations SOCIAL HISTORY Never Assessed REASON FOR VISIT cough/chest congestion for 3-4 days. [email or web address] PLAN OF CARE Activity Details Follow Up if not improving with PCP or reg follow up Reason: VITAL SIGNS Height 71.5 in 2017-12-25 Weight 403.6 lbs 2017-12-25 Temperature 97.8 degrees Fahrenheit 2017-12-25 Heart Rate 88 bpm 2017-12-25 Respiratory Rate 22 2017-12-25 BMI 55.50 kg/m2 2017-12-25 Blood pressure systolic 130 mmHg 2017-12-25 Blood pressure diastolic 80 mmHg 2017-12-25 MEDICATIONS Medication Instructions Dosage Frequency Start Date End Date Duration Status Glucocard Expression Test - In Vitro 2 times a day as directed 12h Jan, Active Janumet 50-500 MG Orally Twice a day 1 tablet with meals 12h May, 30 day(s) Active Ranitidine HCl 150 MG Orally Once a day 1 tablet at bedtime 24h May, 30 day(s) Active ProAir HFA 108 (90 Base) MCG/ACT Inhalation every 6 hrs 2 puffs as needed 6h Dec, Active Prozac 40 MG Orally Once a day 1 capsule 24h Active Ibuprofen 200 MG Orally Three times a day 1 tablet with food or milk as needed 8h Active Aspirin 81 81 MG Orally Once a day 1 tablet 24h 30 day(s) Active Claritin 10 mg Orally Once a day 1 tablet 24h Aug, 9 Mar, 2018 30 day(s) Active Glucocard Expression Monitor w/Device as directed Jan, Active MethylPREDNISolone 4 MG Orally as directed as directed Dec, Active RESULTS No Results PROCEDURES No Known procedures INSTRUCTIONS MEDICATIONS ADMINISTERED No Known Medications MEDICAL (GENERAL) HISTORY Type Description Date Medical History Type 2 Diabetes Medical History Sleep apnea Surgical History section x2 Surgical History lumpectomy, right breast Surgical History cholecystectomy Surgical History bilateral tubal ligation (BTL) Hospitalization History Collapsed lung-[facility] for 9 days 2008 Hospitalization History Chest pain/pulled muscle in chest-[facility] [place], [place] 2011
--- OUTSIDE RECORDS SUMMARY | 2018-03-13 17:04 | XMS REPORT ---
Author Author CONNIE MALAVE Organization [facility] Address [address] [place] [address] Care Team Providers Care Egg Setter Name Role Phone CONNIE MALAVE Unavailable PROBLEMS Type Condition ICD9-CM Code SKK83-ON Code Onset Dates Condition Status SNOMED Code Problem Essential hypertension I10 Active 86037052 Problem Type 2 diabetes mellitus without complication, without long-term current use of insulin E11.9 Active 736891867 Problem Generalized anxiety disorder F41.1 Active 44878731 Problem Seasonal allergies J30.2 Active 048627532 Problem BMI 50.0-59.9, adult Z68.43 Active 250561068 Problem ESTHELA (obstructive sleep apnea) G47.33 Active 22858533 Problem Sleep apnea, unspecified type G47.30 Active 28131237 Problem Left elbow pain M25.522 Active 22174901 ALLERGIES No Information ENCOUNTERS Encounter Location Date Diagnosis [facility] [address] [address] Feb, [facility] [address] [place] [id number] [place] [address] 26339- 4160 13 Feb, 2018 [facility] [id number] [place] [address] 80022- 2141 Feb, [facility] [id number] [place] [address] 22787- 9612 Jan, Elevated LFTs R79.89 [facility] [address] [address] Jan, Abdominal wall cellulitis L03.311 and BMI 50.0-59.9, adult Z68.43 [facility] [id number] [place] [address] 83300- 8380 15 Jan, 2018 ESTHELA (obstructive sleep apnea) G47.33 [place] [id number] [place] [address] 28594- 6412 Jan, BMI 50.0-59.9, adult Z68.43 ; ESTHELA (obstructive sleep apnea) G47.33 ; Yeast infection involving the vagina and surrounding area B37.3 and Type 2 diabetes mellitus without complication, without long-term current use of insulin E11.9 [place] [address] [address] Dec, Generalized anxiety disorder F41.1 [place] [address] [address]- 7696 Dec, Generalized anxiety disorder F41.1 [place] [address] [address]- 8926 Dec, BMI 50.0-59.9, adult Z68.43 and ESTHELA (obstructive sleep apnea ) G47.33 [facility] [place] [address] [address] Dec, Bronchitis J40 and BMI 50.0-59.9, adult Z68.43 [place] [address] [address]- 9083 Nov, [place] [address] [address]- [address] Nov, Anxiety state, unspecified F41.1 [place] [address] [address]- [address] 19 Nov, 2017 Anxiety state, unspecified F41.1 [place] [address] 15781- 7178 17 Nov, 2017 [facility] WALK IN [place] [address] [address] Nov, BMI 50.0-59.9, adult Z68.43 and Viral gastroenteritis A08.4 [facility] [address] [address] Oct, Injury of left knee, initial encounter S89.92XA and BMI 50.0-59.9, adult Z68.43 [place] [address] [id number] [place] [address] 15721- 5983 Oct, [place] [address] [address] Sep, Atypical chest pain R07.89 ; Pneumonia due to infectious organism, unspecified laterality, unspecified part of lung J18.9 ; BMI 50.0-59.9 , adult Z68.43 and Sleep apnea, unspecified type G47.30 [place] [address] [address]- 76[address] Aug, [place] [address] 82365[address] Aug, BMI 50.0-59.9, adult Z68.43 ; Sleep apnea, unspecified type G47.30 ; Seasonal allergies J30.2 and Generalized abdominal pain R10.84 [place] [address] 27[address] 4[address] July, Left elbow pain M25.522 ; BMI 50.0-59.9, adult Z68.43 and Essential hypertension I10 [place] [address] [id number] [place] [address] 22785- 8839 Jun, [place] [address] 9[address]26- 1739 Jun, Abdominal wall pain R10.9 and BMI 50.0-59.9, adult Z68.43 [place] [address] [address]15- 80[address] Jun, [place] [address] 09968- 3763 Jun, Left lower quadrant pain R10.32 ; Blood in stool K92.1 and BMI 50.0-59.9, adult Z68.43 [facility] [id number] [place] [address] 43137- 6140 May, [facility] [address] 6[address] May, [facility] [address] [id number] [place] [address] 77130- 0010 May, Type 2 diabetes mellitus without complication, without long- term current use of insulin E11.9 ; BMI 50.0-59.9, adult Z68.43 and Generalized abdominal pain R10.[address] [facility] [address] [address] May, [place] [address] 84156- 42[address] May, [place] [address] [address]- [address] Mar, [facility] [id number] [place] [address]6013 Mar, [place] [address] [id number] [place] [address] 96600- 5625 Mar, Type 2 diabetes mellitus without complication, without long- term current use of insulin E11.9 ; BMI 50.0-59.9, adult Z68.43 ; Acute suppurative otitis media of both ears without spontaneous rupture of tympanic membranes, recurrence not specified H66.003 ; ESTHELA (obstructive sleep apnea) G47.33 and Essential hypertension I10 [place] [address] [id number] [place] [address] 43032- 7283 Mar, [facility] [address] [address] [id number] [place] [address] 45248 -7896 Feb, BMI 50.0-59.9, adult Z68.43 ; Encounter for immunization Z23 and Cough R05 [place] [address] [id number] [place] [address] 60485- 6298 Jan, [place] [address] [facility] [id number] [place] [address] Jan, [facility] [address] [facility] [id number] [place] [address] Jan, Type 2 diabetes mellitus without complication, without long -term current use of insulin E11.9 ; BMI 50.0-59.9, adult Z68.43 ; BMI 60.0-69.9 , adult Z68.44 and Family history of coronary artery disease Z82.49 IMMUNIZATIONS No Known Immunizations SOCIAL HISTORY Never Assessed REASON FOR VISIT Orders PLAN OF CARE Activity Details Pending Test Ultrasound : Liver VITAL SIGNS MEDICATIONS Unknown Medications RESULTS No [...] Hospitalization History Chest pain/pulled muscle in chest[place] 2011
--- OUTSIDE RECORDS SUMMARY | 2018-03-13 17:04 | XMS REPORT ---
Author Author CONNIE MALAVE Organization [facility] Address [address] [place] [address] Care Team Providers Care Processing Technologist Name Role Phone CONNIE MALAVE Unavailable PROBLEMS Type Condition ICD9-CM Code QKD30-LA Code Onset Dates Condition Status SNOMED Code Problem Essential hypertension I10 Active 03062143 Problem Type 2 diabetes mellitus without complication, without long-term current use of insulin E11.9 Active 207487300 Problem Generalized anxiety disorder F41.1 Active 57343561 Problem Seasonal allergies J30.2 Active 019355539 Problem BMI 50.0-59.9, adult Z68.43 Active 002393419 Problem ESTHELA (obstructive sleep apnea) G47.33 Active 11369559 Problem Sleep apnea, unspecified type G47.30 Active 90836940 Problem Left elbow pain M25.522 Active 44998491 ALLERGIES No Information ENCOUNTERS Encounter Location Date Diagnosis [place] [id number] [place] [id number] [place] [address] 8[address]14- [address]85 Feb, [facility] [address] [id number] [place] [address] 23292- 6427 27 Jan, 2018 [place] [address] [place] [address] [id number] [place] [address] 04044- 1359 Jan, [facility] [id number] [place] [address] 29130- 6872 15 Jan, 2018 ESTHELA (obstructive sleep apnea) G47.33 [place] [address] 27[address]- [address] 12 Jan, 2018 BMI 50.0-59.9, adult Z68.43 ; ESTHELA (obstructive sleep apnea) G47.33 ; Yeast infection involving the vagina and surrounding area B37.3 and Type 2 diabetes mellitus without complication, without long-term current use of insulin E11.9 [place] [address] 12009- 6886 30 Dec, 2017 Generalized anxiety disorder F41.1 [place] [address] 60998- 1380 15 Dec, 2017 Generalized anxiety disorder F41.1 [place] [address] 43550- 6935 10 Dec, 2017 BMI 50.0-59.9, adult Z68.43 and ESTHELA (obstructive sleep apnea ) G47.33 [facility] WALK IN [facility] [address] [address] 04 Dec, 2017 Bronchitis J40 and BMI 50.0-59.9, adult Z68.43 [place] [address] 09373- 7001 26 Nov, 2017 [place] [address] 40997- 4203 24 Nov, 2017 Anxiety state, unspecified F41.1 [place] [address] 65596- 8130 19 Nov, 2017 Anxiety state, unspecified F41.1 [place] [address] [address] [id number] [place] [address] 45933- 6150 17 Nov, 2017 [facility] [id number] [place] [address] 08816 -3920 12 Nov, 2017 BMI 50.0-59.9, adult Z68.43 and Viral gastroenteritis A08.4 [facility] WALK IN [place] [address] [address] Oct, Injury of left knee, initial encounter S89.92XA and BMI 50.0-59.9, adult Z68.43 [place] [address] 25434- 5117 13 Oct, 2017 [place] [address] 29596- 0225 Sep, Atypical chest pain R07.89 ; Pneumonia due to infectious organism, unspecified laterality, unspecified part of lung J18.9 ; BMI 50.0-59.9 , adult Z68.43 and Sleep apnea, unspecified type G47.30 [place] [address] [address] [id number] [place] [address] 90523- 3712 Aug, [place] [address] 92870- 2173 Aug, BMI 50.0-59.9, adult Z68.43 ; Sleep apnea, unspecified type G47.30 ; Seasonal allergies J30.2 and Generalized abdominal pain R10.84 [place] [address] 15812- 7140 July, Left elbow pain M25.522 ; BMI 50.0-59.9, adult Z68.43 and Essential hypertension I10 [place] [address] 60115- 4657 Jun, [place] [address] 83695- 3819 18 Jun, 2017 Abdominal wall pain R10.9 and BMI 50.0-59.9, adult Z68.43 [place] [address] [id number] [place] [address] 67384- 3722 Jun, [place] [address] 46235- 5418 Jun, Left lower quadrant pain R10.32 ; Blood in stool K92.1 and BMI 50.0-59.9, adult Z68.43 [place] [address] 91498- 2966 May, [place] [address] 82593- 0594 May, [place] [address] 66006- 3411 May, Type 2 diabetes mellitus without complication, without long- term current use of insulin E11.9 ; BMI 50.0-59.9, adult Z68.43 and Generalized abdominal pain R10.84 [facility] WALK IN [place] [address] [id number] [place] [address]23 -1596 May, [address] [address]- [address] May, [place] [address] 07024- 3432 Mar, [facility] WALK IN [address] [address] Mar, [address] [address]- 4975 Mar, Type 2 diabetes mellitus without complication, without long- term current use of insulin E11.9 ; BMI 50.0-59.9, adult Z68.43 ; Acute suppurative otitis media of both ears without spontaneous rupture of tympanic membranes, recurrence not specified H66.003 ; ESTHELA (obstructive sleep apnea) G47.33 and Essential hypertension I10 [address] [address]- 9734 Mar, [facility] [place] [id number] [place] [address] 21511 -6185 Feb, BMI 50.0-59.9, adult Z68.43 ; Encounter for immunization Z23 and Cough R05 [place] [id number] [place] [address] 35029- 9797 Jan, [address] [address]- 4340 Jan, [facility] IN [address] [address] Jan, Type 2 diabetes mellitus without complication, without long -term current use of insulin E11.9 ; BMI 50.0-59.9, adult Z68.43 ; BMI 60.0-69.9 , adult Z68.44 and Family history of coronary artery disease Z82.49 IMMUNIZATIONS No Known Immunizations SOCIAL HISTORY Never Assessed REASON FOR VISIT Sleep Study Order PLAN OF CARE Activity Details Future/Pending Procedure SLEEP STUDY (HOSPITAL) VITAL SIGNS MEDICATIONS Unknown Medications RESULTS No [...] Hospitalization History Chest pain/pulled muscle in chest-[facility], [place] 2011
--- OUTSIDE RECORDS SUMMARY | 2018-03-13 17:08 | XMS REPORT | Continuity of Care Document ---
Author Author [facility] Address Unknown Phone Unavailable Allergies Active Description Code Type Severity Reaction Onset Reported/Identified Relationship to Patient Clinical Status Yes fentanyl [id number] Drug Allergy Severe SOA 02/12/2017 Yes morphine [id number] Drug Allergy Severe SOA 02/12/2017 Yes codeine [id number] Drug Allergy Unknown N/A 02/12/2017 Yes hydromorphone [id number] Drug Allergy Unknown N/A 02/12/2017 Yes iodine [id number] Drug Allergy Unknown N/A 02/12/2017 Yes latex [id number] Drug Allergy Unknown N/A 02/12/2017 Yes Penicillins [id number] Drug Allergy Unknown N/A 02/12/2017 Yes tramadol [id number] Drug Allergy Unknown N/A 02/12/2017 Medications There [...] UNSPECIFIED 03/23/2017 REY RAYMUNDO MD Ot Z79.84 NURSING HOME (CURRENT) USE OF ORAL HYPOGLYC 03/23/2017 RYE RAYMUNDO MD Ot Z86.73 PRSNL HX OF [...] MD Ot H92.01 OTALGIA, RIGHT EAR 05/02/2017 RYE RAYMUNDO MD Ot J01.90 ACUTE SINUSITIS, UNSPECIFIED 05/02/2017 REY RAYMUNDO MD Ot Z79.84 NURSING HOME (CURRENT) USE OF ORAL HYPOGLYC 05/02/2017 [...] TO ANALGESIC AGENT STATUS 07/28/2017 CLAIRE DE ELON APRN Ot Z88.8 ALLERGY STATUS TO OTH [...] APRN Ot Z98.51 TUBAL LIGATION STATUS 09/22/2017 CALIRE DE LEON APRN Ot E11.9 TYPE 2 [...] R07.89 OTHER CHEST PAIN 11/12/2017 CHARLEEN HARO MOTTLER OPERATOR Ot S89.92XA UNSPECIFIED INJURY OF LEFT LOWER LEG, IN 11/27/2017 CHARLEEN HARO MOTTLER OPERATOR Ot S89.92XA UNSPECIFIED INJURY OF LEFT LOWER [...] RAMIREZ Ot Z91.81 HISTORY OF FALLING 12/11/2017 NEHEMIASCHIKI DEBBIE Ot Z98.51 TUBAL LIGATION STATUS 12/11/2017 DEBBIE RAMIREZ Ot Z98.890 OTHER SPECIFIED POSTPROCEDURAL STATES 01/02/2018 CLAIRE DE LEON APRN Ot E11.9 TYPE 2 DIABETES MELLITUS WITHOUT COMPLIC 01/02/2018 CLAIRE DE LEON APRN Ot E66.01 MORBID (SEVERE) OBESITY DUE TO EXCESS CA 01/02/2018 CLAIRE DE LEON APRN Ot F32.9 MAJOR DEPRESSIVE DISORDER, SINGLE EPISOD 01/02/2018 CLAIRE DE LEON APRN Ot F41.9 ANXIETY DISORDER, UNSPECIFIED 01/02/2018 CLAIRE DE LEON APRN Ot R07.89 OTHER CHEST PAIN 01/02/2018 CLAIRE DE LEON APRN Ot Z68.43 BODY MASS INDEX (BMI) 50-59.9, ADULT 01/02/2018 CLAIRE DE LEON APRN Ot Z86.73 PRSNL HX OF TIA (TIA), AND CEREB INFRC W 01/02/2018 CLAIRE DE LEON APRN Ot Z88.0 ALLERGY STATUS TO PENICILLIN 01/02/2018 CLAIRE DE LEON APRN Ot Z88.5 ALLERGY STATUS TO NARCOTIC AGENT STATUS 01/02/2018 CLAIRE DE LEON APRN Ot Z88.6 ALLERGY STATUS TO ANALGESIC AGENT STATUS 01/02/2018 CLAIRE DE LEON APRN Ot Z88.8 ALLERGY STATUS TO OTH DRUG/MEDS/BIOL SUB 01/02/2018 CLAIRE DE LEON APRN Ot Z91.040 LATEX ALLERGY STATUS 01/02/2018 CLAIRE DE LEON APRN Ot Z91.041 RADIOGRAPHIC DYE ALLERGY STATUS 01/02/2018 CLAIRE DE LEON APRN Ot Z98.51 TUBAL LIGATION STATUS 01/02/2018 CLAIRE DE LEON APRN Ot Z98.890 OTHER SPECIFIED POSTPROCEDURAL STATES 01/05/2018 [...] APRN Ot Z98.890 OTHER SPECIFIED POSTPROCEDURAL STATES 01/11/2018 BELÉN SULLIVAN STONE AND CONCRETE WASHER Ot E11.9 TYPE 2 DIABETES MELLITUS WITHOUT COMPLIC 01/11/2018 NATE BELÉN STONE AND CONCRETE WASHER Ot F17.210 NICOTINE DEPENDENCE, CIGARETTES, UNCOMPL 01/11/2018 NATE BELÉN STONE AND CONCRETE WASHER Ot F32.9 MAJOR DEPRESSIVE DISORDER, SINGLE EPISOD 01/11/2018 NATE BELÉN STONE AND CONCRETE WASHER Ot F41.9 ANXIETY DISORDER, UNSPECIFIED 01/11/2018 NATE BELÉN STONE AND CONCRETE WASHER Ot G47.30 SLEEP APNEA, UNSPECIFIED 01/11/2018 NATE BELÉN STONE AND CONCRETE WASHER Ot N39.0 URINARY TRACT INFECTION, SITE NOT SPECIF 01/11/2018 NATE BELÉN STONE AND CONCRETE WASHER Ot R10.2 PELVIC AND PERINEAL PAIN 01/11/2018 NATE BELÉN STONE AND CONCRETE WASHER Ot Z86.73 PRSNL HX OF TIA (TIA), AND CEREB INFRC W 01/11/2018 BELÉN SULLIVAN STONE AND CONCRETE WASHER Ot Z88.0 ALLERGY STATUS TO PENICILLIN 01/11/2018 NATE, BELÉN STONE AND CONCRETE WASHER Ot Z88.5 ALLERGY STATUS TO NARCOTIC AGENT STATUS 01/11/2018 NATE, BELÉN STONE AND CONCRETE WASHER Ot Z88.6 ALLERGY STATUS TO ANALGESIC AGENT STATUS 01/11/2018 NATE, BELÉN STONE AND CONCRETE WASHER Ot Z88.8 ALLERGY STATUS TO OTH DRUG/MEDS/BIOL SUB 01/11/2018 NATE, BELÉN STONE AND CONCRETE WASHER Ot Z91.040 LATEX ALLERGY STATUS 01/11/2018 NATE, BELÉN STONE AND CONCRETE WASHER Ot Z98.51 TUBAL LIGATION STATUS 01/11/2018 NATE, BELÉN STONE AND CONCRETE WASHER Ot Z98.890 OTHER SPECIFIED POSTPROCEDURAL STATES 01/14/2018 NATE, BELÉN STONE AND CONCRETE WASHER Ot E11.9 TYPE 2 DIABETES MELLITUS WITHOUT COMPLIC 01/14/2018 NATE, BELÉN STONE AND CONCRETE WASHER Ot F17.210 NICOTINE DEPENDENCE, CIGARETTES, UNCOMPL 01/14/2018 NATE, BELÉN STONE AND CONCRETE WASHER Ot F32.9 MAJOR DEPRESSIVE DISORDER, SINGLE EPISOD 01/14/2018 NATE, BELÉN STONE AND CONCRETE WASHER Ot F41.9 ANXIETY DISORDER, UNSPECIFIED 01/14/2018 NATE, BELÉN STONE AND CONCRETE WASHER Ot G47.30 SLEEP APNEA, UNSPECIFIED 01/14/2018 NATE, BELÉN STONE AND CONCRETE WASHER Ot N39.0 URINARY TRACT INFECTION, SITE NOT SPECIF 01/14/2018 NATE, BELÉN STONE AND CONCRETE WASHER Ot R10.2 PELVIC AND PERINEAL PAIN 01/14/2018 NATE, BELÉN STONE AND CONCRETE WASHER Ot Z86.73 PRSNL HX OF TIA (TIA), AND CEREB INFRC W 01/14/2018 NATE, BELÉN STONE AND CONCRETE WASHER Ot Z88.0 ALLERGY STATUS TO PENICILLIN 01/14/2018 NATE, BELÉN STONE AND CONCRETE WASHER Ot Z88.5 ALLERGY STATUS TO NARCOTIC AGENT STATUS 01/14/2018 NATE, BELÉN STONE AND CONCRETE WASHER Ot Z88.6 ALLERGY STATUS TO ANALGESIC AGENT STATUS 01/14/2018 NATE, BELÉN STONE AND CONCRETE WASHER Ot Z88.8 ALLERGY STATUS TO OTH DRUG/MEDS/BIOL SUB 01/14/2018 NATE, BELÉN STONE AND CONCRETE WASHER Ot Z91.040 LATEX ALLERGY STATUS 01/14/2018 NATE, BELÉN STONE AND CONCRETE WASHER Ot Z98.51 TUBAL LIGATION STATUS 01/14/2018 NATE, BELÉN STONE AND CONCRETE WASHER Ot Z98.890 OTHER SPECIFIED POSTPROCEDURAL STATES Procedures There is no data. Results Test Result Range Capillary blood glucose measurement by glucometer (mass/volume) - 11/22/17 13: 04 Capillary blood glucose measurement by [...] culture - 05/17/17 18:44 Bacterial urine culture [id number] NRG COLONY COUNT >100,000/ML NRG FTX;REPORTABLE SENSITIVITY [...] - 01/02/18 17:15 Lipase 20 U/L 8-78 Complete urinalysis with reflex to culture - 01/11/18 21:30 Urine color determination YELLOW NRG Urine clarity determination VERY CLOUDY NRG Urine pH measurement by test strip 6 5-9 Specific gravity of urine by test strip 1.020 1.016- 1.022 Urine protein assay by test strip, semi-quantitative 4+ NEGATIVE Urine glucose detection by automated test strip 4+ NEGATIVE Erythrocytes detection in urine sediment by light microscopy 4+ NEGATIVE Urine ketones detection by automated test strip 1+ NEGATIVE Urine nitrite detection by test strip NEGATIVE NEGATIVE Urine total bilirubin detection by test strip NEGATIVE NEGATIVE Urine urobilinogen measurement by automated test strip (mass/volume) 1 mg/dL NORMAL Urine leukocyte esterase detection by dipstick 3+ NEGATIVE Automated urine sediment erythrocyte count by microscopy (number/high power field) [HPF] NRG Automated urine sediment leukocyte count by microscopy (number/high power field ) [HPF] NRG Bacteria detection in urine sediment by light microscopy MODERATE NRG Squamous epithelial cells detection in urine sediment by light microscopy 25-50 NRG Crystals detection in urine sediment by light microscopy NONE NRG Casts detection in urine sediment by light microscopy NONE NRG Mucus detection in urine sediment by light microscopy LARGE NRG Complete urinalysis with reflex to culture YES NRG Yeast detection in urine sediment by light microscopy FEW NRG Urine beta human chorionic gonadotropin (hCG) measurement - 01/11/18 21:30 Urine beta human chorionic gonadotropin (hCG) measurement NEGATIVE NEGATIVE Bacterial urine culture - 01/11/18 21:30 Bacterial urine culture SEE COMMEN NRG COLONY COUNT 40,000 CFU/ML NRG TSH - 02/02/18 11:54 TSH 1.53 mIU/L NRG Encounters ACCT No. Visit Date/Time Discharge Status Pt. Type Provider Facility Loc./Unit Complaint [id number] 03/13/2018 15:20:00 ACT Outpatient CONNIE MALAVE [facility] [id number] 02/02/2018 11:00:00 Document Registration [id number] 02/18/2018 16:35:00 02/18/2018 23:59:59 CLS Preadmit CONNIE MALAVE MD [facility] SLEEP ESTHELA G47.33 [id number] 01/11/2018 20:55:00 01/11/2018 22:51:00 DIS Emergency BELÉN SULLIVAN [facility] ER STOMACH PAIN, PAIN IN LOWER ABD [id number] 01/02/2018 16:48:00 01/02/2018 18:40:00 DIS Emergency CLAIRE DE LEON APRN [facility] ER CP SINCE YESTERDAY/BILAT ARM PAIN/NECK PAIN/NAUSEA [id number] 12/09/2017 21:10:00 12/09/2017 22:55:00 DIS Emergency DEBBIE RAMIREZ [facility] ER BOIL IN PELVIC REGION [id number] 11/11/2017 17:37:00 11/11/2017 23:59:59 CLS Outpatient CHARLEEN HARO MOTTLER OPERATOR [facility] RAD INJURY OF LEFT KNEE, INITIAL ENCOUNTER [id number] 10/16/2017 07:32:00 10/16/2017 23:59:59 CLS Outpatient ANANDA ROCHE, CONNIE Leblanc [facility] CARD ATYPICAL CHEST PAIN [id number] 09/22/2017 19:32:00 09/22/2017 21:22:00 DIS Emergency CLAIRE DE LEON MOTTLER OPERATOR [facility] ER CHEST PAIN/NECK AND ARM PAIN [id number] 07/28/2017 22:25:00 07/28/2017 22:53:00 DIS Emergency CLAIRE DE LEON MOTTLER OPERATOR [facility] ER L ELBOW PAIN [id number] 06/19/2017 16:00:00 06/19/2017 18:29:00 DIS Emergency CLAIRE DE LEON MOTTLER OPERATOR [facility] ER ABD PAINS, PAINS FROM 7YR OLD CSECTION [id number] 05/17/2017 18:04:00 05/17/2017 19:32:00 DIS Outpatient CLAIRE DE LEON APRN [facility] ER ABD PAIN [id number] 03/22/2017 22:27:00 03/23/2017 00:15:00 DIS Emergency BREANNE ROCHE, REY Redmond [facility] ER EAR PAIN [id number] 02/12/2017 12:41:00 02/12/2017 14:23:00 DIS Emergency JANINE MEHTA DO K [facility] ER FALL,BACK/SHOULDER PAIN [id number] 03/13/2018 16:59:00 ACT Emergency TARA ROCHE, CARSON Nicolas [facility] ER POSS DVT LT LEG,NAUSEA
[2018-03-13] MEDS ORDERED: ONDANSETRON 4 MG/2 ML (SDV) Z0FRAN ONE (17:38)
[2018-03-13] MEDS ORDERED: ENOXAPARIN 80 MG/0.8 ML (LOVENOX) SYR SC ONE (19:30)
[2018-03-13] MEDS ORDERED: TRAM50TA2 PO (19:44)
[2018-03-13] MEDS ORDERED: SULF1TAB35 PO (19:44)
--- NOTE | 2018-03-13 19:44 | ED Lower Extremity ---
General Chief Complaint: Lower Extremity Stated Complaint: POSS DVT LT LEG,NAUSEA Nursing Triage Note: C/O left lower calf pain. skin is tight erythema and hot. pulses present. states that the pain is back of calf and wraps around to the front. Went to walk in clinic and they sent her here to check of a blood clot. States that she also is having n/v since 2 this am. no fever diarrhea or abd pain. Nursing Sepsis Screen: No Definite Risk History of Present Illness Date Seen by Provider: Mar 13, 2018 Time Seen by Provider: 17:30 Initial Comments 37 -year-old severely obese female presents for left calf pain. She was seen at the [facility] walk-in clinic and sent here for evaluation and ultrasound. She denies abdominal pain at this time and was given Zofran at the time of admission and reports her nausea to be improved. She has a long-standing history of skin issues with her lower extremities, becoming red and cracked. Onset: yesterday Pain/Injury Location: left leg Method of Injury: unknown Modifying Factors: Improves With Rest Allergies and Home Medications Allergies Coded Allergies: fentanyl (Verified Allergy, Severe, SOA, 03/13/18) morphine (Verified Allergy, Severe, SOA, 02/12/17) Penicillins (Verified Allergy, Unknown, 02/12/17) codeine (Verified Allergy, Unknown, 02/12/17) hydromorphone (Verified Allergy, Unknown, 02/12/17) iodine (Verified Allergy, Unknown, 02/12/17) latex (Verified Allergy, Unknown, 02/12/17) Home Medications Doxycycline Monohydrate 100 Mg Tablet, 100 MG PO BID Prescribed by: CLAIRE DE LEON on 09/22/172107 Sulfamethoxazole/Trimethoprim 1 Each Tablet, 1 EACH PO BID Prescribed by: BELÉN SULLIVAN on 01/11/182239 Sulfamethoxazole/Trimethoprim 1 Each Tablet, 1 EACH PO BID Prescribed by: BELÉN SULLIVAN on 03/13/181943 Tramadol HCl 50 Mg Tablet, 50 MG PO Q8H Prescribed by: BELÉN SULLIVAN on 03/13/181943 Patient Home Medication List Home Medication List Reviewed: Yes Review of Systems Constitutional: no symptoms reported, see HPI Musculoskeletal: see HPI, muscle pain (left lower extremity) Skin: see HPI, change in color, dryness All Other Systems Reviewed Negative Unless Noted: Yes Past Jtwqeug-Ztoppq-Atqaoa Hx Past Med/Social Hx: Reviewed Nursing Past Med/Soc Hx Patient Social History Alcohol Use: Denies Use Recreational Drug Use: Yes (edibles) Smoking Status: Former Smoker Type Used: Cigarettes Former Smoker, Quit: Mar 24, 2016 2nd Hand Smoke Exposure: No Recent Foreign Travel: No Contact w/Someone Who Travel: No Recent Infectious Disease Expo: No Recent Hopitalizations: No Physical Abuse: No Sexual Abuse: No Fear: No Immunizations Up To Date Tetanus Booster (TDap): Unknown PED Vaccines UTD: Yes Seasonal Allergies Seasonal Allergies: No Past Medical History Surgeries: Yes ( X 2; BTL; BREAST BIOPSY-BENIGN) Breast, Section, Gallbladder, Tubal Ligation Respiratory: Yes Sleep Apnea Currently Using CPAP: No Currently Using BIPAP: No Cardiac: No Neurological: Yes Stroke Female Reproductive Disorders: Denies PARENT EDUCATOR History: Tubal Ligation Genitourinary: No Gastrointestinal: No Musculoskeletal: Yes Chronic Back Pain Endocrine: Yes Diabetes, Non-Insulin dep HEENT: No Cancer: No Psychosocial: Yes Anxiety, Depression Integumentary: No Blood Disorders: No Physical Exam Vital Signs Vital Signs - First Documented 03/13/18 17:23 Temp 97.5 Pulse 91 Resp 18 B/P (MAP) 171/88 (115) Pulse Ox 93 Capillary Refill : Less Than 3 Seconds Height, Weight, BMI Height: 6'0" Weight: 400lbs. 0oz. [id number]; BMI Method:Stated General Appearance: WD/WN, no apparent distress Cardiovascular: normal peripheral pulses (pedal pulses 2+ and symmetric), regular rate, rhythm, no murmur Respiratory: chest non-tender, lungs clear Gastrointestinal: normal bowel sounds, non tender, soft, distended Legs: bilateral leg normal range of motion, bilateral leg no evidence of injury , bilateral leg pain (left worse than right); left leg swelling, left leg other (positive Homans sign) Ankles: right ankle non-tender; bilateral ankle normal range of motion (with pain on the left), bilateral ankle no evidence of injury; left ankle pain, left ankle soft tissue tenderness Neurologic/Tendon: normal sensation, normal motor functions Neurologic/Psychiatric: no motor/sensory deficits, alert, normal mood/affect, oriented x 3 Skin: normal color, warm/dry, ecchymosis (bilateral lower extremities, right left greater than right) Brisk capillary refill bilateral lower extremities. Progress/Results/Core Measures Results/Orders Lab Results Laboratory Tests Test 03/13/18 17:38 Range/Units White Blood Count 7.2 4.3-11.0 10^3/uL Red Blood Count 5.47 4.35-5.85 10^6/uL Hemoglobin 15.4 11.5-16.0 G/DL Hematocrit 49 35-52 % Mean Corpuscular Volume 90 80-99 FL Mean Corpuscular Hemoglobin 28 25-34 PG Mean Corpuscular Hemoglobin Concent 31 L 32-36 G/DL Red Cell Distribution Width 13.8 10.0-14.5 % Platelet Count 322 130-400 10^3/uL Mean Platelet Volume 9.4 7.4-10.4 FL Neutrophils (%) (Auto) 64 42-75 % Lymphocytes (%) (Auto) 25 12-44 % Monocytes (%) (Auto) 9 0-12 % Eosinophils (%) (Auto) 3 0-10 % Basophils (%) (Auto) 0 0-10 % Neutrophils # (Auto) 4.6 1.8-7.8 X 10^3 Lymphocytes # (Auto) 1.8 1.0-4.0 X 10^3 Monocytes # (Auto) 0.6 0.0-1.0 X 10^3 Eosinophils # (Auto) 0.2 0.0-0.3 10^3/uL Basophils # (Auto) 0.0 0.0-0.1 10^3/uL Prothrombin Time 13.5 12.2-14.7 SEC INR Comment 1.0 0.8-1.4 Activated Partial Thromboplast Time 28 24-35 SEC D-Dimer 0.63 H 0.00-0.49 UG/ML Sodium Level 135 135-145 MMOL/L Potassium Level 4.0 3.6-5.0 MMOL/L Chloride Level 96 L 98-107 MMOL/L Carbon Dioxide Level 27 21-32 MMOL/L Anion Gap 12 5-14 MMOL/L Blood Urea Nitrogen 15 7-18 MG/DL Creatinine 0.72 0.60-1.30 MG/DL Estimat Glomerular Filtration Rate > 60 BUN/Creatinine Ratio 21 Glucose Level 227 H 70-105 MG/DL Calcium Level 9.2 8.5-10.1 MG/DL Corrected Calcium 9.4 8.5-10.1 MG/DL Total Bilirubin 0.6 0.1-1.0 MG/DL Aspartate Amino Transf (AST/SGOT) 46 H 5-34 U/L Alanine Aminotransferase (ALT/SGPT) 43 0-55 U/L Alkaline Phosphatase 123 40-136 U/L Total Protein 7.0 6.4-8.2 GM/DL Albumin 3.8 3.2-4.5 GM/DL My Orders Orders - BELÉN SULLIVAN Enoxaparin Injection (Lovenox Injection) (03/13/18 19:30) Cbc With Automated Diff (03/13/18 19:29) Comprehensive Metabolic Panel (03/13/18 19:29) Protime With Inr (03/13/18 19:29) Partial Thromboplastin Time (03/13/18 19:29) Tramadol Tablet (Ultram Tablet) (03/13/18 19:38) Fibrin Degradation Products (03/13/18 19:44) Medications Given in ED Current Medications Medications Dose Ordered Sig/Maurice Route Start Time Stop Time Status Last Admin Dose Admin Enoxaparin Sodium 180 mg ONCE ONCE SC 03/13/18 19:30 03/13/18 19:31 DC 03/13/18 19:34 180 MG Ondansetron HCl 4 mg STK-MED ONCE .ROUTE 03/13/18 17:38 03/13/18 17:41 DC 03/13/18 17:44 4 MG Vital Signs/I&O 03/13/18 12 17:23 19:56 Temp 97.5 Pulse 91 93 Resp 18 16 B/P (MAP) 171/88 (115) 136/66 (89) Pulse Ox 93 93 Blood Pressure Mean: 115 Progress Progress Note : Time: 17:30 Progress Note Patient seen and evaluated. Clarified with radiology, no ultrasound services available at this time. Zofran 4 mg for nausea. Explained to the patient that an ultrasound is warranted based on her symptoms, however we do not have that services available at this time. She became very upset, as she is unable to drive to [place], due to financial constraints she does not have money for gas. I called [facility], they do not have ultrasound services available this evening either. [address] Martin, felt it was reasonable to begin treatment with Lovenox this evening and obtain the ultrasound tomorrow. Spoke with the fuel testing technician conciliator for tomorrow, she is willing to see the patient at 0900 ultrasound of the left lower extremity. 1899 will give Lovenox 1 mg/kg subcutaneously. Ultram 50 mg orally for pain. Agent does report that her pain has improved. 1944 discharge instructions and return precautions reviewed with the patient. She'll return tomorrow at 0900. Upon discharge it was determined that a prior authorization would be required for an outpatient ultrasound. That she will have to return tomorrow for an emergency department visit for her ultrasound. Departure Impression Primary Impression: Cellulitis of left lower leg Additional Impression: Pain of left calf Disposition: HOME, SELF-CARE Condition: Improved Departure-Patient Inst. Decision time for Depature: 19:40 Referrals: CONNIE MALAVE MD (PCP/Family) Primary Care Physician Patient Instructions: Cellulitis (Skin Infection), Adult (DC), Deep Vein Thrombosis (Blood Clots in the Legs) (DC) Add. Discharge Instructions: Take aspirin 325 mg 1 daily. Return to the emergency department to check in for ultrasound on FridayMar 14 at 9:00 AM. Bring outpatient order form, for Ultrasound. Meghan will meet you here at 9:00 am, if you can not come, please call [phone] and ask for radiology, to let them know by 8:15 am. Elevate legs, wiggle toes and move ankles/feet frequently. Take antibiotic as prescribed. Return to emergency department for new, urgent health care problems. All discharge instructions reviewed with patient and/or family. Voiced understanding. Scripts Tramadol HCl (Tramadol HCl) 50 Mg Tablet 50 MG PO Q8H, #20 TAB 0 Refills Prov: BELÉN SULLIVAN 03/13/18 Sulfamethoxazole/Trimethoprim (Bactrim Ds Tablet) 1 Each Tablet 1 EACH PO BID, #20 TAB 0 Refills Prov: BELÉN SULLIVAN 03/13/18 Copy Copies To 1: CONNIE MALAVE MD, AMY ARNP Mar 13, 2018 19:44
[2018-03-13 19:49] LABS: BASOPHILS % (AUTO) 0 % (0-10); EOSINOPHILS # (AUTO) 0.2 10^3/uL (0.0-0.3); EOSINOPHILS % (AUTO) 3 % (0-10); HEMATOCRIT 49 % (35-52); HEMOGLOBIN 15.4 G/DL (11.5-16.0); LYMPHOCYTES # (AUTO) 1.8 X 10^3 (1.0-4.0); LYMPHOCYTES % (AUTO) 25 % (12-44); MEAN CORPUSCULAR HEMOGLOBIN 28 PG (25-34); MEAN CORPUSCULAR HGB CONC 31 G/DL (32-36); MEAN CORPUSCULAR VOLUME 90 FL (80-99); MEAN PLATELET VOLUME 9.4 FL (7.4-10.4); MONOCYTES # (AUTO) 0.6 X 10^3 (0.0-1.0); MONOCYTES % (AUTO) 9 % (0-12); NEUTROPHILS # (AUTO) 4.6 X 10^3 (1.8-7.8); NEUTROPHILS % (AUTO) 64 % (42-75); PLATELET COUNT 322 10^3/uL (130-400); RED BLOOD COUNT 5.47 10^6/uL (4.35-5.85); RED CELL DISTRIBUTION WIDTH 13.8 % (10.0-14.5); WHITE BLOOD COUNT 7.2 10^3/uL (4.3-11.0)
[2018-03-13 19:56] VITALS: BP 136/66
[2018-03-13 20:00] LABS: ALANINE AMINOTRANSFERASE 43 U/L (0-55); ALBUMIN 3.8 GM/DL (3.2-4.5); ALKALINE PHOSPHATASE 123 U/L (40-136); BILIRUBIN,TOTAL 0.6 MG/DL (0.1-1.0); BUN/CREATININE RATIO 21; CALCIUM 9.2 MG/DL (8.5-10.1); CARBON DIOXIDE 27 MMOL/L (21-32); CHLORIDE 96 MMOL/L (98-107); CREATININE SERUM 0.72 MG/DL (0.60-1.30); GFR ESTIMATED > 60; GLUCOSE 227 MG/DL (70-105); SODIUM 135 MMOL/L (135-145)
[2018-03-13 20:01] LABS: FIBRIN DEGRADATION PRODUCTS 0.63 UG/ML (0.00-0.49); PROTHROMBIN TIME PATIENT 13.5 SEC (12.2-14.7)
[2018-03-14] MEDS ORDERED: ACHD5005 PO (10:52)
== END 2018-03-13 19:53 | disposition home or self-care (01) ==
LOC: EDUNIT# 16:57 → ER 16:59
DX: L03.116 Cellulitis of left lower limb (principal); E11.9 Type 2 diabetes mellitus without complications; F41.9 Anxiety disorder, unspecified; F32.9 Major depressive disorder, single episode, unspecified; Z88.5 Allergy status to narcotic agent; Z88.0 Allergy status to penicillin; Z91.040 Latex allergy status; Z91.041 Radiographic dye allergy status; Z87.891 Personal history of nicotine dependence; Z98.51 Tubal ligation status; Z86.73 Personal history of transient ischemic attack (TIA), and cerebral infarction without residual deficits
CPT/HCPCS: 36415; 80053; 85025; 85379; 85610; 85730

== ENCOUNTER 2018-03-19 19:58 | Outpatient (CLI) | payer MEDICAID ==
[~2018-03-19 19:58] MED LIST changes: +ACHD5005 PO; +TRAM50TA2 PO
== END 2018-03-20 06:20 | disposition home or self-care (01) ==
LOC: SLEEP 19:58
PROVIDERS: ATTEND Family Medicine
DX: G47.33 Obstructive sleep apnea (adult) (pediatric) (principal)
CPT/HCPCS: 95811

== ENCOUNTER 2018-04-19 17:21 | Emergency (ER) | payer SELFPAY ==
[~2018-04-19] VITALS: Ht 188 cm; Wt 181.4 kg
--- OUTSIDE RECORDS SUMMARY | 2018-04-19 17:26 | XMS REPORT ---
Author Author MARY MARROQUIN [facility] IN 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 Name Role Phone CARAMARY HUANG Unavailable PROBLEMS Type Condition ICD9-CM Code CVN01-SA Code Onset Dates Condition Status SNOMED Code Problem Type 2 diabetes mellitus without complication, without long-term current use of insulin E11.9 Active 339322636 Problem ESTHELA (obstructive sleep apnea) G47.33 Active 12025744 Problem Essential hypertension I10 Active 10450896 Problem Generalized anxiety disorder F41.1 Active 25108021 Problem Grief reaction F43.21 Active 196266155 Problem Left elbow pain M25.522 Active 86567201 Problem BMI 50.0-59.9, adult Z68.43 Active 961118755 Problem Sleep apnea, unspecified type G47.30 Active 25369088 Problem Seasonal allergies J30.2 Active 373784302 ALLERGIES Substance Reaction Event Type Date Status Penicillin G Sodium Unknown Drug Allergy Feb, Active Iodine Unknown Drug Allergy Feb, Active "all pain meds except Hydrocodone" Unknown Non Drug Allergy Feb, Active ENCOUNTERS Encounter Location Date Diagnosis [facility] [id number] [place] [phone] Mar, [facility] IN [facility] [id number] [place] [id number] Feb, Pain of left calf M79.662 and BMI 50.0-59.9, adult Z68.43 [facility] [id number] [place] [address] Feb, Type 2 diabetes mellitus without complication, without long- term current use of insulin E11.9 ; BMI 50.0-59.9, adult Z68.43 ; ESTHELA ( obstructive sleep apnea) G47.33 ; Yeast infection of the skin B37.2 ; Elevated LFTs R94.5 and Elevated LFTs R79.89 [place] [address] [address] Feb, 2018 Elevated LFTs R79.89 [place] [address] [place] [id number] [place] [address] Jan, Elevated LFTs R79.89 [place] [address] [address] Jan, Elevated LFTs R79.89 [facility] [place] [address] [address] Jan, Abdominal wall cellulitis L03.311 and BMI 50.0-59.9, adult Z68.[address] [address] Jan, ESTHELA (obstructive sleep apnea) G47.33 [place] [id number] [place] [address] Jan, BMI 50.0-59.9, adult Z68.43 ; ESTHELA (obstructive sleep apnea) G47.33 ; Yeast infection involving the vagina and surrounding area B37.3 and Type 2 diabetes mellitus without complication, without long-term current use of insulin E11.9 [place] [id number] [place] [address] Dec, Generalized anxiety disorder F41.1 [place] [id number] [place] [address] Dec, Generalized anxiety disorder F41.[address] [address] Dec, BMI 50.0-59.9, adult Z68.43 ; ESTHELA (obstructive sleep apnea) G47.33 ; Generalized anxiety disorder F41.1 and Grief reaction F43.21 [facility] [id number] [place] [address] Dec, Bronchitis J40 and BMI 50.0-59.9, adult Z68.43 [place] [address] [address] Nov, [place] [address] [address] Nov, Anxiety state, unspecified F41.[address] [address] 19 Nov, 2017 Anxiety state, unspecified F41.1 [place] [address] [address] 17 Nov, 2017 [facility] IN [address] [address] Nov, BMI 50.0-59.9, adult Z68.43 and Viral gastroenteritis A08.4 [facility] [address] [address] Oct, Injury of left knee, initial encounter S89.92XA and BMI 50.0-59.9, adult Z68.43 [place] [id number] [place] [address] Oct, [address] [address] Sep, Atypical chest pain R07.89 ; Pneumonia due to infectious organism, unspecified laterality, unspecified part of lung J18.9 ; BMI 50.0-59.9 , adult Z68.43 and Sleep apnea, unspecified type G47.[address] [address] Aug, [address] [address] Aug, BMI 50.0-59.9, adult Z68.43 ; Sleep apnea, unspecified type G47.30 ; Seasonal allergies J30.2 and Generalized abdominal pain R10.84 [facility] [id number] [place] [address] July, Left elbow pain M25.522 ; BMI 50.0-59.9, adult Z68.43 and Essential hypertension I10 [facility] [address] [address] Jun, [facility] [address] [address] Jun, Abdominal wall pain R10.9 and BMI 50.0-59.9, adult Z68.43 [place] [address] [address] Jun, [place] [address] [address] Jun, Left lower quadrant pain R10.32 ; Blood in stool K92.1 and BMI 50.0-59.9, adult Z68.43 [place] [address] [place] [id number] [place] [address] May, [facility] [address] [address] May, [facility] [id number] [place] [address] May, Type 2 diabetes mellitus without complication, without long- term current use of insulin E11.9 ; BMI 50.0-59.9, adult Z68.43 and Generalized abdominal pain R10.84 [facility] [id number] [place] [address] May, [facility] [address] [address] May, [facility] [id number] [place] [address] Mar, [facility] [address] [address] Mar, [facility] [address] [address] Mar, Type 2 diabetes mellitus without complication, without long- term current use of insulin E11.9 ; BMI 50.0-59.9, adult Z68.43 ; Acute suppurative otitis media of both ears without spontaneous rupture of tympanic membranes, recurrence not specified H66.003 ; ESTHELA (obstructive sleep apnea) G47.33 and Essential hypertension I10 [facility] [address] [address] Mar, [facility] IN [facility] [address] [address] Feb, BMI 50.0-59.9, adult Z68.43 ; Encounter for immunization Z23 and Cough R05 [place] [address] [address] Jan, [facility] [address] [address] Jan, [facility] [address] [address] Jan, Type 2 diabetes mellitus without complication, without long -term current use of insulin E11.9 ; BMI 50.0-59.9, adult Z68.43 ; BMI 60.0-69.9 , adult Z68.44 and Family history of coronary artery disease Z82.49 IMMUNIZATIONS No Known Immunizations SOCIAL HISTORY Never Assessed REASON FOR VISIT N/V since last noc. also reports her BLE are red et painful. leg has been like this for 2 weeks. [email or web address] PLAN OF CARE Activity Details Follow Up prn Reason: VITAL SIGNS Height 71.5 in 2018-03-13 Weight 400.2 lbs 2018-03-13 Temperature 98.5 degrees Fahrenheit 2018-03-13 Heart Rate 84 bpm 2018-03-13 Respiratory Rate 20 2018-03-13 BMI 55.03 kg/m2 2018-03-13 Blood pressure systolic 130 mmHg 2018-03-13 Blood pressure diastolic 78 mmHg 2018-03-13 MEDICATIONS Medication Instructions Dosage Frequency Start Date End Date Duration Status Ibuprofen 200 MG Orally Three times a day 1 tablet with food or milk as needed 8h Active Glucocard Expression Monitor w/Device as directed Jan, Active Aspirin 81 81 MG Orally Once a day 1 tablet 24h 30 day(s) Active Janumet 50-500 MG Orally Twice a day 1 tablet with meals 12h May, 30 day(s) Active ProAir HFA 108 (90 Base) MCG/ACT Inhalation every 6 hrs 2 puffs as needed 6h Dec, Active Prozac 40 MG Orally Once a day 1 capsule 24h Active Glucocard Expression Test - In Vitro 2 times a day as directed 12h Jan, Active Ranitidine HCl 150 MG Orally Once a day 1 tablet at bedtime 24h 90 Active Bactrim DS 800-160 MG Orally Twice a day 1 tablet 12h 25 Jan, 2018 10 day(s) Active Claritin 10 mg Orally Once a day 1 tablet 24h 13 Aug, 2017 9 Mar, 2018 30 day(s) Active MethylPREDNISolone 4 MG Orally as directed as directed Dec, Not-Taking Diflucan 100 mg Orally Once a day 1 tablet 24h 20 Feb, 2018 10 day(s) Active RESULTS No Results PROCEDURES No Known procedures INSTRUCTIONS MEDICATIONS ADMINISTERED No Known Medications MEDICAL (GENERAL) HISTORY Type Description Date Medical History Type 2 Diabetes Medical History Sleep apnea Surgical History section x2 Surgical History lumpectomy, right breast Surgical History cholecystectomy Surgical History bilateral tubal ligation (BTL) Hospitalization History Collapsed lung-[facility] for 9 days 2008 Hospitalization History Chest pain/pulled muscle in chest[place], [place] 2011
[2018-04-19] MEDS ORDERED: KETOROLAC 30 MG/ML VIAL IVP ONE (17:30)
[2018-04-19] MEDS ORDERED: ASPIRIN 81 MG CHEW (CHILDREN'S ASA) PO ONE (17:30)
--- OUTSIDE RECORDS SUMMARY | 2018-04-19 17:30 | XMS REPORT | Continuity of Care Document ---
Author Author [facility] Address Unknown Phone Unavailable Allergies Active Description Code Type Severity Reaction Onset Reported/Identified Relationship to Patient Clinical Status Yes morphine [id number] Drug Allergy Severe SOA 02/12/2017 Yes codeine [id number] Drug Allergy Unknown N/A 02/12/2017 Yes hydromorphone [id number] Drug Allergy Unknown N/A 02/12/2017 Yes iodine [id number] Drug Allergy Unknown N/A 02/12/2017 Yes latex [id number] Drug Allergy Unknown N/A 02/12/2017 Yes Penicillins [id number] Drug Allergy Unknown N/A 02/12/2017 Yes tramadol [id number] Drug Allergy Unknown N/A 02/12/2017 Yes fentanyl [id number] Drug Allergy Severe SOA 03/13/2018 Medications There is no data. Problems Date [...] UNSPECIFIED 03/23/2017 REY RAYMUNDO MD Ot Z79.84 SKILLED NURSING (CURRENT) USE OF ORAL HYPOGLYC 03/23/2017 REY [...] UNSPECIFIED 05/02/2017 REY RAYMUNDO MD Ot Z79.84 SKILLED NURSING (CURRENT) USE OF ORAL HYPOGLYC 05/02/2017 REY [...] Z91.041 RADIOGRAPHIC DYE ALLERGY STATUS 06/19/2017 CLAIRE DEL EON APRN Ot Z98.51 TUBAL LIGATION STATUS 06/23/2017 [...] R07.89 OTHER CHEST PAIN 11/12/2017 CHARLEEN HARO MILK RUNNER Ot S89.92XA UNSPECIFIED INJURY OF LEFT LOWER LEG, IN 11/27/2017 CHARLEEN HARO MILK RUNNER Ot S89.92XA UNSPECIFIED INJURY OF LEFT LOWER [...] OTHER SPECIFIED POSTPROCEDURAL STATES 01/11/2018 BELÉN SULLIVAN INDUSTRIAL HIRE SALES ASSISTANT Ot E11.9 TYPE 2 DIABETES MELLITUS WITHOUT COMPLIC 01/11/2018 NATE BELÉN INDUSTRIAL HIRE SALES ASSISTANT Ot F17.210 NICOTINE DEPENDENCE, CIGARETTES, UNCOMPL 01/11/2018 NATE BELÉN INDUSTRIAL HIRE SALES ASSISTANT Ot F32.9 MAJOR DEPRESSIVE DISORDER, SINGLE EPISOD 01/11/2018 NATE BELÉN INDUSTRIAL HIRE SALES ASSISTANT Ot F41.9 ANXIETY DISORDER, UNSPECIFIED 01/11/2018 NATE BELÉN INDUSTRIAL HIRE SALES ASSISTANT Ot G47.30 SLEEP APNEA, UNSPECIFIED 01/11/2018 NATE BELÉN INDUSTRIAL HIRE SALES ASSISTANT Ot N39.0 URINARY TRACT INFECTION, SITE NOT SPECIF 01/11/2018 ANTE BELÉN INDUSTRIAL HIRE SALES ASSISTANT Ot R10.2 PELVIC AND PERINEAL PAIN 01/11/2018 NATE BELÉN INDUSTRIAL HIRE SALES ASSISTANT Ot Z86.73 PRSNL HX OF TIA (TIA), AND CEREB INFRC W 01/11/2018 BELÉN SULLIVAN INDUSTRIAL HIRE SALES ASSISTANT Ot Z88.0 ALLERGY STATUS TO PENICILLIN 01/11/2018 NATE, BELÉN INDUSTRIAL HIRE SALES ASSISTANT Ot Z88.5 ALLERGY STATUS TO NARCOTIC AGENT STATUS 01/11/2018 NATE, BELÉN INDUSTRIAL HIRE SALES ASSISTANT Ot Z88.6 ALLERGY STATUS TO ANALGESIC AGENT STATUS 01/11/2018 NATE, BELÉN INDUSTRIAL HIRE SALES ASSISTANT Ot Z88.8 ALLERGY STATUS TO OTH DRUG/MEDS/BIOL SUB 01/11/2018 NATE, BELÉN INDUSTRIAL HIRE SALES ASSISTANT Ot Z91.040 LATEX ALLERGY STATUS 01/11/2018 NATE, BELÉN INDUSTRIAL HIRE SALES ASSISTANT Ot Z98.51 TUBAL LIGATION STATUS 01/11/2018 NATE, BELÉN INDUSTRIAL HIRE SALES ASSISTANT Ot Z98.890 OTHER SPECIFIED POSTPROCEDURAL STATES 01/14/2018 NATE, BELÉN INDUSTRIAL HIRE SALES ASSISTANT Ot E11.9 TYPE 2 DIABETES MELLITUS WITHOUT COMPLIC 01/14/2018 NATE, BELÉN INDUSTRIAL HIRE SALES ASSISTANT Ot F17.210 NICOTINE DEPENDENCE, CIGARETTES, UNCOMPL 01/14/2018 NATE, BELÉN INDUSTRIAL HIRE SALES ASSISTANT Ot F32.9 MAJOR DEPRESSIVE DISORDER, SINGLE EPISOD 01/14/2018 NATE, BELÉN INDUSTRIAL HIRE SALES ASSISTANT Ot F41.9 ANXIETY DISORDER, UNSPECIFIED 01/14/2018 NATE, BELÉN INDUSTRIAL HIRE SALES ASSISTANT Ot G47.30 SLEEP APNEA, UNSPECIFIED 01/14/2018 NATE, BELÉN INDUSTRIAL HIRE SALES ASSISTANT Ot N39.0 URINARY TRACT INFECTION, SITE NOT SPECIF 01/14/2018 NATE, BELÉN INDUSTRIAL HIRE SALES ASSISTANT Ot R10.2 PELVIC AND PERINEAL PAIN 01/14/2018 NATE BELÉN INDUSTRIAL HIRE SALES ASSISTANT Ot Z86.73 PRSNL HX OF TIA (TIA), AND CEREB INFRC W 01/14/2018 NATE, BELÉN INDUSTRIAL HIRE SALES ASSISTANT Ot Z88.0 ALLERGY STATUS TO PENICILLIN 01/14/2018 NATE, BELÉN INDUSTRIAL HIRE SALES ASSISTANT Ot Z88.5 ALLERGY STATUS TO NARCOTIC AGENT STATUS 01/14/2018 NATE, BELÉN INDUSTRIAL HIRE SALES ASSISTANT Ot Z88.6 ALLERGY STATUS TO ANALGESIC AGENT STATUS 01/14/2018 NATE, BELÉN INDUSTRIAL HIRE SALES ASSISTANT Ot Z88.8 ALLERGY STATUS TO OTH DRUG/MEDS/BIOL SUB 01/14/2018 NATE, BELÉN INDUSTRIAL HIRE SALES ASSISTANT Ot Z91.040 LATEX ALLERGY STATUS 01/14/2018 NATE, BELÉN INDUSTRIAL HIRE SALES ASSISTANT Ot Z98.51 TUBAL LIGATION STATUS 01/14/2018 NATE, BELÉN INDUSTRIAL HIRE SALES ASSISTANT Ot Z98.890 OTHER SPECIFIED POSTPROCEDURAL STATES 03/13/2018 NATE, BELÉN INDUSTRIAL HIRE SALES ASSISTANT Ot E11.9 TYPE 2 DIABETES MELLITUS WITHOUT COMPLIC 03/13/2018 NATE, BELÉN INDUSTRIAL HIRE SALES ASSISTANT Ot F32.9 MAJOR DEPRESSIVE DISORDER, SINGLE EPISOD 03/13/2018 NATE, BELÉN INDUSTRIAL HIRE SALES ASSISTANT Ot F41.9 ANXIETY DISORDER, UNSPECIFIED 03/13/2018 BELÉN SULLIVAN INDUSTRIAL HIRE SALES ASSISTANT Ot L03.116 CELLULITIS OF LEFT LOWER LIMB 03/13/2018 BELÉN SULLIVAN INDUSTRIAL HIRE SALES ASSISTANT Ot M79.605 PAIN IN LEFT LEG 03/13/2018 NATE BELÉN INDUSTRIAL HIRE SALES ASSISTANT Ot Z86.73 PRSNL HX OF TIA (TIA), AND CEREB INFRC W 03/13/2018 BELÉN SULLIVAN INDUSTRIAL HIRE SALES ASSISTANT Ot Z87.891 PERSONAL HISTORY OF NICOTINE DEPENDENCE 03/13/2018 NATE BELÉN INDUSTRIAL HIRE SALES ASSISTANT Ot Z88.0 ALLERGY STATUS TO PENICILLIN 03/13/2018 NATE BELÉN INDUSTRIAL HIRE SALES ASSISTANT Ot Z88.5 ALLERGY STATUS TO NARCOTIC AGENT STATUS 03/13/2018 NATE, BELÉN INDUSTRIAL HIRE SALES ASSISTANT Ot Z91.040 LATEX ALLERGY STATUS 03/13/2018 NATE BELÉN INDUSTRIAL HIRE SALES ASSISTANT Ot Z91.041 RADIOGRAPHIC DYE ALLERGY STATUS 03/13/2018 NATE BELÉN INDUSTRIAL HIRE SALES ASSISTANT Ot Z98.51 TUBAL LIGATION STATUS 03/14/2018 CELSA ESCOBEDO MD Ot E11.9 TYPE 2 DIABETES MELLITUS WITHOUT COMPLIC 03/14/2018 CELSA ESCOBEDO MD Ot F32.9 MAJOR DEPRESSIVE DISORDER, SINGLE EPISOD 03/14/2018 CELSA ESCOBEDO MD Ot F41.9 ANXIETY DISORDER, UNSPECIFIED 03/14/2018 CELSA ESCOBEDO MD Ot G47.30 SLEEP APNEA, UNSPECIFIED 03/14/2018 CELSA ESCOBEDO MD Ot L98.9 DISORDER OF THE SKIN AND SUBCUTANEOUS TI 03/14/2018 CELSA ESCOBEDO MD Ot R60.0 LOCALIZED EDEMA 03/14/2018 CELSA ESCOBEDO MD Ot Z86.73 PRSNL HX OF TIA (TIA), AND CEREB INFRC W 03/14/2018 CELSA ESCOBEDO MD Ot Z87.891 PERSONAL HISTORY OF NICOTINE DEPENDENCE 03/14/2018 CELSA ESCOBEDO MD Ot Z88.0 ALLERGY STATUS TO PENICILLIN 03/14/2018 CELSA ESCOBEDO MD Ot Z88.5 ALLERGY STATUS TO NARCOTIC AGENT STATUS 03/14/2018 CELSA ESCOBEDO MD Ot Z88.8 ALLERGY STATUS TO OTH DRUG/MEDS/BIOL SUB 03/14/2018 GREGG ROCHE, CELSA Lorenz Ot Z91.040 LATEX ALLERGY STATUS 03/14/2018 GREGG ROCHE, CELSA Lorenz Ot Z91.041 RADIOGRAPHIC DYE ALLERGY STATUS 03/14/2018 GREGG ROCHE, CELSA Lorenz Ot Z98.51 TUBAL LIGATION STATUS 03/14/2018 GREGG ROCHE, CELSA Lorenz Ot Z98.890 OTHER SPECIFIED POSTPROCEDURAL STATES 03/18/2018 NATE, BELÉN INDUSTRIAL HIRE SALES ASSISTANT Ot E11.9 TYPE 2 DIABETES MELLITUS WITHOUT COMPLIC 03/18/2018 NATE, BELÉN INDUSTRIAL HIRE SALES ASSISTANT Ot F32.9 MAJOR DEPRESSIVE DISORDER, SINGLE EPISOD 03/18/2018 NATE, BELÉN INDUSTRIAL HIRE SALES ASSISTANT Ot F41.9 ANXIETY DISORDER, UNSPECIFIED 03/18/2018 NATE, BELÉN INDUSTRIAL HIRE SALES ASSISTANT Ot L03.116 CELLULITIS OF LEFT LOWER LIMB 03/18/2018 NATE, BELÉN INDUSTRIAL HIRE SALES ASSISTANT Ot M79.605 PAIN IN LEFT LEG 03/18/2018 NATE, BELÉN INDUSTRIAL HIRE SALES ASSISTANT Ot Z86.73 PRSNL HX OF TIA (TIA), AND CEREB INFRC W 03/18/2018 NATE, BELÉN INDUSTRIAL HIRE SALES ASSISTANT Ot Z87.891 PERSONAL HISTORY OF NICOTINE DEPENDENCE 03/18/2018 NATE, BELÉN INDUSTRIAL HIRE SALES ASSISTANT Ot Z88.0 ALLERGY STATUS TO PENICILLIN 03/18/2018 NATE, BELÉN INDUSTRIAL HIRE SALES ASSISTANT Ot Z88.5 ALLERGY STATUS TO NARCOTIC AGENT STATUS 03/18/2018 NATE, BELÉN INDUSTRIAL HIRE SALES ASSISTANT Ot Z91.040 LATEX ALLERGY STATUS 03/18/2018 NATE, BELÉN INDUSTRIAL HIRE SALES ASSISTANT Ot Z91.041 RADIOGRAPHIC DYE ALLERGY STATUS 03/18/2018 NATE, BELÉN INDUSTRIAL HIRE SALES ASSISTANT Ot Z98.51 TUBAL LIGATION STATUS 03/18/2018 NATE, BELÉN INDUSTRIAL HIRE SALES ASSISTANT Ot E11.9 TYPE 2 DIABETES MELLITUS WITHOUT COMPLIC 03/18/2018 NATE, BELÉN INDUSTRIAL HIRE SALES ASSISTANT Ot F32.9 MAJOR DEPRESSIVE DISORDER, SINGLE EPISOD 03/18/2018 NATE, BELÉN INDUSTRIAL HIRE SALES ASSISTANT Ot F41.9 ANXIETY DISORDER, UNSPECIFIED 03/18/2018 NATE, BELÉN INDUSTRIAL HIRE SALES ASSISTANT Ot L03.116 CELLULITIS OF LEFT LOWER LIMB 03/18/2018 NATE, BELÉN INDUSTRIAL HIRE SALES ASSISTANT Ot M79.605 PAIN IN LEFT LEG 03/18/2018 NATE, BELÉN INDUSTRIAL HIRE SALES ASSISTANT Ot Z86.73 PRSNL HX OF TIA (TIA), AND CEREB INFRC W 03/18/2018 NATEBELÉNP Ot Z87.891 PERSONAL HISTORY OF NICOTINE DEPENDENCE 03/18/2018 BELÉN SULLIVANP Ot Z88.0 ALLERGY STATUS TO PENICILLIN 03/18/2018 BELÉN SULLIVANP Ot Z88.5 ALLERGY STATUS TO NARCOTIC AGENT STATUS 03/18/2018 NATEBELÉN Mclaughlin INDUSTRIAL HIRE SALES ASSISTANT Ot Z91.040 LATEX ALLERGY STATUS 03/18/2018 NATE, BELÉN SINCLAIRP Ot Z91.041 RADIOGRAPHIC DYE ALLERGY STATUS 03/18/2018 BELÉN SULLIVANP Ot Z98.51 TUBAL LIGATION STATUS 03/20/2018 ANANDA ROCHE, CONNIE Leblanc Ot G47.33 OBSTRUCTIVE SLEEP APNEA (ADULT) (PEDIATR 03/23/2018 ANANDA ROCHE, CONNIE R Ot G47.33 OBSTRUCTIVE SLEEP APNEA (ADULT) (PEDIATR 03/25/2018 CONNIE MALAVE MD Ot G47.33 OBSTRUCTIVE SLEEP APNEA (ADULT) (PEDIATR 03/30/2018 CELSA ESCOBEDO MD Ot E11.9 TYPE 2 DIABETES MELLITUS WITHOUT COMPLIC 03/30/2018 CELSA ESCOBEDO MD Ot F32.9 MAJOR DEPRESSIVE DISORDER, SINGLE EPISOD 03/30/2018 CELSA ESCOBEDO MD, Ot F41.9 ANXIETY DISORDER, UNSPECIFIED 03/30/2018 CELSA ESCOBEDO MD Ot G47.30 SLEEP APNEA, UNSPECIFIED 03/30/2018 CELSA ESCOBEDO MD Ot L98.9 DISORDER OF THE SKIN AND SUBCUTANEOUS TI 03/30/2018 CELSA ESCOBEDO MD Ot R60.0 LOCALIZED EDEMA 03/30/2018 CELSA ESCOBEDO MD Ot Z86.73 PRSNL HX OF TIA (TIA), AND CEREB INFRC W 03/30/2018 CELSA ESCOBEDO MD, Ot Z87.891 PERSONAL HISTORY OF NICOTINE DEPENDENCE 03/30/2018 CELSA ESCOBEDO MD, Ot Z88.0 ALLERGY STATUS TO PENICILLIN 03/30/2018 CELSA ESCOBEDO MD, Ot Z88.5 ALLERGY STATUS TO NARCOTIC AGENT STATUS 03/30/2018 CELSA ESCOBEDO MD Ot Z88.8 ALLERGY STATUS TO OTH DRUG/MEDS/BIOL SUB 03/30/2018 CELSA ESCOBEDO MD Ot Z91.040 LATEX ALLERGY STATUS 03/30/2018 CELSA ESCOBEDO MD, Ot Z91.041 RADIOGRAPHIC DYE ALLERGY STATUS 03/30/2018 CELSA ESCOBEDO MD Ot Z98.51 TUBAL LIGATION STATUS 03/30/2018 CELSA ESCOBEDO MD Ot Z98.890 OTHER SPECIFIED POSTPROCEDURAL STATES Procedures [...] culture - 05/17/17 18:44 Bacterial urine culture [id number] NRG COLONY COUNT >100,000/ML NRG FTX;REPORTABLE SENSITIVITY REPORTED 05/19/17 8:30 NRG FREE TEXT ENTRY 2 PLUS, MIXED GRAM POSITIVES 10-100,000/ML NRG FREE TEXT ENTRY 3 > 3 ISOLATES NR Bacterial susceptibility panel - 05/17/17 18:44 Gentamicin [...] platelet poor plasma (mass/volume) 0.27 ug/mL 0.00-0.49 [facility] panel - 01/02/18 17:15 Serum or plasma [...] - 02/02/18 11:54 TSH 1.53 mIU/L NRG Complete blood count (CBC) with automated white blood cell (WBC) differential - 03/13/18 17:38 Blood leukocytes automated count (number/volume) 7.2 10*3/uL 4.3-11.0 Blood erythrocytes automated count (number/volume) 5.47 10*6/uL 4.35-5.85 Venous blood hemoglobin measurement (mass/volume) 15.4 g/dL 11.5-16.0 Blood hematocrit (volume fraction) 49 % 35-52 Automated erythrocyte mean corpuscular volume 90 [foz_us] 80-99 Automated erythrocyte mean corpuscular hemoglobin (mass per erythrocyte) 28 pg 25-34 Automated erythrocyte mean corpuscular hemoglobin concentration measurement ( mass/volume) 31 g/dL 32-36 Automated erythrocyte distribution width ratio 13.8 % 10.0-14.5 Automated blood platelet count (count/volume) 322 10*3/uL 130-400 Automated blood platelet mean volume measurement 9.4 [foz_us] 7.4-10.4 Automated blood neutrophils/100 leukocytes 64 % 42-75 Automated blood lymphocytes/100 leukocytes 25 % 12-44 Blood monocytes/100 leukocytes 9 % 0-12 Automated blood eosinophils/100 leukocytes 3 % 0-10 Automated blood basophils/100 leukocytes 0 % 0-10 Blood neutrophils automated count (number/volume) 4.6 10*3 1.8-7.8 Blood lymphocytes automated count (number/volume) 1.8 10*3 1.0-4.0 Blood monocytes automated count (number/volume) 0.6 10*3 0.0-1.0 Automated eosinophil count 0.2 10*3/uL 0.0-0.3 Automated blood basophil count (count/volume) 0.0 10*3/uL 0.0-0.1 Comprehensive metabolic panel - 03/13/18 17:38 Serum or plasma sodium measurement (moles/volume) 135 mmol/L 135-145 Serum or plasma potassium measurement (moles/volume) 4.0 mmol/L 3.6-5.0 Serum or plasma chloride measurement (moles/volume) 96 mmol/L 98-107 Carbon dioxide 27 mmol/L 21-32 Serum or plasma anion gap determination (moles/volume) 12 mmol/L 5-14 Serum or plasma urea nitrogen measurement (mass/volume) 15 mg/dL 7-18 Serum or plasma creatinine measurement (mass/volume) 0.72 mg/dL 0.60-1.30 Serum or plasma urea nitrogen/creatinine mass ratio 21 NRG Serum or plasma creatinine measurement with calculation of estimated glomerular filtration rate > NRG Serum or plasma glucose measurement (mass/volume) 227 mg/dL 70-105 Serum or plasma calcium measurement (mass/volume) 9.2 mg/dL 8.5-10.1 Serum or plasma total bilirubin measurement (mass/volume) 0.6 mg/dL 0.1-1.0 Serum or plasma alkaline phosphatase measurement (enzymatic activity/volume) 123 U/L 40-136 Serum or plasma aspartate aminotransferase measurement (enzymatic activity/ volume) 46 U/L 5-34 Serum or plasma alanine aminotransferase measurement (enzymatic activity/volume ) 43 U/L 0-55 Serum or plasma protein measurement (mass/volume) 7.0 g/dL 6.4-8.2 Serum or plasma albumin measurement (mass/volume) 3.8 g/dL 3.2-4.5 CALCIUM CORRECTED 9.4 mg/dL 8.5-10.1 PT panel in platelet poor plasma by coagulation assay - 03/13/18 17:38 Prothrombin time (PT) in platelet poor plasma by coagulation assay 13.5 s 12.2-14.7 INR in platelet poor plasma or blood by coagulation assay 1.0 0.8-1.4 Activated partial thromboplastin time (aPTT) in platelet poor plasma bycoagulation assay - 03/13/18 17:38 Activated partial thromboplastin time (aPTT) in platelet poor plasma bycoagulation assay 28 s 24-35 Fibrin D-dimer FEU measurement in platelet poor plasma (mass/volume) - 17:38 Fibrin D-dimer FEU measurement in platelet poor plasma (mass/volume) 0.63 ug/mL 0.00-0.49 Complete blood count (CBC) with automated white blood cell (WBC) differential - 03/14/18 10:25 Blood leukocytes automated count (number/volume) 6.5 10*3/uL 4.3-11.0 Blood erythrocytes automated count (number/volume) 5.33 10*6/uL 4.35-5.85 Venous blood hemoglobin measurement (mass/volume) 15.4 g/dL 11.5-16.0 Blood hematocrit (volume fraction) 49 % 35-52 Automated erythrocyte mean corpuscular volume 91 [foz_us] 80-99 Automated erythrocyte mean corpuscular hemoglobin (mass per erythrocyte) 29 pg 25-34 Automated erythrocyte mean corpuscular hemoglobin concentration measurement ( mass/volume) 32 g/dL 32-36 Automated erythrocyte distribution width ratio 14.0 % 10.0-14.5 Automated blood platelet count (count/volume) 313 10*3/uL 130-400 Automated blood platelet mean volume measurement 9.2 [foz_us] 7.4-10.4 Automated blood neutrophils/100 leukocytes 71 % 42-75 Automated blood lymphocytes/100 leukocytes 20 % 12-44 Blood monocytes/100 leukocytes 7 % 0-12 Automated blood eosinophils/100 leukocytes 1 % 0-10 Automated blood basophils/100 leukocytes 0 % 0-10 Blood neutrophils automated count (number/volume) 4.6 10*3 1.8-7.8 Blood lymphocytes automated count (number/volume) 1.3 10*3 1.0-4.0 Blood monocytes automated count (number/volume) 0.4 10*3 0.0-1.0 Automated eosinophil count 0.1 10*3/uL 0.0-0.3 Automated blood basophil count (count/volume) 0.0 10*3/uL 0.0-0.1 Comprehensive metabolic panel - 03/14/18 10:25 Serum or plasma sodium measurement (moles/volume) 136 mmol/L 135-145 Serum or plasma potassium measurement (moles/volume) 4.4 mmol/L 3.6-5.0 Serum or plasma chloride measurement (moles/volume) 96 mmol/L 98-107 Carbon dioxide 28 mmol/L 21-32 Serum or plasma anion gap determination (moles/volume) 12 mmol/L 5-14 Serum or plasma urea nitrogen measurement (mass/volume) 15 mg/dL 7-18 Serum or plasma creatinine measurement (mass/volume) 0.79 mg/dL 0.60-1.30 Serum or plasma urea nitrogen/creatinine mass ratio 19 NRG Serum or plasma creatinine measurement with calculation of estimated glomerular filtration rate > NRG Serum or plasma glucose measurement (mass/volume) 298 mg/dL 70-105 Serum or plasma calcium measurement (mass/volume) 9.1 mg/dL 8.5-10.1 Serum or plasma total bilirubin measurement (mass/volume) 0.6 mg/dL 0.1-1.0 Serum or plasma alkaline phosphatase measurement (enzymatic activity/volume) 136 U/L 40-136 Serum or plasma aspartate aminotransferase measurement (enzymatic activity/ volume) 58 U/L 5-34 Serum or plasma alanine aminotransferase measurement (enzymatic activity/volume ) 49 U/L 0-55 Serum or plasma protein measurement (mass/volume) 7.2 g/dL 6.4-8.2 Serum or plasma albumin measurement (mass/volume) 4.0 g/dL 3.2-4.5 CALCIUM CORRECTED 9.1 mg/dL 8.5-10.1 Encounters ACCT No. Visit Date/Time Discharge Status Pt. Type Provider Facility Loc./Unit Complaint [id number] 04/09/2018 17:00:00 04/09/2018 23:59:59 CLS Outpatient CONNIE MALAVE [facility] [id number] 02/02/2018 11:00:00 Document Registration [id number] 04/13/2018 14:26:00 04/13/2018 23:59:59 CLS Preadmit CONNIE MALAVE MD [facility] SLEEP ESTHELA G47.33 [id number] 03/19/2018 19:58:00 03/20/2018 06:20:00 DIS Outpatient CONNIE MALAVE MD [facility] SLEEP ESTHELA G47.33 [id number] 03/14/2018 08:18:00 03/14/2018 11:10:00 DIS Emergency CELSA ESCOBEDO MD [facility] ER POSS DVT LT LEG, NAUSEA [id number] 03/13/2018 20:02:00 03/13/2018 23:59:59 CLS Preadmit NATEBELÉN Mclaughlin [facility] RAD L CALF PAIN [id number] 03/13/2018 16:59:00 03/13/2018 19:53:00 DIS Emergency NATEBELÉN Mclaughlin INDUSTRIAL HIRE SALES ASSISTANT [facility] ER POSS DVT LT LEG,NAUSEA [id number] 01/11/2018 20:55:00 01/11/2018 22:51:00 DIS Emergency NATE, BELÉN INDUSTRIAL HIRE SALES ASSISTANT [facility] ER STOMACH PAIN, PAIN IN LOWER ABD [id number] 01/02/2018 16:48:00 01/02/2018 18:40:00 DIS Emergency CLAIRE DE LEON APRN [facility] ER CP SINCE YESTERDAY/BILAT ARM PAIN/NECK PAIN/NAUSEA [id number] 12/09/2017 21:10:00 12/09/2017 22:55:00 DIS Emergency DEBBIE RAMIREZ [facility] ER BOIL IN PELVIC REGION [id number] 11/11/2017 17:37:00 11/11/2017 23:59:59 CLS Outpatient CHARLEEN HARO APRN [facility] RAD INJURY OF LEFT KNEE, INITIAL ENCOUNTER [id number] 10/16/2017 07:32:00 10/16/2017 23:59:59 CLS Outpatient ANANDA ROCHE, CONNIE Leblanc [facility] CARD ATYPICAL CHEST PAIN [id number] 09/22/2017 19:32:00 09/22/2017 21:22:00 DIS Emergency CLAIRE DE LEON APRN [facility] ER CHEST PAIN/NECK AND ARM PAIN [id number] 07/28/2017 22:25:00 07/28/2017 22:53:00 DIS Emergency CLAIRE DE LEON APRN [facility] ER L ELBOW PAIN [id number] 06/19/2017 16:00:00 06/19/2017 18:29:00 DIS Emergency CLAIRE DE LEON APRN [facility] ER ABD PAINS, PAINS FROM 7YR OLD CSECTION [id number] 05/17/2017 18:04:00 05/17/2017 19:32:00 DIS Outpatient CLAIRE DE LEON APRN [facility] ER ABD PAIN [id number] 03/22/2017 22:27:00 03/23/2017 00:15:00 DIS Emergency BREANNE ROCHE, REY Redmond [facility] ER EAR PAIN [id number] 02/12/2017 12:41:00 02/12/2017 14:23:00 DIS Emergency JANINE MEHTA DO [facility] ER FALL,BACK/SHOULDER PAIN
--- NOTE | 2018-04-19 17:31 | ED Chest Pain ---
General Stated Complaint: CP/SOB Source: patient Exam Limitations: no limitations History of Present Illness Date Seen by Provider: Apr 19, 2018 Time Seen by Provider: 17:29 Initial Comments To ER with tight retrosternal chest pain associated with shortness of breath 1 hour. No fevers or chills or nausea or vomiting. Pain is worse with movement. She was recently treated with Levaquin for pneumonia 1.5 weeks ago. 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 BRICK EXTRUDER OPERATOR: No NTG SL BRICK EXTRUDER OPERATOR: No Associated Symptoms: shortness of breath Allergies and Home Medications Allergies Coded Allergies: fentanyl (Verified Allergy, Severe, SOA, 03/13/18) morphine (Verified Allergy, Severe, SOA, 02/12/17) Penicillins (Verified Allergy, Unknown, 02/12/17) codeine (Verified Allergy, Unknown, 02/12/17) hydromorphone (Verified Allergy, Unknown, 02/12/17) iodine (Verified Allergy, Unknown, 02/12/17) latex (Verified Allergy, Unknown, 02/12/17) Home Medications Doxycycline Monohydrate 100 Mg Tablet, 100 MG PO BID Prescribed by: CLAIRE DE LEON on 09/22/17 2108 Hydrocodone Bit/Acetaminophen 1 Tab Tab, 1 EACH PO Q6H PRN for PAIN-MODERATE Prescribed by: CELSA ESCOBEDO on 03/14/18 1052 Sulfamethoxazole/Trimethoprim 1 Each Tablet, 1 EACH PO BID Prescribed by: BELÉN SULLIVAN on 01/11/18 2240 Sulfamethoxazole/Trimethoprim 1 Each Tablet, 1 EACH PO BID Prescribed by: BELÉN SULLIVAN on 03/13/181943 Tramadol HCl 50 Mg Tablet, 50 MG PO Q8H Prescribed by: BELÉN SULLIVAN on 03/13/181943 Patient Home Medication List Home Medication List Reviewed: Yes Review of Systems Review of Systems Constitutional: see HPI EENTM: No Symptoms Reported Respiratory: See HPI, Shortness of Air Cardiovascular: See HPI, Chest Pain Gastrointestinal: No Symptoms Reported Genitourinary: No Symptoms Reported Musculoskeletal: no symptoms reported Skin: no symptoms reported Psychiatric/Neurological: No Symptoms Reported Endocrine: No Symptoms Reported Past Ezleipa-Acgaaj-Inihkx Hx Patient Social History Type Used: Cigarettes Former Smoker, Quit: Mar 24, 2016 2nd Hand Smoke Exposure: No Recent Foreign Travel: No Contact w/Someone Who Travel: No Recent Hopitalizations: No Immunizations Up To Date Tetanus Booster (TDap): Unknown PED Vaccines UTD: Yes Seasonal Allergies Seasonal Allergies: No Past Medical History Surgeries: Yes ( X 2; BTL; BREAST BIOPSY-BENIGN) Breast, Section, Gallbladder, Tubal Ligation Respiratory: Yes Sleep Apnea Currently Using CPAP: No Currently Using BIPAP: No Cardiac: No Neurological: Yes Stroke Female Reproductive Disorders: Denies 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 0oz. [phone]; BMI Method:Stated General Appearance: No Apparent Distress, WD/WN, Anxious, Obese HEENT: PERRL/EOMI Neck: Full Range of Motion, Normal Inspection Respiratory: No Accessory Muscle Use, No Respiratory Distress Cardiovascular: Regular Rate, Rhythm, Normal Peripheral Pulses Gastrointestinal: Normal Bowel Sounds, Non Tender, Soft Neurologic/Psychiatric: Alert, Oriented x3, No Motor/Sensory Deficits Skin: Normal Color, Warm/Dry Progress/Results/Core Measures Results/Orders Lab Results Laboratory Tests Test 04/19/18 17:35 04/19/18 20:07 Range/Units White Blood Count 6.5 4.3-11.0 10^3/uL Red Blood Count 5.20 4.35-5.85 10^6/uL Hemoglobin 14.3 11.5-16.0 G/DL Hematocrit 46 35-52 % Mean Corpuscular Volume 89 80-99 FL Mean Corpuscular Hemoglobin 28 25-34 PG Mean Corpuscular Hemoglobin Concent 31 L 32-36 G/DL Red Cell Distribution Width 13.6 10.0-14.5 % Platelet Count 279 130-400 10^3/uL Mean Platelet Volume 9.2 7.4-10.4 FL Neutrophils (%) (Auto) 69 42-75 % Lymphocytes (%) (Auto) 21 12-44 % Monocytes (%) (Auto) 8 0-12 % Eosinophils (%) (Auto) 1 0-10 % Basophils (%) (Auto) 0 0-10 % Neutrophils # (Auto) 4.5 1.8-7.8 X 10^3 Lymphocytes # (Auto) 1.4 1.0-4.0 X 10^3 Monocytes # (Auto) 0.5 0.0-1.0 X 10^3 Eosinophils # (Auto) 0.1 0.0-0.3 10^3/uL Basophils # (Auto) 0.0 0.0-0.1 10^3/uL Prothrombin Time 14.2 12.2-14.7 SEC INR Comment 1.1 0.8-1.4 Activated Partial Thromboplast Time 29 24-35 SEC D-Dimer 0.83 H 0.00-0.49 UG/ML Sodium Level 141 135-145 MMOL/L Potassium Level 3.7 3.6-5.0 MMOL/L Chloride Level 99 98-107 MMOL/L Carbon Dioxide Level 30 21-32 MMOL/L Anion Gap 12 5-14 MMOL/L Blood Urea Nitrogen 10 7-18 MG/DL Creatinine 0.65 0.60-1.30 MG/DL Estimat Glomerular Filtration Rate > 60 BUN/Creatinine Ratio 15 Glucose Level 209 H 70-105 MG/DL Calcium Level 8.8 8.5-10.1 MG/DL Corrected Calcium 9.1 8.5-10.1 MG/DL Magnesium Level 1.4 L 1.8-2.4 MG/DL Total Bilirubin 0.9 0.1-1.0 MG/DL Aspartate Amino Transf (AST/SGOT) 47 H 5-34 U/L Alanine Aminotransferase (ALT/SGPT) 49 0-55 U/L Alkaline Phosphatase 152 H 40-136 U/L Myoglobin 22.7 10.0-92.0 NG/ML Troponin I < 0.028 <0.028 NG/ML B-Type Natriuretic Peptide 54.4 <100.0 PG/ML Total Protein 6.7 6.4-8.2 GM/DL Albumin 3.6 3.2-4.5 GM/DL My Orders Orders - CLAIRE DE LEON APRN Cbc With Automated Diff (04/19/18 17:27) Magnesium (04/19/18 17:27) Chest 1 View, Ap/Pa Only (04/19/18 17:27) Ekg Tracing (04/19/18 17:27) Cardiac Profile 1 (04/19/18 17:27) Comprehensive Metabolic Panel (04/19/18 17:27) Myoglobin Serum (04/19/18 17:27) Protime With Inr (04/19/18 17:27) Partial Thromboplastin Time (04/19/18 17:27) O2 (04/19/18 17:27) Monitor-Rhythm Ecg Trace Only (04/19/18 17:27) Lipid Panel (04/20/18 06:00) Aspirin Chewable Tablet (Baby Aspirin Ch (04/19/18 17:30) Saline Lock/Iv-Start (04/19/18 17:27) BNP (04/19/18 17:27) Ketorolac Injection (Toradol Injection) (04/19/18 17:30) Lorazepam Injection (Ativan Injection) (04/19/18 17:30) Fibrin Degradation Products (04/19/18 17:35) Magnesium Oxide Tablet (Mag Ox Tablet) (04/19/18 18:15) Us Venous Lower Ext Ashok (04/19/18 18:31) Hydrocodone/Apap 5/325 Tablet (Lortab 5 (04/19/18 18:45) Ekg Tracing (04/19/18 19:30) Troponin I (04/19/18 19:30) Medications Given in ED Current Medications Medications Dose Ordered Sig/Maurice Route Start Time Stop Time Status Last Admin Dose Admin Acetaminophen/ Hydrocodone Bitart 1 tab ONCE ONCE PO 04/19/18 18:45 04/19/18 18:46 DC 04/19/18 18:47 1 TAB Aspirin 324 mg ONCE ONCE PO 04/19/18 17:30 04/19/18 17:31 DC 04/19/18 17:36 324 MG Ketorolac Tromethamine 15 mg ONCE ONCE IVP 04/19/18 17:30 04/19/18 17:31 DC 04/19/18 17:39 15 MG Lorazepam 0.5 mg ONCE PRN IVP 04/19/18 17:30 04/19/18 17:38 0.5 MG Magnesium Oxide 800 mg ONCE ONCE PO 04/19/18 18:15 04/19/18 18:16 DC 04/19/18 18:29 800 MG Vital Signs/I&O 04/19/18 04/19/18 17:23 17:23 Temp 97.8 Pulse 82 Resp 24 B/P (MAP) 150/103 (119) Pulse Ox 96 O2 Delivery Room Air Room Air Departure Impression Primary Impression: Chest pain Qualified Codes: R07.9 - Chest pain, unspecified Disposition: HOME, SELF-CARE Condition: Improved Departure-Patient Inst. Decision time for Depature: 20:21 Referrals: CONNIE MALAVE MD (PCP/Family) Primary Care Physician PER ABBASI MD FACP [facility] Hesham ROCA MD, BASHAR J MD Patient Instructions: Chest Pain (DC) Add. Discharge Instructions: 1. Call a pleating machine operator of your choosing tomorrow to make an appointment to be seen for follow-up. Return to ER for any concerns or worsening symptoms. Work/School Note: Work Release Form Date Seen in the Emergency Department: Apr 19, 2018 Return to Work: Apr 21, 2018 CLAIRE DE LEON APRN Apr 19, 2018 17:31
[2018-04-19] MEDS: LORazepam INJ 2 MG/ML (ATIVAN) VIAL IVP PRN ×2 (17:37→17:38)
[2018-04-19 17:45] LABS: BASOPHILS % (AUTO) 0 % (0-10); EOSINOPHILS # (AUTO) 0.1 10^3/uL (0.0-0.3); EOSINOPHILS % (AUTO) 1 % (0-10); HEMATOCRIT 46 % (35-52); HEMOGLOBIN 14.3 G/DL (11.5-16.0); LYMPHOCYTES # (AUTO) 1.4 X 10^3 (1.0-4.0); LYMPHOCYTES % (AUTO) 21 % (12-44); MEAN CORPUSCULAR HEMOGLOBIN 28 PG (25-34); MEAN CORPUSCULAR HGB CONC 31 G/DL (32-36); MEAN CORPUSCULAR VOLUME 89 FL (80-99); MEAN PLATELET VOLUME 9.2 FL (7.4-10.4); MONOCYTES # (AUTO) 0.5 X 10^3 (0.0-1.0); MONOCYTES % (AUTO) 8 % (0-12); NEUTROPHILS # (AUTO) 4.5 X 10^3 (1.8-7.8); NEUTROPHILS % (AUTO) 69 % (42-75); PLATELET COUNT 279 10^3/uL (130-400); RED CELL DISTRIBUTION WIDTH 13.6 % (10.0-14.5); WHITE BLOOD COUNT 6.5 10^3/uL (4.3-11.0)
[2018-04-19 18:00] LABS: FIBRIN DEGRADATION PRODUCTS 0.83 UG/ML (0.00-0.49); INR 1.1 (0.8-1.4); PROTHROMBIN TIME PATIENT 14.2 SEC (12.2-14.7)
[2018-04-19 18:03] LABS: ALANINE AMINOTRANSFERASE 49 U/L (0-55); ALBUMIN 3.6 GM/DL (3.2-4.5); ALKALINE PHOSPHATASE 152 U/L (40-136); BILIRUBIN,TOTAL 0.9 MG/DL (0.1-1.0); BUN/CREATININE RATIO 15; CALCIUM 8.8 MG/DL (8.5-10.1); CARBON DIOXIDE 30 MMOL/L (21-32); CHLORIDE 99 MMOL/L (98-107); CREATININE SERUM 0.65 MG/DL (0.60-1.30); GFR ESTIMATED > 60; GLUCOSE 209 MG/DL (70-105); MAGNESIUM 1.4 MG/DL (1.8-2.4); POTASSIUM 3.7 MMOL/L (3.6-5.0); SODIUM 141 MMOL/L (135-145); TOTAL PROTEIN 6.7 GM/DL (6.4-8.2)
[2018-04-19 18:09] LABS: MYOGLOBIN SERUM 22.7 NG/ML (10.0-92.0)
--- NOTE | 2018-04-19 18:12 | Diagnostic Imaging Report ---
INDICATION: Left-sided chest pain. TECHNIQUE: Portable chest at 5:58 p.m. FINDINGS: Heart size and pulmonary vascularity are normal. Lungs are clear. There are no effusions or pneumothoraces. IMPRESSION: Negative chest. Dictated by: Dictated on workstation # [id number]
[2018-04-19] MEDS ORDERED: MAGNESIUM OXIDE (MAG-OX)400 MG TAB PO ONE (18:15)
[2018-04-19] MEDS ORDERED: HYDROcodone/APAP 5 MG/325 MG (LORTAB) TAB PO ONE (18:45)
--- NOTE | 2018-04-19 20:30 | Diagnostic Imaging Report ---
PROCEDURE: US Venous Lower Ext Ashok. TECHNIQUE: Multiple real-time grayscale images were obtained over the lower extremities in various projections, bilaterally. Additional duplex Doppler and color Doppler images were also obtained. INDICATION: Shortness of breath, bilateral leg pain and swelling The veins of the lower extremities have good color filling and compressibility. There is normal spontaneous and augmented flow. IMPRESSION: Negative venous Doppler of the lower extremities. Dictated by: Dictated on workstation # [id number]
[2018-04-19] MEDS ORDERED: RX-HYDROCODONE/APAP 5/325 MG #4 TAB PK PO PRN (21:00)
[2018-04-19 21:08] VITALS: BP 143/76
== END 2018-04-19 21:08 | disposition home or self-care (01) ==
LOC: EDUNIT# 17:21 → ER 17:22
DX: R07.81 Pleurodynia (principal); G47.30 Sleep apnea, unspecified; E11.9 Type 2 diabetes mellitus without complications; F41.9 Anxiety disorder, unspecified; F32.9 Major depressive disorder, single episode, unspecified; Z86.73 Personal history of transient ischemic attack (TIA), and cerebral infarction without residual deficits; Z88.5 Allergy status to narcotic agent; Z88.0 Allergy status to penicillin; Z91.041 Radiographic dye allergy status; Z91.040 Latex allergy status; Z88.8 Allergy status to other drugs, medicaments and biological substances; Z87.01 Personal history of pneumonia (recurrent); Z87.891 Personal history of nicotine dependence; Z98.890 Other specified postprocedural states; Z98.51 Tubal ligation status
CPT/HCPCS: 36415; 71045; 80053; 83735; 83874; 83880; 84484; 85025; 85379; 85610; 85730; 93005; 93041; 93970; 96374; 96375

== ENCOUNTER 2018-05-04 08:17 | Inpatient (IN) | payer SELFPAY ==
[~2018-05-04] VITALS: Ht 185.4 cm; Wt 177.4 kg
[~2018-05-04 08:17] MED LIST changes: -LORA10TA7; +LORA10TA7 PO; -RANI150T11; +RANI150T11 PO; -RT-ALBUINH; +RT-ALBUINH INH; -SITA1TAB2; +SITA1TAB2 PO
--- OUTSIDE RECORDS SUMMARY | 2018-05-04 08:28 | XMS REPORT | Continuity of Care Document ---
Author Author Formerly [facility], Later [facility] Address Unknown Phone Unavailable Allergies Active Description Code Type Severity Reaction Onset Reported/Identified Relationship to Patient Clinical Status Yes morphine [id number] Drug Allergy Severe SOA 02/12/2017 Yes codeine [id number] Drug Allergy Unknown N/A 02/12/2017 Yes hydromorphone [id number] Drug Allergy Unknown N/A 02/12/2017 Yes iodine [id number] Drug Allergy Unknown N/A 02/12/2017 Yes latex [id number] Drug Allergy Unknown N/A 02/12/2017 Yes Penicillins [id number] Drug Allergy Unknown N/A 02/12/2017 Yes tramadol [id number] Drug Allergy Unknown N/A 02/12/2017 Yes fentanyl [id number] Drug Allergy Severe SOA 03/13/2018 Medications There [...] Ot Z98.51 TUBAL LIGATION STATUS 03/20/2017 TYSON JANNIE REDMAN K Ot E11.9 TYPE 2 DIABETES [...] UNSPECIFIED 03/23/2017 REY RAYMUNDO MD Ot Z79.84 SHELTER (CURRENT) USE OF ORAL HYPOGLYC 03/23/2017 REY RAYMUNDO MD Ot Z86.73 PRSNL HX OF TIA (TIA), AND CEREB INFRC W 03/23/2017 REY RAYMUNDO MD Ot Z87.59 PERSONAL HISTORY OF COMP OF PREG, CHLDBR 03/23/2017 RYE RAYMUNDO MD Ot Z98.51 TUBAL LIGATION STATUS [...] UNSPECIFIED 05/02/2017 REY RAYMUNDO MD Ot Z79.84 SHELTER (CURRENT) USE OF ORAL HYPOGLYC 05/02/2017 REY [...] Z98.51 TUBAL LIGATION STATUS 09/24/2017 CLAIRE DE LOEN APRN Ot Z98.890 OTHER SPECIFIED POSTPROCEDURAL STATES [...] COMP OF PREG, CHLDBR 09/24/2017 CLAIRE DE ELON APRN Ot Z88.0 ALLERGY STATUS TO PENICILLIN [...] R07.89 OTHER CHEST PAIN 11/12/2017 CHARLEEN HARO AUTOMATION CLERK Ot S89.92XA UNSPECIFIED INJURY OF LEFT LOWER LEG, IN 11/27/2017 CHARLEEN HARO AUTOMATION CLERK Ot S89.92XA UNSPECIFIED INJURY OF LEFT LOWER [...] OTHER SPECIFIED POSTPROCEDURAL STATES 01/11/2018 BELÉN SULLIVAN [employer] CASE WORKER Ot E11.9 TYPE 2 DIABETES MELLITUS WITHOUT COMPLIC 01/11/2018 NATE BELÉN [employer]IVE [employer] CASE WORKER Ot F17.210 NICOTINE DEPENDENCE, CIGARETTES, UNCOMPL 01/11/2018 NATE BELÉN [employer] CASE WORKER Ot F32.9 MAJOR DEPRESSIVE DISORDER, SINGLE EPISOD 01/11/2018 NATE BELÉN [employer] CASE WORKER Ot F41.9 ANXIETY DISORDER, UNSPECIFIED 01/11/2018 NATE BELÉN [employer]IVE SERVICES CASE WORKER Ot G47.30 SLEEP APNEA, UNSPECIFIED 01/11/2018 NATE BEÉLN [employer]IVE SERVICES CASE WORKER Ot N39.0 URINARY TRACT INFECTION, SITE NOT SPECIF 01/11/2018 NATE BELÉN [employer]IVE SERVICES CASE WORKER Ot R10.2 PELVIC AND PERINEAL PAIN 01/11/2018 NATE BELÉN [employer] SERVICES CASE WORKER Ot Z86.73 PRSNL HX OF TIA (TIA), AND CEREB INFRC W 01/11/2018 BELÉN SULLIVAN [employer]ECTIVE SERVICES CASE WORKER Ot Z88.0 ALLERGY STATUS TO PENICILLIN 01/11/2018 NATE, BELÉN [employer] SERVICES CASE WORKER Ot Z88.5 ALLERGY STATUS TO NARCOTIC AGENT STATUS 01/11/2018 NATE, BELÉN [employer] SERVICES CASE WORKER Ot Z88.6 ALLERGY STATUS TO ANALGESIC AGENT STATUS 01/11/2018 NATE, BELÉN [employer] SERVICES CASE WORKER Ot Z88.8 ALLERGY STATUS TO OTH DRUG/MEDS/BIOL SUB 01/11/2018 NATE, BELÉN [employer] CASE WORKER Ot Z91.040 LATEX ALLERGY STATUS 01/11/2018 NATE, BELÉN [employer] CASE WORKER Ot Z98.51 TUBAL LIGATION STATUS 01/11/2018 NATE, BELÉN [employer] SERVICES CASE WORKER Ot Z98.890 OTHER SPECIFIED POSTPROCEDURAL STATES 01/14/2018 NATE, BELÉN [employer] SERVICES CASE WORKER Ot E11.9 TYPE 2 DIABETES MELLITUS WITHOUT COMPLIC 01/14/2018 NATE, BELÉN [employer] SERVICES CASE WORKER Ot F17.210 NICOTINE DEPENDENCE, CIGARETTES, UNCOMPL 01/14/2018 NATE, BELÉN [employer] SERVICES CASE WORKER Ot F32.9 MAJOR DEPRESSIVE DISORDER, SINGLE EPISOD 01/14/2018 NATE, BELÉN [employer] SERVICES CASE WORKER Ot F41.9 ANXIETY DISORDER, UNSPECIFIED 01/14/2018 NATE, BELÉN [employer] SERVICES CASE WORKER Ot G47.30 SLEEP APNEA, UNSPECIFIED 01/14/2018 NATE, BELÉN [employer] CASE WORKER Ot N39.0 URINARY TRACT INFECTION, SITE NOT SPECIF 01/14/2018 NATE, BELÉN [employer] SERVICES CASE WORKER Ot R10.2 PELVIC AND PERINEAL PAIN 01/14/2018 NATE BELÉN [employer]ECTIVE SERVICES CASE WORKER Ot Z86.73 PRSNL HX OF TIA (TIA), AND CEREB INFRC W 01/14/2018 NATE, BELÉN [employer] SERVICES CASE WORKER Ot Z88.0 ALLERGY STATUS TO PENICILLIN 01/14/2018 NATE, BELÉN [employer] CASE WORKER Ot Z88.5 ALLERGY STATUS TO NARCOTIC AGENT STATUS 01/14/2018 NATE, BELÉN [employer] SERVICES CASE WORKER Ot Z88.6 ALLERGY STATUS TO ANALGESIC AGENT STATUS 01/14/2018 NATE, BELÉN [employer] SERVICES CASE WORKER Ot Z88.8 ALLERGY STATUS TO OTH DRUG/MEDS/BIOL SUB 01/14/2018 NATE, BELÉN [employer] SERVICES CASE WORKER Ot Z91.040 LATEX ALLERGY STATUS 01/14/2018 NATE, EBLÉN PROTECTIVE SERVICES CASE WORKER Ot Z98.51 TUBAL LIGATION STATUS 01/14/2018 NATE, BELÉN [employer] SERVICES CASE WORKER Ot Z98.890 OTHER SPECIFIED POSTPROCEDURAL STATES 03/13/2018 NATE, BELÉN [employer] SERVICES CASE WORKER Ot E11.9 TYPE 2 DIABETES MELLITUS WITHOUT COMPLIC 03/13/2018 NATE, BELÉN [employer] CASE WORKER Ot F32.9 MAJOR DEPRESSIVE DISORDER, SINGLE EPISOD 03/13/2018 NATE, BELÉN [employer] CASE WORKER Ot F41.9 ANXIETY DISORDER, UNSPECIFIED 03/13/2018 BELÉN SULLIVAN [employer]IVE SERVICES CASE WORKER Ot L03.116 CELLULITIS OF LEFT LOWER LIMB 03/13/2018 BELÉN SULLIVAN [employer] CASE WORKER Ot M79.605 PAIN IN LEFT LEG 03/13/2018 NATE BELÉN [employer]IVE SERVICES CASE WORKER Ot Z86.73 PRSNL HX OF TIA (TIA), AND CEREB INFRC W 03/13/2018 BELÉN SULLIVAN [employer]OTECTIVE SERVICES CASE WORKER Ot Z87.891 PERSONAL HISTORY OF NICOTINE DEPENDENCE 03/13/2018 NATE BELÉN [employer]IVE SERVICES CASE WORKER Ot Z88.0 ALLERGY STATUS TO PENICILLIN 03/13/2018 NATE BELÉN [employer]ECTIVE SERVICES CASE WORKER Ot Z88.5 ALLERGY STATUS TO NARCOTIC AGENT STATUS 03/13/2018 NATE, BELÉN [employer] CASE WORKER Ot Z91.040 LATEX ALLERGY STATUS 03/13/2018 NATE BELÉN [employer] SERVICES CASE WORKER Ot Z91.041 RADIOGRAPHIC DYE ALLERGY STATUS 03/13/2018 NATE BELÉN [employer] SERVICES CASE WORKER Ot Z98.51 TUBAL LIGATION STATUS 03/14/2018 CELSA [...] OTHER SPECIFIED POSTPROCEDURAL STATES 03/18/2018 NATE, BELÉN [employer]IVE SERVICES CASE WORKER Ot E11.9 TYPE 2 DIABETES MELLITUS WITHOUT COMPLIC 03/18/2018 NATE, BELÉN [employer]IVE SERVICES CASE WORKER Ot F32.9 MAJOR DEPRESSIVE DISORDER, SINGLE EPISOD 03/18/2018 NATE, BELÉN [employer] SERVICES CASE WORKER Ot F41.9 ANXIETY DISORDER, UNSPECIFIED 03/18/2018 NATE, BELÉN [employer] SERVICES CASE WORKER Ot L03.116 CELLULITIS OF LEFT LOWER LIMB 03/18/2018 NATE, BELÉN [employer]OT[employer]IVE SERVICES CASE WORKER Ot M79.605 PAIN IN LEFT LEG 03/18/2018 NATE, BELÉN [employer]IVE SERVICES CASE WORKER Ot Z86.73 PRSNL HX OF TIA (TIA), AND CEREB INFRC W 03/18/2018 NATE, BELÉN PROTECTIVE SERVICES CASE WORKER Ot Z87.891 PERSONAL HISTORY OF NICOTINE DEPENDENCE 03/18/2018 NATE, BELÉN [employer]OTECTIVE SERVICES CASE WORKER Ot Z88.0 ALLERGY STATUS TO PENICILLIN 03/18/2018 NATE, BELÉN [employer]OT[employer]IVE SERVICES CASE WORKER Ot Z88.5 ALLERGY STATUS TO NARCOTIC AGENT STATUS 03/18/2018 NATE, BELÉN [employer]OTECTIVE SERVICES CASE WORKER Ot Z91.040 LATEX ALLERGY STATUS 03/18/2018 NATE, BELÉN [employer]OT[employer]IVE SERVICES CASE WORKER Ot Z91.041 RADIOGRAPHIC DYE ALLERGY STATUS 03/18/2018 NATE, BELÉN PROTECTIVE SERVICES CASE WORKER Ot Z98.51 TUBAL LIGATION STATUS 03/18/2018 NATE, BELÉN [employer]OT[employer]IVE SERVICES CASE WORKER Ot E11.9 TYPE 2 DIABETES MELLITUS WITHOUT COMPLIC 03/18/2018 NATE, BELÉN [employer]OT[employer]IVE SERVICES CASE WORKER Ot F32.9 MAJOR DEPRESSIVE DISORDER, SINGLE EPISOD 03/18/2018 NATE, BELÉN [employer]OTECTIVE SERVICES CASE WORKER Ot F41.9 ANXIETY DISORDER, UNSPECIFIED 03/18/2018 NATE, BELÉN [employer]OTECTIVE SERVICES CASE WORKER Ot L03.116 CELLULITIS OF LEFT LOWER LIMB 03/18/2018 NATE, BELÉN [employer]OTECTIVE SERVICES CASE WORKER Ot M79.605 PAIN IN LEFT LEG 03/18/2018 NATE, BELÉN PROTECTIVE SERVICES CASE WORKER Ot Z86.73 PRSNL HX OF TIA (TIA), AND CEREB INFRC W 03/18/2018 NATEBELÉNP Ot Z87.891 PERSONAL HISTORY OF NICOTINE DEPENDENCE 03/18/2018 BELÉN SULLIVANP Ot Z88.0 ALLERGY STATUS TO PENICILLIN 03/18/2018 BELÉN SULLIVANP Ot Z88.5 ALLERGY STATUS TO NARCOTIC AGENT STATUS 03/18/2018 NATEBELÉN Mclaughlin PROTECTIVE SERVICES CASE WORKER Ot Z91.040 LATEX ALLERGY STATUS 03/18/2018 NATE, [...] MD Ot Z91.040 LATEX ALLERGY STATUS 03/30/2018 PAUMA MD, CELSA D Ot Z91.041 RADIOGRAPHIC DYE ALLERGY STATUS 03/30/2018 CELSA ESCOBEDO MD Ot Z98.51 TUBAL LIGATION STATUS 03/30/2018 CELSA ESCOBEDO MD Ot Z98.890 OTHER SPECIFIED POSTPROCEDURAL STATES 04/19/2018 ANANDA ROCHE, CONNIE Leblanc Ot R07.89 OTHER CHEST PAIN 04/19/2018 TAHIR CHARLEEN Paulina AUTOMATION CLERK Ot S89.92XA UNSPECIFIED INJURY OF LEFT LOWER LEG, IN 04/21/2018 CLAIRE DE LEON APRN Ot E11.9 TYPE 2 DIABETES MELLITUS WITHOUT COMPLIC 04/21/2018 CLAIRE DE LEON APRN Ot F32.9 MAJOR DEPRESSIVE DISORDER, SINGLE EPISOD 04/21/2018 CLAIRE DE LEON APRN Ot F41.9 ANXIETY DISORDER, UNSPECIFIED 04/21/2018 CLAIRE DE LEON APRN Ot G47.30 SLEEP APNEA, UNSPECIFIED 04/21/2018 CLAIRE DE LEON APRN Ot R07.81 PLEURODYNIA 04/21/2018 CLAIRE DE LEON APRN Ot Z86.73 PRSNL HX OF TIA (TIA), AND CEREB INFRC W 04/21/2018 CLAIRE DE LEON APRN Ot Z87.01 PERSONAL HISTORY OF PNEUMONIA (RECURRENT 04/21/2018 CLAIRE DE LEON APRN Ot Z87.891 PERSONAL HISTORY OF NICOTINE DEPENDENCE 04/21/2018 CLAIRE DE LEON APRN Ot Z88.0 ALLERGY STATUS TO PENICILLIN 04/21/2018 CLAIRE DE LEON APRN Ot Z88.5 ALLERGY STATUS TO NARCOTIC AGENT STATUS 04/21/2018 CLAIRE DE LEON APRN Ot Z88.8 ALLERGY STATUS TO OTH DRUG/MEDS/BIOL SUB 04/21/2018 CLAIRE DE LEON APRN Ot Z91.040 LATEX ALLERGY STATUS 04/21/2018 CLAIRE DE LEON APRN Ot Z91.041 RADIOGRAPHIC DYE ALLERGY STATUS 04/21/2018 CLAIRE DE LEON APRN Ot Z98.51 TUBAL LIGATION STATUS 04/21/2018 CLAIRE DE LEON APRN Ot Z98.890 OTHER [...] culture - 05/17/17 18:44 Bacterial urine culture [id number] NRG COLONY COUNT >100,000/ML NRG FTX;REPORTABLE SENSITIVITY [...] g/dL 3.2-4.5 CALCIUM CORRECTED 9.1 mg/dL 8.5-10.1 Complete blood count (CBC) with automated white blood cell (WBC) differential - 04/19/18 17:35 Blood leukocytes automated count (number/volume) 6.5 10*3/uL 4.3-11.0 Blood erythrocytes automated count (number/volume) 5.20 10*6/uL 4.35-5.85 Venous blood hemoglobin measurement (mass/volume) 14.3 g/dL 11.5-16.0 Blood hematocrit (volume fraction) 46 % 35-52 Automated erythrocyte mean corpuscular volume 89 [foz_us] 80-99 Automated erythrocyte mean corpuscular hemoglobin (mass per erythrocyte) 28 pg 25-34 Automated erythrocyte mean corpuscular hemoglobin concentration measurement ( mass/volume) 31 g/dL 32-36 Automated erythrocyte distribution width ratio 13.6 % 10.0-14.5 Automated blood platelet count (count/volume) 279 10*3/uL 130-400 Automated blood platelet mean volume measurement 9.2 [foz_us] 7.4-10.4 Automated blood neutrophils/100 leukocytes 69 % 42-75 Automated blood lymphocytes/100 leukocytes 21 % 12-44 Blood monocytes/100 leukocytes 8 % 0-12 Automated blood eosinophils/100 leukocytes 1 % 0-10 Automated blood basophils/100 leukocytes 0 % 0-10 Blood neutrophils automated count (number/volume) 4.5 10*3 1.8-7.8 Blood lymphocytes automated count (number/volume) 1.4 10*3 1.0-4.0 Blood monocytes automated count (number/volume) 0.5 10*3 0.0-1.0 Automated eosinophil count 0.1 10*3/uL 0.0-0.3 Automated blood basophil count (count/volume) 0.0 10*3/uL 0.0-0.1 PT panel in platelet poor plasma by coagulation assay - 04/19/18 17:35 Prothrombin time (PT) in platelet poor plasma by coagulation assay 14.2 s 12.2-14.7 INR in platelet poor plasma or blood by coagulation assay 1.1 0.8-1.4 Activated partial thromboplastin time (aPTT) in platelet poor plasma bycoagulation assay - 04/19/18 17:35 Activated partial thromboplastin time (aPTT) in platelet poor plasma bycoagulation assay 29 s 24-35 Fibrin D-dimer FEU measurement in platelet poor plasma (mass/volume) - 17:35 Fibrin D-dimer FEU measurement in platelet poor plasma (mass/volume) 0.83 ug/mL 0.00-0.49 Comprehensive metabolic panel - 04/19/18 17:35 Serum or plasma sodium measurement (moles/volume) 141 mmol/L 135-145 Serum or plasma potassium measurement (moles/volume) 3.7 mmol/L 3.6-5.0 Serum or plasma chloride measurement [...] NRG Serum or plasma glucose measurement (mass/volume) 209 mg/dL 70-105 Serum or plasma calcium measurement (mass/volume) 8.8 mg/dL 8.5-10.1 Serum or plasma total bilirubin measurement (mass/volume) 0.9 mg/dL 0.1-1.0 Serum or plasma alkaline phosphatase measurement (enzymatic activity/volume) 152 U/L 40-136 Serum or plasma aspartate aminotransferase measurement (enzymatic activity/ volume) 47 U/L 5-34 Serum or plasma alanine aminotransferase measurement (enzymatic activity/volume ) 49 U/L 0-55 Serum or plasma protein measurement (mass/volume) 6.7 g/dL 6.4-8.2 Serum or plasma albumin measurement (mass/volume) 3.6 g/dL 3.2-4.5 CALCIUM CORRECTED 9.1 mg/dL 8.5-10.1 Magnesium - 04/19/18 17:35 Magnesium 1.4 mg/dL 1.8-2.4 Serum or plasma troponin i.cardiac measurement (mass/volume) - 04/19/18 17:35 Serum or plasma troponin i.cardiac measurement (mass/volume) < ng/ mL <0.028 Myoglobin, serum - 04/19/18 17:35 Myoglobin, serum 22.7 ng/mL 10.0-92.0 Serum or plasma lithium measurement (moles/volume) - 04/19/18 17:35 BNP level 54.4 pg/mL <100.0 Serum or plasma troponin i.cardiac measurement (mass/volume) - 04/19/18 20:07 Serum or plasma troponin i.cardiac measurement (mass/volume) < ng/ mL <0.028 Encounters ACCT No. Visit Date/Time Discharge Status Pt. Type Provider Facility Loc./Unit Complaint [id number] 04/09/2018 17:00:00 04/09/2018 23:59:59 CLS Outpatient CONNIE MALAVE [facility] [id number] 02/02/2018 11:00:00 Document Registration [id number] 04/19/2018 17:22:00 04/19/2018 21:08:00 DIS Outpatient CLAIRE DE LEON APRN [facility] ER CP/SOB [id number] 04/13/2018 14:26:00 04/13/2018 23:59:59 CLS Preadmit CONNEI MALAVE MD [facility] SLEEP ESTHELA G47.33 [id number] 03/19/2018 19:58:00 03/20/2018 06:20:00 DIS Outpatient CONNIE MALAVE MD [facility] SLEEP ESTHELA G47.33 [id number] 03/14/2018 08:18:00 03/14/2018 11:10:00 DIS Emergency CELSA ESCOBEDO MD [facility] ER POSS DVT LT LEG, NAUSEA [id number] 03/13/2018 20:02:00 03/13/2018 23:59:59 CLS Preadmit BELÉN SULLIVAN [facility] RAD L CALF PAIN [id number] 03/13/2018 16:59:00 03/13/2018 19:53:00 DIS Emergency BELÉN SULLIVANP [facility] ER POSS DVT LT LEG,NAUSEA [id number] 01/11/2018 20:55:00 01/11/2018 22:51:00 DIS Emergency BELÉN SULLIVANP [facility] ER STOMACH PAIN, PAIN IN LOWER ABD [id number] 01/02/2018 16:48:00 01/02/2018 18:40:00 DIS Emergency CLAIRE DE LEON APRN [facility] ER CP SINCE YESTERDAY/BILAT ARM PAIN/NECK PAIN/NAUSEA [id number] 12/09/2017 21:10:00 12/09/2017 22:55:00 DIS Emergency DEBBIE RAMIREZ [facility] ER BOIL IN PELVIC REGION [id number] 11/11/2017 17:37:00 11/11/2017 23:59:59 CLS Outpatient CHARLEEN HARO APRN [facility] RAD INJURY OF LEFT KNEE, INITIAL ENCOUNTER [id number] 10/16/2017 07:32:00 10/16/2017 23:59:59 CLS Outpatient ANANDA ROCHE, CONNIE Leblanc [facility] CARD ATYPICAL CHEST PAIN [id number] 09/22/2017 19:32:00 09/22/2017 21:22:00 DIS Emergency CLAIRE DE LEON AUTOMATION CLERK [facility] ER CHEST PAIN/NECK AND ARM PAIN [id number] 07/28/2017 22:25:00 07/28/2017 22:53:00 DIS Emergency CLAIRE DE LEON AUTOMATION CLERK [facility] ER L ELBOW PAIN [id number] 06/19/2017 16:00:00 06/19/2017 18:29:00 DIS Emergency CLAIRE DE LEON AUTOMATION CLERK [facility] ER ABD PAINS, PAINS FROM 7YR OLD CSECTION [id number] 05/17/2017 18:04:00 05/17/2017 19:32:00 DIS Outpatient CLAIRE DE LEON AUTOMATION CLERK [facility] ER ABD PAIN [id number] 03/22/2017 22:27:00 03/23/2017 00:15:00 DIS Emergency BREANNE ROCHE, REY Redmond [facility] ER EAR PAIN [id number] 02/12/2017 12:41:00 02/12/2017 14:23:00 DIS Emergency JANINE MEHTA DO [facility] ER FALL,BACK/SHOULDER PAIN
[2018-05-04] MEDS ORDERED: NS IV 500 ML 500 ML IV ONE ×2 (09:20→10:24)
--- NOTE | 2018-05-04 09:26 | ED Respiratory ---
General Chief Complaint: Respiratory Problems Stated Complaint: SPOTS ON ABD Nursing Triage Note: PAINFUL RED ABDOMEN TO BILAT FLANKS. BILAT LOWER EXTREMETIES RED AND PAINFUL. SOA ON TRIAGE 88% O2 SAT ON ROOM AIR. PLACED ON 4L NC. RECENTLY TREATED FOR PNA AND JUST CAME OF BACTRUM. Source: patient Exam Limitations: no limitations History of Present Illness Date Seen by Provider: May 04, 2018 Time Seen by Provider: 09:24 Initial Comments Patient presents to ER by private conveyance after dropping her kids off of school with chief complaint she still having some increasing pain for the redness and swelling she has in her lower abdomen and bilateral legs. His been going on for 2 weeks and she completed a course of Bactrim outpatient I primary care. She then developed some pneumonia and was put on Levaquin which she just completed a couple days ago. The redness has not improved since she's came back for further workup. She is also short of breath especially on exertion. Nursing staff noted her oxygen sats to be around 87% on room air after getting to the room. She is undergoing outpatient workup for sleep studies and does not have a CPAP yet but there getting her set up for one as well as possibly oxygen sleep at night. She's been using Tylenol and Naprosyn for her pain which gives her modest relief. Her allergy to penicillin is it causes a rash and hallucination. She's not having any nausea chest pain but she's feeling less short of breath on 4 L of oxygen. She has no history of heart disease. She has been having scaling and peeling of the skin of her lower extremities. She has not been hospitalized for this. She says she's had 2 separate ultrasounds of her legs looking for blood clots that were negative in the past 2 weeks. She has no history of DVTs, pulmonary embolism. Allergies and Home Medications Allergies Coded Allergies: fentanyl (Verified Allergy, Severe, SOA, 03/13/18) morphine (Verified Allergy, Severe, SOA, 02/12/17) Penicillins (Verified Allergy, Unknown, 02/12/17) codeine (Verified Allergy, Unknown, 02/12/17) hydromorphone (Verified Allergy, Unknown, 02/12/17) latex (Verified Allergy, Unknown, 02/12/17) Home Medications Doxycycline Monohydrate 100 Mg Tablet, 100 MG PO BID Prescribed by: CLAIRE DE LEON on 09/22/172107 Hydrocodone Bit/Acetaminophen 1 Tab Tab, 1 EACH PO Q6H PRN for PAIN-MODERATE Prescribed by: CELSA ESCOBEDO on 03/14/18 1052 Sulfamethoxazole/Trimethoprim 1 Each Tablet, 1 EACH PO BID Prescribed by: BELÉN SULLIVAN on 01/11/18 2240 Sulfamethoxazole/Trimethoprim 1 Each Tablet, 1 EACH PO BID Prescribed by: BELÉN SULLIVAN on 03/13/181943 Tramadol HCl 50 Mg Tablet, 50 MG PO Q8H Prescribed by: BELÉN SULLIVAN on 03/13/181943 Patient Home Medication List Home Medication List Reviewed: Yes Review of Systems Review of Systems Constitutional: No chills, No fever; malaise EENTM: No ear pain, No eye pain Respiratory: cough, phlegm, short of breath; No wheezing Cardiovascular: No chest pain, No Hx of Intervention, No palpitations Gastrointestinal: No abdominal pain, No constipation, No diarrhea, No nausea Genitourinary: No discharge, No dysuria Musculoskeletal: No back pain, No joint pain Skin: see HPI, rash Past [id number]-[id number] Hx Patient Social History Alcohol Use: Denies Use Recreational Drug Use: No Smoking Status: Former Smoker Type Used: Cigarettes Former Smoker, Quit: Mar 24, 2016 2nd Hand Smoke Exposure: No Recent Foreign Travel: No Contact w/Someone Who Travel: No Recent Infectious Disease Expo: No Recent Hopitalizations: No Immunizations Up To Date Tetanus Booster (TDap): Unknown PED Vaccines UTD: Yes Seasonal Allergies Seasonal Allergies: No Past Medical History Surgeries: Yes ( X 2; BTL; BREAST BIOPSY-BENIGN) Breast, Section, Gallbladder, Tubal Ligation Respiratory: Yes Sleep Apnea Currently Using CPAP: No Currently Using BIPAP: No Cardiac: No Neurological: Yes Stroke : No Female Reproductive Disorders: 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 0oz. [id number]; BMI Method:Stated General Appearance: mild distress, obese (morbidly) Eyes: Bilateral Eye Normal Inspection, Bilateral Eye PERRL, Bilateral Eye EOMI HEENT: PERRL/EOMI, normal ENT inspection, pharynx normal Neck: non-tender, normal inspection Respiratory: chest non-tender, lungs clear, normal breath sounds, no respiratory distress, no accessory muscle use Cardiovascular: normal peripheral pulses, regular rate, rhythm; No tachycardia Gastrointestinal: normal bowel sounds, soft, tenderness (erythematous bilateral lower quadrants of the pannus with red, edematous skin) Extremities: normal range of motion, non-tender, swelling (bilateral lower extremities with 2+ pitting edema, erythematous, hot, tender symmetric appearance consistent with cellulitis) Neurologic/Psychiatric: no motor/sensory deficits, alert, normal mood/affect, oriented x 3 Skin: rash (blanchable erythema over bilateral lower extremities and pannus) Focused Exam Lactate Level 05/04/18 09:26: Lactic Acid Level 1.45 Lactic Acid Level Laboratory Tests Test 05/04/18 09:26 Lactic Acid Level 1.45 MMOL/L (0.50-2.00) Progress/Results/Core Measures Suspected Sepsis Recent Fever Within 48 Hours: No Infection Criteria Present: Suspected New Infection New/Unexplained Altered Menta: No Sepsis Screen: No Definite Risk SIRS Temperature:98.3 Pulse: 88 Respiratory Rate: 28 Laboratory Tests 05/04/18 09:26: White Blood Count 8.1 Blood Pressure 174 /89 Mean: 117 05/04/18 09:26: Lactic Acid Level 1.45 Laboratory Tests 05/04/18 09:26: Creatinine 0.66, INR Comment 1.1, Platelet Count 336, Total Bilirubin 0.7 Results/Orders Lab Results Laboratory Tests Test 05/04/18 09:26 05/04/18 10:06 05/04/18 10:17 05/04/18 12:10 Range/Units White Blood Count 8.1 4.3-11.0 10^3/uL Red Blood Count 5.36 4.35-5.85 10^6/uL Hemoglobin 14.7 11.5-16.0 G/DL Hematocrit 47 35-52 % Mean Corpuscular Volume 88 80-99 FL Mean Corpuscular Hemoglobin 27 25-34 PG Mean Corpuscular Hemoglobin Concent 31 L 32-36 G/DL Red Cell Distribution Width 14.6 H 10.0-14.5 % Platelet Count 336 130-400 10^3/uL Mean Platelet Volume 9.1 7.4-10.4 FL Neutrophils (%) (Auto) 73 42-75 % Lymphocytes (%) (Auto) 18 12-44 % Monocytes (%) (Auto) 8 0-12 % Eosinophils (%) (Auto) 2 0-10 % Basophils (%) (Auto) 0 0-10 % Neutrophils # (Auto) 5.9 1.8-7.8 X 10^3 Lymphocytes # (Auto) 1.4 1.0-4.0 X 10^3 Monocytes # (Auto) 0.6 0.0-1.0 X 10^3 Eosinophils # (Auto) 0.1 0.0-0.3 10^3/uL Basophils # (Auto) 0.0 0.0-0.1 10^3/uL Prothrombin Time 14.0 12.2-14.7 SEC INR Comment 1.1 0.8-1.4 Activated Partial Thromboplast Time 30 24-35 SEC Sodium Level 139 135-145 MMOL/L Potassium Level 4.2 3.6-5.0 MMOL/L Chloride Level 97 L 98-107 MMOL/L Carbon Dioxide Level 32 21-32 MMOL/L Anion Gap 10 5-14 MMOL/L Blood Urea Nitrogen 8 7-18 MG/DL Creatinine 0.66 0.60-1.30 MG/DL Estimat Glomerular Filtration Rate > 60 BUN/Creatinine Ratio 12 Glucose Level 302 H 70-105 MG/DL Lactic Acid Level 1.45 0.50-2.00 MMOL/L Calcium Level 9.1 8.5-10.1 MG/DL Corrected Calcium 9.4 8.5-10.1 MG/DL Magnesium Level 1.9 1.8-2.4 MG/DL Total Bilirubin 0.7 0.1-1.0 MG/DL Aspartate Amino Transf (AST/SGOT) 51 H 5-34 U/L Alanine Aminotransferase (ALT/SGPT) 30 0-55 U/L Alkaline Phosphatase 131 40-136 U/L C-Reactive Protein High Sensitivity 2.56 H 0.00-0.50 MG/DL B-Type Natriuretic Peptide 37.8 <100.0 PG/ML Total Protein 6.8 6.4-8.2 GM/DL Albumin 3.6 3.2-4.5 GM/DL Serum Test, Qualitative NEGATIVE NEGATIVE Blood Gas Puncture Site RIGHT RADIAL Blood Gas Patient Temperature 98.3 Arterial Blood pH 7.33 *L 7.37-7.43 Arterial Blood Partial Pressure CO2 66 H 35-45 MMHG Arterial Blood Partial Pressure O2 88 79-93 MMHG Arterial Blood HCO3 34 H 23-27 MMOL/L Arterial Blood Total CO2 35.9 H 21.0-31.0 MMOL/L Arterial Blood Oxygen Saturation 97 94-100 % Arterial Blood Base Excess 8.1 H -2.5-2.5 MMOL/L [place] Test POSITIVE Blood Gas Ventilator Setting YES Blood Gas Inspired Oxygen 5 NC D-Dimer 0.85 H 0.00-0.49 UG/ML Urine Color YELLOW Urine Clarity CLEAR Urine pH 7 5-9 Urine Specific [place] 1.010 L 1.016-1.022 Urine Protein 3+ H NEGATIVE Urine Glucose (UA) 4+ H NEGATIVE Urine Ketones NEGATIVE NEGATIVE Urine Nitrite NEGATIVE NEGATIVE Urine Bilirubin NEGATIVE NEGATIVE Urine Urobilinogen NORMAL NORMAL MG/DL Urine Leukocyte Esterase 2+ H NEGATIVE Urine RBC (Auto) 1+ H NEGATIVE Urine RBC NONE /HPF Urine WBC 2-5 /HPF Urine Squamous Epithelial Cells 2-5 /HPF Urine Crystals NONE /LPF Urine Bacteria FEW H /HPF Urine Casts NONE /LPF Urine Mucus NEGATIVE /LPF Urine Culture Indicated NO Micro Results Microbiology 05/04/18 Influenza Types A,B Antigen (NETO) - Final, Complete My Orders Orders - CARSON PACHECO Arterial Blood Gas (05/04/18 09:20) BNP (05/04/18:20) Cbc With Automated Diff (05/04/18:20) Comprehensive Metabolic Panel (05/04/18:20) Hs C Reactive Protein (05/04/18:20) Hcg,Qualitative Serum (05/04/18:20) Lactic Acid Analyzer (05/04/18:20) Magnesium (05/04/18:20) Protime With Inr (05/04/18:20) Partial Thromboplastin Time (05/04/18 09:20) Ua Culture If Indicated (05/04/18:20) Blood Culture (2/11/19 09:20) Influenza A And B Antigens (05/04/18 09:20) Sputum Culture (05/04/18 09:20) Chest Pa/Lat (2 View) (05/04/18 09:20) Saline Lock/Iv-Start (05/04/18 09:20) Ns Iv 500 Ml (Sodium Chloride 0.9%) (05/04/18 09:20) Cefepime Injection (Maxipime Injection) (05/04/18 09:30) Ketorolac Injection (Toradol Injection) (05/04/18 09:30) Ondansetron Injection (Zofran Injectio (05/04/18 09:45) Ondansetron Injection (Zofran Injectio (05/04/18 09:33) Fibrin Degradation Products (05/04/18 10:17) Ct Angio Chest W (05/04/18 10:21) Saline Lock/Iv-Start (05/04/18 10:24) Ns Iv 500 Ml (Sodium Chloride 0.9%) (05/04/18 10:24) Iohexol Injection (Omnipaque 350 Mg/Ml 1 (05/04/18 10:45) Contrast Received (Contrast Received) (05/04/18 10:45) Sodium Chloride Flush (Catheter Flush Sy (05/04/18 10:45) Ns (Ivpb) (Sodium Chloride 0.9% Ivpb Bag (05/04/18 10:45) Vancomycin Injection (Vancomycin Injecti (05/04/18 12:45) Medications Given in ED Current Medications Medications Dose Ordered Sig/Maurice Route Start Time Stop Time Status Last Admin Dose Admin Cefepime HCl 2000 mg/Sterile Water 20 ml @ 240 mls/hr ONCE ONCE IV 05/04/18 09:30 05/04/18 09:34 DC 05/04/18 09:52 240 MLS/HR Iohexol 140 ml ONCE ONCE IV 05/04/18 10:45 05/04/18 10:46 DC 05/04/18 10:46 140 ML Ketorolac Tromethamine 30 mg ONCE ONCE IVP 05/04/18 09:30 05/04/18 09:31 DC 05/04/18 09:44 30 MG Ondansetron HCl 8 mg ONCE ONCE IVP 05/04/18 09:45 05/04/18 09:46 DC 05/04/18 09:44 8 MG Sodium Chloride 100 ml ONCE ONCE IV 05/04/18 10:45 05/04/18 10:46 DC 05/04/18 10:47 80 ML Sodium Chloride 500 ml @ 0 mls/hr Q0M ONCE IV 05/04/18 09:20 05/04/18 09:25 DC 05/04/18 09:46 999 MLS/HR Sodium Chloride 500 ml @ 0 mls/hr Q0M ONCE IV 05/04/18 10:24 05/04/18 10:25 DC 05/04/18 11:57 999 MLS/HR Vital Signs/I&O 05/04/18 09:05 Temp 98.3 Pulse 88 Resp 28 B/P (MAP) 174/89 (117) Pulse Ox 88 O2 Delivery Room Air Capillary Refill : Less Than 3 Seconds Blood Pressure Mean: 117 Progress Note #1: Time: 09:32 Progress Note IV cefepime. She's not septic yet but we will start with a small 500 cc fluid bolus and get some labs, chest x-ray. She's had 2 negative ultrasounds for DVT and this appears cellulitic so a pulmonary embolism is less likely source of her hypoxia. She did recently have pneumonia. She says that she has a iodine allergy so a V/Q scan would be necessary to rule out pulmonary embolism. Progress Note #2: Time: 10:20 Progress Note Patient has had 2 negative ultrasounds of her legs however her hypoxia is as of yet unexplained. She does not have a elevated white count or evidence of pneumonia. I'm concerned with her cellulitis she could've developed a pulmonary embolism. Rather than repeat an ultrasound like to get a CT angiogram to rule this out this will also loss look for occult pneumonias. The patient has a stated iodine allergy. When I questioned her about this she says because she has an allergy to shellfish and so she was told that translates to 1 iodine allergy. She's never had an IV contrast study done before. Were going to go ahead and let her have a total of a liter of saline and get the CT angiogram. Diagnostic Imaging Diagonstic Imaging: Xray Plain Films/CT/US/NM/MRI: chest (1v) Comments [facility] [place], [place] NAME: MADHAV BOX MED REC#: [id number] PT STATUS: REG ER : 1980 PHYSICIAN: CARSON PACHECO MD ADMIT DATE: 05/04/18/ER Draft Date of Exam:05/04/18 CHEST PA/LAT (2 VIEW) INDICATION: Redness and pain to the abdomen and bilateral lower extremities. Patient also complains of shortness of air. Time of exam 11:06 a.m. COMPARISON: Correlation is made with prior study from 04/19/2018. FINDINGS: Heart size is stable. Right hemidiaphragm is chronically elevated. Lungs appear to be fairly clear. No significant infiltrate is seen. There is no effusion or pneumothorax identified. There may be very minimal infiltrate in the left base. IMPRESSION: Chronically elevated right hemidiaphragm. There may be some very minimal patchy infiltrate in the left base posteriorly. The study is otherwise unremarkable. Dictated on workstation # [id number] Dict: 05/04/18 1121 Trans: 05/04/18 [facility] [id number] Interpreted by: CIERRA METCALF MD Electronically signed by: Reviewed: Reviewed by Ms Diagonstic Imaging: CT (angiogram) Plain Films/CT/US/NM/MRI: chest Comments NAME: PARKER BOXARNALDO Nicolas MED REC#: [id number] PHYSICIAN: CARSON PACHECO MD CC: FELIZ AGUILAR MD; CARSON PACHECO Page 2 of 2 RADIOLOGY REPORT [facility], [place] CC: FELIZ AGUILAR MD; CARSON PACHECO Page 1 of 2 RADIOLOGY REPORT NAME: DARRIUS BOXEY Maria Isabel MED REC#: [id number] PT STATUS: REG ER : 1980 PHYSICIAN: CARSON PACHECO MD ADMIT DATE: 05/04/18/ER Signed Date of Exam: 05/04/18 CT ANGIO CHEST W PROCEDURE: CT angiography of the chest with contrast. TECHNIQUE: Multiple contiguous axial images were obtained through the chest after uneventful bolus administration of intravenous contrast. 2D reconstructed CTA MIP acquisitions were also performed. INDICATION: Dyspnea and chest pain. FINDINGS: There is suboptimal opacification of the pulmonary arteries. No filling defect is identified. There is elevation of the right hemidiaphragm. The pulmonary vascularity is at the upper limits of normal diffusely. There is mild edema and/or pneumonitis in the right middle and lower lobes. There is no consolidation. There are prominent mediastinal lymph nodes with the largest solid-appearing lymph node adjacent to the aortic arch laterally reaching 1.9 x 1.5 cm. There may be fat-containing lymph nodes also seen in the right paratracheal and precarinal regions. There is no significant pleural or pericardial fluid. IMPRESSION: Evaluation for pulmonary embolism is somewhat limited; however, no definite filling defect is seen within the pulmonary arterial system. There does appear to be mild diffuse edema and/or pneumonitis, most pronounced in the lower right lung. There is extensive elevation of the right hemidiaphragm which was noted on the previous chest x-ray exam of 02/12/2017. Dictated by: Dictated on workstation # [id number] Dict: 05/04/18 1105 Trans: 05/04/18 1202 Interpreted by: FELIZ AUGILAR MD Electronically signed by: FELIZ AGUILAR MD 05/04/18 1202 Reviewed: Reviewed by Me Departure Communication (Admissions) Time/Spoke to Admitting Phy: 12:25 Discussed case lab EKG imaging findings and interventions with Dr. Chin and she agrees with cefepime wants to add vancomycin place the patient on step down on Vapotherm and did consultation with Dr. Knott, pulmonology and Dr. Duffy General Surgery. Time/Spoke to Consulting Phy: 12:40 Discussed case lab imaging findings and plan with Drs. Knott and Dr. Duffy general surgery and pulmonology. They agreed to consult on the patient. Impression Primary Impression: Cellulitis Qualified Codes: L03.119 - Cellulitis of unspecified part of limb Additional Impressions: Acute chronic obstructive pulmonary disease with respiratory distress Respiratory failure with hypoxia and hypercapnia Qualified Codes: J96.21 - Acute and chronic respiratory failure with hypoxia; J96.22 - Acute and chronic respiratory failure with hypercapnia Obstructive sleep apnea Obesity hypoventilation syndrome Disposition: ADMITTED INPATIENT Condition: Stable Admissions Decision to Admit Reason: Admit from ER (General) Decision to Admit/Date: May 04, 2018 Time/Decision to Admit Time: 12:22 Departure-Patient Inst. Referrals: CONNIE MALAVE MD (PCP/Family) Primary Care Physician CARSON PACHECO May 04, 2018 09:26
[2018-05-04] MEDS ORDERED: CEFEPIME INJECTION 2,000 MG in WATER (STERILE) FOR INJECTION 20 ML IV ONE (09:30)
[2018-05-04] MEDS ORDERED: KETOROLAC 30 MG/ML VIAL IVP ONE (09:30)
[2018-05-04] MEDS ORDERED: ONDANSETRON 4 MG/2 ML (SDV) Z0FRAN ONE (09:33)
[2018-05-04 09:36] LABS: BASOPHILS % (AUTO) 0 % (0-10); EOSINOPHILS # (AUTO) 0.1 10^3/uL (0.0-0.3); EOSINOPHILS % (AUTO) 2 % (0-10); HEMATOCRIT 47 % (35-52); HEMOGLOBIN 14.7 G/DL (11.5-16.0); LYMPHOCYTES # (AUTO) 1.4 X 10^3 (1.0-4.0); LYMPHOCYTES % (AUTO) 18 % (12-44); MEAN CORPUSCULAR HEMOGLOBIN 27 PG (25-34); MEAN CORPUSCULAR HGB CONC 31 G/DL (32-36); MEAN CORPUSCULAR VOLUME 88 FL (80-99); MEAN PLATELET VOLUME 9.1 FL (7.4-10.4); MONOCYTES # (AUTO) 0.6 X 10^3 (0.0-1.0); MONOCYTES % (AUTO) 8 % (0-12); NEUTROPHILS # (AUTO) 5.9 X 10^3 (1.8-7.8); NEUTROPHILS % (AUTO) 73 % (42-75); PLATELET COUNT 336 10^3/uL (130-400); RED CELL DISTRIBUTION WIDTH 14.6 % (10.0-14.5); WHITE BLOOD COUNT 8.1 10^3/uL (4.3-11.0)
[2018-05-04] MEDS ORDERED: ONDANSETRON 4 MG/2 ML (SDV) Z0FRAN IVP ONE (09:45)
[2018-05-04 09:46] LABS: INR 1.1 (0.8-1.4)
[2018-05-04 09:53] LABS: ALANINE AMINOTRANSFERASE 30 U/L (0-55); ALBUMIN 3.6 GM/DL (3.2-4.5); ALKALINE PHOSPHATASE 131 U/L (40-136); BILIRUBIN,TOTAL 0.7 MG/DL (0.1-1.0); BUN/CREATININE RATIO 12; CALCIUM 9.1 MG/DL (8.5-10.1); CARBON DIOXIDE 32 MMOL/L (21-32); CHLORIDE 97 MMOL/L (98-107); CREATININE SERUM 0.66 MG/DL (0.60-1.30); GFR ESTIMATED > 60; GLUCOSE 302 MG/DL (70-105); MAGNESIUM 1.9 MG/DL (1.8-2.4); POTASSIUM 4.2 MMOL/L (3.6-5.0); SODIUM 139 MMOL/L (135-145); TOTAL PROTEIN 6.8 GM/DL (6.4-8.2)
[2018-05-04 10:13] LABS: ABG BASE EXCESS 8.1 MMOL/L (-2.5-2.5); ABG OXYGEN SATURATION 97 % (94-100); ABG PCO2 66 MMHG (35-45); ABG PO2 88 MMHG (79-93); ABG TCO2 35.9 MMOL/L (21.0-31.0)
[2018-05-04 10:14] LABS: ABG PH 7.33 (7.37-7.43); ALLENS TEST POSITIVE; INSPIRED O2 5 NC; PATIENT TEMP 98.3; VENTILATOR YES
[2018-05-04] MEDS ORDERED: IOHEXOL 350 MG/ML 150 ML (OMNIPAQUE 350) VIAL IV ONE (10:45)
[2018-05-04] MEDS ORDERED: CATHETER FLUSH 10 ML SYR IV PRN (10:45)
[2018-05-04] MEDS ORDERED: NS 100 ML (IVPB) BAG IV ONE (10:45)
[2018-05-04] MEDS ORDERED: RECEIVED CONTRAST (Hold Metformin) IV SCH (10:45)
--- NOTE | 2018-05-04 11:17 | Diagnostic Imaging Report ---
PROCEDURE: CT angiography of the chest with contrast. TECHNIQUE: Multiple contiguous axial images were obtained through the chest after uneventful bolus administration of intravenous contrast. 2D reconstructed CTA MIP acquisitions were also performed. INDICATION: Dyspnea and chest pain. FINDINGS: There is suboptimal opacification of the pulmonary arteries. No filling defect is identified. There is elevation of the right hemidiaphragm. The pulmonary vascularity is at the upper limits of normal diffusely. There is mild edema and/or pneumonitis in the right middle and lower lobes. There is no consolidation. There are prominent mediastinal lymph nodes with the largest solid-appearing lymph node adjacent to the aortic arch laterally reaching 1.9 x 1.5 cm. There may be fat-containing lymph nodes also seen in the right paratracheal and precarinal regions. There is no significant pleural or pericardial fluid. IMPRESSION: Evaluation for pulmonary embolism is somewhat limited; however, no definite filling defect is seen within the pulmonary arterial system. There does appear to be mild diffuse edema and/or pneumonitis, most pronounced in the lower right lung. There is extensive elevation of the right hemidiaphragm which was noted on the previous chest x-ray exam of 02/12/2017. Dictated by: Dictated on workstation # [id number]
--- NOTE | 2018-05-04 11:26 | Diagnostic Imaging Report ---
INDICATION: Redness and pain to the abdomen and bilateral lower extremities. Patient also complains of shortness of air. Time of exam 11:06 a.m. COMPARISON: Correlation is made with prior study from 04/19/2018. FINDINGS: Heart size is stable. Right hemidiaphragm is chronically elevated. Lungs appear to be fairly clear. No significant infiltrate is seen. There is no effusion or pneumothorax identified. There may be very minimal infiltrate in the left base. IMPRESSION: Chronically elevated right hemidiaphragm. There may be some very minimal patchy infiltrate in the left base posteriorly. The study is otherwise unremarkable. Dictated by: Dictated on workstation # [id number]
[2018-05-04 12:21] LABS: BILIRUBIN,URINE NEGATIVE (NEGATIVE); CLARITY,URINE CLEAR; COLOR,URINE YELLOW; GLUCOSE, URINE (UA) 4+ (NEGATIVE); KETONES,URINE NEGATIVE (NEGATIVE); LEUKOCYTE ESTERASE ,URINE 2+ (NEGATIVE); NITRITE,URINE NEGATIVE (NEGATIVE); PH,URINE 7 (5-9); PROTEIN,URINE 3+ (NEGATIVE); UROBILINOGEN,URINE NORMAL (NORMAL)
[2018-05-04 12:35] LABS: BACTERIA,URINE FEW /HPF
[2018-05-04] MEDS ORDERED: VANCOMYCIN INJECTION 1,500 MG in NS IV 500 ML 500 ML IV SCH (12:45)
--- OUTSIDE RECORDS SUMMARY | 2018-05-04 12:54 | XMS REPORT | Continuity of Care Document ---
Author Author [facility] Address Unknown Phone Unavailable Allergies Active Description Code Type Severity Reaction Onset Reported/Identified Relationship to Patient Clinical Status Yes morphine [id number] Drug Allergy Severe SOA 02/12/2017 Yes codeine [id number] Drug Allergy Unknown N/A 02/12/2017 Yes hydromorphone [id number] Drug Allergy Unknown N/A 02/12/2017 Yes iodine [id number] Drug Allergy Unknown N/A 02/12/2017 Yes latex [id number] Drug Allergy Unknown N/A 02/12/2017 Yes Penicillins [id number] Drug Allergy Unknown N/A 02/12/2017 Yes tramadol [id number] Drug Allergy Unknown N/A 02/12/2017 Yes fentanyl [id number] Drug Allergy Severe SOA 03/13/2018 Medications There [...] UNSPECIFIED 03/23/2017 REY RAYMUNDO MD Ot Z79.84 HALF-WAY (CURRENT) USE OF ORAL HYPOGLYC 03/23/2017 REY [...] UNSPECIFIED 05/02/2017 REY RAYMUNDO MD Ot Z79.84 HALF-WAY (CURRENT) USE OF ORAL HYPOGLYC 05/02/2017 REY [...] Ot R19.7 DIARRHEA, UNSPECIFIED 05/19/2017 CLAIRE DE ELON APRN Ot Z32.00 ENCOUNTER FOR TEST, RESULT [...] APRN Ot R07.9 CHEST PAIN, UNSPECIFIED 09/22/2017 CLAIER ED LEON APRN Ot Z68.43 BODY MASS INDEX [...] R07.89 OTHER CHEST PAIN 11/12/2017 CHARLEEN HARO ART THERAPIST Ot S89.92XA UNSPECIFIED INJURY OF LEFT LOWER LEG, IN 11/27/2017 CHARLEEN HARO ART THERAPIST Ot S89.92XA UNSPECIFIED INJURY OF LEFT LOWER [...] (SEVERE) OBESITY DUE TO EXCESS CA 12/11/2017 JAMSE DEBBIE Ot F32.9 MAJOR DEPRESSIVE DISORDER, SINGLE [...] 2 DIABETES MELLITUS WITHOUT COMPLIC 01/02/2018 CLAIRE DEL EON APRN Ot E66.01 MORBID (SEVERE) OBESITY DUE [...] OTHER SPECIFIED POSTPROCEDURAL STATES 01/11/2018 BELÉN SULLIVAN OPERA SINGER Ot E11.9 TYPE 2 DIABETES MELLITUS WITHOUT COMPLIC 01/11/2018 NATE BELÉN OPERA SINGER Ot F17.210 NICOTINE DEPENDENCE, CIGARETTES, UNCOMPL 01/11/2018 NATE BELÉN OPERA SINGER Ot F32.9 MAJOR DEPRESSIVE DISORDER, SINGLE EPISOD 01/11/2018 NATE BELÉN OPERA SINGER Ot F41.9 ANXIETY DISORDER, UNSPECIFIED 01/11/2018 NATE BELÉN OPERA SINGER Ot G47.30 SLEEP APNEA, UNSPECIFIED 01/11/2018 NATE BELÉN OPERA SINGER Ot N39.0 URINARY TRACT INFECTION, SITE NOT SPECIF 01/11/2018 NATE BELÉN OPERA SINGER Ot R10.2 PELVIC AND PERINEAL PAIN 01/11/2018 NATE BELÉN OPERA SINGER Ot Z86.73 PRSNL HX OF TIA (TIA), AND CEREB INFRC W 01/11/2018 BELÉN SULLIVAN OPERA SINGER Ot Z88.0 ALLERGY STATUS TO PENICILLIN 01/11/2018 NATE, BELÉN OPERA SINGER Ot Z88.5 ALLERGY STATUS TO NARCOTIC AGENT STATUS 01/11/2018 NATE, BELÉN OPERA SINGER Ot Z88.6 ALLERGY STATUS TO ANALGESIC AGENT STATUS 01/11/2018 NATE, BELÉN OPERA SINGER Ot Z88.8 ALLERGY STATUS TO OTH DRUG/MEDS/BIOL SUB 01/11/2018 NATE, BELÉN OPERA SINGER Ot Z91.040 LATEX ALLERGY STATUS 01/11/2018 NATE, BELÉN OPERA SINGER Ot Z98.51 TUBAL LIGATION STATUS 01/11/2018 NATE, BELÉN OPERA SINGER Ot Z98.890 OTHER SPECIFIED POSTPROCEDURAL STATES 01/14/2018 NATE, BELÉN OPERA SINGER Ot E11.9 TYPE 2 DIABETES MELLITUS WITHOUT COMPLIC 01/14/2018 NATE, BELÉN OPERA SINGER Ot F17.210 NICOTINE DEPENDENCE, CIGARETTES, UNCOMPL 01/14/2018 NATE, BELÉN OPERA SINGER Ot F32.9 MAJOR DEPRESSIVE DISORDER, SINGLE EPISOD 01/14/2018 NATE, BELÉN OPERA SINGER Ot F41.9 ANXIETY DISORDER, UNSPECIFIED 01/14/2018 NATE, BELÉN OPERA SINGER Ot G47.30 SLEEP APNEA, UNSPECIFIED 01/14/2018 NATE, BELÉN OPERA SINGER Ot N39.0 URINARY TRACT INFECTION, SITE NOT SPECIF 01/14/2018 NATE, BELÉN OPERA SINGER Ot R10.2 PELVIC AND PERINEAL PAIN 01/14/2018 NATE BELÉN OPERA SINGER Ot Z86.73 PRSNL HX OF TIA (TIA), AND CEREB INFRC W 01/14/2018 ANTE, BELÉN OPERA SINGER Ot Z88.0 ALLERGY STATUS TO PENICILLIN 01/14/2018 NATE, BELÉN OPERA SINGER Ot Z88.5 ALLERGY STATUS TO NARCOTIC AGENT STATUS 01/14/2018 NATE, BELÉN OPERA SINGER Ot Z88.6 ALLERGY STATUS TO ANALGESIC AGENT STATUS 01/14/2018 NATE, BELÉN OPERA SINGER Ot Z88.8 ALLERGY STATUS TO OTH DRUG/MEDS/BIOL SUB 01/14/2018 NATE, BELÉN OPERA SINGER Ot Z91.040 LATEX ALLERGY STATUS 01/14/2018 NATE, BELÉN OPERA SINGER Ot Z98.51 TUBAL LIGATION STATUS 01/14/2018 NATE, BEÉLN OPERA SINGER Ot Z98.890 OTHER SPECIFIED POSTPROCEDURAL STATES 03/13/2018 NATE, BELÉN OPERA SINGER Ot E11.9 TYPE 2 DIABETES MELLITUS WITHOUT COMPLIC 03/13/2018 NATE, BELÉN OPERA SINGER Ot F32.9 MAJOR DEPRESSIVE DISORDER, SINGLE EPISOD 03/13/2018 NATE, BELÉN OPERA SINGER Ot F41.9 ANXIETY DISORDER, UNSPECIFIED 03/13/2018 BELÉN SULLIVAN OPERA SINGER Ot L03.116 CELLULITIS OF LEFT LOWER LIMB 03/13/2018 BELÉN SULLIVAN OPERA SINGER Ot M79.605 PAIN IN LEFT LEG 03/13/2018 NATE BELÉN OPERA SINGER Ot Z86.73 PRSNL HX OF TIA (TIA), AND CEREB INFRC W 03/13/2018 BELÉN SULLIVAN OPERA SINGER Ot Z87.891 PERSONAL HISTORY OF NICOTINE DEPENDENCE 03/13/2018 NATE BELÉN OPERA SINGER Ot Z88.0 ALLERGY STATUS TO PENICILLIN 03/13/2018 NATE BELÉN OPERA SINGER Ot Z88.5 ALLERGY STATUS TO NARCOTIC AGENT STATUS 03/13/2018 NATE, BELÉN OPERA SINGER Ot Z91.040 LATEX ALLERGY STATUS 03/13/2018 NATE BELÉN OPERA SINGER Ot Z91.041 RADIOGRAPHIC DYE ALLERGY STATUS 03/13/2018 NATE BELÉN OPERA SINGER Ot Z98.51 TUBAL LIGATION STATUS 03/14/2018 CELSA [...] Z87.891 PERSONAL HISTORY OF NICOTINE DEPENDENCE 03/14/2018 CELAS ESCOBEDO MD Ot Z88.0 ALLERGY STATUS TO [...] OTHER SPECIFIED POSTPROCEDURAL STATES 03/18/2018 NATE, BELÉN OPERA SINGER Ot E11.9 TYPE 2 DIABETES MELLITUS WITHOUT COMPLIC 03/18/2018 NATE, BELÉN OPERA SINGER Ot F32.9 MAJOR DEPRESSIVE DISORDER, SINGLE EPISOD 03/18/2018 NATE, BELÉN OPERA SINGER Ot F41.9 ANXIETY DISORDER, UNSPECIFIED 03/18/2018 NATE, BELÉN OPERA SINGER Ot L03.116 CELLULITIS OF LEFT LOWER LIMB 03/18/2018 NATE, BELÉN OPERA SINGER Ot M79.605 PAIN IN LEFT LEG 03/18/2018 NATE, BELÉN OPERA SINGER Ot Z86.73 PRSNL HX OF TIA (TIA), AND CEREB INFRC W 03/18/2018 NATE, BELÉN OPERA SINGER Ot Z87.891 PERSONAL HISTORY OF NICOTINE DEPENDENCE 03/18/2018 NATE, BELÉN OPERA SINGER Ot Z88.0 ALLERGY STATUS TO PENICILLIN 03/18/2018 NATE, BELÉN OPERA SINGER Ot Z88.5 ALLERGY STATUS TO NARCOTIC AGENT STATUS 03/18/2018 NATE, BELÉN OPERA SINGER Ot Z91.040 LATEX ALLERGY STATUS 03/18/2018 NATE, BELÉN OPERA SINGER Ot Z91.041 RADIOGRAPHIC DYE ALLERGY STATUS 03/18/2018 NATE, BELÉN OPERA SINGER Ot Z98.51 TUBAL LIGATION STATUS 03/18/2018 NATE, BELÉN OPERA SINGER Ot E11.9 TYPE 2 DIABETES MELLITUS WITHOUT COMPLIC 03/18/2018 NATE, BELÉN OPERA SINGER Ot F32.9 MAJOR DEPRESSIVE DISORDER, SINGLE EPISOD 03/18/2018 NATE, BELÉN OPERA SINGER Ot F41.9 ANXIETY DISORDER, UNSPECIFIED 03/18/2018 NATE, BELÉN OPERA SINGER Ot L03.116 CELLULITIS OF LEFT LOWER LIMB 03/18/2018 NATE, BELÉN OPERA SINGER Ot M79.605 PAIN IN LEFT LEG 03/18/2018 NATE, BELÉN OPERA SINGER Ot Z86.73 PRSNL HX OF TIA (TIA), AND CEREB INFRC W 03/18/2018 NATEBELÉNP Ot Z87.891 PERSONAL HISTORY OF NICOTINE DEPENDENCE 03/18/2018 BELÉN SULLIVANP Ot Z88.0 ALLERGY STATUS TO PENICILLIN 03/18/2018 BELÉN SULLIVANP Ot Z88.5 ALLERGY STATUS TO NARCOTIC AGENT STATUS 03/18/2018 NATEBELÉN Mclaughlin OPERA SINGER Ot Z91.040 LATEX ALLERGY STATUS 03/18/2018 NATE, [...] MD Ot Z91.040 LATEX ALLERGY STATUS 03/30/2018 KOOTENAI MD, CELSA D Ot Z91.041 RADIOGRAPHIC DYE ALLERGY STATUS 03/30/2018 CELSA ESCOBEDO MD Ot Z98.51 TUBAL LIGATION STATUS 03/30/2018 CELSA ESCOBEDO MD Ot Z98.890 OTHER SPECIFIED POSTPROCEDURAL STATES 04/19/2018 ANANDA ROCHE, CONNIE Leblanc Ot R07.89 OTHER CHEST PAIN 04/19/2018 TAHIR CHARLEEN Paulina ART THERAPIST Ot S89.92XA UNSPECIFIED INJURY OF LEFT LOWER [...] culture - 05/17/17 18:44 Bacterial urine culture [id number] NRG COLONY COUNT >100,000/ML NRG FTX;REPORTABLE SENSITIVITY [...] Status Pt. Type Provider Facility Loc./Unit Complaint [id number] 04/09/2018 17:00:00 04/09/2018 23:59:59 CLS Outpatient CONNIE MALAVE [facility] [id number] 02/02/2018 11:00:00 Document Registration [id number] 04/19/2018 17:22:00 04/19/2018 21:08:00 DIS Outpatient CLAIRE DE LEON APRN [facility] ER CP/SOB [id number] 04/13/2018 14:26:00 04/13/2018 23:59:59 CLS Preadmit CONNIE MALAVE MD [facility] SLEEP ESTHELA G47.33 [id number] 03/19/2018 19:58:00 03/20/2018 06:20:00 DIS Outpatient CONNIE MALAVE MD [facility] SLEEP ESTHELA G47.33 [id number] 03/14/2018 08:18:00 03/14/2018 11:10:00 DIS Emergency CELSA ESCOBEDO MD [facility] ER POSS DVT LT LEG, NAUSEA [id number] 03/13/2018 20:02:00 03/13/2018 23:59:59 CLS Preadmit BELÉN SULLIVAN [facility] RAD L CALF PAIN [id number] 03/13/2018 16:59:00 03/13/2018 19:53:00 DIS Emergency BELÉN SULLIVANP [facility] ER POSS DVT LT LEG,NAUSEA [id number] 01/11/2018 20:55:00 01/11/2018 22:51:00 DIS Emergency BELÉN SULLIVANP [facility] ER STOMACH PAIN, PAIN IN LOWER ABD [id number] 01/02/2018 16:48:00 01/02/2018 18:40:00 DIS Emergency CLAIRE DE LEON APRN [facility] ER CP SINCE YESTERDAY/BILAT ARM PAIN/NECK PAIN/NAUSEA [id number] 12/09/2017 21:10:00 12/09/2017 22:55:00 DIS Emergency DEBBIE RAMIREZ [facility] ER BOIL IN PELVIC REGION [id number] 11/11/2017 17:37:00 11/11/2017 23:59:59 CLS Outpatient CHARLEEN HARO APRN [facility] RAD INJURY OF LEFT KNEE, INITIAL ENCOUNTER [id number] 10/16/2017 07:32:00 10/16/2017 23:59:59 CLS Outpatient ANANDA ROCHE, CONNIE Leblanc [facility] CARD ATYPICAL CHEST PAIN [id number] 09/22/2017 19:32:00 09/22/2017 21:22:00 DIS Emergency CLAIRE DE LEON ART THERAPIST [facility] ER CHEST PAIN/NECK AND ARM PAIN [id number] 07/28/2017 22:25:00 07/28/2017 22:53:00 DIS Emergency CLAIRE DE LEON ART THERAPIST [facility] ER L ELBOW PAIN [id number] 06/19/2017 16:00:00 06/19/2017 18:29:00 DIS Emergency CLAIRE DE LEON ART THERAPIST [facility] ER ABD PAINS, PAINS FROM 7YR OLD CSECTION [id number] 05/17/2017 18:04:00 05/17/2017 19:32:00 DIS Outpatient CLAIRE DE LEON ART THERAPIST [facility] ER ABD PAIN [id number] 03/22/2017 22:27:00 03/23/2017 00:15:00 DIS Emergency BREANNE ROCHE, REY Redmond [facility] ER EAR PAIN [id number] 02/12/2017 12:41:00 02/12/2017 14:23:00 DIS Emergency JANINE MEHTA DO [facility] ER FALL,BACK/SHOULDER PAIN
--- NOTE | 2018-05-04 13:19 | History & Physical-Hospitalist ---
NAOMI GUZMAN DO 05/04/18 1319: History of Present Illness HPI/Chief Complaint CC: Progressive cellulitis HPI: This is a young woman who is morbidly obese who presented to the ER with worsening redness and fever that started in her feet and legs have had progression even after completing Bactrim antibiotic for the cellulitis. She has found to have CO2 retention and severe cellulitis that it was progressive to her back. She reports some mild pain that is accompanying the infection but overall denies any other shortness of breath or chest pain. Source: patient, RN/MD Exam Limitations: clinical condition Date Seen 05/04/18 Time Seen by a Provider: 13:00 Attending Physician Naomi Guzman DO PCP Kerry Boland MD Referring Physician Date of Admission May 04, 2018 at 12:35 Home Medications & Allergies Home Medications Reviewed patient Home Medication Reconciliation performed by pharmacy medication reconciliations crystal growing technician and/or nursing. Patients Allergies have been reviewed. Allergies Allergies Coded Allergies fentanyl (Verified Allergy, Severe, SOA, 03/13/18) morphine (Verified Allergy, Severe, SOA, 02/12/17) Penicillins (Verified Allergy, Unknown, 02/12/17) codeine (Verified Allergy, Unknown, 02/12/17) hydromorphone (Verified Allergy, Unknown, 02/12/17) latex (Verified Allergy, Unknown, 02/12/17) shellfish derived (Verified Allergy, Unknown, 05/04/18) Past Htblric-Oyqjsd-Raxfsn Hx Past Med/Social Hx: Reviewed Nursing Past Med/Soc Hx, Reviewed and Corrections made Patient Social History Marrital Status: Employed/Student: unemployed Alcohol Use: Denies Use Recreational Drug Use: No Smoking Status: Former Smoker Former Smoker, Quit: Mar 24, 2016 Type Used: Cigarettes 2nd Hand Smoke Exposure: No Recent Foreign Travel: No Contact w/other who traveled: No Recent Hopitalizations: No Recent Infectious Disease Expo: No Immunizations Up To Date Tetanus Booster (TDap): Unknown Pediatric: Yes Seasonal Allergies Seasonal Allergies: No Past Medical History Surgeries: Breast, Section, Gallbladder, Tubal Ligation Respiratory: Asthma, Sleep Apnea Currently Using CPAP: No Currently Using BIPAP: No Neurological: Stroke : No Female Reproductive Disorders: Denies Tubal Ligation Musculoskeletal: Chronic Back Pain Endocrine: Diabetes, Non-Insulin dep Psychosocial: Anxiety, Depression History of Blood Disorders: No Family History Hypertension 19 FATHER Review of Systems Constitutional: see HPI, chills, fever EENTM: no symptoms reported Respiratory: cough, dyspnea on exertion, short of breath, wheezing Cardiovascular: no symptoms reported Gastrointestinal: no symptoms reported Genitourinary: no symptoms reported Musculoskeletal: no symptoms reported Skin: see HPI, change in color Psychiatric/Neurological: No Symptoms Reported All Other Systems Reviewed Negative Unless Noted: Yes Physical Exam Physical Exam Vital Signs Vital Signs - First Documented 05/04/18 05/04/18 05/04/18 09:05 13:46 14:37 Temp 98.3 Pulse 88 Resp 28 B/P (MAP) 174/89 (117) Pulse Ox 88 O2 Delivery Room Air O2 Flow Rate 30.00 FiO2 80 Capillary Refill : Less Than 3 Seconds Height, Weight, BMI Height: 6'1.00" Weight: 402lbs. 0oz. 182.139328jc; BMI Method:Stated General Appearance: WD/WN, Chronically ill, Mild Distress, Obese Eyes: Bilateral Eye Normal Inspection, Bilateral Eye PERRL, Bilateral Eye EOMI HEENT: PERRL/EOMI, Normal ENT Inspection, Pharynx Normal Neck: Full Range of Motion, Normal Inspection, Non Tender, Supple, Carotid Bruit Respiratory: Chest Non Tender, No Accessory Muscle Use, No Respiratory Distress , Crackles, Decreased Breath Sounds, Expiration, Wheezing Cardiovascular: Regular Rate, Rhythm, No Edema, No Gallop, No JVD, No Murmur, Normal Peripheral Pulses Gastrointestinal: Normal Bowel Sounds, No Organomegaly, No Pulsatile Mass, Non Tender, Soft Back: Normal Inspection, No CVA Tenderness, No Vertebral Tenderness Extremity: Normal Capillary Refill, Normal Inspection, Normal Range of Motion, Non Tender, No Calf Tenderness, No Pedal Edema Neurologic/Psychiatric: Alert, Oriented x3, No Motor/Sensory Deficits, Normal Mood/Affect Skin: Other (erythema of legs and torso under pannus) Lymphatic: No Adenopathy Results Results/Procedures Labs Laboratory Tests 05/04/18 09:26 Patient resulted labs reviewed. Assessment/Plan Admission Diagnosis Progressive cellulitis failed outpt po abx Morbid obesity CO2 narcosis DM Plan: Vanc and Cefepime Surgery consultation Pulmonary consultation Admission Status: Inpatient Order (span 2 midnights) Reason for Inpatient Admission: Severe and progressive cellulitis with CO2 narcosis in need of 4 days of hospital stay Diagnosis/Problems Diagnosis/Problems (1) Cellulitis Status: Acute Qualifiers: Site of cellulitis: extremity Site of cellulitis of extremity: lower extremity Laterality: unspecified laterality Qualified Codes: L03.119 - Cellulitis of unspecified part of limb (2) Obstructive sleep apnea Status: Acute (3) Respiratory failure with hypoxia and hypercapnia Status: Acute Qualifiers: Chronicity: acute on chronic Qualified Codes: J96.21 - Acute and chronic respiratory failure with hypoxia; J96.22 - Acute and chronic respiratory failure with hypercapnia (4) Obesity hypoventilation syndrome Status: Chronic YANE SAEZ MEDICAL STUDENT 05/04/181914: History of Present Illness HPI/Chief Complaint CC: Bilateral leg swelling, erythema, tenderness, and same on abdomen HPI: This is a 37 yo white female who presented to the ER from home for worsening redness, swelling, and pain of bilateral legs as well as more recent onset of redness, swelling, and pain of her abdominal skin. She first presented to the ER on 03/13/18 for swelling and redness of the LLE after being seen at [facility] and told to come to the ER for an US to r/o DVT. She returned to the ER on 03/14/18 because the redness had spread to her R leg and she had yet to pharmacy picking technician her prescribed Bactrim DS. Lower extremity US of both legs was negative for DVT at the second visit. The pt reports she finished the Bactrim prescribed at that time, but the lower extremity swelling/redness never fully resolved. She returned to the ER on 04/09/18 for retrosternal CP and had a negative EKG/trop/CXR. She was treated within the last week for CAP w/ Levaquin as an outpatient through [facility]. The pt states the redness, swelling, and pain of the LE started worsening acutely yesterday and had spread to her abdomen. Based on the [facility] notes, she has been treated for a yeast infection of the skin folds below her pannus, most recently in February 2018. She became dyspneic on exertion and started experiencing cough today. She denies cardiovascular problems or hx of DVT/PE. She states she is in the process of getting CPAP for ESTHELA. She has been using tylenol and and naproxen for the pain with modest relief. Since the patient's oxygenation in the ED failed to improve on 4L and she was still SOB, a lung CTA was performed and was negative for PE. Mild pneumonitis was observed in the R lobe. Due to her respiratory distress, she was admitted to the floor. Source: patient, RN/MD Exam Limitations: clinical condition Home Medications & Allergies Home Medications Active Scripts Medications Dose Route/Sig Max Daily Dose Days Date Category Dose Instructions Aleve (Naproxen Sodium) 220 Mg Tablet 220 Mg PO Q6H PRN 05/04/18 Reported Aspirin EC (Aspirin) 81 Mg Tablet.dr 81 Mg PO DAILY 05/04/18 Reported Loratadine 10 Mg Tablet 10 Mg PO DAILY 01/11/18 Reported LAST FILLED #30 02-19-18 Proair Hfa (Albuterol Sulfate) 1 Puff Puff 2 Puff INH Q6H PRN 01/11/18 Reported Ranitidine HCl 150 Mg Tablet 150 Mg PO DAILY 06/19/17 Reported Janumet 50-500 mg Tablet (Sitagliptin Phos/Metformin HCl) 1 Tab Tablet 1 Tab PO BID 06/19/17 Reported LAST FILLED #60 02-19-18 Past Nffcukm-Dqvzzy-Iqfour Hx Past Med/Social Hx: Reviewed Nursing Past Med/Soc Hx Patient Social History Marrital Status: Alcohol Use: Denies Use Recreational Drug Use: No Smoking Status: Former Smoker Type Used: Cigarettes Recent Hopitalizations: No Past Medical History Surgeries: Breast, Section, Gallbladder, Tubal Ligation Currently Using CPAP: No Currently Using BIPAP: No : No Musculoskeletal: Chronic Back Pain Endocrine: Diabetes, Non-Insulin dep Psychosocial: Anxiety, Depression Family History Hypertension 19 FATHER Review of Systems Constitutional: No chills, No fever EENTM: no symptoms reported Respiratory: cough, dyspnea on exertion; No phlegm, No wheezing Cardiovascular: No chest pain Gastrointestinal: abdominal pain; No nausea, No vomiting Genitourinary: No dysuria : No Musculoskeletal: no symptoms reported Skin: other (redness, swelling of BLE and stomach) Psychiatric/Neurological: No Symptoms Reported Physical Exam Physical Exam General Appearance: WD/WN, Mild Distress, Obese HEENT: Normal ENT Inspection Neck: Normal Inspection, Non Tender Respiratory: Chest Non Tender, No Accessory Muscle Use, No Respiratory Distress , Expiration, Wheezing Cardiovascular: Regular Rate, Rhythm, No Gallop, No JVD, No Murmur, Normal Peripheral Pulses, Tachycardia Gastrointestinal: Normal Bowel Sounds, Non Tender, Soft, Other (erythema, edema , hot, tender to palpation in bilateral lower quadrants) Extremity: Normal Capillary Refill, Other (2+ edema, hot, erythematous circumferentially around legs extending to just below tibial tuberosity) Neurologic/Psychiatric: Alert, Oriented x3, No Motor/Sensory Deficits, Normal Mood/Affect Skin: Damp, Diaphoresis Lymphatic: No Adenopathy Results Results/Procedures Imaging: Reviewed Imaging Films, Reviewed Imaging Report Assessment/Plan Admission Diagnosis acute hypoxic hypercapnic respiratory failure PNA cellulitis of lower extremities and abdomen Admission Status: Inpatient Order (span 2 midnights) Reason for Inpatient Admission: Pt requiring oxygen support and IV abx Assessment and Plan Assessment: Acute hypoxic, hypercapnic respiratory failure obesity hypoventilation syndrome Pneumonitis Cellulitis of BLE and abdomen NIDDM ESTHELA Morbid obesity Fatty liver Plan: Vapotherm oxygen support IV steroids IV cefepime and vancomycin to cover for pseudomonas and MRSA Duonebs IVF Pain control Sugar control Diagnosis/Problems Diagnosis/Problems (1) Cellulitis Status: Acute Qualifiers: Site of cellulitis: extremity Site of cellulitis of extremity: lower extremity Laterality: unspecified laterality Qualified Codes: L03.119 - Cellulitis of unspecified part of limb (2) Obstructive sleep apnea Status: Acute (3) Respiratory failure with hypoxia and hypercapnia Status: Acute Qualifiers: Chronicity: acute on chronic Qualified Codes: J96.21 - Acute and chronic respiratory failure with hypoxia; J96.22 - Acute and chronic respiratory failure with hypercapnia (4) Obesity hypoventilation syndrome Status: Chronic Clinical Quality Measures DVT/VTE Risk/Contraindication: RFS Level Per Nursing on Admit: 1=Low/No VTE PPX NAOMI GUZMAN DO May 04, 2018 13:19 YANE SAEZ MEDICAL STUDENT May 04, 2018 19:15
--- NOTE | 2018-05-04 14:02 | NUR ---
MADHAV BOX admitted to room 425-1, with an admitting diagnosis of ACUTE ON CHRONIC RESPIRATORY FAILURE WITH CELLULITIS, on 05/04/18 from ED via BED/CART, accompanied by ED STAFF. MADHAV BOX introduced to surroundings, call light, bed controls, phone, TV, temperature control, lights, meal times, smoking policy, visitor policy, side rail policy, bathrooms and showers. Patient Rights given to patient in the handbook. MADHAV BOX verbalizes understanding that [facility] is not responsible for the loss or damage to any personal effects or valuables that are kept in the patients possession during their hospitalization.
[2018-05-04] MEDS ORDERED: VANCOMYCIN 1 GM/NS 250 ML IVPB IV NR ×2 (14:40)
--- NOTE | 2018-05-04 14:47 | NUR ---
VANCOMYCIN PHARMACY TO DOSE: BASED ON ADJ BW 118 KG & SCr 0.66 EST CrCl > 200 PATIENT RECEIVED 1,500 MG IN ED, ORDERED ADDITIONAL 1000 MG TO BE GIVEN NOW. MAIN DOSE: 2,500 MG IV Q8HR. VANCOMYCIN TROUGH ORDERED FOR 05/04/18 @ 13:00 IF TROUGH IS GREATER THAN 20 HOLD 05/04/18 14:00 DOSE
[2018-05-04] MEDS ORDERED: ONDANSETRON 4 MG/2 ML (SDV) Z0FRAN IV PRN (15:00)
[2018-05-04] MEDS ORDERED: KETOROLAC 15 MG/ML VIAL IV PRN (15:00)
[2018-05-04] MEDS ORDERED: diphenhydrAMINE 25 MG TAB (BENADRYL) PO PRN (15:00)
[2018-05-04] MEDS ORDERED: ASPI-983 PO (15:03)
[2018-05-04] MEDS ORDERED: NAPR220T66 PO (15:03)
--- NOTE | 2018-05-04 15:10 | NUR ---
SPOKE WITH THE PATIENT, SHE LISTED HER MEDICATIONS TO ME. I CALLED [facility] TO VERIFY WHAT HAS BEEN FILLED RECENTLY. [facility] FILLED: 04-09-18 PROAIR 2 PUFFS Q6H PRN 02-19-18 RANITIDINE 150MG DAILY #90 02-19-18 JANUMET 50-500 BID #60 02-19-18 CLARITIN 10MG DAILY #30 SHE TAKES ASPIRIN 81MG DAILY AND ALEVE Q6H PRN OTC.
[2018-05-04] MEDS: ACETAMINOPHEN 500 MG TAB (TYLENOL) PO PRN (15:15)
[2018-05-04 15:27] VITALS: BP 134/64
[2018-05-04] MEDS: NS IV 1000 ML 1,000 ML IV SCH (15:43)
[2018-05-04 16:10] VITALS: BP 134/64
[2018-05-04] MEDS ORDERED: inSUlin DETERMIR 1 UNIT/0.01 ML (LEVEMIR) CHARGE PER UNIT SQ NR (16:30)
[2018-05-04] MEDS ORDERED: RT-ALBUTEROL SULF 2.5 MG/3 ML PRE-MIX VIAL INH PRN ×2 (16:30→17:15)
[2018-05-04] MEDS ORDERED: FLU QUADRIvalent (5+ YOA) 2018-2019 (AFLURIA) 0.5 ML IM ONE (16:30)
[2018-05-04] MEDS ORDERED: inSUlin ASPART (NovoLOG) 1 UNIT/0.01 ML (CHARGE PER UNIT) ONE (16:45)
[2018-05-04] MEDS: inSUlin ASPART (NovoLOG) 1 UNIT/0.01 ML (CHARGE PER UNIT) SC SCH ×2 (16:52→22:13)
[2018-05-04] MEDS: CEFEPIME 1,000 MG/SWFI 10 ML IV PUSH IV SCH ×2 (17:14)
--- NOTE | 2018-05-04 17:18 | Pulmonary Consultation ---
History of Present Illness History of Present Illness Date of Consultation 05/04/18 17:14 Date of Admission Allergies and Home Medications Allergies Coded Allergies: fentanyl (Verified Allergy, Severe, SOA, 03/13/18) morphine (Verified Allergy, Severe, SOA, 02/12/17) Penicillins (Verified Allergy, Unknown, 02/12/17) codeine (Verified Allergy, Unknown, 02/12/17) hydromorphone (Verified Allergy, Unknown, 02/12/17) latex (Verified Allergy, Unknown, 02/12/17) shellfish derived (Verified Allergy, Unknown, 05/04/18) Home Medications Albuterol Sulfate 1 Puff Puff, 2 PUFF INH Q6H PRN for SHORTNESS OF BREATH, ( Reported) Aspirin 81 Mg Tablet.dr, 81 MG PO DAILY, (Reported) Loratadine 10 Mg Tablet, 10 MG PO DAILY, (Reported) LAST FILLED #30 02-19-18 Naproxen Sodium 220 Mg Tablet, 220 MG PO Q6H PRN for PAIN-MILD, (Reported) Ranitidine HCl 150 Mg Tablet, 150 MG PO DAILY, (Reported) Sitagliptin Phos/Metformin HCl 1 Tab Tablet, 1 TAB PO BID, (Reported) LAST FILLED #60 02-19-18 Past Nwufpba-Upfwol-Ayjqxo Hx Patient Social History Alcohol Use: Denies Use Recreational Drug Use: No Smoking Status: Former Smoker Type Used: Cigarettes Former Smoker, Quit: Mar 24, 2016 2nd Hand Smoke Exposure: No Recent Foreign Travel: No Contact w/Someone Who Travel: No Recent Infectious Disease Expo: No Recent Hopitalizations: No Physical Abuse: No Sexual Abuse: No Immunizations Up To Date Tetanus Booster (TDap): Unknown PED Vaccines UTD: Yes Seasonal Allergies Seasonal Allergies: No Past Medical History Surgeries: Yes ( X 2; BTL; BREAST BIOPSY-BENIGN) Breast, Section, Gallbladder, Tubal Ligation Respiratory: Yes Sleep Apnea Currently Using CPAP: No Currently Using BIPAP: No Cardiac: No Neurological: Yes Stroke : No Female Reproductive Disorders: Denies 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 0.0oz. 182.712777md; 53.0 BMI Method:Stated Exam Exam Vital Signs Date Time Temp Pulse Resp B/P (MAP) Pulse Ox O2 Delivery O2 Flow Rate FiO2 05/04/18 16:10 96 Vapotherm 20.00 80 05/04/18 16:10 94 96 80 05/04/18 15:27 98.2 90 20 134/64 (87) 96 Vapotherm 80.00 20.00 05/04/18 14:37 Vapotherm 20.00 80 05/04/18 13:46 97.8 95 20 119/69 (86) 98 30.00 05/04/18 09:05 98.3 88 28 174/89 (117) 88 Room Air Height & Weight Height: 6'1.00" Weight: 402lbs. 0.0oz. 182.020108rs; 53.0 BMI Method:Stated Capillary Refill: Less Than 3 Seconds Gastrointestinal: normal bowel sounds, soft, tenderness (erythematous bilateral lower quadrants of the pannus with red, edematous skin) Results Lab Laboratory Tests 05/04/18 09:26 Assessment/Plan Assessment/Plan Acute on chronic respiratory failure -Oxygen -Svn -Solumedrol Pneumonia Atelectasis -Continue abx -Denney cultures pending Cellulitis CLOVIS NIEVES DO May 04, 2018 17:18
--- NOTE | 2018-05-04 19:13 | Consultation ---
History of Present Illness History of Present Illness Patient Consulted On(gabriella/time) 05/04/18 19:10 Date Seen by Provider: May 04, 2018 Time Seen by Provider: 19:10 Reason for Visit: multiple medical issues including morbid obesity. History of Present Illness admitted with multiple comorbidities related to morbid obesity and I have been asked to see her regarding panniculitis and cellulitis of the lower legs Allergies and Home Medications Allergies Coded Allergies: fentanyl (Verified Allergy, Severe, SOA, 03/13/18) morphine (Verified Allergy, Severe, SOA, 02/12/17) Penicillins (Verified Allergy, Unknown, 02/12/17) codeine (Verified Allergy, Unknown, 02/12/17) hydromorphone (Verified Allergy, Unknown, 02/12/17) latex (Verified Allergy, Unknown, 02/12/17) shellfish derived (Verified Allergy, Unknown, 05/04/18) Home Medications Albuterol Sulfate 1 Puff Puff, 2 PUFF INH Q6H PRN for SHORTNESS OF BREATH, ( Reported) Aspirin 81 Mg Tablet.dr, 81 MG PO DAILY, (Reported) Loratadine 10 Mg Tablet, 10 MG PO DAILY, (Reported) LAST FILLED #30 02-19-18 Naproxen Sodium 220 Mg Tablet, 220 MG PO Q6H PRN for PAIN-MILD, (Reported) Ranitidine HCl 150 Mg Tablet, 150 MG PO DAILY, (Reported) Sitagliptin Phos/Metformin HCl 1 Tab Tablet, 1 TAB PO BID, (Reported) LAST FILLED #60 02-19-18 Patient Home Medication List Home Medication List Reviewed: Yes Past Mrzviwk-Wrbibr-Yqtsqg Hx Patient Social History Alcohol Use: Denies Use Recreational Drug Use: No Smoking Status: Former Smoker Type Used: Cigarettes Former Smoker, Quit: Mar 24, 2016 2nd Hand Smoke Exposure: No Recent Foreign Travel: No Contact w/Someone Who Travel: No Recent Infectious Disease Expo: No Recent Hopitalizations: No Physical Abuse: No Sexual Abuse: No Immunizations Up To Date Tetanus Booster (TDap): Unknown PED Vaccines UTD: Yes Seasonal Allergies Seasonal Allergies: No Past Medical History Surgeries: Yes ( X 2; BTL; BREAST BIOPSY-BENIGN) Breast, Section, Gallbladder, Tubal Ligation Respiratory: Yes Sleep Apnea Currently Using CPAP: No Currently Using BIPAP: No Cardiac: No Neurological: Yes Stroke : No Female Reproductive Disorders: 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 Genitourinary: No Gastrointestinal: No Musculoskeletal: Yes Chronic Back Pain Endocrine: Yes Diabetes, Non-Insulin dep HEENT: No Cancer: No Psychosocial: Yes Anxiety, Depression Integumentary: No Blood Disorders: No Family Medical History Hypertension 19 FATHER Review of Systems-General Constitutional: see HPI EENTM: no symptoms reported Respiratory: short of breath Cardiovascular: no symptoms reported Gastrointestinal: no symptoms reported Genitourinary: see HPI Musculoskeletal: see HPI Skin: see HPI Psychiatric/Neurological: See HPI Physical Exam-General Problems Physical Exam Vital Signs Vital Signs - First Documented 05/04/18 05/04/18 05/04/18 09:05 13:46 14:37 Temp 98.3 Pulse 88 Resp 28 B/P (MAP) 174/89 (117) Pulse Ox 88 O2 Delivery Room Air O2 Flow Rate 30.00 FiO2 80 Capillary Refill : Less Than 3 Seconds General Appearance: no apparent distress Gastrointestinal: soft, other Extremities: other Neurologic/Psychiatric: other Skin: other Comments Panniculitis of the lower abdomen with no evidence of abscess. Erythema of both lower legs. Assessment/Plan Assessment/Plan Admission Diagnosis/Plan cellulitis of the lower legs and panniculitis off the lower abdominal wall. Recommend continuing intravenous antibiotics and close observation. Lovenox would be used for thromboprophylaxis Admission Status: Inpatient Order (span 2 midnights) Clinical Quality Measures DVT/VTE Risk/Contraindication: Risk Factor Score Per Nursin RFS Level Per Nursing on Admit: 4+=Very High TAJ CASTELLON MD May 04, 2018 19:12
[2018-05-04 19:42] VITALS: BP 163/78
[2018-05-04] MEDS ORDERED: ENOXAPARIN 40 MG/0.4 ML (LOVENOX) SYR SC NR (20:00)
[2018-05-04] MEDS ORDERED: ENOXAPARIN 40 MG/0.4 ML (LOVENOX) SYR SC SCH (20:00)
[2018-05-04] MEDS ORDERED: ENOXAPARIN 60 MG/0.6 ML (LOVENOX) SYR SC SCH (20:15)
[2018-05-04] MEDS: RT-ALBUTEROL/IPRATROPIUM 3 ML (DUONEB) VIAL INH SCH (20:56)
[2018-05-04] MEDS: VANCOMYCIN 2,500 MG/NS 500 ML IVPB IV SCH ×2 (22:13)
[2018-05-04] MEDS: inSUlin DETERMIR 1 UNIT/0.01 ML (LEVEMIR) CHARGE PER UNIT SQ SCH (22:14)
[2018-05-04] MEDS: HYDROcodone/APAP 5 MG/325 MG (LORTAB) TAB PO PRN (22:30)
[2018-05-05] VITALS (24 sets, daily range): BP systolic 132–204; BP diastolic 71–124
[2018-05-05] MEDS: CEFEPIME 1,000 MG/SWFI 10 ML IV PUSH IV SCH ×8 (01:23→19:11)
[2018-05-05] MEDS: RT-ALBUTEROL/IPRATROPIUM 3 ML (DUONEB) VIAL INH SCH ×6 (03:27→23:35)
[2018-05-05] MEDS: NS IV 1000 ML 1,000 ML IV SCH ×3 (05:40→19:37)
[2018-05-05] MEDS: inSUlin ASPART (NovoLOG) 1 UNIT/0.01 ML (CHARGE PER UNIT) SC SCH ×4 (05:40→21:42)
[2018-05-05] MEDS: VANCOMYCIN 2,500 MG/NS 500 ML IVPB IV SCH ×6 (05:48→21:44)
--- NOTE | 2018-05-05 06:32 | Pulmonary Progress Note ---
Subjective Time Seen by a Provider: 07:00 Subjective/Events-last exam Pt is lethargic. Sepsis Event Evaluation Height, Weight, BMI Height: 6'1.00" Weight: 402lbs. 0.0oz. 182.076555oy; 53.0 BMI Method:Stated Focused Exam Lactate Level 05/04/18 09:26: Lactic Acid Level 1.45 Exam Exam Vital Signs Date Time Temp Pulse Resp B/P (MAP) Pulse Ox O2 Delivery O2 Flow Rate FiO2 05/05/18 04:00 97.4 96 20 132/79 (96) 94 Vapotherm 70.00 20.00 05/05/18 03:27 88 Vapotherm 15.00 70 05/05/18 01:00 98 05/05/18 00:00 98.4 98 18 133/77 (95) 92 Vapotherm 80.00 20.00 05/04/18 20:56 88 Vapotherm 15.00 70 05/04/18 20:00 Vapotherm 20.00 80 05/04/18 19:42 98.4 115 22 163/78 (106) 91 Vapotherm 80.00 20.00 05/04/18 19:00 100 05/04/18 16:10 96 Vapotherm 20.00 80 05/04/18 16:10 94 96 80 05/04/18 15:33 94 05/04/18 15:27 98.2 90 20 134/64 (87) 96 Vapotherm 80.00 20.00 05/04/18 14:37 Vapotherm 20.00 80 05/04/18 13:46 97.8 95 20 119/69 (86) 98 30.00 05/04/18 09:05 98.3 88 28 174/89 (117) 88 Room Air I & O 05/05/18 07:00 Intake Total 4270 ml Balance 4270 ml Height & Weight Height: 6'1.00" Weight: 402lbs. 0.0oz. 182.534982ku; 53.0 BMI Method:Stated General Appearance: WD/WN, Chronically ill, Moderate Distress, Obese HEENT: PERRL/EOMI, Normal ENT Inspection, Pharynx Normal Neck: Full Range of Motion, Normal Inspection, Non Tender, Supple, Carotid Bruit Respiratory: Chest Non Tender, Accessory Muscle Use, Crackles, Decreased Breath Sounds, Expiration, Respiratory Distress, Wheezing Cardiovascular: Regular Rate, Rhythm, No Edema, No Gallop, No JVD, No Murmur, Normal Peripheral Pulses Capillary Refill: Less Than 3 Seconds Gastrointestinal: soft, other Extremity: Normal Capillary Refill, Normal Inspection, Normal Range of Motion, Non Tender, No Calf Tenderness, No Pedal Edema Neurologic/Psychiatric: Alert, Oriented x3, No Motor/Sensory Deficits, Normal Mood/Affect Skin: Other (erythema of legs and torso under pannus) Lymphatic: No Adenopathy Results Lab Laboratory Tests 05/04/18 09:26 Assessment/Plan Assessment/Plan Acute on chronic respiratory failure -Oxygen -SVNs increase to Q4. D/C MAT protocol -Solumedrol 125mg IV X1 then 40 Q 6 Pneumonia Atelectasis -Continue abx -Denney cultures pending Obesity hypoventilation syndrome -Pt needs home vent to mask Pc02 is 66 -Start noninvasive ventilation QHS and PRN. Cellulitis Update 820: ABG shows worsening respiratory acidosis and pt is lethargic. I am going to transfer pt to ICU stepdown and check an ABG 1hour after on BiPAP. CLOVIS NIEVES DO May 05, 2018 06:32
[2018-05-05 06:40] LABS: BASOPHILS % (AUTO) 0 % (0-10); EOSINOPHILS # (AUTO) 0.1 10^3/uL (0.0-0.3); EOSINOPHILS % (AUTO) 1 % (0-10); HEMATOCRIT 47 % (35-52); HEMOGLOBIN 13.7 G/DL (11.5-16.0); LYMPHOCYTES # (AUTO) 1.2 X 10^3 (1.0-4.0); LYMPHOCYTES % (AUTO) 16 % (12-44); MEAN CORPUSCULAR HEMOGLOBIN 27 PG (25-34); MEAN CORPUSCULAR HGB CONC 29 G/DL (32-36); MEAN CORPUSCULAR VOLUME 92 FL (80-99); MEAN PLATELET VOLUME 9.4 FL (7.4-10.4); MONOCYTES # (AUTO) 0.6 X 10^3 (0.0-1.0); MONOCYTES % (AUTO) 7 % (0-12); NEUTROPHILS # (AUTO) 5.9 X 10^3 (1.8-7.8); NEUTROPHILS % (AUTO) 76 % (42-75); PLATELET COUNT 302 10^3/uL (130-400); RED CELL DISTRIBUTION WIDTH 14.6 % (10.0-14.5); WHITE BLOOD COUNT 7.8 10^3/uL (4.3-11.0)
[2018-05-05] MEDS ORDERED: SUCCINYLCHOLINE INJ 100 MG/5 ML SYR INJ ONE (07:03)
[2018-05-05] MEDS ORDERED: MIDAZOLAM 5 MG/5 ML (VERSED) VIAL INJ ONE (07:03)
[2018-05-05] MEDS ORDERED: ROCURONIUM 10 MG/ML 5 ML SYRINGE IV ONE (07:03)
[2018-05-05 07:04] LABS: ALANINE AMINOTRANSFERASE 37 U/L (0-55); ALBUMIN 3.5 GM/DL (3.2-4.5); ALKALINE PHOSPHATASE 137 U/L (40-136); BILIRUBIN,TOTAL 0.6 MG/DL (0.1-1.0); BUN/CREATININE RATIO 17; CALCIUM 8.6 MG/DL (8.5-10.1); CARBON DIOXIDE 29 MMOL/L (21-32); CHLORIDE 98 MMOL/L (98-107); CREATININE SERUM 0.66 MG/DL (0.60-1.30); GFR ESTIMATED > 60; GLUCOSE 288 MG/DL (70-105); POTASSIUM 4.6 MMOL/L (3.6-5.0); SODIUM 137 MMOL/L (135-145); TOTAL PROTEIN 6.6 GM/DL (6.4-8.2)
[2018-05-05] MEDS ORDERED: methylPREDNISolone 125 MG (Solu-MEDROL) VIAL IVP NR (07:08)
[2018-05-05 07:48] LABS: ABG BASE EXCESS 7.7 MMOL/L (-2.5-2.5); ABG OXYGEN SATURATION 94 % (94-100); ABG PO2 69 MMHG (79-93); ABG TCO2 36.7 MMOL/L (21.0-31.0)
[2018-05-05 08:02] LABS: ABG PH 7.29 (7.37-7.43)
[2018-05-05 08:03] LABS: ABG PCO2 73 MMHG (35-45)
[2018-05-05 08:04] LABS: ALLENS TEST YES-POS
[2018-05-05 08:05] LABS: INSPIRED O2 70%; VENTILATOR NO
--- NOTE | 2018-05-05 08:07 | NUR ---
LAB CALLED BLOOD GASES TO THIS RN -- PH WAS 7.29, BCO2 WAS 73 -- NOTE THAT RT JESSICA WAS CLOSE AND THIS RN TALKED ABOUT LAB VALUES TO HER -- SHE VOICED SHE WAS CHECKING THEM WAND THAT SHE WOULD CALL DR NIEVES --
[2018-05-05] MEDS ORDERED: NON-FORMULARY MEDICATION 1 EA EA (Ranitidine HCl 150 MG) PO SCH (09:00)
--- NOTE | 2018-05-05 09:15 | NUR ---
PATIENT TO ICU BED 8 AT THIS TIME. BEDSIDE REPORT RECEIVED FROM RUDDY INSPECTOR PACKER. PATIENT BELONGINGS BROUGHT UP TO UNIT, PATIENT ON TELE SITTER MONITOR. PATIENT VOICED NO CONCERNS OR C/O PAIN AT THIS TIME. RT AT BEDSIDE PUTTING PATIENT ON BIPAP.
--- NOTE | 2018-05-05 09:20 | NUR ---
THIS RN HAD CALLED ICU TO SEE IF BED AVAILABLE -- ICU CALLED BACK AND ADVISED UC THAT PT TO BED ICU8 -- UC LET THIS RN KNOW AND RT TO FLOOR AND HELPED CHANGE OUT O2 AND VOICED SHE WOULD MEET STAFF IN ICU -- 4TH FLOOR STAFF MOVED PT TO ICU 8 -- REPORT WAS GIVEN TO THE ENGINEERING MGR -- NOTE THAT SHE REQUESTED TELE SITTER TO ICU 8 FOR PT -- STAFF TOOK PT BELONGING AND TELE SITTER TO ICU 8 --
--- NOTE | 2018-05-05 09:26 | Progress Note-Hospitalist ---
PURVI GUZMAN DO 05/05/18 0926: Subjective HPI/CC On Admission Date Seen by Provider: May 05, 2018 Time Seen by Provider: 09:00 CC: Progressive cellulitis HPI: This is a young woman who is morbidly obese who presented to the ER with worsening redness and fever that started in her feet and legs have had progression even after completing Bactrim antibiotic for the cellulitis. She has found to have CO2 retention and severe cellulitis that it was progressive to her back. She reports some mild pain that is accompanying the infection but overall denies any other shortness of breath or chest pain. Subjective/Events-last exam Pt is worse with worsening C02 Narcosis CO2 of 73 on ABG Cellulitis much improved with Vancomycin and Cefepime Overall become tearful with the thought of having to go to the ICU and I reassured her Conferred with Dr. Knott Pt drowsy and slightly confused but she is able to talk and answer questions appropriately Review of Systems Pulmonary: Dyspnea Neurological: Confusion Focused Exam Lactate Level 05/04/18 09:26: Lactic Acid Level 1.45 Objective Exam Vital Signs Vital Signs Date Time Temp Pulse Resp B/P (MAP) Pulse Ox O2 Delivery O2 Flow Rate FiO2 05/05/18 19:06 75 05/05/18 18:00 32 162/87 (112) Mechanical Ventilator 80.00 05/05/18 16:21 92 80 05/05/18 09:27 97.2 Capillary Refill : Less Than 3 Seconds General Appearance: WD/WN, Chronically ill, Moderate Distress, Obese HEENT: PERRL/EOMI, Normal ENT Inspection, Pharynx Normal Neck: Full Range of Motion, Normal Inspection, Non Tender, Supple, Carotid Bruit Respiratory: Chest Non Tender, Accessory Muscle Use, Crackles, Decreased Breath Sounds, Expiration, Respiratory Distress, Wheezing Cardiovascular: Regular Rate, Rhythm, No Edema, No Gallop, No JVD, No Murmur, Normal Peripheral Pulses Gastrointestinal: Normal Bowel Sounds, No Organomegaly, No Pulsatile Mass, Non Tender, Soft Back: Normal Inspection, No CVA Tenderness, No Vertebral Tenderness Extremity: Normal Capillary Refill, Normal Inspection, Normal Range of Motion, Non Tender, No Calf Tenderness, No Pedal Edema Neurologic/Psychiatric: Alert, Oriented x3, No Motor/Sensory Deficits, Normal Mood/Affect, Disoriented Skin: Other (erythema of legs and torso under pannus much improved today) Lymphatic: No Adenopathy Results/Procedures Lab Laboratory Tests 05/05/18 05:21 Patient resulted labs reviewed. Imaging: Reviewed Imaging Films, Reviewed Imaging Report Assessment/Plan Assessment and Plan Assess & Plan/Chief Complaint Assessment: Profound cellulitis progressive type CO2 narcosis Respiratory failure Severe ESTHELA Obesity hypoventilation syndrome DM Plan: Tx to ICU biPAP IV abx Monitor closely Diagnosis/Problems Diagnosis/Problems (1) CO2 narcosis Status: Acute (2) Cellulitis Status: Acute Qualifiers: Site of cellulitis: extremity Site of cellulitis of extremity: lower extremity Laterality: unspecified laterality Qualified Codes: L03.119 - Cellulitis of unspecified part of limb (3) Obstructive sleep apnea Status: Acute (4) Respiratory failure with hypoxia and hypercapnia Status: Acute Qualifiers: Chronicity: acute on chronic Qualified Codes: J96.21 - Acute and chronic respiratory failure with hypoxia; J96.22 - Acute and chronic respiratory failure with hypercapnia (5) Obesity hypoventilation syndrome Status: Chronic Clinical Quality Measures DVT/VTE Risk/Contraindication: Risk Factor Score Per Nursin RFS Level Per Nursing on Admit: 1=Low/No VTE PPX YANE SAEZ MEDICAL STUDENT 05/05/18 1419: Subjective HPI/CC On Admission CC: Bilateral leg swelling, erythema, tenderness, and same on abdomen HPI: This is a 37 yo white female who presented to the ER from home for worsening redness, swelling, and pain of bilateral legs as well as more recent onset of redness, swelling, and pain of her abdominal skin. She first presented to the ER on 03/13/18 for swelling and redness of the LLE after being seen at [facility] and told to come to the ER for an US to r/o DVT. She returned to the ER on 03/14/18 because the redness had spread to her R leg and she had yet to bead picker her prescribed Bactrim DS. Lower extremity US of both legs was negative for DVT at the second visit. The pt reports she finished the Bactrim prescribed at that time, but the lower extremity swelling/redness never fully resolved. She returned to the ER on 04/09/18 for retrosternal CP and had a negative EKG/trop/CXR. She was treated within the last week for CAP w/ Levaquin as an outpatient through [facility]. The pt states the redness, swelling, and pain of the LE started worsening acutely yesterday and had spread to her abdomen. Based on the [facility] notes, she has been treated for a yeast infection of the skin folds below her pannus, most recently in February 2018. She became dyspneic on exertion and started experiencing cough today. She denies cardiovascular problems or hx of DVT/PE. She states she is in the process of getting CPAP for ESTHLEA. She has been using tylenol and and naproxen for the pain with modest relief. Since the patient's oxygenation in the ED failed to improve on 4L and she was still SOB, a lung CTA was performed and was negative for PE. Mild pneumonitis was observed in the R lobe. Due to her respiratory distress, she was admitted to the floor. Subjective/Events-last exam Pt is still having trouble breathing, CO2 narcosis despite vapotherm, will transfer to ICU Pt states her legs and flanks are still painful but the redness and swelling is improved Denies CP, f/c Review of Systems General: No Chills; Fatigue HEENT: Head Aches Pulmonary: Dyspnea; No Cough, No Pleuritic Chest Pain Cardiovascular: No: Palpitations Gastrointestinal: No: Nausea, Vomiting, Abdominal Pain Genitourinary: No Dysuria Neurological: No: Weakness BLE swelling, redness, pain. Also on abdomen Objective Exam General Appearance: WD/WN, Mild Distress, Obese HEENT: PERRL/EOMI, Normal ENT Inspection Neck: Full Range of Motion, Non Tender, Supple Respiratory: Chest Non Tender, Accessory Muscle Use, Decreased Breath Sounds, Respiratory Distress, Wheezing Cardiovascular: Regular Rate, Rhythm, No JVD, No Murmur, Normal Peripheral Pulses Gastrointestinal: Normal Bowel Sounds, Non Tender, Soft Extremity: Normal Capillary Refill, Normal Range of Motion Neurologic/Psychiatric: Alert, Oriented x3, No Motor/Sensory Deficits Skin: Other (No longer damp, redness and swelling of BLE and abdomen improved, uptwister tender to palpation) Results/Procedures Imaging: Reviewed Imaging Films, Reviewed Imaging Report Assessment/Plan Assessment and Plan Assess & Plan/Chief Complaint Assessment: CO2 narcosis Acute hypoxic, hypercapnic respiratory failure Obesity hypoventilation syndrome Morbid obesity Cellulitis of BLE and abdomen, improving Hx of smoking Plan: Transfer to ICU for management of hypercapnic respiratory failure IV steroids, duonebs Continue IV abx Sugar control Continue home meds DVT prophylaxis NSAIDs for [place] and pain control Diagnosis/Problems Diagnosis/Problems (1) Respiratory failure with hypoxia and hypercapnia Status: Acute Qualifiers: Chronicity: acute on chronic Qualified Codes: J96.21 - Acute and chronic respiratory failure with hypoxia; J96.22 - Acute and chronic respiratory failure with hypercapnia (2) Cellulitis Status: Acute Qualifiers: Site of cellulitis: extremity Site of cellulitis of extremity: lower extremity Laterality: unspecified laterality Qualified Codes: L03.119 - Cellulitis of unspecified part of limb (3) Obstructive sleep apnea Status: Acute (4) Obesity hypoventilation syndrome Status: Chronic PURVI GUZMAN DO May 05, 2018 09:26 YANE SAEZ MEDICAL STUDENT May 05, 2018 14:19
--- NOTE | 2018-05-05 09:28 | NUR ---
GOT TEXT THAT PT WAS GOING TO ICU BED 4 -- THIS RN ASKED UC IF SHE WAS AWARE SHE WAS NOT SHE CALLED ICU AND THEY VOICED THAT PT BE COMING TO THEM WHEN BED CLEANED -- THIS UC CALLED RT AND JESSICA VOICED SHE WAS AWARE -- ICU WILL CALL WHEN BED AVAILABLE --
[2018-05-05] MEDS: LORATADINE (CLARITIN) 10 MG TAB PO SCH (10:07)
[2018-05-05] MEDS: ASPIRIN E.C. 81 MG (ECOTRIN) TAB PO SCH (10:08)
[2018-05-05] MEDS: FAMOTIDINE 20 MG (PEPCID) TABLET PO SCH (10:08)
[2018-05-05 11:05] LABS: ABG OXYGEN SATURATION 97 % (94-100); ABG PO2 96 MMHG (79-93); ABG TCO2 37.3 MMOL/L (21.0-31.0)
[2018-05-05 11:07] LABS: ABG PCO2 78 MMHG (35-45); ABG PH 7.27 (7.37-7.43); ALLENS TEST YES-POS; INSPIRED O2 40%; PATIENT TEMP 97.7; VENTILATOR NO
[2018-05-05] MEDS: methylPREDNISolone 40 MG/ML (Solu-MEDROL) VIAL IV SCH ×2 (11:11→19:36)
[2018-05-05] MEDS ORDERED: RT-ALBUTEROL/IPRATROPIUM 3 ML (DUONEB) VIAL INH PRN (11:15)
[2018-05-05] MEDS ORDERED: TROUGH ORDER-PHARMACY XX NR (13:00)
--- NOTE | 2018-05-05 13:50 | NUR ---
Pastoral care visit, offered support and prayer.
[2018-05-05 13:59] LABS: ABG OXYGEN SATURATION 96 % (94-100); ABG PO2 85 MMHG (79-93); ABG TCO2 37.3 MMOL/L (21.0-31.0)
[2018-05-05 14:00] LABS: ABG PH 7.27 (7.37-7.43)
[2018-05-05 14:01] LABS: ABG PCO2 78 MMHG (35-45); ALLENS TEST YES-POS; INSPIRED O2 40%; PATIENT TEMP 97.9; VENTILATOR NO
[2018-05-05] MEDS ORDERED: PROPOFOL DRIP (ICU) 100 ML IV ONE (14:02)
--- NOTE | 2018-05-05 14:20 | NUR ---
CALLED DR. NIEVES AT THIS TIME R/T ABG RESULTS NOT IMPOVING AT THIS TIME. DR. NIEVES GAVE ORDER TO CONSENT ANESTHESIA FOR INTUBATION AT THIS TIME. PICC LINE PLACEMENT, FLUIDS WIDE OPEN X 1 ET DIPROVAN FOR SEDATION. ORDERS PLACED. CONSENT SIGNED BY PATIENT AT THIS TIME.
[2018-05-05] MEDS ORDERED: NS IV 1000 ML 1,000 ML IV SCH (14:30)
[2018-05-05] MEDS ORDERED: proPOfol 200 MG/20 ML (DIPRIVAN) VIAL IV ONE (15:37)
--- NOTE | 2018-05-05 15:41 | Diagnostic Imaging Report ---
EXAM: CHEST 1 VIEW, AP/PA ONLY. INDICATION: PICC line placement. COMPARISON: Chest radiographs 05/04/2018. FINDINGS: Right PICC tip appears to be within a cephalic vein with a redundant loop once it enters the axillary vein. The tip is in the proximal subclavian vein. Low lung volumes accentuate cardiomegaly and central pulmonary vascularity. Elevation of the right hemidiaphragm. No definite pleural effusion or pneumothorax. No acute osseous findings. IMPRESSION: 1. Tip of a right PICC in the proximal subclavian vein. This should be advanced. This loops back within the axillary vein which may complicate advancement. 2. Low lung volumes accentuate the heart size and pulmonary vascularity. Dictated by: Dictated on workstation # [id number]
--- NOTE | 2018-05-05 16:00 | NUR ---
ANESTHESIA PRESENT AT THIS TIME, INTUBATION BOX OBTAINED, RT IN ROOM, PATIENT INTUBATED AT 1550 27 AT THE TEETH, OG PLACED 16FR. ANESTHESIA TO RETURN AT A LATER TIME TO PLACE ART LINE.
[2018-05-05] MEDS ORDERED: LORazepam INJ 2 MG/ML (ATIVAN) VIAL ONE (16:10)
[2018-05-05] MEDS ORDERED: DEXMEDETOMIDINE INJECTION 200 MCG in NS (IVPB) 50 ML IV SCH (16:30)
--- NOTE | 2018-05-05 16:32 | Pulmonary Progress Note ---
Standard Progress Note Progress Notes Time Seen by Provider: 16:30 PT continued to worsen despite ICU transfer and BiPAP therapy. PT is full code. Anesthesia called to intubate patient. Assessment & Plan Acute on chronic respiratory failure -Intubated and place on ventilator -Oxygen -SVNs increase to Q4. D/C MAT protocol -Solumedrol 125mg IV X1 then 40 Q 6 Pneumonia Atelectasis -Continue abx -Denney cultures pending Obesity hypoventilation syndrome -Pt needs home vent to mask Pc02 is 66 -Start noninvasive ventilation QHS and PRN. Cellulitis Total time spent with patient not including previous note is 60min. Critical Care: Critically Ill Patient Time spent with patient (mins): 60 Focused Exam Lactate Level 05/04/18 09:26: Lactic Acid Level 1.45 CLOVIS NIEVES DO May 05, 2018 16:32
[2018-05-05] MEDS: PROPOFOL DRIP (ICU) 100 ML IV SCH ×5 (16:34→21:43)
[2018-05-05] MEDS: LORazepam INJ 2 MG/ML (ATIVAN) VIAL IVP PRN ×2 (16:48→22:28)
--- NOTE | 2018-05-05 16:57 | Diagnostic Imaging Report ---
INDICATION: Post intubation and PICC line reposition. TIME OF EXAM: 4:44 PM CORRELATION is made with prior study earlier same day. FINDINGS: An endotracheal tube has been placed. The tip is in good position above the soniya. NG tube appears to pass below the diaphragm. A right upper extremity PICC line has been repositioned. The PICC line appears to be in good position overlying the SVC. No pneumothorax is identified. The lungs are fairly clear. There is some central congestion IMPRESSION: 1. Satisfactory endotracheal tube placement. 2. Satisfactory right upper extremity PICC line reposition. Dictated by: Dictated on workstation # [id number]
--- NOTE | 2018-05-05 19:16 | Anesthesia-Procedure Note ---
Procedures/Interventions Procedure Start/Stop/Diagnosis Date of Procedure: May 05, 2018 Start Time: 15:35 Referring Physician: Hedy Preprocedural Diagnosis: Respiratory Distress Stop Time: 15:55 Intubation RSI: Yes 100% pre-Ox, [id number]: Yes Intubation Method: orotracheal Videoscope used: Yes Grade View: 1 Medications: Propofol (200), Succinylcholine (100), Versed (5mg) Positive End Tide CO2: Yes Breath Sounds after Intubation: bilateral-equal ETT Securred @ (cm): 25 Intubated with ease: Yes Intubation Complications: no complications, O2 saturation decreased (poor FRC) Post Intubation Xray-done: Yes Care turned over to: MARCO A Arias SHANNA R CRNA May 05, 2018 19:16
--- NOTE | 2018-05-05 19:18 | Anesthesia-Procedure Note ---
Procedures/Interventions Procedure Start/Stop/Diagnosis Date of Procedure: May 05, 2018 Start Time: 17:50 Referring Physician: Hedy Stop Time: 19:03 Arterial Line Arterial Line Catheter: 20G Type: Radial Location: Left Procedure: prepped, draped in sterile fashion, good wave-form was obtained, patient tolerated procedure well, no immediate complications JEANMARIE GALARZA CRNA May 05, 2018 19:18
[2018-05-05] MEDS ORDERED: ENOXAPARIN 60 MG/0.6 ML (LOVENOX) SYR SC SCH (20:15)
[2018-05-05] MEDS: inSUlin DETERMIR 1 UNIT/0.01 ML (LEVEMIR) CHARGE PER UNIT SQ SCH (21:42)
[2018-05-05] MEDS: DEXMEDETOMIDINE INJECTION 1,000 MCG in NS (IVPB) 250 ML IV SCH (22:27)
[2018-05-06] VITALS (32 sets, daily range): BP systolic 136–178; BP diastolic 59–87
[2018-05-06] MEDS: PROPOFOL DRIP (ICU) 100 ML IV SCH ×12 (00:47→22:24)
[2018-05-06] MEDS: methylPREDNISolone 40 MG/ML (Solu-MEDROL) VIAL IV SCH ×5 (00:48→23:42)
[2018-05-06] MEDS: CEFEPIME 1,000 MG/SWFI 10 ML IV PUSH IV SCH ×10 (00:48→23:42)
[2018-05-06] MEDS: RT-ALBUTEROL/IPRATROPIUM 3 ML (DUONEB) VIAL INH SCH ×6 (02:12→23:55)
[2018-05-06 03:32] LABS: BASOPHILS % (AUTO) 0 % (0-10); EOSINOPHILS % (AUTO) 0 % (0-10); HEMATOCRIT 48 % (35-52); HEMOGLOBIN 14.4 G/DL (11.5-16.0); LYMPHOCYTES # (AUTO) 0.5 X 10^3 (1.0-4.0); LYMPHOCYTES % (AUTO) 7 % (12-44); MEAN CORPUSCULAR HEMOGLOBIN 27 PG (25-34); MEAN CORPUSCULAR HGB CONC 30 G/DL (32-36); MEAN CORPUSCULAR VOLUME 89 FL (80-99); MEAN PLATELET VOLUME 9.2 FL (7.4-10.4); MONOCYTES # (AUTO) 0.1 X 10^3 (0.0-1.0); MONOCYTES % (AUTO) 2 % (0-12); NEUTROPHILS # (AUTO) 6.4 X 10^3 (1.8-7.8); NEUTROPHILS % (AUTO) 91 % (42-75); PLATELET COUNT 291 10^3/uL (130-400); RED CELL DISTRIBUTION WIDTH 14.2 % (10.0-14.5)
[2018-05-06 03:33] LABS: ABG BASE EXCESS 4.7 MMOL/L (-2.5-2.5); ABG OXYGEN SATURATION 96 % (94-100); ABG PCO2 48 MMHG (35-45); ABG PO2 71 MMHG (79-93); ABG TCO2 30.7 MMOL/L (21.0-31.0); ALLENS TEST ART LINE; INSPIRED O2 75%; VENTILATOR YES
[2018-05-06 03:47] LABS: BUN/CREATININE RATIO 17; CALCIUM 8.6 MG/DL (8.5-10.1); CARBON DIOXIDE 23 MMOL/L (21-32); CHLORIDE 98 MMOL/L (98-107); CREATININE SERUM 0.64 MG/DL (0.60-1.30); GFR ESTIMATED > 60; GLUCOSE 325 MG/DL (70-105); MAGNESIUM 1.8 MG/DL (1.8-2.4); PHOSPHORUS 2.3 MG/DL (2.3-4.7); POTASSIUM 4.6 MMOL/L (3.6-5.0); SODIUM 135 MMOL/L (135-145)
[2018-05-06] MEDS: POTASSIUM CL 10MEQ/50ML IVPB 50 ML IV SCH (03:51)
[2018-05-06] MEDS: MAGNESIUM 1 GM/100 ML IVPB 100 ML IV SCH (03:51)
[2018-05-06 04:03] LABS: BAND NEUTROPHILS 3 %; LYMPHOCYTES % (MANUAL) 3 %; MONOCYTES % (MANUAL) 2 %; NEUTROPHILS % (MANUAL) 92 %; RBC MORPH NORMAL
[2018-05-06] MEDS: NS IV 1000 ML 1,000 ML IV SCH ×2 (05:32→20:35)
[2018-05-06] MEDS: KCL 20 MEQ TAB (K-DUR) PO SCH (05:45)
[2018-05-06] MEDS: VANCOMYCIN 2,500 MG/NS 500 ML IVPB IV SCH ×6 (05:45→22:11)
[2018-05-06] MEDS: inSUlin ASPART (NovoLOG) 1 UNIT/0.01 ML (CHARGE PER UNIT) SC SCH ×4 (05:48→23:42)
--- NOTE | 2018-05-06 06:03 | Pulmonary Progress Note ---
Subjective Time Seen by a Provider: 06:51 Subjective/Events-last exam PT is sedated on vent currently. No complications noted. Sepsis Event Evaluation Height, Weight, BMI Height: 6'1.00" Weight: 402lbs. 0.0oz. 182.801582wn; 53.0 BMI Method:Stated Focused Exam Lactate Level 05/04/18 09:26: Lactic Acid Level 1.45 Exam Exam Vital Signs Date Time Temp Pulse Resp B/P (MAP) Pulse Ox O2 Delivery O2 Flow Rate FiO2 05/06/18 04:41 90 155/69 05/06/18 04:30 86 25 95 75 05/06/18 04:00 85 24 170/73 (105) 93 Mechanical Ventilator 75.00 05/06/18 04:00 Mechanical Ventilator 75 05/06/18 04:00 98.0 05/06/18 03:00 70 25 178/83 (114) 93 Mechanical Ventilator 75.00 05/06/18 02:52 71 180/72 05/06/18 02:12 69 25 93 75 05/06/18 02:00 72 25 172/78 (109) 93 Mechanical Ventilator 75.00 05/06/18 01:00 73 25 167/74 (105) 91 Mechanical Ventilator 75.00 05/06/18 01:00 73 05/06/18 00:47 74 165/72 05/06/18 00:00 97.4 64 25 172/83 (112) 93 Mechanical Ventilator 75.00 05/06/18 00:00 Mechanical Ventilator 80 05/05/18 23:35 63 25 94 75 05/05/18 23:00 64 25 171/83 (112) 94 Mechanical Ventilator 75.00 05/05/18 22:00 65 24 160/80 (106) 92 Mechanical Ventilator 75.00 05/05/18 21:43 66 164/83 05/05/18 21:00 64 25 160/81 (107) 94 Mechanical Ventilator 75.00 05/05/18 20:35 70 25 169/87 (114) 93 Mechanical Ventilator 75.00 05/05/18 20:35 66 25 94 80 05/05/18 20:00 97.7 74 16 158/79 (105) 96 Mechanical Ventilator 80.00 05/05/18 20:00 Mechanical Ventilator 80 05/05/18 19:06 75 05/05/18 19:00 72 05/05/18 19:00 72 24 171/102 (125) 97 Mechanical Ventilator 80.00 05/05/18 18:30 75 25 94 80 05/05/18 18:01 82 05/05/18 18:00 84 32 162/87 (112) Mechanical Ventilator 80.00 05/05/18 17:04 92 05/05/18 17:00 92 15 156/91 (112) Mechanical Ventilator 80.00 05/05/18 16:34 92 05/05/18 16:32 92 05/05/18 16:21 92 25 92 80 05/05/18 16:00 90 10 204/124 (150) Mechanical Ventilator 80.00 05/05/18 15:50 93 20 95 80 05/05/18 15:05 136/78 (97) 05/05/18 15:00 75 24 94 NIV Bilevel 40.00 05/05/18 14:00 75 21 93 NIV Bilevel 40.00 05/05/18 13:00 80 05/05/18 13:00 68 21 96 NIV Bilevel 40.00 05/05/18 12:22 79 18 91 40.00 05/05/18 12:00 77 21 142/97 (112) 94 NIV Bilevel 40.00 05/05/18 11:15 81 145/85 (105) NIV Bilevel 40.00 05/05/18 11:03 84 17 98 40.00 05/05/18 10:15 87 29 144/84 (104) 94 NIV Bilevel 40.00 05/05/18 09:27 97.2 86 11 163/76 (105) 94 NIV Bilevel 40.00 05/05/18 09:23 81 22 94 40.00 05/05/18 08:00 97.6 84 16 163/80 (107) 93 Vapotherm 70.00 20.00 05/05/18 08:00 Vapotherm 20.00 80 05/05/18 07:45 90 Vapotherm 20.00 70 05/05/18 07:00 92 I & O 05/06/18 07:00 Intake Total 1785 ml Output Total 1550 ml Balance 235 ml Height & Weight Height: 6'1.00" Weight: 402lbs. 0.0oz. 182.382116fz; 53.0 BMI Method:Stated General Appearance: WD/WN, Chronically ill, Moderate Distress, Obese, Other ( sedated on vent) HEENT: PERRL/EOMI, Normal ENT Inspection, Pharynx Normal Neck: Full Range of Motion, Normal Inspection, Non Tender, Supple, Carotid Bruit Respiratory: Chest Non Tender, Accessory Muscle Use, Crackles, Decreased Breath Sounds, Expiration, Respiratory Distress, Wheezing Cardiovascular: Regular Rate, Rhythm, No Edema, No Gallop, No JVD, No Murmur, Normal Peripheral Pulses Capillary Refill: Less Than 3 Seconds Gastrointestinal: soft, other Extremity: Normal Capillary Refill, Normal Inspection, Normal Range of Motion, Non Tender, No Calf Tenderness, No Pedal Edema Neurologic/Psychiatric: Alert, Oriented x3, No Motor/Sensory Deficits, Normal Mood/Affect, Disoriented Skin: Other (erythema of legs and torso under pannus much improved today) Lymphatic: No Adenopathy Results Lab Laboratory Tests 05/04/18 09:26 05/05/18 05:21 05/06/18 03:15 Assessment/Plan Assessment/Plan Acute on chronic respiratory failure -Continue ventilator care -Oxygen -SVNs increase to Q4. -Solumedrol 40 Q 6 Pneumonia Atelectasis -Continue abx -Denney cultures pending Obesity hypoventilation syndrome -Pt needs home vent to mask Pc02 is 66 Cellulitis -Vanco and Cefepime CLOVIS NIEVES DO May 06, 2018 06:03
[2018-05-06] MEDS ORDERED: BUMETANIDE 1 MG/4 ML (BUMEX) VIAL IV ONE (06:15)
[2018-05-06] MEDS: LORATADINE (CLARITIN) 10 MG TAB PO SCH (07:13)
[2018-05-06] MEDS: FAMOTIDINE 20 MG (PEPCID) TABLET PO SCH (07:13)
[2018-05-06] MEDS: ASPIRIN E.C. 81 MG (ECOTRIN) TAB PO SCH (07:13)
--- NOTE | 2018-05-06 08:48 | NUR ---
ADJUSTED LOVENOX PER BMI PROTOCOL. PT BMI IS 57.4, RECOMMENDED LOVENOX DOSING IS 60MG BID FOR PROPHYLAXIS.
[2018-05-06] MEDS: DEXMEDETOMIDINE INJECTION 1,000 MCG in NS (IVPB) 250 ML IV SCH (09:27)
[2018-05-06] MEDS: ENOXAPARIN 60 MG/0.6 ML (LOVENOX) SYR SC SCH ×2 (09:29→20:33)
--- NOTE | 2018-05-06 09:47 | Diagnostic Imaging Report ---
Indication: Dyspnea. Time of exam 3:35 AM Correlation is made with prior study one day earlier. Support lines and catheters remain in place. Lung volumes are diminished likely owing to poor inspiration. There is central congestion with bibasilar infiltrates or atelectasis. This appears increased since yesterday. No pneumothorax is seen. Impression: Poor inspiration with central congestion. There has been some increase in bibasilar infiltrates or atelectasis since exam one day earlier. Dictated by: Dictated on workstation # [id number]
--- NOTE | 2018-05-06 10:38 | Progress Note-Hospitalist ---
PURVI GUZMAN DO 05/06/18 1038: Subjective HPI/CC On Admission Date Seen by Provider: May 06, 2018 Time Seen by Provider: 10:00 CC: Bilateral leg swelling, erythema, tenderness, and same on abdomen HPI: This is a 37 yo white female who presented to the ER from home for worsening redness, swelling, and pain of bilateral legs as well as more recent onset of redness, swelling, and pain of her abdominal skin. She first presented to the ER on 03/13/18 for swelling and redness of the LLE after being seen at [facility] and told to come to the ER for an US to r/o DVT. 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 Lower extremity US of both legs was negative for DVT at the second visit. The pt reports she finished the Bactrim prescribed at that time, but the lower extremity swelling/redness never fully resolved. She returned to the ER on 04/09/18 for retrosternal CP and had a negative EKG/trop/CXR. She was treated within the last week for CAP w/ Levaquin as an outpatient through [facility]. The pt states the redness, swelling, and pain of the LE started worsening acutely yesterday and had spread to her abdomen. Based on the [facility] notes, she has been treated for a yeast infection of the skin folds below her pannus, most recently in February 2018. She became dyspneic on exertion and started experiencing cough today. She denies cardiovascular problems or hx of DVT/PE. She states she is in the process of getting CPAP for ESTHELA. She has been using tylenol and and naproxen for the pain with modest relief. Since the patient's oxygenation in the ED failed to improve on 4L and she was still SOB, a lung CTA was performed and was negative for PE. Mild pneumonitis was observed in the R lobe. Due to her respiratory distress, she was admitted to the floor. Subjective/Events-last exam Pt intubated yesterday afternoon. No significant problems at this current time. Pt is sedated. Cellulitis on lower extremities and torso much improved. Checked meds and labs. Focused Exam Lactate Level 05/04/18 09:26: Lactic Acid Level 1.45 Objective Exam Vital Signs Vital Signs Date Time Temp Pulse Resp B/P (MAP) Pulse Ox O2 Delivery O2 Flow Rate FiO2 05/06/18 19:00 87 05/06/18 18:46 25 93 65 05/06/18 18:00 160/72 (101) Mechanical Ventilator 65.00 05/06/18 17:55 99.6 Capillary Refill : Less Than 3 Seconds General Appearance: WD/WN, Chronically ill, Obese, Other (sedated on vent) HEENT: PERRL/EOMI, Normal ENT Inspection, Pharynx Normal Neck: Full Range of Motion, Normal Inspection, Non Tender, Supple, Carotid Bruit Respiratory: Chest Non Tender, Accessory Muscle Use, Decreased Breath Sounds Cardiovascular: Regular Rate, Rhythm, No Edema, No Gallop, No JVD, No Murmur, Normal Peripheral Pulses Gastrointestinal: Normal Bowel Sounds, No Organomegaly, No Pulsatile Mass, Non Tender, Soft Back: Normal Inspection, No CVA Tenderness, No Vertebral Tenderness Extremity: Normal Capillary Refill, Normal Inspection, Normal Range of Motion, Non Tender, No Calf Tenderness, Inflammation, Pedal Edema Neurologic/Psychiatric: Alert, Oriented x3, No Motor/Sensory Deficits, Normal Mood/Affect, Disoriented, Other (improved erythema of legs) Skin: Other (erythema of legs and torso under pannus much improved today) Lymphatic: No Adenopathy Results/Procedures Lab Laboratory Tests 05/06/18 03:15 Patient resulted labs reviewed. Imaging: Reviewed Imaging Films, Reviewed Imaging Report Assessment/Plan Assessment and Plan Assess & Plan/Chief Complaint Assessment: Profound cellulitis progressive type CO2 narcosis Respiratory failure Severe ESTHELA Obesity hypoventilation syndrome DM Plan: Maintain vent IV abx Monitor closely Critical Care Critically Ill Patient Diagnosis/Problems Diagnosis/Problems (1) CO2 narcosis Status: Acute (2) Cellulitis Status: Acute Qualifiers: Site of cellulitis: extremity Site of cellulitis of extremity: lower extremity Laterality: unspecified laterality Qualified Codes: L03.119 - Cellulitis of unspecified part of limb (3) Obstructive sleep apnea Status: Acute (4) Respiratory failure with hypoxia and hypercapnia Status: Acute Qualifiers: Chronicity: acute on chronic Qualified Codes: J96.21 - Acute and chronic respiratory failure with hypoxia; J96.22 - Acute and chronic respiratory failure with hypercapnia (5) Obesity hypoventilation syndrome Status: Chronic Clinical Quality Measures DVT/VTE Risk/Contraindication: Risk Factor Score Per Nursin RFS Level Per Nursing on Admit: 1=Low/No VTE PPX YANE SAEZ MEDICAL STUDENT 05/06/18 1629: Subjective HPI/CC On Admission CC: Bilateral leg swelling, erythema, tenderness, and same on abdomen HPI: This is a 37 yo white female who presented to the ER from home for worsening redness, swelling, and pain of bilateral legs as well as more recent onset of redness, swelling, and pain of her abdominal skin. She first presented to the ER on 03/13/18 for swelling and redness of the LLE after being seen at [facility] and told to come to the ER for an US to r/o DVT. 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 Lower extremity US of both legs was negative for DVT at the second visit. The pt reports she finished the Bactrim prescribed at that time, but the lower extremity swelling/redness never fully resolved. She returned to the ER on 04/09/18 for retrosternal CP and had a negative EKG/trop/CXR. She was treated within the last week for CAP w/ Levaquin as an outpatient through [facility]. The pt states the redness, swelling, and pain of the LE started worsening acutely yesterday and had spread to her abdomen. Based on the [facility] notes, she has been treated for a yeast infection of the skin folds below her pannus, most recently in February 2018. She became dyspneic on exertion and started experiencing cough today. She denies cardiovascular problems or hx of DVT/PE. She states she is in the process of getting CPAP for ESTHELA. She has been using tylenol and and naproxen for the pain with modest relief. Since the patient's oxygenation in the ED failed to improve on 4L and she was still SOB, a lung CTA was performed and was negative for PE. Mild pneumonitis was observed in the R lobe. Due to her respiratory distress, she was admitted to the floor. Subjective/Events-last exam Despite transfer to ICU and BiPAP, pt's pCO2 remained elevated in upper 70's. She was intubated by anesthesia 2/2 morbid obesity. Pt sedated and intubated during my exam today. Objective Exam General Appearance: WD/WN, Obese HEENT: Normal ENT Inspection, Other (NG and ET tube in place) Neck: Normal Inspection Respiratory: Decreased Breath Sounds, Wheezing (slight) Cardiovascular: Regular Rate, Rhythm, No Gallop, No Murmur, Normal Peripheral Pulses Gastrointestinal: Normal Bowel Sounds, No Organomegaly, Soft Extremity: Normal Capillary Refill, No Pedal Edema, Inflammation Neurologic/Psychiatric: Other (sedated on vent) Skin: Other (erythema of legs and torso under pannus much improved today) Lymphatic: No Adenopathy Results/Procedures Imaging: Reviewed Imaging Films, Reviewed Imaging Report Radiology Per radiology, worsening bibasilar PNA vs atelectasis Assessment/Plan Assessment and Plan Assess & Plan/Chief Complaint Assessment: CO2 narcosis Acute hypoxic, hypercapnic respiratory failure Obesity hypoventilation syndrome Morbid obesity Cellulitis of BLE and abdomen, improving Hx of smoking Plan: Pt remains in ICU for intubation and ventilation, BiPAP did not resolve hypercapnia IV steroids, duonebs Continue IV abx for cellulitis, also covering for possible PNA Sugar control Continue home meds DVT prophylaxis Critical Care Critically Ill Patient Diagnosis/Problems Diagnosis/Problems (1) Respiratory failure with hypoxia and hypercapnia Status: Acute Qualifiers: Chronicity: acute on chronic Qualified Codes: J96.21 - Acute and chronic respiratory failure with hypoxia; J96.22 - Acute and chronic respiratory failure with hypercapnia (2) Acute chronic obstructive pulmonary disease with respiratory distress Status: Acute (3) Cellulitis Status: Acute Qualifiers: Site of cellulitis: extremity Site of cellulitis of extremity: lower extremity Laterality: unspecified laterality Qualified Codes: L03.119 - Cellulitis of unspecified part of limb (4) Obstructive sleep apnea Status: Acute (5) Obesity hypoventilation syndrome Status: Chronic (6) CO2 narcosis Status: Acute PURVI GUZMAN DO May 06, 2018 10:38 YANE SAEZ MEDICAL STUDENT May 06, 2018 16:29
--- NOTE | 2018-05-06 10:51 | Progress Note-Standard ---
Standard Progress Note Progress Notes/Assess & Plan Date Seen by a Provider: May 06, 2018 Time Seen by a Provider: 10:50 Progress/Assessment & Plan on mechanical ventilation. Panniculitis improving. Cellulitis of the legs much better. continue IV antibiotics Final Diagnosis Panniculitis and cellulitis of both legs Focused Exam Lactate Level 05/04/18 09:26: Lactic Acid Level 1.45 TAJ CASTELLON MD May 06, 2018 10:51
[2018-05-06] MEDS: inSUlin DETERMIR 1 UNIT/0.01 ML (LEVEMIR) CHARGE PER UNIT SQ SCH (21:07)
[2018-05-06] MEDS: LORazepam INJ 2 MG/ML (ATIVAN) VIAL IVP PRN (23:42)
[2018-05-07] VITALS (33 sets, daily range): BP systolic 155–195; BP diastolic 66–100
[2018-05-07] MEDS: DEXMEDETOMIDINE INJECTION 1,000 MCG in NS (IVPB) 250 ML IV SCH ×3 (01:06→21:06)
[2018-05-07] MEDS: PROPOFOL DRIP (ICU) 100 ML IV SCH ×9 (02:05→21:45)
[2018-05-07] MEDS: RT-ALBUTEROL/IPRATROPIUM 3 ML (DUONEB) VIAL INH SCH ×5 (03:04→21:20)
[2018-05-07 03:39] LABS: BASOPHILS % (AUTO) 0 % (0-10); EOSINOPHILS % (AUTO) 0 % (0-10); HEMATOCRIT 48 % (35-52); HEMOGLOBIN 14.8 G/DL (11.5-16.0); LYMPHOCYTES # (AUTO) 0.6 X 10^3 (1.0-4.0); LYMPHOCYTES % (AUTO) 7 % (12-44); MEAN CORPUSCULAR HEMOGLOBIN 27 PG (25-34); MEAN CORPUSCULAR HGB CONC 31 G/DL (32-36); MEAN CORPUSCULAR VOLUME 87 FL (80-99); MEAN PLATELET VOLUME 9.4 FL (7.4-10.4); MONOCYTES # (AUTO) 0.3 X 10^3 (0.0-1.0); MONOCYTES % (AUTO) 4 % (0-12); NEUTROPHILS # (AUTO) 6.8 X 10^3 (1.8-7.8); NEUTROPHILS % (AUTO) 89 % (42-75); PLATELET COUNT 296 10^3/uL (130-400); RED CELL DISTRIBUTION WIDTH 14.5 % (10.0-14.5); WHITE BLOOD COUNT 7.7 10^3/uL (4.3-11.0)
[2018-05-07 03:40] LABS: ABG OXYGEN SATURATION 96 % (94-100); ABG PCO2 49 MMHG (35-45); ABG PH 7.42 (7.37-7.43); ABG PO2 74 MMHG (79-93)
[2018-05-07 03:41] LABS: ALLENS TEST ARTLINE; VENTILATOR YES
[2018-05-07 03:57] LABS: BUN/CREATININE RATIO 25; CALCIUM 8.7 MG/DL (8.5-10.1); CARBON DIOXIDE 27 MMOL/L (21-32); CHLORIDE 97 MMOL/L (98-107); CREATININE SERUM 0.75 MG/DL (0.60-1.30); GFR ESTIMATED > 60; GLUCOSE 354 MG/DL (70-105); MAGNESIUM 1.7 MG/DL (1.8-2.4); PHOSPHORUS 2.9 MG/DL (2.3-4.7); POTASSIUM 4.1 MMOL/L (3.6-5.0); SODIUM 137 MMOL/L (135-145)
[2018-05-07] MEDS: MAGNESIUM 1 GM/100 ML IVPB 100 ML IV SCH ×3 (04:26→05:45)
[2018-05-07] MEDS: VANCOMYCIN 2,500 MG/NS 500 ML IVPB IV SCH ×6 (05:43→21:45)
[2018-05-07] MEDS: CEFEPIME 1,000 MG/SWFI 10 ML IV PUSH IV SCH ×6 (05:43→17:55)
[2018-05-07] MEDS: methylPREDNISolone 40 MG/ML (Solu-MEDROL) VIAL IV SCH ×3 (05:44→17:55)
[2018-05-07] MEDS: KCL 20 MEQ TAB (K-DUR) PO SCH (05:44)
[2018-05-07] MEDS: POTASSIUM CL 10MEQ/50ML IVPB 50 ML IV SCH ×4 (05:44→11:42)
[2018-05-07] MEDS: inSUlin ASPART (NovoLOG) 1 UNIT/0.01 ML (CHARGE PER UNIT) SC SCH ×3 (05:47→18:00)
--- NOTE | 2018-05-07 06:43 | Diagnostic Imaging Report ---
INDICATION: Shortness of breath. Portable chest 3:53 AM FINDINGS: There is an ET tube projecting over the trachea. NG tube enters the stomach. Right upper extremity PICC line tip projects over the SVC. There is cardiomegaly with pulmonary vascular congestion. IMPRESSION: Cardiomegaly with pulmonary vascular congestion. No appreciable change from previous days' comparison exam. Dictated by: Dictated on workstation # [id number]
--- NOTE | 2018-05-07 07:14 | Pulmonary Progress Note ---
Subjective Time Seen by a Provider: 07:14 Subjective/Events-last exam Pt is sedated on vent. Sepsis Event Evaluation Height, Weight, BMI Height: 6'1.00" Weight: 433lbs. 0.0oz. 196.670889wc; 53.0 BMI Method:Stated Focused Exam Lactate Level 05/04/18 09:26: Lactic Acid Level 1.45 Exam Exam Vital Signs Date Time Temp Pulse Resp B/P (MAP) Pulse Ox O2 Delivery O2 Flow Rate FiO2 05/07/18 06:50 Mechanical Ventilator 45.00 05/07/18 06:31 86 27 93 50 05/07/18 06:14 86 166/78 05/07/18 06:14 86 166/74 05/07/18 06:00 81 24 179/80 (113) 94 Mechanical Ventilator 55.00 05/07/18 05:00 85 25 172/74 (106) 94 Mechanical Ventilator 55.00 05/07/18 04:35 93 26 94 55 05/07/18 04:25 94 30 93 60 05/07/18 04:00 86 24 168/74 (105) 94 Mechanical Ventilator 55.00 05/07/18 04:00 98.0 05/07/18 04:00 94 Mechanical Ventilator 50 05/07/18 03:04 81 25 94 60 05/07/18 03:00 78 24 179/80 (113) 94 Mechanical Ventilator 55.00 05/07/18 02:06 78 178/81 05/07/18 02:05 77 178/81 05/07/18 02:00 78 24 177/81 (113) 94 Mechanical Ventilator 65.00 05/07/18 01:00 71 25 181/85 (117) 94 Mechanical Ventilator 65.00 05/07/18 01:00 72 05/07/18 00:00 94 Mechanical Ventilator 60 05/07/18 00:00 98.9 05/07/18 00:00 75 24 176/84 (114) 97 Mechanical Ventilator 65.00 05/06/18 23:56 75 25 94 65 05/06/18 23:00 70 24 177/87 (117) 95 Mechanical Ventilator 65.00 05/06/18 22:24 70 180/89 05/06/18 22:00 72 25 178/85 (116) 94 Mechanical Ventilator 65.00 05/06/18 21:00 76 25 178/84 (115) 94 Mechanical Ventilator 65.00 05/06/18 20:34 78 179/71 05/06/18 20:34 78 179/71 05/06/18 20:00 94 Mechanical Ventilator 65 05/06/18 20:00 99.8 05/06/18 20:00 81 25 173/79 (110) 94 Mechanical Ventilator 65.00 05/06/18 19:00 86 24 164/73 (103) 94 Mechanical Ventilator 65.00 05/06/18 19:00 87 05/06/18 18:46 72 25 93 65 05/06/18 18:37 83 05/06/18 18:00 87 25 160/72 (101) 93 Mechanical Ventilator 65.00 05/06/18 17:55 99.6 05/06/18 17:00 82 24 177/79 (111) 93 Mechanical Ventilator 65.00 05/06/18 16:34 84 05/06/18 16:00 93 Mechanical Ventilator 65 05/06/18 16:00 79 25 169/73 (105) 93 Mechanical Ventilator 65.00 05/06/18 15:00 82 24 157/69 (98) 92 Mechanical Ventilator 65.00 05/06/18 14:36 74 25 92 65 05/06/18 14:32 77 05/06/18 14:00 76 25 157/69 (98) 93 Mechanical Ventilator 65.00 05/06/18 13:00 80 05/06/18 13:00 81 25 160/68 (98) 94 Mechanical Ventilator 65.00 05/06/18 12:19 79 05/06/18 12:00 93 Mechanical Ventilator 65 05/06/18 12:00 75 25 164/70 (101) 94 Mechanical Ventilator 65.00 05/06/18 11:00 85 25 148/63 (91) 94 Mechanical Ventilator 65.00 05/06/18 10:36 97.7 87 24 143/61 (88) 94 Mechanical Ventilator 65.00 05/06/18 10:24 85 05/06/18 10:17 85 25 94 65 05/06/18 09:00 73 25 161/70 (100) 94 Mechanical Ventilator 65.00 05/06/18 08:56 74 25 94 65 05/06/18 08:35 73 05/06/18 08:00 74 25 161/72 (101) 96 Mechanical Ventilator 65.00 05/06/18 07:35 94 Mechanical Ventilator 65 05/06/18 07:28 97.2 75 25 164/71 (102) 94 Mechanical Ventilator 65.00 I & O 05/07/18 06:59 Intake Total 460 ml Output Total 7000 ml Balance -6540 ml Height & Weight Height: 6'1.00" Weight: 433lbs. 0.0oz. 196.024169sw; 53.0 BMI Method:Stated General Appearance: WD/WN, Chronically ill, Obese, Other (sedated on vent) HEENT: PERRL/EOMI, Normal ENT Inspection, Pharynx Normal Neck: Full Range of Motion, Normal Inspection, Non Tender, Supple, Carotid Bruit Respiratory: Chest Non Tender, Accessory Muscle Use, Decreased Breath Sounds Cardiovascular: Regular Rate, Rhythm, No Edema, No Gallop, No JVD, No Murmur, Normal Peripheral Pulses Capillary Refill: Less Than 3 Seconds Gastrointestinal: soft, other Extremity: Normal Capillary Refill, Normal Inspection, Normal Range of Motion, Non Tender, No Calf Tenderness, Inflammation, Pedal Edema Neurologic/Psychiatric: Alert, Oriented x3, No Motor/Sensory Deficits, Normal Mood/Affect, Disoriented, Other (improved erythema of legs) Skin: Other (erythema of legs and torso under pannus much improved today) Lymphatic: No Adenopathy Results Lab Laboratory Tests 05/06/18 03:15 05/07/18 03:30 Assessment/Plan Assessment/Plan Acute on chronic respiratory failure -Continue ventilator care -- Decrease PEEP to 5 -Continue to titrate Fi02 -PT did well on weaning parameters however still requiring a lot of oxygen. Will wait until tomorrow to start weaning vent. -Oxygen -SVNs increase to Q4. -Solumedrol 40 Q 6 Pneumonia Atelectasis -Continue abx -Denney cultures pending Obesity hypoventilation syndrome -Pt needs home vent to mask Pc02 is 66 Cellulitis -Vanco and Cefepime CLOVIS NIEVES DO May 07, 2018 07:14
[2018-05-07] MEDS ORDERED: FUROSEMIDE 40 MG/4 ML INJ (LASIX) IVP NR (07:15)
[2018-05-07] MEDS: ENOXAPARIN 60 MG/0.6 ML (LOVENOX) SYR SC SCH ×2 (07:41→21:45)
[2018-05-07] MEDS: PANTOPRAZOLE 40 MG (PROTONIX) VIAL IV SCH (07:42)
[2018-05-07] MEDS: ACETAMINOPHEN 500 MG TAB (TYLENOL) PO PRN (07:42)
[2018-05-07] MEDS: LORATADINE (CLARITIN) 10 MG TAB PO SCH (07:42)
[2018-05-07] MEDS: ASPIRIN E.C. 81 MG (ECOTRIN) TAB PO SCH (07:42)
--- NOTE | 2018-05-07 09:19 | Progress Note-Hospitalist ---
Subjective HPI/CC On Admission Date Seen by Provider: May 07, 2018 Time Seen by Provider: 10:00 CC: Bilateral leg swelling, erythema, tenderness, and same on abdomen HPI: This is a 37 yo white female who presented to the ER from home for worsening redness, swelling, and pain of bilateral legs as well as more recent onset of redness, swelling, and pain of her abdominal skin. She first presented to the ER on 03/13/18 for swelling and redness of the LLE after being seen at [facility] and told to come to the ER for an US to r/o DVT. 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 Lower extremity US of both legs was negative for DVT at the second visit. The pt reports she finished the Bactrim prescribed at that time, but the lower extremity swelling/redness never fully resolved. She returned to the ER on 04/09/18 for retrosternal CP and had a negative EKG/trop/CXR. She was treated within the last week for CAP w/ Levaquin as an outpatient through [facility]. The pt states the redness, swelling, and pain of the LE started worsening acutely yesterday and had spread to her abdomen. Based on the [facility] notes, she has been treated for a yeast infection of the skin folds below her pannus, most recently in February 2018. She became dyspneic on exertion and started experiencing cough today. She denies cardiovascular problems or hx of DVT/PE. She states she is in the process of getting CPAP for ESTHELA. She has been using tylenol and and naproxen for the pain with modest relief. Since the patient's oxygenation in the ED failed to improve on 4L and she was still SOB, a lung CTA was performed and was negative for PE. Mild pneumonitis was observed in the R lobe. Due to her respiratory distress, she was admitted to the floor. Subjective/Events-last exam Patient still remains intubated Cellulitis much improved Maintained on abx coverage Focused Exam Lactate Level Objective Exam Vital Signs Vital Signs Date Time Temp Pulse Resp B/P (MAP) Pulse Ox O2 Delivery O2 Flow Rate FiO2 05/07/18 12:05 Mechanical Ventilator 05/07/18 11:00 74 24 166/77 (106) 90 45.00 05/07/18 10:02 45 05/07/18 07:58 100.4 Capillary Refill : Less Than 3 Seconds General Appearance: WD/WN, Chronically ill, Obese, Other (sedated on vent) HEENT: PERRL/EOMI, Normal ENT Inspection, Pharynx Normal Neck: Full Range of Motion, Normal Inspection, Non Tender, Supple, Carotid Bruit Respiratory: Chest Non Tender, Accessory Muscle Use, Decreased Breath Sounds Cardiovascular: Regular Rate, Rhythm, No Edema, No Gallop, No JVD, No Murmur, Normal Peripheral Pulses Gastrointestinal: Normal Bowel Sounds, No Organomegaly, No Pulsatile Mass, Non Tender, Soft Back: Normal Inspection, No CVA Tenderness, No Vertebral Tenderness Extremity: Normal Capillary Refill, Normal Inspection, Normal Range of Motion, Non Tender, No Calf Tenderness, Inflammation, Pedal Edema Neurologic/Psychiatric: Alert, Oriented x3, No Motor/Sensory Deficits, Normal Mood/Affect, Disoriented, Other (improved erythema of legs) Skin: Other (erythema of legs and torso under pannus much improved today) Lymphatic: No Adenopathy Results/Procedures Lab Laboratory Tests 05/07/18 03:30 Patient resulted labs reviewed. Imaging: Reviewed Imaging Films, Reviewed Imaging Report Assessment/Plan Assessment and Plan Assess & Plan/Chief Complaint Assessment: Profound cellulitis progressive type CO2 narcosis Respiratory failure Severe ESTHELA Obesity hypoventilation syndrome DM Plan: Maintain vent IV abx Monitor closely Critical Care Critically Ill Patient Diagnosis/Problems Diagnosis/Problems (1) CO2 narcosis Status: Acute (2) Cellulitis Status: Acute Qualifiers: Site of cellulitis: extremity Site of cellulitis of extremity: lower extremity Laterality: unspecified laterality Qualified Codes: L03.119 - Cellulitis of unspecified part of limb (3) Obstructive sleep apnea Status: Acute (4) Respiratory failure with hypoxia and hypercapnia Status: Acute Qualifiers: Chronicity: acute on chronic Qualified Codes: J96.21 - Acute and chronic respiratory failure with hypoxia; J96.22 - Acute and chronic respiratory failure with hypercapnia (5) Obesity hypoventilation syndrome Status: Chronic Clinical Quality Measures DVT/VTE Risk/Contraindication: Risk Factor Score Per Nursin RFS Level Per Nursing on Admit: 1=Low/No VTE PPX PURVI GUZMAN DO May 07, 2018 09:19
[2018-05-07] MEDS ORDERED: TROUGH ORDER-PHARMACY XX ONE (13:00)
--- NOTE | 2018-05-07 15:13 | NUR ---
CM/SS. Acknowledging consult, continued intermittent review of patient status, she remains on vent at this time. Patient is apparently established with [facility] [place]. Physician asked that home CPAP, financial limitations, and diabetic supplies be explored. Computer Science Instructor updated [facility] SAE Moore and Sarahi that Dr. Knott indicates a home vent to mask is anticipated. Will explore assistance for patient at [facility] [place] re Rx and supplies. Utilize [facility] [place] for diabetic supplies if appropriate. [facility] Financial team will assist patient with application for darvin eligibility per their protocols.
[2018-05-07] MEDS: LORazepam INJ 2 MG/ML (ATIVAN) VIAL IVP PRN (20:43)
[2018-05-07] MEDS: inSUlin DETERMIR 1 UNIT/0.01 ML (LEVEMIR) CHARGE PER UNIT SQ SCH (21:45)
[2018-05-07] MEDS: NS IV 1000 ML 1,000 ML IV SCH (21:47)
[2018-05-08] VITALS (25 sets, daily range): BP systolic 114–192; BP diastolic 5–99
[2018-05-08] MEDS ORDERED: hydrALAZINE (APESOLINE) 20 MG/ML VIAL ONE (00:50)
[2018-05-08] MEDS: PROPOFOL DRIP (ICU) 100 ML IV SCH ×3 (00:56→10:15)
[2018-05-08] MEDS: methylPREDNISolone 40 MG/ML (Solu-MEDROL) VIAL IV SCH ×4 (00:57→17:22)
[2018-05-08] MEDS: inSUlin ASPART (NovoLOG) 1 UNIT/0.01 ML (CHARGE PER UNIT) SC SCH ×3 (00:57→12:47)
[2018-05-08] MEDS: CEFEPIME 1,000 MG/SWFI 10 ML IV PUSH IV SCH ×4 (00:57→06:31)
[2018-05-08] MEDS: LORazepam INJ 2 MG/ML (ATIVAN) VIAL IVP PRN (00:57)
[2018-05-08] MEDS ORDERED: hydrALAZINE (APESOLINE) 20 MG/ML VIAL IV PRN (01:15)
[2018-05-08] MEDS: RT-ALBUTEROL/IPRATROPIUM 3 ML (DUONEB) VIAL INH SCH ×6 (02:07→23:00)
[2018-05-08 04:29] LABS: BASOPHILS % (AUTO) 0 % (0-10); EOSINOPHILS % (AUTO) 0 % (0-10); HEMATOCRIT 50 % (35-52); HEMOGLOBIN 15.3 G/DL (11.5-16.0); LYMPHOCYTES # (AUTO) 0.8 X 10^3 (1.0-4.0); LYMPHOCYTES % (AUTO) 10 % (12-44); MEAN CORPUSCULAR HEMOGLOBIN 27 PG (25-34); MEAN CORPUSCULAR HGB CONC 31 G/DL (32-36); MEAN CORPUSCULAR VOLUME 87 FL (80-99); MEAN PLATELET VOLUME 9.3 FL (7.4-10.4); MONOCYTES # (AUTO) 0.5 X 10^3 (0.0-1.0); MONOCYTES % (AUTO) 6 % (0-12); NEUTROPHILS # (AUTO) 7.3 X 10^3 (1.8-7.8); NEUTROPHILS % (AUTO) 84 % (42-75); PLATELET COUNT 271 10^3/uL (130-400); RED CELL DISTRIBUTION WIDTH 14.6 % (10.0-14.5); WHITE BLOOD COUNT 8.7 10^3/uL (4.3-11.0)
[2018-05-08 04:30] LABS: ABG OXYGEN SATURATION 93 % (94-100); ABG PCO2 47 MMHG (35-45); ABG PH 7.45 (7.37-7.43); ABG PO2 68 MMHG (79-93); ABG TCO2 33.6 MMOL/L (21.0-31.0); ALLENS TEST POSITIVE; INSPIRED O2 45%
[2018-05-08 04:31] LABS: PATIENT TEMP 98.9; VENTILATOR YES
[2018-05-08 05:09] LABS: BUN/CREATININE RATIO 33; CALCIUM 8.8 MG/DL (8.5-10.1); CARBON DIOXIDE 27 MMOL/L (21-32); CHLORIDE 96 MMOL/L (98-107); CREATININE SERUM 0.72 MG/DL (0.60-1.30); GFR ESTIMATED > 60; GLUCOSE 320 MG/DL (70-105); MAGNESIUM 1.8 MG/DL (1.8-2.4); PHOSPHORUS 3.8 MG/DL (2.3-4.7); SODIUM 139 MMOL/L (135-145)
[2018-05-08] MEDS ORDERED: FUROSEMIDE 40 MG/4 ML INJ (LASIX) IVP ONE (05:45)
--- NOTE | 2018-05-08 05:59 | Pulmonary Progress Note ---
Subjective Time Seen by a Provider: 05:57 Subjective/Events-last exam Pt is sedated on vent. Sepsis Event Evaluation Height, Weight, BMI Height: 6'1.00" Weight: 433lbs. 0.0oz. 196.002742px; 53.0 BMI Method:Stated Exam Exam Vital Signs Date Time Temp Pulse Resp B/P (MAP) Pulse Ox O2 Delivery O2 Flow Rate FiO2 05/08/18 04:16 149/76 05/08/18 04:10 45 05/08/18 04:00 73 27 180/87 (118) 92 Mechanical Ventilator 45.00 05/08/18 04:00 91 Mechanical Ventilator 45 05/08/18 03:51 75 27 90 45 05/08/18 03:00 75 25 168/82 (110) 90 Mechanical Ventilator 45.00 05/08/18 02:07 71 28 91 45 05/08/18 02:00 73 25 172/88 (116) 93 Mechanical Ventilator 45.00 05/08/18 01:09 68 05/08/18 01:00 68 26 191/98 (129) 91 Mechanical Ventilator 45.00 05/08/18 00:56 179/93 05/08/18 00:00 91 Mechanical Ventilator 45 05/08/18 00:00 68 25 191/97 (128) 91 Mechanical Ventilator 45.00 05/07/18 23:23 68 27 91 45 05/07/18 23:00 71 26 195/100 (131) 91 Mechanical Ventilator 45.00 05/07/18 22:00 68 25 187/94 (125) 92 Mechanical Ventilator 45.00 05/07/18 21:45 183/92 05/07/18 21:20 67 25 91 45 05/07/18 21:00 68 26 181/93 (122) 91 Mechanical Ventilator 45.00 05/07/18 20:00 72 25 191/98 (129) 92 Mechanical Ventilator 45.00 05/07/18 20:00 92 Mechanical Ventilator 45 05/07/18 19:22 74 34 94 45 05/07/18 19:00 70 05/07/18 19:00 70 25 190/97 (128) 95 Mechanical Ventilator 45.00 05/07/18 18:00 74 22 160/76 (104) 92 Mechanical Ventilator 45.00 05/07/18 17:00 67 25 186/95 (125) 92 Mechanical Ventilator 45.00 05/07/18 16:00 Mechanical Ventilator 05/07/18 16:00 64 25 183/93 (123) 92 Mechanical Ventilator 45.00 05/07/18 16:00 98.2 05/07/18 15:20 186/95 05/07/18 15:00 67 25 183/93 (123) 92 Mechanical Ventilator 45.00 05/07/18 14:00 65 24 184/92 (122) 91 Mechanical Ventilator 45.00 05/07/18 13:32 69 05/07/18 13:29 97.8 70 05/07/18 13:03 71 05/07/18 13:00 73 25 184/92 (122) 92 Mechanical Ventilator 45.00 05/07/18 12:48 68 25 92 45 05/07/18 12:05 Mechanical Ventilator 05/07/18 12:00 97.5 05/07/18 12:00 70 24 187/94 (125) 92 Mechanical Ventilator 45.00 05/07/18 11:30 98.6 05/07/18 11:00 74 24 166/77 (106) 90 Mechanical Ventilator 45.00 05/07/18 10:02 108 23 91 45 05/07/18 10:00 80 32 164/80 (108) 91 Mechanical Ventilator 45.00 05/07/18 09:21 75 23 91 45 05/07/18 09:00 77 25 163/76 (105) 90 Mechanical Ventilator 05/07/18 08:00 80 25 186/92 (123) 92 Mechanical Ventilator 45.00 05/07/18 08:00 98 Mechanical Ventilator 45 05/07/18 07:58 100.4 05/07/18 07:50 80 05/07/18 07:48 100.0 88 26 172/77 Mechanical Ventilator 45.00 05/07/18 07:00 85 27 165/70 (101) 92 Mechanical Ventilator 45.00 05/07/18 06:50 Mechanical Ventilator 45.00 05/07/18 06:31 86 27 93 50 05/07/18 06:14 86 166/78 05/07/18 06:14 86 166/74 05/07/18 06:00 81 24 179/80 (113) 94 Mechanical Ventilator 55.00 I & O 05/08/18 07:00 Output Total 9800 ml Balance -9800 ml Height & Weight Height: 6'1.00" Weight: 433lbs. 0.0oz. 196.153187uo; 53.0 BMI Method:Stated General Appearance: WD/WN, Chronically ill, Obese, Other (sedated on vent) HEENT: PERRL/EOMI, Normal ENT Inspection, Pharynx Normal Neck: Full Range of Motion, Normal Inspection, Non Tender, Supple, Carotid Bruit Respiratory: Chest Non Tender, Accessory Muscle Use, Decreased Breath Sounds Cardiovascular: Regular Rate, Rhythm, No Edema, No Gallop, No JVD, No Murmur, Normal Peripheral Pulses Capillary Refill: Less Than 3 Seconds Gastrointestinal: soft, other Extremity: Normal Capillary Refill, Normal Inspection, Normal Range of Motion, Non Tender, No Calf Tenderness, Inflammation, Pedal Edema Neurologic/Psychiatric: Alert, Oriented x3, No Motor/Sensory Deficits, Normal Mood/Affect, Disoriented, Other (improved erythema of legs) Skin: Other (erythema of legs and torso under pannus much improved today) Lymphatic: No Adenopathy Results Lab Laboratory Tests 05/07/18 03:30 05/08/18 04:05 Assessment/Plan Assessment/Plan Acute on chronic respiratory failure -Continue ventilator care -- -Continue to titrate Fi02 -PT did well on weaning parameters again today. Will start weaning vent -Titrate Propofol to D/C. Continue Precedex at 1.5 for now -Once pt is awake and alert will start weaning vent. -Oxygen -SVNs Q4. -Solumedrol 40 Q 6 Pneumonia Atelectasis -Continue abx -Denney cultures pending Obesity hypoventilation syndrome -Pt needs home vent to mask Pc02 is 66 Cellulitis -Vanco and Cefepime CLOVIS NIEVES DO May 08, 2018 05:59
[2018-05-08] MEDS: VANCOMYCIN 2,500 MG/NS 500 ML IVPB IV SCH ×6 (06:33→22:43)
[2018-05-08] MEDS: MAGNESIUM 1 GM/100 ML IVPB 100 ML IV SCH (06:34)
[2018-05-08] MEDS: KCL 20 MEQ TAB (K-DUR) PO SCH (06:34)
[2018-05-08] MEDS: POTASSIUM CL 10MEQ/50ML IVPB 50 ML IV SCH (06:34)
--- NOTE | 2018-05-08 07:26 | NUR ---
contacted [facility] at 1139 last night about pts elevated bp. received new med orders for bp at 0043.
[2018-05-08] MEDS ORDERED: NS (IVPB) 50 ML ONE (08:01)
[2018-05-08] MEDS: DEXMEDETOMIDINE INJECTION 1,000 MCG in NS (IVPB) 250 ML IV SCH ×2 (08:08→09:37)
--- NOTE | 2018-05-08 09:00 | Diagnostic Imaging Report ---
INDICATION: Ventilator support. TIME OF EXAMINATION: 3:52 AM. COMPARISON: 05/07/2018. FINDINGS: The support lines and catheters remain in place. The heart size is stable. Central congestive changes persist. There appears to be some increasing parenchymal consolidation in the right lung base. The left basilar infiltrate may be increased as well, obscuring the left hemidiaphragm. No pneumothorax is seen. IMPRESSION: Congestive changes with worsening consolidation in the lung bases when compared with the exam of one day earlier. Dictated by: Dictated on workstation # [id number]
[2018-05-08] MEDS: ASPIRIN E.C. 81 MG (ECOTRIN) TAB PO SCH (09:30)
[2018-05-08] MEDS: LORATADINE (CLARITIN) 10 MG TAB PO SCH (09:30)
[2018-05-08] MEDS: PANTOPRAZOLE 40 MG (PROTONIX) VIAL IV SCH (10:15)
[2018-05-08] MEDS: ENOXAPARIN 60 MG/0.6 ML (LOVENOX) SYR SC SCH ×2 (10:15→22:41)
--- NOTE | 2018-05-08 11:11 | Progress Note-Hospitalist ---
PURVI GUZMAN DO 05/08/18 1111: Subjective HPI/CC On Admission Date Seen by Provider: May 08, 2018 Time Seen by Provider: 10:00 CC: Bilateral leg swelling, erythema, tenderness, and same on abdomen HPI: This is a 37 yo white female who presented to the ER from home for worsening redness, swelling, and pain of bilateral legs as well as more recent onset of redness, swelling, and pain of her abdominal skin. She first presented to the ER on 03/13/18 for swelling and redness of the LLE after being seen at [facility] and told to come to the ER for an US to r/o DVT. She returned to the ER on 03/14/18 because the redness had spread to her R leg and she had yet to fiber picker her prescribed Bactrim DS. Lower extremity US of both legs was negative for DVT at the second visit. The pt reports she finished the Bactrim prescribed at that time, but the lower extremity swelling/redness never fully resolved. She returned to the ER on 04/09/18 for retrosternal CP and had a negative EKG/trop/CXR. She was treated within the last week for CAP w/ Levaquin as an outpatient through [facility]. The pt states the redness, swelling, and pain of the LE started worsening acutely yesterday and had spread to her abdomen. Based on the [facility] notes, she has been treated for a yeast infection of the skin folds below her pannus, most recently in February 2018. She became dyspneic on exertion and started experiencing cough today. She denies cardiovascular problems or hx of DVT/PE. She states she is in the process of getting CPAP for ESTHELA. She has been using tylenol and and naproxen for the pain with modest relief. Since the patient's oxygenation in the ED failed to improve on 4L and she was still SOB, a lung CTA was performed and was negative for PE. Mild pneumonitis was observed in the R lobe. Due to her respiratory distress, she was admitted to the floor. Subjective/Events-last exam Patient off sedation and appears to be doing very well Cellulitis nearly resolved Monitoring for extubation Objective Exam Vital Signs Vital Signs Date Time Temp Pulse Resp B/P (MAP) Pulse Ox O2 Delivery O2 Flow Rate FiO2 05/08/18 18:00 76 18 149/61 (90) 97 Nasal Cannula 4.00 05/08/18 16:00 98.1 05/08/18 12:00 45 Capillary Refill : Less Than 3 Seconds General Appearance: WD/WN, Chronically ill, Mild Distress, Obese HEENT: PERRL/EOMI, Normal ENT Inspection, Pharynx Normal Neck: Full Range of Motion, Normal Inspection, Non Tender, Supple, Carotid Bruit Respiratory: Chest Non Tender, Accessory Muscle Use, Decreased Breath Sounds Cardiovascular: Regular Rate, Rhythm, No Edema, No Gallop, No JVD, No Murmur, Normal Peripheral Pulses Gastrointestinal: Normal Bowel Sounds, No Organomegaly, No Pulsatile Mass, Non Tender, Soft Back: Normal Inspection, No CVA Tenderness, No Vertebral Tenderness Extremity: Normal Capillary Refill, Normal Inspection, Normal Range of Motion, Non Tender, No Calf Tenderness, Inflammation, Pedal Edema Neurologic/Psychiatric: Alert, Oriented x3, No Motor/Sensory Deficits, Normal Mood/Affect, Disoriented, Other (improved erythema of legs) Skin: Other (erythema of legs and torso under pannus much improved today) Lymphatic: No Adenopathy Results/Procedures Lab Laboratory Tests 05/08/18 04:05 Patient resulted labs reviewed. Imaging: Reviewed Imaging Films, Reviewed Imaging Report Assessment/Plan Assessment and Plan Assess & Plan/Chief Complaint Assessment: Profound cellulitis progressive type CO2 narcosis Respiratory failure Severe ESTHELA Obesity hypoventilation syndrome DM Plan: Wean off vent IV abx Monitor closely Critical Care Critically Ill Patient Diagnosis/Problems Diagnosis/Problems (1) CO2 narcosis Status: Acute (2) Cellulitis Status: Acute Qualifiers: Site of cellulitis: extremity Site of cellulitis of extremity: lower extremity Laterality: unspecified laterality Qualified Codes: L03.119 - Cellulitis of unspecified part of limb (3) Obstructive sleep apnea Status: Acute (4) Respiratory failure with hypoxia and hypercapnia Status: Acute Qualifiers: Chronicity: acute on chronic Qualified Codes: J96.21 - Acute and chronic respiratory failure with hypoxia; J96.22 - Acute and chronic respiratory failure with hypercapnia (5) Obesity hypoventilation syndrome Status: Chronic Clinical Quality Measures DVT/VTE Risk/Contraindication: Risk Factor Score Per Nursin RFS Level Per Nursing on Admit: 1=Low/No VTE PPX YANE SAEZ MEDICAL STUDENT 05/08/18 1414: Subjective HPI/CC On Admission CC: Bilateral leg swelling, erythema, tenderness, and same on abdomen HPI: This is a 37 yo white female who presented to the ER from home for worsening redness, swelling, and pain of bilateral legs as well as more recent onset of redness, swelling, and pain of her abdominal skin. She first presented to the ER on 03/13/18 for swelling and redness of the LLE after being seen at [facility] and told to come to the ER for an US to r/o DVT. She returned to the ER on 03/14/18 because the redness had spread to her R leg and she had yet to fiber picker her prescribed Bactrim DS. Lower extremity US of both legs was negative for DVT at the second visit. The pt reports she finished the Bactrim prescribed at that time, but the lower extremity swelling/redness never fully resolved. She returned to the ER on 04/09/18 for retrosternal CP and had a negative EKG/trop/CXR. She was treated within the last week for CAP w/ Levaquin as an outpatient through [facility]. The pt states the redness, swelling, and pain of the LE started worsening acutely yesterday and had spread to her abdomen. Based on the [facility] notes, she has been treated for a yeast infection of the skin folds below her pannus, most recently in February 2018. She became dyspneic on exertion and started experiencing cough today. She denies cardiovascular problems or hx of DVT/PE. She states she is in the process of getting CPAP for ESTHELA. She has been using tylenol and and naproxen for the pain with modest relief. Since the patient's oxygenation in the ED failed to improve on 4L and she was still SOB, a lung CTA was performed and was negative for PE. Mild pneumonitis was observed in the R lobe. Due to her respiratory distress, she was admitted to the floor. Subjective/Events-last exam Pt is no longer sedated, but still intubated on ventilator She shakes her head when asked if she still has pain in legs or abdomen Review of Systems General: No Chills HEENT: No Head Aches Pulmonary: Dyspnea; No Pleuritic Chest Pain Cardiovascular: No: Chest Pain, Edema Gastrointestinal: No: Vomiting, Abdominal Pain Objective Exam General Appearance: Chronically ill, Obese, Other (on ventilator) HEENT: PERRL/EOMI, Normal ENT Inspection, Moist Mucous Membranes Neck: Non Tender Respiratory: Chest Non Tender, Lungs Clear, Decreased Breath Sounds Cardiovascular: Regular Rate, Rhythm, No Edema, No Gallop, No Murmur, Normal Peripheral Pulses Gastrointestinal: Normal Bowel Sounds, Non Tender, Soft Extremity: Normal Capillary Refill, Normal Range of Motion, Non Tender, No Calf Tenderness, Inflammation (improved, still diffuse but less prominent) Neurologic/Psychiatric: Alert Skin: Normal Color, Warm/Dry Lymphatic: No Adenopathy Results/Procedures Imaging: Reviewed Imaging Films, Reviewed Imaging Report Assessment/Plan Assessment and Plan Assess & Plan/Chief Complaint Assessment: Elevated BP CO2 narcosis, resolved Acute hypoxic, hypercapnic respiratory failure Obesity hypoventilation syndrome Morbid obesity Cellulitis of BLE and abdomen, improving Hx of smoking Plan: Furosemide, hydralazine, and Enalapril for elevated blood pressure once sedation was discontinued Pt remains in ICU for intubation and ventilation, no longer sedated, will try weaning to BiPAP IV steroids, duonebs Continue IV abx for cellulitis, also covering for possible PNA Sugar control Continue home meds DVT prophylaxis Critical Care Ventilator Management Diagnosis/Problems Diagnosis/Problems (1) Respiratory failure with hypoxia and hypercapnia Status: Acute Qualifiers: Chronicity: acute on chronic Qualified Codes: J96.21 - Acute and chronic respiratory failure with hypoxia; J96.22 - Acute and chronic respiratory failure with hypercapnia (2) High blood pressure Status: Acute Qualifiers: Hypertension type: unspecified Qualified Codes: I10 - Essential (primary) hypertension (3) Cellulitis Status: Acute Qualifiers: Site of cellulitis: extremity Site of cellulitis of extremity: lower extremity Laterality: unspecified laterality Qualified Codes: L03.119 - Cellulitis of unspecified part of limb (4) Obstructive sleep apnea Status: Acute (5) Acute chronic obstructive pulmonary disease with respiratory distress Status: Acute (6) Obesity hypoventilation syndrome Status: Chronic PURVI GUZMAN DO May 08, 2018 11:11 YANE SAEZ MEDICAL STUDENT May 08, 2018 14:14
[2018-05-08] MEDS ORDERED: ENALAPRILAT 2.5 MG/2 ML (VASOTEC) VIAL IV PRN (11:30)
--- NOTE | 2018-05-08 11:30 | NUR ---
Dr. Knott at bedside. Notified of continued HTN despite hydralazine order. Received order for vasotec
[2018-05-08 11:43] LABS: ABG BASE EXCESS 11.1 MMOL/L (-2.5-2.5); ABG OXYGEN SATURATION 96 % (94-100); ABG PCO2 47 MMHG (35-45); ABG PH 7.48 (7.37-7.43); ABG PO2 78 MMHG (79-93); ABG TCO2 36.7 MMOL/L (21.0-31.0)
[2018-05-08 11:45] LABS: ALLENS TEST YES-POS; INSPIRED O2 45%; PATIENT TEMP 98.5
--- NOTE | 2018-05-08 11:53 | NUR ---
ABG results sent to Dr. Knott
--- NOTE | 2018-05-08 12:15 | NUR ---
Called Dr. Knott et order received to extubate
--- NOTE | 2018-05-08 12:20 | NUR ---
PT EXTUBATED ATT.PLACED ON 7LPM PER HIGH FLOW CANNULA. PT TOLERATING WELL.
--- NOTE | 2018-05-08 12:30 | NUR ---
Lt radial art line DC'd. Pressure held x10 minutes. No hematoma or oozing noted. Tip visualized - intact et patent.
--- NOTE | 2018-05-08 12:40 | NUR ---
Wasted 90mL propofol into jug witnessed by erlin Ch RN
[2018-05-08] MEDS: cefTRIAXone 1,000 MG/SWFI 10 ML IV PUSH IV SCH ×2 (12:47)
--- NOTE | 2018-05-08 13:31 | Progress Note (SOAP) ---
Subjective Date Seen by a Provider: May 08, 2018 Time Seen by a Provider: 13:29 Subjective/Events-last exam extubated about an hour ago. Review of Systems General: No Chills, No Night Sweats, No Fatigue, No Malaise HEENT: No Head Aches, No Eye Pain, No Ear Pain, No Dysphasia, No Sinus Congestion, No Post Nasal Drip, No Sore Throat Pulmonary: Dyspnea, Cough Cardiovascular: No: Chest Pain, Palpitations, Orthopnea, Paroxysmal Noc. Dyspnea, Edema, Lt Headedness Gastrointestinal: No: Nausea, Vomiting, Abdominal Pain, Diarrhea, Constipation , Melena, Hematochezia Genitourinary: No Dysuria, No Frequency, No Incontinence, No Hematuria, No Retention Musculoskeletal: back pain Objective Exam Vital Signs Date Time Temp Pulse Resp B/P (MAP) Pulse Ox O2 Delivery O2 Flow Rate FiO2 05/08/18 12:31 67 05/08/18 12:00 98.5 05/08/18 12:00 91 Mechanical Ventilator 45 05/08/18 11:00 75 28 95 45 05/08/18 11:00 68 22 191/95 (127) 96 Mechanical Ventilator 45.00 05/08/18 10:15 186/90 05/08/18 10:00 68 24 186/90 (122) 95 Mechanical Ventilator 45.00 05/08/18 09:06 66 26 93 45 05/08/18 09:00 67 10 185/93 (123) 94 Mechanical Ventilator 45.00 05/08/18 08:00 98.2 05/08/18 08:00 91 Mechanical Ventilator 45 05/08/18 08:00 74 26 183/92 (122) 95 Mechanical Ventilator 45.00 05/08/18 07:00 72 26 186/93 (124) 97 Mechanical Ventilator 45.00 05/08/18 07:00 75 05/08/18 06:08 64 25 94 45 05/08/18 06:00 67 26 192/99 (130) 93 Mechanical Ventilator 45.00 05/08/18 05:00 68 26 177/90 (119) 93 Mechanical Ventilator 45.00 05/08/18 04:16 149/76 05/08/18 04:10 45 05/08/18 04:00 98.9 05/08/18 04:00 73 27 180/87 (118) 92 Mechanical Ventilator 45.00 05/08/18 04:00 91 Mechanical Ventilator 45 05/08/18 03:51 75 27 90 45 05/08/18 03:00 75 25 168/82 (110) 90 Mechanical Ventilator 45.00 05/08/18 02:07 71 28 91 45 05/08/18 02:00 73 25 172/88 (116) 93 Mechanical Ventilator 45.00 05/08/18 01:09 68 05/08/18 01:00 68 26 191/98 (129) 91 Mechanical Ventilator 45.00 05/08/18 00:56 179/93 05/08/18 00:00 91 Mechanical Ventilator 45 05/08/18 00:00 68 25 191/97 (128) 91 Mechanical Ventilator 45.00 05/08/18 00:00 99.2 05/07/18 23:23 68 27 91 45 05/07/18 23:00 71 26 195/100 (131) 91 Mechanical Ventilator 45.00 05/07/18 22:00 68 25 187/94 (125) 92 Mechanical Ventilator 45.00 05/07/18 21:45 183/92 05/07/18 21:20 67 25 91 45 05/07/18 21:00 68 26 181/93 (122) 91 Mechanical Ventilator 45.00 05/07/18 20:00 72 25 191/98 (129) 92 Mechanical Ventilator 45.00 05/07/18 20:00 92 Mechanical Ventilator 45 05/07/18 20:00 98.8 05/07/18 19:22 74 34 94 45 05/07/18 19:00 70 05/07/18 19:00 70 25 190/97 (128) 95 Mechanical Ventilator 45.00 05/07/18 18:00 74 22 160/76 (104) 92 Mechanical Ventilator 45.00 05/07/18 17:00 67 25 186/95 (125) 92 Mechanical Ventilator 45.00 05/07/18 16:00 Mechanical Ventilator 05/07/18 16:00 64 25 183/93 (123) 92 Mechanical Ventilator 45.00 05/07/18 16:00 98.2 05/07/18 15:20 186/95 05/07/18 15:00 67 25 183/93 (123) 92 Mechanical Ventilator 45.00 05/07/18 14:00 65 24 184/92 (122) 91 Mechanical Ventilator 45.00 05/07/18 13:32 69 05/07/18 13:29 97.8 70 I & O 05/08/18 07:00 Output Total 24826 ml Balance -77366 ml Capillary Refill : Less Than 3 Seconds General Appearance: No Apparent Distress Neck: Normal Inspection Cardiovascular: Tachycardia Gastrointestinal: other Extremity: Other Other comments Panniculitis improving. Cellulitis of both legs much improved. Results Lab Laboratory Tests 05/07/18 17:59: Glucometer 281H 05/07/18 21:42: Glucometer 299H 05/08/18 00:51: Glucometer 302H 05/08/18 04:05: White Blood Count 8.7, Red Blood Count 5.70, Hemoglobin 15.3, Hematocrit 50, Mean Corpuscular Volume 87, Mean Corpuscular Hemoglobin 27, Mean Corpuscular Hemoglobin Concent 31L, Red Cell Distribution Width 14.6H, Platelet Count 271, Mean Platelet Volume 9.3, Neutrophils (%) (Auto) 84H, Lymphocytes (%) (Auto) 10L , Monocytes (%) (Auto) 6, Eosinophils (%) (Auto) 0, Basophils (%) (Auto) 0, Neutrophils # (Auto) 7.3, Lymphocytes # (Auto) 0.8L, Monocytes # (Auto) 0.5, Eosinophils # (Auto) 0.0, Basophils # (Auto) 0.0, Blood Gas Puncture Site LEFT ARTLINE, Blood Gas Patient Temperature 98.9, Arterial Blood pH 7.45H, Arterial Blood Partial Pressure CO2 47H, Arterial Blood Partial Pressure O2 68L, Arterial Blood HCO3 32H, Arterial Blood Total CO2 33.6H, Arterial Blood Oxygen Saturation 93L, Arterial Blood Base Excess 8.0H, [place] Test POSITIVE, Blood Gas Ventilator Setting YES, Blood Gas Inspired Oxygen 45%, Sodium Level 139, Potassium Level 4.0, Chloride Level 96L, Carbon Dioxide Level 27, Anion Gap 16H , Blood Urea Nitrogen 24H, Creatinine 0.72, Estimat Glomerular Filtration Rate > 60, BUN/Creatinine Ratio 33, Glucose Level 320H, Calcium Level 8.8, Phosphorus Level 3.8, Magnesium Level 1.8 05/08/18 11:25: Blood Gas Puncture Site LR, Blood Gas Patient Temperature 98.5, Arterial Blood pH 7.48H, Arterial Blood Partial Pressure CO2 47H, Arterial Blood Partial Pressure O2 78L, Arterial Blood HCO3 35H, Arterial Blood Total CO2 36.7H, Arterial Blood Oxygen Saturation 96, Arterial Blood Base Excess 11.1H, [place] Test YES-POS, Blood Gas Ventilator Setting NA, Blood Gas Inspired Oxygen 45% 05/08/18 12:37: Glucometer 298H Microbiology 05/04/18 Blood Culture - Preliminary, Resulted No growth 05/05/18 Gram Stain - Final, Complete 05/05/18 Sputum Culture - Final, Complete Usual upper respiratory yael Assessment/Plan Assessment/Plan Assess & Plan/Chief Complaint cellulitis of the lower legs and panniculitis off the lower abdominal wall. Recommend continuing intravenous antibiotics and close observation. Lovenox would be used for thromboprophylaxis Clinical Quality Measures DVT/VTE Risk/Contraindication: Risk Factor Score Per Nursin RFS Level Per Nursing on Admit: 1=Low/No VTE PPX TAJ CASTELLON MD May 08, 2018 13:30
[2018-05-08] MEDS: inSUlin ASPART (NovoLOG) 1 UNIT/0.01 ML (CHARGE PER UNIT) SC PRN ×2 (17:22→22:43)
[2018-05-08] MEDS: HYDROcodone/APAP 5 MG/325 MG (LORTAB) TAB PO PRN (20:35)
[2018-05-08] MEDS: inSUlin DETERMIR 1 UNIT/0.01 ML (LEVEMIR) CHARGE PER UNIT SQ SCH (22:42)
[2018-05-09] VITALS (11 sets, daily range): BP systolic 139–182; BP diastolic 72–98
[2018-05-09] MEDS: methylPREDNISolone 40 MG/ML (Solu-MEDROL) VIAL IV SCH (00:58)
[2018-05-09] MEDS: RT-ALBUTEROL/IPRATROPIUM 3 ML (DUONEB) VIAL INH SCH ×5 (03:30→18:32)
[2018-05-09 03:47] LABS: BASOPHILS % (AUTO) 0 % (0-10); EOSINOPHILS % (AUTO) 0 % (0-10); HEMATOCRIT 48 % (35-52); HEMOGLOBIN 15.3 G/DL (11.5-16.0); LYMPHOCYTES # (AUTO) 0.7 X 10^3 (1.0-4.0); LYMPHOCYTES % (AUTO) 5 % (12-44); MEAN CORPUSCULAR HEMOGLOBIN 27 PG (25-34); MEAN CORPUSCULAR HGB CONC 32 G/DL (32-36); MEAN CORPUSCULAR VOLUME 86 FL (80-99); MEAN PLATELET VOLUME 8.9 FL (7.4-10.4); MONOCYTES % (AUTO) 7 % (0-12); NEUTROPHILS # (AUTO) 11.8 X 10^3 (1.8-7.8); NEUTROPHILS % (AUTO) 88 % (42-75); PLATELET COUNT 364 10^3/uL (130-400); RED CELL DISTRIBUTION WIDTH 14.9 % (10.0-14.5); WHITE BLOOD COUNT 13.5 10^3/uL (4.3-11.0)
[2018-05-09 04:18] LABS: BUN/CREATININE RATIO 33; CARBON DIOXIDE 29 MMOL/L (21-32); CHLORIDE 95 MMOL/L (98-107); CREATININE SERUM 0.66 MG/DL (0.60-1.30); GFR ESTIMATED > 60; GLUCOSE 292 MG/DL (70-105); PHOSPHORUS 3.5 MG/DL (2.3-4.7); POTASSIUM 3.7 MMOL/L (3.6-5.0); SODIUM 139 MMOL/L (135-145)
[2018-05-09] MEDS: HYDROcodone/APAP 5 MG/325 MG (LORTAB) TAB PO PRN (04:40)
--- NOTE | 2018-05-09 05:20 | Pulmonary Progress Note ---
Subjective Time Seen by a Provider: 05:28 Subjective/Events-last exam PT is doing well off vent. Sepsis Event Evaluation Height, Weight, BMI Height: 6'1.00" Weight: 422lbs. 0.0oz. 191.288641or; 53.0 BMI Method:Stated Exam Exam Vital Signs Date Time Temp Pulse Resp B/P (MAP) Pulse Ox O2 Delivery O2 Flow Rate FiO2 05/09/18 05:00 85 16 168/92 (117) 96 High Flow N/C 3.00 05/09/18 04:21 High Flow N/C 3.00 05/09/18 04:00 91 19 182/97 (125) 98 High Flow N/C 4.00 05/09/18 04:00 94 High Flow N/C 3.00 05/09/18 03:47 98.8 05/09/18 03:00 91 19 182/97 (125) 98 High Flow N/C 4.00 05/09/18 02:00 101 17 164/97 (119) 95 High Flow N/C 4.00 05/09/18 01:00 100 17 148/86 (106) 95 High Flow N/C 4.00 05/09/18 01:00 100 05/09/18 00:00 96 High Flow N/C 6.00 05/09/18 00:00 107 14 153/72 (99) 95 High Flow N/C 4.00 05/08/18 23:11 High Flow N/C 4.00 05/08/18 23:02 97 High Flow N/C 6.00 05/08/18 23:00 99 18 155/99 (117) 98 High Flow N/C 6.00 05/08/18 22:00 97 15 154/87 (109) 94 High Flow N/C 6.00 05/08/18 21:00 96 13 160/87 (111) 95 High Flow N/C 6.00 05/08/18 20:00 105 16 140/84 (102) 94 High Flow N/C 6.00 05/08/18 20:00 93 High Flow N/C 6.00 05/08/18 19:25 97.7 High Flow N/C 6.00 05/08/18 19:00 88 21 158/85 (109) 94 Nasal Cannula 4.00 05/08/18 19:00 88 2/15/19 18:49 97 High Flow N/C 8.00 05/08/18 18:00 76 18 149/61 (90) 97 Nasal Cannula 4.00 05/08/18 17:00 75 20 141/5 (50) 96 Nasal Cannula 4.00 05/08/18 16:00 98.1 05/08/18 16:00 77 11 114/82 (93) 91 Nasal Cannula 4.00 05/08/18 16:00 91 Nasal Cannula 8.00 05/08/18 15:00 84 16 118/74 (89) 92 Nasal Cannula 4.00 05/08/18 14:19 91 Nasal Cannula 7.00 05/08/18 14:00 62 16 135/89 (104) 92 Nasal Cannula 7.00 05/08/18 13:00 64 20 149/93 (111) 93 Nasal Cannula 7.00 05/08/18 12:31 67 05/08/18 12:00 98.5 05/08/18 12:00 91 Mechanical Ventilator 45 05/08/18 11:00 75 28 95 45 05/08/18 11:00 68 22 191/95 (127) 96 Mechanical Ventilator 45.00 05/08/18 10:15 186/90 05/08/18 10:00 68 24 186/90 (122) 95 Mechanical Ventilator 45.00 05/08/18 09:06 66 26 93 45 05/08/18 09:00 67 10 185/93 (123) 94 Mechanical Ventilator 45.00 05/08/18 08:00 98.2 05/08/18 08:00 91 Mechanical Ventilator 45 05/08/18 08:00 74 26 183/92 (122) 95 Mechanical Ventilator 45.00 05/08/18 07:00 72 26 186/93 (124) 97 Mechanical Ventilator 45.00 05/08/18 07:00 75 05/08/18 06:08 64 25 94 45 05/08/18 06:00 67 26 192/99 (130) 93 Mechanical Ventilator 45.00 I & O 05/09/18 07:00 Intake Total 1315 ml Output Total 9275 ml Balance -7960 ml Height & Weight Height: 6'1.00" Weight: 422lbs. 0.0oz. [id number]; 53.0 BMI Method:Stated General Appearance: WD/WN, Chronically ill, Obese, Other (sedated on vent) HEENT: PERRL/EOMI, Normal ENT Inspection, Pharynx Normal Neck: Full Range of Motion, Normal Inspection, Non Tender, Supple, Carotid Bruit Respiratory: Chest Non Tender, Accessory Muscle Use, Decreased Breath Sounds Cardiovascular: Regular Rate, Rhythm, No Edema, No Gallop, No JVD, No Murmur, Normal Peripheral Pulses Capillary Refill: Less Than 3 Seconds Gastrointestinal: soft, other Extremity: Normal Capillary Refill, Normal Inspection, Normal Range of Motion, Non Tender, No Calf Tenderness, Inflammation, Pedal Edema Neurologic/Psychiatric: Alert, Oriented x3, No Motor/Sensory Deficits, Normal Mood/Affect, Disoriented, Other (improved erythema of legs) Skin: Other (erythema of legs and torso under pannus much improved today) Lymphatic: No Adenopathy Results Lab Laboratory Tests 05/08/18 04:05 05/09/18 03:40 Assessment/Plan Assessment/Plan Acute on chronic respiratory failure -PT is now off ventilator -Oxygen -SVNs Q4. -Solumedrol 40 Q 6 Acute reproducible atypical nonradiating CP started 4hours ago - Probably musculoskeletal -- DOUBT CARDIAC -Stat EKG - NSR and no ST seg changes -Check troponins x 3 -Continue current pain meds Pneumonia Atelectasis -Continue abx -Denney cultures pending -Start IS Obesity hypoventilation syndrome -Pt needs home vent to mask Pc02 is 66 Cellulitis -Vanco and Cefepime Debility -PT/OT CLOVIS NIEVES DO May 09, 2018 05:20
[2018-05-09] MEDS: POTASSIUM CL 10MEQ/50ML IVPB 50 ML IV SCH (05:25)
[2018-05-09] MEDS: MAGNESIUM 1 GM/100 ML IVPB 100 ML IV SCH (05:26)
[2018-05-09] MEDS: KCL 20 MEQ TAB (K-DUR) PO SCH (05:27)
[2018-05-09] MEDS: VANCOMYCIN 2,500 MG/NS 500 ML IVPB IV SCH ×6 (05:50→22:15)
[2018-05-09] MEDS: inSUlin ASPART (NovoLOG) 1 UNIT/0.01 ML (CHARGE PER UNIT) SC PRN ×4 (05:50→22:15)
--- NOTE | 2018-05-09 06:52 | Diagnostic Imaging Report ---
INDICATION: Status post extubation. Dyspnea. COMPARISON: 05/08/2018 FINDINGS: Single frontal radiographic view of the chest was obtained and demonstrates interval removal of endotracheal and gastric tubes. Right upper extremity PICC line remains in place with tip just below the cavoatrial junction. The lungs show significant interval improved aeration. Cardiac silhouette and pulmonary vasculature within normal limits. There is mild residual asymmetric elevation of the right hemidiaphragm. Otherwise, lungs are clear as well. No large effusion or pneumothorax is seen. Bony structures show no gross acute abnormalities. IMPRESSION: 1. Lines and tubes as above. 2. Significant interval improved aeration. Dictated by: Dictated on workstation # [id number]
[2018-05-09] MEDS: ENOXAPARIN 60 MG/0.6 ML (LOVENOX) SYR SC SCH ×2 (08:21→22:15)
[2018-05-09] MEDS: PANTOPRAZOLE 40 MG (PROTONIX) VIAL IV SCH (08:21)
[2018-05-09] MEDS: LORATADINE (CLARITIN) 10 MG TAB PO SCH (08:22)
[2018-05-09] MEDS: ASPIRIN E.C. 81 MG (ECOTRIN) TAB PO SCH (08:22)
[2018-05-09] MEDS: ACETAMINOPHEN 500 MG TAB (TYLENOL) PO PRN ×2 (11:00→19:42)
[2018-05-09] MEDS: cefTRIAXone 1,000 MG/SWFI 10 ML IV PUSH IV SCH ×2 (11:07)
--- NOTE | 2018-05-09 11:08 | Occupational Therapy Eval ---
OT Evaluation-General/PLF Medical Diagnosis Admission Date May 04, 2018 at 12:35 Medical Diagnosis: cellulitis, acute COPD, resp failure, obesity Onset Date: May 04, 2018 Therapy Diagnosis Therapy Diagnosis: decr self care, decr funct mob, decr act toleance, weakness Height/Weight Height (Feet): 6 Height (Inches): 1.00 Weight (Pounds): 420 Weight (Ounces): 0.0 Precautions Precautions/Isolations: Fall Prevention, Standard Precautions Safety Interventions: None Referral Physician: Hedy Referral Reason: Evaluation/Treatment Medical History Pertinent Medical History: DM, Smoking (quit 2017) Additional Medical History Sleep apnea. Stroke. Chronic back pain. Anxiety, depression. Morbid obesity Current History Admitted through ED with redness on abdomen and lower legs, SOB. Has been on vent and was extubated on 05-08-18. Now on 2 L/min O2 Reviewed History: Yes Social History Current Living Status: Spouse 3 children ages 6,7 and 10. Also has other family members living at her house ADL-Prior Level of Function Therapy Code Descriptions/Definitions Functional [place] Measure: 0=Not Assessed/NA 4=Minimal Assistance 1=Total Assistance 5=Supervision or Setup 2=Maximal Assistance 6=Modified [place] 3=Moderate Assistance 7=Complete [place] Therapy Quality Codes: 6 Independent with activity with or without an assistive device 5 Patient requires set up or clean up by helper. Patient completes activity by themselves 4 Supervision or touching assist (CGA). [place] provide cues , steadying assist 3 The helper provides less than half the effort to complete the activity 2 The helper provides more than half the effort to complete the activity 1 Dependent. The helper does all the effort to complete an activity 7 Patient refused to complete or attempt activity 9 The patient did not perform the activity before the current illness or injury 88 Not attempted due to Medical conditions or safety concerns Functional Abilities and Goals: Independent: Patient completed the activities by him/herself, with or without an assistive device, with no assistance from a helper. Needed Some Help: Patient needed partial assistance from another person to complete activities. Dependent: A helper completed the activities for the patient. 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 She cares for her family and drives. Self Care: Independent Functional Cognition: Independent DME/Equipment: Grab Bars (in tub), Shower Hose Tool Turret Lathe Set Up Operator, Tall Toilet, Tub/ Shower OT Current Status Subjective Pt seen in room, up on BSC, agreeable to OT. Pain reported 6-7 in chest and nursing notified. Pt stated, "It might be indigestion, which I've never had." Appearance Alert, cooperative Mental Status/Objective Attachments: Central Line, Peace Catheter, IV, Oxygen, Telemetry Current Hand Dominance: Right (Both) Upper Extremity ROM Grossly WFL bilat Upper Extremity Strength Grossly 4/5 bilat ADL-Treatment ADL-Current Pt transferred from BSC to bed with CGA, help needed with hygiene. Does not normally use a walker or device for mobility. Able to sit EOB without difficulty. Unable to reach feet but declined slipper socks. Reported she has been able to feed herself and get a drink. Pt interested in devices for energy conservation such as shower chair or bench, reachers and other devices for lower body dressing, education in energy conservation techniques. Therapy Code Descriptions/Definitions Functional [place] Measure: 0=Not Assessed/NA 4=Minimal Assistance 1=Total Assistance 5=Supervision or Setup 2=Maximal Assistance 6=Modified [place] 3=Moderate Assistance 7=Complete [place] Therapy Quality Codes: 6 Independent with activity with or without an assistive device 5 Patient requires set up or clean up by helper. Patient completes activity by themselves 4 Supervision or touching assist (CGA). [place] provide cues , steadying assist 3 The helper provides less than half the effort to complete the activity 2 The helper provides more than half the effort to complete the activity 1 Dependent. The helper does all the effort to complete an activity 7 Patient refused to complete or attempt activity 9 The patient did not perform the activity before the current illness or injury 88 Not attempted due to Medical conditions or safety concerns Eating (FIM): 5 Toileting (FIM): 3 (Help with hygiene. managed gown) Toilet/Commode Transfer (FIM): 4 (CGA) Education OT Patient Education: Modified ADL techniques, Purpose of tx/functional activities, Rehab process, Use of adapted equipment Teaching Recipient: Patient Teaching Methods: Discussion Response to Teaching: Verbalize Understanding OT Senior Production Manager Goals Care Home Goals Time Frame: May 16, 2018 Grooming(FIM): 6 Bathing(FIM): 5 Upper Body Dressing(FIM): 6 Lower Body Dressing(FIM): 6 Toileting(FIM): 6 Toilet/Commode Transfer(FIM): 6 Shower Transfer(FIM): 5 Additional Goals: 1-Demonstrate ADL Tasks, 2-Verbalize Understanding, 3- ImproveStrength/Juan Jose 1=Demonstrate adherence to instructed precautions during ADL tasks. 2=Patient will verbalize/demonstrate understanding of assistive devices/ modifications for ADL. 3=Patient will improve strength/tolerance for activity to enable patient to perform ADL's. OT Education/Plan Problem List/Assessment Assessment: Decreased Activ Tolerance, Decreased UE Strength, Dependent Transfers, Impaired Self-Care Skills Pt would benefit from skilled OT to increase her independence in basic self care to allow her to safely return home Discharge Recommendations Plan/Recommendations: Continue POC Treatment Plan/Plan of Care Treatment,Training & Education: Yes Patient would benefit from OT for education, treatment and training to promote independence in ADL's, mobility, safety and/or upper extremity function for ADL' s. Plan of Care: ADL Retraining, Functional Mobility, UE Funct Exercise/Act, UE Neuromus Re-Ed/Coord, OTHER (energy conservation education) Treatment Duration: May 16, 2018 Frequency: 5 times per week Estimated Hrs Per Day: .25 hour per day Agreement: Yes Rehab Potential: Good Time/GCodes Start Time: 10:35 Stop Time: 10:55 Total Time Billed (hr/min): 20 Billed Treatment Time visit, 20 minutes evaluation moderate intensity WALKER GRACIA OT May 09, 2018 11:08
--- NOTE | 2018-05-09 11:13 | Progress Note-Hospitalist ---
Subjective HPI/CC On Admission Date Seen by Provider: May 09, 2018 Time Seen by Provider: 11:30 CC: Bilateral leg swelling, erythema, tenderness, and same on abdomen HPI: This is a 37 yo white female who presented to the ER from home for worsening redness, swelling, and pain of bilateral legs as well as more recent onset of redness, swelling, and pain of her abdominal skin. She first presented to the ER on 03/13/18 for swelling and redness of the LLE after being seen at [facility] and told to come to the ER for an US to r/o DVT. She returned to the ER on 03/14/18 because the redness had spread to her R leg and she had yet to pickup driver her prescribed Bactrim DS. Lower extremity US of both legs was negative for DVT at the second visit. The pt reports she finished the Bactrim prescribed at that time, but the lower extremity swelling/redness never fully resolved. She returned to the ER on 04/09/18 for retrosternal CP and had a negative EKG/trop/CXR. She was treated within the last week for CAP w/ Levaquin as an outpatient through [facility]. The pt states the redness, swelling, and pain of the LE started worsening acutely yesterday and had spread to her abdomen. Based on the [facility] notes, she has been treated for a yeast infection of the skin folds below her pannus, most recently in February 2018. She became dyspneic on exertion and started experiencing cough today. She denies cardiovascular problems or hx of DVT/PE. She states she is in the process of getting CPAP for ESTHELA. She has been using tylenol and and naproxen for the pain with modest relief. Since the patient's oxygenation in the ED failed to improve on 4L and she was still SOB, a lung CTA was performed and was negative for PE. Mild pneumonitis was observed in the R lobe. Due to her respiratory distress, she was admitted to the floor. Subjective/Events-last exam Patient extubated yesterday BM x 2 yesterday Will Dc catheter Overall patient much improved Cellulitis much improved on Rocephin and Vanc No pain is reported Transfer to floor Review of Systems General: Fatigue Objective Exam Vital Signs Vital Signs Date Time Temp Pulse Resp B/P (MAP) Pulse Ox O2 Delivery O2 Flow Rate FiO2 05/09/18 11:06 93 High Flow N/C 4.00 05/09/18 08:00 101 10 139/77 (97) 05/09/18 07:38 98.6 05/08/18 12:00 45 Capillary Refill : Less Than 3 Seconds General Appearance: No Apparent Distress, WD/WN, Chronically ill, Obese HEENT: PERRL/EOMI, Normal ENT Inspection, Pharynx Normal Neck: Full Range of Motion, Normal Inspection, Non Tender, Supple, Carotid Bruit Respiratory: Chest Non Tender, Lungs Clear, Normal Breath Sounds, No Accessory Muscle Use, No Respiratory Distress Cardiovascular: Regular Rate, Rhythm, No Edema, No Gallop, No JVD, No Murmur, Normal Peripheral Pulses Gastrointestinal: Normal Bowel Sounds, No Organomegaly, No Pulsatile Mass, Non Tender, Soft Back: Normal Inspection, No CVA Tenderness, No Vertebral Tenderness Extremity: Normal Capillary Refill, Normal Inspection, Normal Range of Motion, Non Tender, No Calf Tenderness, Inflammation, Pedal Edema Neurologic/Psychiatric: Alert, Oriented x3, No Motor/Sensory Deficits, Normal Mood/Affect, Disoriented, Other (improved erythema of legs) Skin: Other (erythema of legs and torso under pannus much improved today) Lymphatic: No Adenopathy Results/Procedures Lab Laboratory Tests 05/09/18 03:40 Patient resulted labs reviewed. Imaging: Reviewed Imaging Films, Reviewed Imaging Report Assessment/Plan Assessment and Plan Assess & Plan/Chief Complaint Assessment: Profound cellulitis progressive type CO2 narcosis Respiratory failure s/p extubation Severe ESTHELA Obesity hypoventilation syndrome DM Plan: Tx to floor IV abx Rocephin and Vanc Monitor closely DC catheter Critical Care Ventilator Management Diagnosis/Problems Diagnosis/Problems (1) CO2 narcosis Status: Resolved Resolution Date/Time: 05/09/18 @ 12:37 (2) Cellulitis Status: Acute Qualifiers: Site of cellulitis: extremity Site of cellulitis of extremity: lower extremity Laterality: unspecified laterality Qualified Codes: L03.119 - Cellulitis of unspecified part of limb (3) Obstructive sleep apnea Status: Chronic (4) Respiratory failure with hypoxia and hypercapnia Status: Resolved Qualifiers: Chronicity: acute on chronic Qualified Codes: J96.21 - Acute and chronic respiratory failure with hypoxia; J96.22 - Acute and chronic respiratory failure with hypercapnia Resolution Date/Time: 05/09/18 @ 12:37 (5) Obesity hypoventilation syndrome Status: Chronic Clinical Quality Measures DVT/VTE Risk/Contraindication: Risk Factor Score Per Nursin RFS Level Per Nursing on Admit: 1=Low/No VTE PPX PURVI GUZMAN DO May 09, 2018 11:13
--- NOTE | 2018-05-09 11:46 | Physical Therapy Evaluation ---
PT Evaluation-General Medical Diagnosis Admission Date May 04, 2018 at 12:35 Medical Diagnosis: cellulitis, acute COPD, resp failure, obesity Onset Date: May 04, 2018 Therapy Diagnosis Therapy Diagnosis: WEAKNESS; ABN GAIT Height/Weight Height (Feet): 6 Height (Inches): 1.00 Weight (Pounds): 420 Weight (Ounces): 0.0 Precautions Precautions/Isolations: Fall Prevention, Standard Precautions Referral Physician: Hedy Reason for Referral: Evaluation/Treatment Medical History Pertinent Medical History: DM, Smoking (quit 2017) Additional Medical History morbid obesity Current History Pt admitted through ER with celluitis and CO2 retention Reviewed History: Yes Social History Home: Single Level Current Living Status: Spouse Entry Into Home: Stairs With Railing Prior/Core FIM Prior Level of Function Therapy Code Descriptions/Definitions Functional [place] Measure: 0=Not Assessed/NA 4=Minimal Assistance 1=Total Assistance 5=Supervision or Setup 2=Maximal Assistance 6=Modified [place] 3=Moderate Assistance 7=Complete [place] Therapy Quality Codes: 6 Independent with activity with or without an assistive device 5 Patient requires set up or clean up by helper. Patient completes activity by themselves 4 Supervision or touching assist (CGA). [place] provide cues , steadying assist 3 The helper provides less than half the effort to complete the activity 2 The helper provides more than half the effort to complete the activity 1 Dependent. The helper does all the effort to complete an activity 7 Patient refused to complete or attempt activity 9 The patient did not perform the activity before the current illness or injury 88 Not attempted due to Medical conditions or safety concerns Functional Abilities and Goals: Independent: Patient completed the activities by him/herself, with or without an assistive device, with no assistance from a helper. Needed Some Help: Patient needed partial assistance from another person to complete activities. Dependent: A helper completed the activities for the patient. Unknown: Not Applicable: Bed Mobility: 7 Transfers (B,C,W/C) (FIM): 7 Indep at [facility] Fanminder, community ambulator PT Evaluation-Current Subjective Agrees to PT. Reprots she has not walked since she has been here. Objective Patient Orientation: Person, Place, Time, Situation Problem Solving: Good Attachments: Oxygen, Peace Catheter ROM/Strength ROM Lower Extremities WNL Strength Lower Extremities WNL Integumentary/Posture Integumentary intact; LE red Bowel Incontinence: No Bladder Incontinence: Peace Cath Neuromuscular (Tone, Coordination, Reflexes) WFL Sensory Vision: Functional Hearing: Functional Hand Dominance: Right (Both) Sensation Right Lower Extremit: Intact Sensation Left Lower Extremity: Intact Transfers Therapy Code Descriptions/Definitions Functional [place] Measure: 0=Not Assessed/NA 4=Minimal Assistance 1=Total Assistance 5=Supervision or Setup 2=Maximal Assistance 6=Modified [place] 3=Moderate Assistance 7=Complete [place] Transfers (B, C, W/C) (FIM): 5 grossly SBA with all tranfers and bed mobilty. Pt does not need cues to sequence. Gait Mode of Locomotion: Walk Anticipated Mode of Locomotion: Walk Gait (FIM): 5 Gait Assistive Device: FWW Comments/Gait Description SBA with gait x 120 ft with FWW. Steady and without LOB noted Safe. Balance Sitting Static: Good Sitting Dynamic: Good Standing Static: Good Standing Dynamic: Good Assessment/Needs Pt will beneift from an additional visit to ensure safe and functional mobility . She is SBA this date as she has not been up for a few days. Her sequencing and safety is WNL and her mobility is functional as well. Rehab Potential: Good PT [facility] Goals [facility] Goals PT [facility] Goals Time Frame: May 13, 2018 Transfers (B,C,W/C) (FIM): 7 Gait (FIM): 6 PT Plan Problem List Problem List: Activity Tolerance, Functional Strength, Safety Treatment/Plan Treatment Plan: Continue Plan of Care Treatment Plan: Education, Functional Activity Juan Jose, Gait, Safety, Transfers Treatment Duration: May 13, 2018 Frequency: 6 times per week Estimated Hrs Per Day: .25 hour per day Patient and/or Family Agrees t: Yes Safety Risks/Education Patient Education: Safety Issues Teaching Recipient: Patient Teaching Methods: Discussion Response to Teaching: Return Demonstration Time/GCodes Time In: 1110 Time Out: 1130 Total Billed Treatment Time: 20 Total Billed Treatment visit EVM 20 MARIA C IVERSON PT May 09, 2018 11:46
[2018-05-09] MEDS: inSUlin DETERMIR 1 UNIT/0.01 ML (LEVEMIR) CHARGE PER UNIT SQ SCH (22:15)
[2018-05-10] VITALS (7 sets, daily range): BP systolic 113–156; BP diastolic 60–99
[2018-05-10] MEDS: HYDROcodone/APAP 5 MG/325 MG (LORTAB) TAB PO PRN ×2 (00:19→20:29)
[2018-05-10] MEDS: KCL 20 MEQ TAB (K-DUR) PO SCH (01:02)
[2018-05-10] MEDS: MAGNESIUM 1 GM/100 ML IVPB 100 ML IV SCH (01:02)
[2018-05-10] MEDS: POTASSIUM CL 10MEQ/50ML IVPB 50 ML IV SCH (01:02)
[2018-05-10] MEDS: RT-ALBUTEROL/IPRATROPIUM 3 ML (DUONEB) VIAL INH SCH ×6 (02:20→19:50)
[2018-05-10 03:54] LABS: BASOPHILS % (AUTO) 0 % (0-10); EOSINOPHILS # (AUTO) 0.1 10^3/uL (0.0-0.3); EOSINOPHILS % (AUTO) 1 % (0-10); HEMATOCRIT 46 % (35-52); HEMOGLOBIN 14.1 G/DL (11.5-16.0); LYMPHOCYTES % (AUTO) 21 % (12-44); MEAN CORPUSCULAR HEMOGLOBIN 27 PG (25-34); MEAN CORPUSCULAR HGB CONC 31 G/DL (32-36); MEAN CORPUSCULAR VOLUME 88 FL (80-99); MEAN PLATELET VOLUME 8.8 FL (7.4-10.4); MONOCYTES # (AUTO) 0.9 X 10^3 (0.0-1.0); MONOCYTES % (AUTO) 9 % (0-12); NEUTROPHILS # (AUTO) 6.5 X 10^3 (1.8-7.8); NEUTROPHILS % (AUTO) 69 % (42-75); PLATELET COUNT 304 10^3/uL (130-400); RED CELL DISTRIBUTION WIDTH 14.9 % (10.0-14.5); WHITE BLOOD COUNT 9.4 10^3/uL (4.3-11.0)
[2018-05-10] MEDS: ACETAMINOPHEN 500 MG TAB (TYLENOL) PO PRN ×2 (04:18→19:08)
[2018-05-10 04:34] LABS: BUN/CREATININE RATIO 29; CALCIUM 8.4 MG/DL (8.5-10.1); CARBON DIOXIDE 29 MMOL/L (21-32); CHLORIDE 99 MMOL/L (98-107); CREATININE SERUM 0.59 MG/DL (0.60-1.30); GFR ESTIMATED > 60; GLUCOSE 218 MG/DL (70-105); MAGNESIUM 1.6 MG/DL (1.8-2.4); PHOSPHORUS 4.2 MG/DL (2.3-4.7); POTASSIUM 2.9 MMOL/L (3.6-5.0); SODIUM 141 MMOL/L (135-145)
[2018-05-10] MEDS: VANCOMYCIN 2,500 MG/NS 500 ML IVPB IV SCH ×6 (05:52→21:21)
[2018-05-10] MEDS: inSUlin ASPART (NovoLOG) 1 UNIT/0.01 ML (CHARGE PER UNIT) SC PRN ×3 (06:22→19:06)
[2018-05-10] MEDS ORDERED: cefTRIAXone 1,000 MG IV (ROCEPHIN) VIAL ONE (11:41)
[2018-05-10] MEDS ORDERED: WATER (STERILE) FOR INJECTION 10 ML ONE (11:41)
--- NOTE | 2018-05-10 12:02 | Progress Note-Hospitalist ---
Subjective HPI/CC On Admission Date Seen by Provider: May 10, 2018 Time Seen by Provider: 11:15 CC: Bilateral leg swelling, erythema, tenderness, and same on abdomen HPI: This is a 37 yo white female who presented to the ER from home for worsening redness, swelling, and pain of bilateral legs as well as more recent onset of redness, swelling, and pain of her abdominal skin. She first presented to the ER on 03/13/18 for swelling and redness of the LLE after being seen at [facility] and told to come to the ER for an US to r/o DVT. She returned to the ER on 03/14/18 because the redness had spread to her R leg and she had yet to pick and shovel man her prescribed Bactrim DS. Lower extremity US of both legs was negative for DVT at the second visit. The pt reports she finished the Bactrim prescribed at that time, but the lower extremity swelling/redness never fully resolved. She returned to the ER on 04/09/18 for retrosternal CP and had a negative EKG/trop/CXR. She was treated within the last week for CAP w/ Levaquin as an outpatient through [facility]. The pt states the redness, swelling, and pain of the LE started worsening acutely yesterday and had spread to her abdomen. Based on the [facility] notes, she has been treated for a yeast infection of the skin folds below her pannus, most recently in February 2018. She became dyspneic on exertion and started experiencing cough today. She denies cardiovascular problems or hx of DVT/PE. She states she is in the process of getting CPAP for ESTHELA. She has been using tylenol and and naproxen for the pain with modest relief. Since the patient's oxygenation in the ED failed to improve on 4L and she was still SOB, a lung CTA was performed and was negative for PE. Mild pneumonitis was observed in the R lobe. Due to her respiratory distress, she was admitted to the floor. Subjective/Events-last exam Doing well since transferred from the ICU Legs are much improved Maintained on biPAP at night Low potassium will be supplemented BM treatment needed Review of Systems General: Fatigue Gastrointestinal: Constipation Objective Exam Vital Signs Vital Signs Date Time Temp Pulse Resp B/P (MAP) Pulse Ox O2 Delivery O2 Flow Rate FiO2 05/10/18 12:00 98.5 99 18 135/64 (87) 93 High Flow N/C 4.00 05/08/18 12:00 45 Capillary Refill : Less Than 3 Seconds General Appearance: No Apparent Distress, WD/WN, Chronically ill, Obese HEENT: PERRL/EOMI, Normal ENT Inspection, Pharynx Normal Neck: Full Range of Motion, Normal Inspection, Non Tender, Supple, Carotid Bruit Respiratory: Chest Non Tender, Lungs Clear, Normal Breath Sounds, No Accessory Muscle Use, No Respiratory Distress Cardiovascular: Regular Rate, Rhythm, No Edema, No Gallop, No JVD, No Murmur, Normal Peripheral Pulses Gastrointestinal: Normal Bowel Sounds, No Organomegaly, No Pulsatile Mass, Non Tender, Soft Back: Normal Inspection, No CVA Tenderness, No Vertebral Tenderness Extremity: Normal Capillary Refill, Normal Inspection, Normal Range of Motion, Non Tender, No Calf Tenderness, Inflammation, Pedal Edema Neurologic/Psychiatric: Alert, Oriented x3, No Motor/Sensory Deficits, Normal Mood/Affect, Disoriented, Other (improved erythema of legs) Skin: Other (erythema of legs and torso under pannus much improved today) Lymphatic: No Adenopathy Results/Procedures Lab Laboratory Tests 05/10/18 03:50 Patient resulted labs reviewed. Imaging: Reviewed Imaging Films, Reviewed Imaging Report Assessment/Plan Assessment and Plan Assess & Plan/Chief Complaint Assessment: Profound cellulitis progressive type CO2 narcosis Respiratory failure s/p extubation Severe ESTHELA Obesity hypoventilation syndrome DM Hypokalemia Plan: IV abx Rocephin and Vanc Monitor closely BM regimen Replace potassium Critical Care Ventilator Management Diagnosis/Problems Diagnosis/Problems (1) CO2 narcosis Status: Resolved Resolution Date/Time: 05/09/18 @ 12:37 (2) Cellulitis Status: Acute Qualifiers: Site of cellulitis: extremity Site of cellulitis of extremity: lower extremity Laterality: unspecified laterality Qualified Codes: L03.119 - Cellulitis of unspecified part of limb (3) Obstructive sleep apnea Status: Chronic (4) Respiratory failure with hypoxia and hypercapnia Status: Resolved Qualifiers: Chronicity: acute on chronic Qualified Codes: J96.21 - Acute and chronic respiratory failure with hypoxia; J96.22 - Acute and chronic respiratory failure with hypercapnia Resolution Date/Time: 05/09/18 @ 12:37 (5) Obesity hypoventilation syndrome Status: Chronic Clinical Quality Measures DVT/VTE Risk/Contraindication: Risk Factor Score Per Nursin RFS Level Per Nursing on Admit: 1=Low/No VTE PPX PURVI GUZMAN DO May 10, 2018 12:02
[2018-05-10] MEDS ORDERED: DOCUSATE SODIUM 100 MG (COLACE) CAP PO NR (12:22)
[2018-05-10] MEDS ORDERED: KCL 10 MEQ TAB (MICRO K) PO NR (12:22)
[2018-05-10] MEDS ORDERED: DOCUSATE SODIUM 100 MG (COLACE) CAP PO PRN (12:30)
[2018-05-10] MEDS: ENOXAPARIN 60 MG/0.6 ML (LOVENOX) SYR SC SCH ×2 (12:40→20:30)
[2018-05-10] MEDS: ASPIRIN E.C. 81 MG (ECOTRIN) TAB PO SCH (12:40)
[2018-05-10] MEDS: LORATADINE (CLARITIN) 10 MG TAB PO SCH (12:40)
[2018-05-10] MEDS: cefTRIAXone 1,000 MG/SWFI 10 ML IV PUSH IV SCH ×2 (12:40)
[2018-05-10] MEDS: PANTOPRAZOLE 40 MG (PROTONIX) VIAL IV SCH (12:41)
--- NOTE | 2018-05-10 12:51 | Pulmonary Progress Note ---
Subjective Time Seen by a Provider: 06:00 Subjective/Events-last exam Pt is doing much better. Sepsis Event Evaluation Height, Weight, BMI Height: 6'1.00" Weight: 404lbs. 0.0oz. 183.413842xi; 53.0 BMI Method:Stated Exam Exam Vital Signs Date Time Temp Pulse Resp B/P (MAP) Pulse Ox O2 Delivery O2 Flow Rate FiO2 05/10/18 12:00 98.5 99 18 135/64 (87) 93 High Flow N/C 4.00 05/10/18 10:59 93 High Flow N/C 4.00 05/10/18 07:50 98.7 94 20 137/68 (91) 97 High Flow N/C 4.00 05/10/18 07:02 92 High Flow N/C 4.00 05/10/18 04:20 97.7 90 20 131/73 (92) 95 High Flow N/C 4.00 05/10/18 04:00 97 High Flow N/C 4.00 05/10/18 02:23 77 17 97 30.00 05/10/18 01:19 98.9 83 20 156/87 (110) 98 High Flow N/C 4.00 05/10/18 00:10 98.0 88 16 153/99 (117) 93 High Flow N/C 4.00 05/10/18 00:00 96 High Flow N/C 4.00 05/09/18 20:00 96 High Flow N/C 4.00 05/09/18 19:44 98.6 96 16 143/76 (98) 94 High Flow N/C 4.00 05/09/18 19:00 98 05/09/18 18:33 99 High Flow N/C 4.00 05/09/18 16:00 95 High Flow N/C 3.00 05/09/18 16:00 98.7 94 15 158/97 (117) 96 Nasal Cannula 3.00 05/09/18 14:10 96 High Flow N/C 4.00 I & O 05/10/18 07:00 Intake Total 2300 ml Output Total 1200 ml Balance 1100 ml Height & Weight Height: 6'1.00" Weight: 404lbs. 0.0oz. 183.386998iu; 53.0 BMI Method:Stated General Appearance: No Apparent Distress, WD/WN, Chronically ill, Obese HEENT: PERRL/EOMI, Normal ENT Inspection, Pharynx Normal Neck: Full Range of Motion, Normal Inspection, Non Tender, Supple, Carotid Bruit Respiratory: Chest Non Tender, Lungs Clear, Normal Breath Sounds, No Accessory Muscle Use, No Respiratory Distress Cardiovascular: Regular Rate, Rhythm, No Edema, No Gallop, No JVD, No Murmur, Normal Peripheral Pulses Capillary Refill: Less Than 3 Seconds Gastrointestinal: soft, other Extremity: Normal Capillary Refill, Normal Inspection, Normal Range of Motion, Non Tender, No Calf Tenderness, Inflammation, Pedal Edema Neurologic/Psychiatric: Alert, Oriented x3, No Motor/Sensory Deficits, Normal Mood/Affect, Disoriented, Other (improved erythema of legs) Skin: Other (erythema of legs and torso under pannus much improved today) Lymphatic: No Adenopathy Results Lab Laboratory Tests 05/09/18 03:40 05/10/18 03:50 Assessment/Plan Assessment/Plan Acute on chronic respiratory failure- improving -Oxygen -SVNs Q4. Pneumonia Atelectasis -Continue abx -Denney cultures pending -Start IS Obesity hypoventilation syndrome -Pt needs home vent to mask Pc02 is 66 Cellulitis -Vanco and Cefepime Debility -PT/OT CLOVIS NIEVES DO May 10, 2018 12:51
[2018-05-10] MEDS: KCL 10 MEQ TAB (MICRO K) PO SCH (20:29)
[2018-05-10] MEDS: inSUlin DETERMIR 1 UNIT/0.01 ML (LEVEMIR) CHARGE PER UNIT SQ SCH (21:21)
[2018-05-11] VITALS (7 sets, daily range): BP systolic 119–164; BP diastolic 64–89
[2018-05-11] MEDS: RT-ALBUTEROL/IPRATROPIUM 3 ML (DUONEB) VIAL INH SCH ×7 (00:18→19:59)
[2018-05-11] MEDS: VANCOMYCIN 2,500 MG/NS 500 ML IVPB IV SCH ×4 (05:31→14:07)
[2018-05-11 05:47] LABS: BASOPHILS % (AUTO) 0 % (0-10); EOSINOPHILS # (AUTO) 0.2 10^3/uL (0.0-0.3); EOSINOPHILS % (AUTO) 3 % (0-10); HEMATOCRIT 42 % (35-52); HEMOGLOBIN 12.6 G/DL (11.5-16.0); LYMPHOCYTES # (AUTO) 1.4 X 10^3 (1.0-4.0); LYMPHOCYTES % (AUTO) 22 % (12-44); MEAN CORPUSCULAR HEMOGLOBIN 27 PG (25-34); MEAN CORPUSCULAR HGB CONC 30 G/DL (32-36); MEAN CORPUSCULAR VOLUME 90 FL (80-99); MEAN PLATELET VOLUME 8.7 FL (7.4-10.4); MONOCYTES # (AUTO) 0.5 X 10^3 (0.0-1.0); MONOCYTES % (AUTO) 9 % (0-12); NEUTROPHILS # (AUTO) 4.2 X 10^3 (1.8-7.8); NEUTROPHILS % (AUTO) 66 % (42-75); PLATELET COUNT 222 10^3/uL (130-400); RED CELL DISTRIBUTION WIDTH 14.4 % (10.0-14.5); WHITE BLOOD COUNT 6.4 10^3/uL (4.3-11.0)
[2018-05-11 06:08] LABS: BUN/CREATININE RATIO 16; CALCIUM 7.4 MG/DL (8.5-10.1); CARBON DIOXIDE 29 MMOL/L (21-32); CHLORIDE 103 MMOL/L (98-107); GFR ESTIMATED > 60; GLUCOSE 226 MG/DL (70-105); MAGNESIUM 1.2 MG/DL (1.8-2.4); PHOSPHORUS 3.6 MG/DL (2.3-4.7); POTASSIUM 2.6 MMOL/L (3.6-5.0); SODIUM 140 MMOL/L (135-145)
[2018-05-11] MEDS: HYDROcodone/APAP 5 MG/325 MG (LORTAB) TAB PO PRN ×2 (06:39→12:15)
[2018-05-11] MEDS: PANTOPRAZOLE 40 MG (PROTONIX) VIAL IV SCH (08:44)
[2018-05-11] MEDS: ENOXAPARIN 60 MG/0.6 ML (LOVENOX) SYR SC SCH ×2 (08:44→21:46)
[2018-05-11] MEDS: KCL 10 MEQ TAB (MICRO K) PO SCH ×3 (08:44→21:46)
[2018-05-11] MEDS: ASPIRIN E.C. 81 MG (ECOTRIN) TAB PO SCH (08:44)
[2018-05-11] MEDS: LORATADINE (CLARITIN) 10 MG TAB PO SCH (08:44)
[2018-05-11] MEDS: ACETAMINOPHEN 500 MG TAB (TYLENOL) PO PRN ×2 (08:48→22:53)
--- NOTE | 2018-05-11 09:46 | Occupational Ther Daily Note ---
OT Current Status-Daily Note Subjective Pt in bed sitting on EOB with HOB elevated and leaning. Pt stated that she has a headache, did not rate, did say nrsg had given her something for it. Mental Status/Objective Patient Orientation: Person, Place, Time, Situation Therapy Code Descriptions/Definitions Functional Burnett Measure: 0=Not Assessed/NA 4=Minimal Assistance 1=Total Assistance 5=Supervision or Setup 2=Maximal Assistance 6=Modified Burnett 3=Moderate Assistance 7=Complete Burnett Attachments: IV, Oxygen Other Treatment Pt stated that she really didn't want to do anything. HERNANDEZ educated pt on OT and pt stated that she was interested in energy conservation techniques. Pt has small house and does not have distance to ambulate in home. Pt stated that she is ambulating to recliner and bathroom. Also stated that she has no difficulty with cleansing self after toileting since she is using toilet. Discussed bathroom AE with pt and possible places to acquire tub transfer bench. Pt talked about her 3 children and appears depressed. After therapy, pt sitting/lying in bed with call light/phone in reach. All needs met in room. Education OT Patient Education: Energy conservation, Purpose of tx/functional activities , Use of adapted equipment Teaching Recipient: Patient Teaching Methods: Discussion Response to Teaching: Verbalize Understanding OT Short Term Goals Short Term Goals 1=Demonstrate adherence to instructed precautions during ADL tasks. 2=Patient will verbalize/demonstrate understanding of assistive devices/ modifications for ADL. 3=Patient will improve strength/tolerance for activity to enable patient to perform ADL's. OT Real Estate Lawyer Goals Real Estate Lawyer Goals Time Frame: May 16, 2018 Grooming(FIM): 6 Bathing(FIM): 5 Upper Body Dressing(FIM): 6 Lower Body Dressing(FIM): 6 Toileting(FIM): 6 Toilet/Commode Transfer(FIM): 6 Shower Transfer(FIM): 5 Additional Goals: 1-Demonstrate ADL Tasks, 2-Verbalize Understanding, 3- ImproveStrength/Juan Jose 1=Demonstrate adherence to instructed precautions during ADL tasks. 2=Patient will verbalize/demonstrate understanding of assistive devices/ modifications for ADL. 3=Patient will improve strength/tolerance for activity to enable patient to perform ADL's. OT Education/Plan Problem List/Assessment Pt would benefit from skilled OT to increase her independence in basic self care to allow her to safely return home Discharge Recommendations Plan/Recommendations: Continue POC Treatment Plan/Plan of Care Patient would benefit from OT for education, treatment and training to promote independence in ADL's, mobility, safety and/or upper extremity function for ADL' s. Plan of Care: ADL Retraining, Functional Mobility, UE Funct Exercise/Act, UE Neuromus Re-Ed/Coord, OTHER (energy conservation education) Treatment Duration: May 16, 2018 Frequency: 5 times per week Estimated Hrs Per Day: .25 hour per day Agreement: Yes Rehab Potential: Good Time/GCodes Start Time: 09:32 Stop Time: 09:40 Total Time Billed (hr/min): 8 Billed Treatment Time 1 visit-FA 1 (8 min) MARIA C LEHMAN May 11, 2018 09:46
--- NOTE | 2018-05-11 09:51 | Physical Therapy Progress Note ---
Therapy Progress Note 9:05 PT went to pt room and pt reports that she is moving around okay and doesn' t think she needs PT services. PT will d/c pt. ALEYDA VEE PT May 11, 2018 09:51
--- NOTE | 2018-05-11 10:56 | Pulmonary Progress Note ---
Subjective Time Seen by a Provider: 13:28 Subjective/Events-last exam PT complains of back pain. SOB is stable Sepsis Event Evaluation Height, Weight, BMI Height: 6'1.00" Weight: 386lbs. 1.0oz. 175.892593ly; 53.0 BMI Method:Stated Exam Exam Vital Signs Date Time Temp Pulse Resp B/P (MAP) Pulse Ox O2 Delivery O2 Flow Rate FiO2 05/11/18 08:34 High Flow N/C 3.00 05/11/18 08:00 97.4 90 20 133/64 (87) 96 High Flow N/C 3.00 05/11/18 07:00 94 High Flow N/C 3.00 05/11/18 04:00 98.4 91 18 143/74 (97) 94 High Flow N/C 3.00 05/11/18 01:59 95 High Flow N/C 3.00 05/11/18 00:00 97.8 90 20 139/70 (93) 97 High Flow N/C 3.00 05/10/18 20:00 98.2 90 18 129/60 (83) 95 High Flow N/C 3.00 05/10/18 19:45 High Flow N/C 3.00 05/10/18 16:06 98.7 92 15 113/69 (84) 95 High Flow N/C 3.00 05/10/18 14:32 95 High Flow N/C 3.00 05/10/18 12:00 98.5 99 18 135/64 (87) 93 High Flow N/C 4.00 05/10/18 10:59 93 High Flow N/C 4.00 I & O 05/11/18 07:00 Intake Total 4505 ml Output Total 300 ml Balance 4205 ml Height & Weight Height: 6'1.00" Weight: 386lbs. 1.0oz. 175.806319mc; 53.0 BMI Method:Stated General Appearance: No Apparent Distress, WD/WN, Chronically ill, Obese HEENT: PERRL/EOMI, Normal ENT Inspection, Pharynx Normal Neck: Full Range of Motion, Normal Inspection, Non Tender, Supple, Carotid Bruit Respiratory: Chest Non Tender, Lungs Clear, Normal Breath Sounds, No Accessory Muscle Use, No Respiratory Distress Cardiovascular: Regular Rate, Rhythm, No Edema, No Gallop, No JVD, No Murmur, Normal Peripheral Pulses Capillary Refill: Less Than 3 Seconds Gastrointestinal: soft, other Extremity: Normal Capillary Refill, Normal Inspection, Normal Range of Motion, Non Tender, No Calf Tenderness, Inflammation, Pedal Edema Neurologic/Psychiatric: Alert, Oriented x3, No Motor/Sensory Deficits, Normal Mood/Affect, Disoriented, Other (improved erythema of legs) Skin: Other (erythema of legs and torso under pannus much improved today) Lymphatic: No Adenopathy Results Lab Laboratory Tests 05/10/18 03:50 05/11/18 05:40 Assessment/Plan Assessment/Plan Acute on chronic respiratory failure- improving -Oxygen -SVNs Pneumonia Atelectasis -Continue abx -Denney cultures pending -Start IS Obesity hypoventilation syndrome -Will order pt a BIPAP ST for out patient use. [facility] GUTIERREZ is arranging currently Cellulitis -Vanco and Cefepime Debility -PT/OT CLOVIS NIEVES DO May 11, 2018 10:56
--- NOTE | 2018-05-11 11:45 | NUR ---
pt refused PRN novolog for blood sugar of 240.
[2018-05-11] MEDS: cefTRIAXone 1,000 MG/SWFI 10 ML IV PUSH IV SCH ×4 (12:10)
--- NOTE | 2018-05-11 14:31 | NUR ---
CM/SS, respond to consult for DME. DME: Vent to Mask was ordered through [facility] by Dr. Knott; however, patient is uninsured and this equipment can not be provided under those circumstances. HME RT/Kanika communicated directly with Dr. Knott and order was modified to CPAP. Kanika is in direct communication with patient regarding arrangements. Concrete V[employer] Maker updated [facility] Dr. Boland about DME, tentative plan is for discharge tomorrow. Patient and her children were apparently covered under [employer] but patient let it lapse last Fall. She has asked for assistance to re-enroll all of them and appeals writer has referred her to [facility] Yaneth Hardy as a resource. Contact information provided on discharge instructions.
--- NOTE | 2018-05-11 19:18 | Progress Note (SOAP) ---
Subjective Subjective/Events-last exam 37 yo F that presented with worsening cellulitis that then developed respiratory failure. Patient states that she is feeling better. Doing IS frequently and states that she has hit her goal several times. Tolerating PO diet and ambulation. BM this AM. Review of Systems Date Seen by Provider: May 11, 2018 Time Seen by Provider: 10:30 Pulmonary: Dyspnea, Cough Cardiovascular: Edema; No: Chest Pain, Palpitations Gastrointestinal: No: Nausea, Vomiting, Diarrhea, Constipation Objective Exam Last Set of Vital Signs Vital Signs Date Time Temp Pulse Resp B/P (MAP) Pulse Ox O2 Delivery O2 Flow Rate FiO2 05/11/18 16:00 97.2 92 20 164/89 (114) 94 High Flow N/C 3.00 05/08/18 12:00 45 Capillary Refill : Less Than 3 Seconds I&O Intake and Output 05/11/18 00:00 Intake Total 4105 ml Output Total 600 ml Balance 3505 ml Intake Oral 3060 ml IV Total 1045 ml Output Urine Total 600 ml # Voids 4 General: Alert, Oriented X3, Other (Morbidly obese adult female, NAD) Lungs: Other (diminished breath sounds, normal work of breathing) Heart: Regular Rate, No Murmurs Abdomen: Normal Bowel Sounds, Soft, No Tenderness, No Hepatosplenomegaly, No Masses Extremities: Other (1+ pitting edema bilaterally) Skin: Other (erythema on bilateral LE improved, mild warmth, 1+ pitting edema present bilaterally) Psych/Mental Status: Mental Status NL, Mood NL Results/Procedures Lab Laboratory Tests 05/10/18 21:02: Glucometer 213H 05/11/18 05:40: Glucometer 211H, White Blood Count 6.4, Red Blood Count 4.67, Hemoglobin 12.6, Hematocrit 42, Mean Corpuscular Volume 90, Mean Corpuscular Hemoglobin 27, Mean Corpuscular Hemoglobin Concent 30L, Red Cell Distribution Width 14.4, Platelet Count 222, Mean Platelet Volume 8.7, Neutrophils (%) (Auto) 66, Lymphocytes (%) (Auto) 22, Monocytes (%) (Auto) 9, Eosinophils (%) (Auto) 3, Basophils (%) (Auto ) 0, Neutrophils # (Auto) 4.2, Lymphocytes # (Auto) 1.4, Monocytes # (Auto) 0.5 , Eosinophils # (Auto) 0.2, Basophils # (Auto) 0.0, Sodium Level 140, Potassium Level 2.6L, Chloride Level 103, Carbon Dioxide Level 29, Anion Gap 8, Blood Urea Nitrogen 8, Creatinine 0.50L, Estimat Glomerular Filtration Rate > 60, BUN/ Creatinine Ratio 16, Glucose Level 226H, Calcium Level 7.4L, Phosphorus Level 3.6, Magnesium Level 1.2L 05/11/18 11:11: Glucometer 240H 05/11/18 17:17: Glucometer 222H Microbiology 05/04/18 Blood Culture - Final, Complete No growth 05/05/18 Gram Stain - Final, Complete 05/05/18 Sputum Culture - Final, Complete Usual upper respiratory yael Assessment/Plan Assessment/Plan (1) Respiratory failure with hypoxia and hypercapnia Status: Resolved Assessment & Plan: - Continue to wean oxygen as tolerated, patient does not have baseline oxygen requirement at home Qualifiers: Qualified Codes: J96.21 - Acute and chronic respiratory failure with hypoxia ; J96.22 - Acute and chronic respiratory failure with hypercapnia (2) Obesity hypoventilation syndrome Status: Chronic (3) Obstructive sleep apnea Status: Chronic Assessment & Plan: - Dr Knott seeing patient, recommend Vent to Mask (4) CO2 narcosis Status: Resolved (5) Morbid obesity with BMI of 50.0-59.9, adult Status: Chronic Assessment & Plan: - Discussed the need for weight loss, need to start strict 1600 carolyn diet (6) Discharge planning issues Assessment & Plan: - Plan to d/c patient home tomorrow (7) DVT prophylaxis Assessment & Plan: [facility] Clinical Quality Measures DVT/VTE Risk/Contraindication: Risk Factor Score Per Nursin RFS Level Per Nursing on Admit: 1=Low/No VTE PPX CONNIE MALAVE MD May 11, 2018 19:18
[2018-05-11] MEDS: inSUlin DETERMIR 1 UNIT/0.01 ML (LEVEMIR) CHARGE PER UNIT SQ SCH (21:46)
[2018-05-11] MEDS: inSUlin ASPART (NovoLOG) 1 UNIT/0.01 ML (CHARGE PER UNIT) SC PRN (21:47)
[2018-05-12 06:54] LABS: BASOPHILS % (AUTO) 0 % (0-10); EOSINOPHILS # (AUTO) 0.2 10^3/uL (0.0-0.3); EOSINOPHILS % (AUTO) 3 % (0-10); HEMATOCRIT 45 % (35-52); HEMOGLOBIN 13.8 G/DL (11.5-16.0); LYMPHOCYTES % (AUTO) 14 % (12-44); MEAN CORPUSCULAR HEMOGLOBIN 27 PG (25-34); MEAN CORPUSCULAR HGB CONC 31 G/DL (32-36); MEAN CORPUSCULAR VOLUME 88 FL (80-99); MONOCYTES # (AUTO) 0.5 X 10^3 (0.0-1.0); MONOCYTES % (AUTO) 7 % (0-12); NEUTROPHILS # (AUTO) 5.4 X 10^3 (1.8-7.8); NEUTROPHILS % (AUTO) 77 % (42-75); PLATELET COUNT 244 10^3/uL (130-400); RED CELL DISTRIBUTION WIDTH 14.4 % (10.0-14.5)
[2018-05-12] MEDS: RT-ALBUTEROL/IPRATROPIUM 3 ML (DUONEB) VIAL INH SCH ×2 (07:08→10:41)
[2018-05-12 07:15] LABS: BUN/CREATININE RATIO 12; CALCIUM 8.9 MG/DL (8.5-10.1); CARBON DIOXIDE 32 MMOL/L (21-32); CHLORIDE 95 MMOL/L (98-107); GFR ESTIMATED > 60; GLUCOSE 256 MG/DL (70-105); MAGNESIUM 1.4 MG/DL (1.8-2.4); PHOSPHORUS 3.4 MG/DL (2.3-4.7); POTASSIUM 3.3 MMOL/L (3.6-5.0); SODIUM 140 MMOL/L (135-145)
--- NOTE | 2018-05-12 07:44 | Pulmonary Progress Note ---
Sepsis Event Evaluation Height, Weight, BMI Height: 6'1.00" Weight: 391lbs. 1.0oz. 177.295097hr; 53.0 BMI Method:Stated Exam Exam Vital Signs Date Time Temp Pulse Resp B/P (MAP) Pulse Ox O2 Delivery O2 Flow Rate FiO2 05/11/18 23:59 96.9 95 22 139/85 (103) 96 High Flow N/C 3.00 05/11/18 20:00 97.4 90 20 149/70 (96) 88 High Flow N/C 3.00 05/11/18 20:00 High Flow N/C 3.00 05/11/18 16:00 97.2 92 20 164/89 (114) 94 High Flow N/C 3.00 05/11/18 14:02 94 High Flow N/C 3.00 05/11/18 12:00 98.2 102 18 119/89 (99) 97 High Flow N/C 3.00 05/11/18 08:34 High Flow N/C 3.00 05/11/18 08:00 97.4 90 20 133/64 (87) 96 High Flow N/C 3.00 I & O 05/12/18 07:00 Intake Total 3160 ml Balance 3160 ml Height & Weight Height: 6'1.00" Weight: 391lbs. 1.0oz. 177.187417ps; 53.0 BMI Method:Stated General Appearance: No Apparent Distress, WD/WN, Chronically ill, Obese HEENT: PERRL/EOMI, Normal ENT Inspection, Pharynx Normal Neck: Full Range of Motion, Normal Inspection, Non Tender, Supple, Carotid Bruit Respiratory: Chest Non Tender, Lungs Clear, Normal Breath Sounds, No Accessory Muscle Use, No Respiratory Distress Cardiovascular: Regular Rate, Rhythm, No Edema, No Gallop, No JVD, No Murmur, Normal Peripheral Pulses Capillary Refill: Less Than 3 Seconds Gastrointestinal: soft, other Extremity: Normal Capillary Refill, Normal Inspection, Normal Range of Motion, Non Tender, No Calf Tenderness, Inflammation, Pedal Edema Neurologic/Psychiatric: Alert, Oriented x3, No Motor/Sensory Deficits, Normal Mood/Affect, Disoriented, Other (improved erythema of legs) Skin: Other (erythema of legs and torso under pannus much improved today) Lymphatic: No Adenopathy Results Lab Laboratory Tests 05/11/18 05:40 05/12/18 06:35 05/12/18 06:40 Assessment/Plan Assessment/Plan Acute on chronic respiratory failure- improving -Oxygen -SVNs -D/C oxygen if possible. will do desat test Pneumonia Atelectasis -abx rocephin -Start IS Obesity hypoventilation syndrome -Will order pt a BIPAP ST for out patient use. [facility] GUTIERREZ is arranging currently Cellulitis -Vanco and Cefepime Debility -PT/OT CLOVIS NIEVES DO May 12, 2018 07:44
[2018-05-12] MEDS: inSUlin ASPART (NovoLOG) 1 UNIT/0.01 ML (CHARGE PER UNIT) SC PRN (07:53)
[2018-05-12 08:00] VITALS: BP 135/83
--- NOTE | 2018-05-12 08:43 | NUR ---
PT QUALIFIES FOR 3LPM AT HOME. PTS SP02 DROPPED TO 82% WHILE WALKING WITHOUT 02. PT WAS THEN PLACED ON 2LPM.SP02 ONLY 88%. FLOW INCREASED TO 3LPM. PTS SP02 RETURNED TO 92% PT QUALIFIES FOR 3LPM AT HOME AT ALL TIMES. Addendum: 05/12/18 at 0847 by ANGEL MIRANDA RT Amended: Links added.
[2018-05-12] MEDS ORDERED: PANTOPRAZOLE 40 MG (PROTONIX) TAB PO SCH (09:00)
[2018-05-12] MEDS: KCL 10 MEQ TAB (MICRO K) PO SCH ×2 (09:03→12:39)
[2018-05-12] MEDS: ENOXAPARIN 60 MG/0.6 ML (LOVENOX) SYR SC SCH (09:03)
[2018-05-12] MEDS: ASPIRIN E.C. 81 MG (ECOTRIN) TAB PO SCH (09:03)
[2018-05-12] MEDS: LORATADINE (CLARITIN) 10 MG TAB PO SCH (09:03)
--- NOTE | 2018-05-12 10:24 | Occ Therapy Progress Note ---
Therapy Progress Note Attempted OT treatment at 0912. Pt sitting in chair, states she is having trouble staying awake. Pt declined to participate in therapy at this time. Pt states she took a shower last night. Is waiting for spouse to bring her some clothes. Pt states she has been getting up ad tony in room and does not have any questions or concerns at this time. Reports she should be leaving today. Pt sitting in chair with needs met. 1, visit YENNI BECKHAM OT May 12, 2018 10:24
--- NOTE | 2018-05-12 10:45 | Discharge Summary ---
Diagnosis/Chief Complaint Date of Admission May 04, 2018 at 12:35 Date of Discharge Discharge Diagnosis Problems/Diagnosis: (1) Respiratory failure with hypoxia and hypercapnia Assessment & Plan: - Continue to wean oxygen as tolerated, patient does not have baseline oxygen requirement at home Qualifiers: Qualified Codes: J96.21 - Acute and chronic respiratory failure with hypoxia ; J96.22 - Acute and chronic respiratory failure with hypercapnia Status: Resolved Resolution Date/Time: 05/09/18 @ 12:37 (2) Obesity hypoventilation syndrome Status: Chronic (3) Obstructive sleep apnea Assessment & Plan: - Dr Knott seeing patient, recommend Vent to Mask Status: Chronic (4) CO2 narcosis Status: Resolved Resolution Date/Time: 05/09/18 @ 12:37 (5) Morbid obesity with BMI of 50.0-59.9, adult Assessment & Plan: - Discussed the need for weight loss, need to start strict 1600 [address] diet Status: Chronic (6) Discharge planning issues Assessment & Plan: - Plan to d/c patient home tomorrow (7) DVT prophylaxis Assessment & Plan: Lovenox Discharge Summary-Simple/Stand Consultations Discharge Physical Examination Allergies: Coded Allergies: fentanyl (Verified Allergy, Severe, SOA, 03/13/18) morphine (Verified Allergy, Severe, SOA, 02/12/17) Penicillins (Verified Allergy, Unknown, Pt has received Cefepime in the past, 05/08/18) codeine (Verified Allergy, Unknown, 02/12/17) hydromorphone (Verified Allergy, Unknown, 02/12/17) latex (Verified Allergy, Unknown, 02/12/17) shellfish derived (Verified Allergy, Unknown, 05/04/18) Vitals & I&Os Vital Sign - Last 12Hours Date Time Temp Pulse Resp B/P (MAP) Pulse Ox O2 Delivery O2 Flow Rate FiO2 05/12/18 10:42 93 High Flow N/C 3.00 05/12/18 08:00 97.6 104 18 135/83 (100) 05/08/18 12:00 45 Intake and Output 05/12/18 00:00 Intake Total 1960 ml Balance 1960 ml Hospital Course See final discharge diagnosis. Discharge Instructions to patient/family Please see electronic discharge instructions given to patient. Discharge Medications Reviewed and agree with Discharge Medication list on patient's Discharge Instruction sheet Clinical Quality Measures DVT/VTE Risk/Contraindication: Risk Factor Score Per Nursin RFS Level Per Nursing on Admit: 1=Low/No VTE PPX CONNIE MALAVE MD May 12, 2018 10:45
--- NOTE | 2018-05-12 10:51 | Discharge Instructions ---
Discharge [facility] Discharge Medications New, Converted or Re-Newed RX: Transmitted to Pharmacy Continued Medications: Albuterol Sulfate (Proair Hfa) 1 Puff Puff 2 PUFF INH Q6H PRN for SHORTNESS OF BREATH, INHALER Aspirin (Aspirin EC) 81 Mg Tablet.dr 81 MG PO DAILY, TAB Loratadine (Loratadine) 10 Mg Tablet 10 MG PO DAILY, TAB LAST FILLED #30 02-19-18 Ranitidine HCl (Ranitidine HCl) 150 Mg Tablet 150 MG PO DAILY, TAB Sitagliptin Phos/Metformin HCl (Janumet 50-500 mg Tablet) 1 Tab Tablet 1 TAB PO BID, TAB LAST FILLED #60 02-19-18 Discontinued Medications: Naproxen Sodium (Aleve) 220 Mg Tablet 220 MG PO Q6H PRN for PAIN-MILD, TAB Patient Instructions Goal/Follow Up Appt: You have a hospital follow up with Dr Boland on May 21 @ 140PM Patient Instructions: - Make sure you are using your oxygen continuously Activity & Diet Discharge Diet: ADA Diet, Cardiac Diet Activity as Tolerated: Yes Copy Copies To 1: CONNIE BOLAND MD, HOLLY R MD May 12, 2018 10:51
[2018-05-12 11:59] VITALS: BP 119/73
[2018-05-12] MEDS: cefTRIAXone 1,000 MG/SWFI 10 ML IV PUSH IV SCH ×2 (12:39)
[2018-05-12] MEDS: HYDROcodone/APAP 5 MG/325 MG (LORTAB) TAB PO PRN (12:55)
[2018-05-12] MEDS ORDERED: FLU QUADRIvalent (5+ YOA) 2018-2019 (AFLURIA) 0.5 ML IM ONE (13:00)
--- NOTE | 2018-05-12 13:14 | NUR ---
CM/LARISA. Patient will discharge home today. DME: [employer] continuing in partnership with [facility] to coordinate BiPAP and new home O2 for patient under [facility] application. Agency understands that patient is discharged today, they will deliver portable O2 to patient's room for transport home. Agency staff will make any other arrangements directly with patient pertaining to home set up, education, instruction. [employer] staff were going to meet with patient this a.m. to complete a [employer] application for her and her children. Patient could then be considered "Medicaid Pending" regarding health care needs and services. Patient stated to contract technical writer yesterday she had several family members who could transport her home whenever discharged. Addendum: 05/12/18 at 1401 by ANGEL PERES Portable concentrator was delivered to patient, spouse here to transport. Patient agreed to go directly to [facility] and meet with Wesley to have BiPAP fitted and setup. All DME orders met at this time. E will go to patient home tomorrow to set up concentrator for home use.
== END 2018-05-12 14:05 | disposition home or self-care (01) | DRG 208 ==
LOC: EDUNIT# 08:17 → ER 08:20 → 4TH 12:35 → ICU 05-05 09:16 → 4TH 05-10 01:18
PROVIDERS: ADMIT Internal Medicine; ATTEND Internal Medicine
PROC: 5A1945Z Respiratory Ventilation, 24-96 Consecutive Hours (ICD-10-PCS; principal; 2018-05-05)
DX: J96.21 Acute and chronic respiratory failure with hypoxia (principal); J96.22 Acute and chronic respiratory failure with hypercapnia; J18.9 Pneumonia, unspecified organism; L03.115 Cellulitis of right lower limb; L03.116 Cellulitis of left lower limb; E66.2 Morbid (severe) obesity with alveolar hypoventilation; Z68.43 Body mass index [BMI] 50.0-59.9, adult; J98.11 Atelectasis; M79.3 Panniculitis, unspecified; J44.9 Chronic obstructive pulmonary disease, unspecified; E11.9 Type 2 diabetes mellitus without complications; F41.9 Anxiety disorder, unspecified; F32.9 Major depressive disorder, single episode, unspecified; M54.9 Dorsalgia, unspecified; K76.0 Fatty (change of) liver, not elsewhere classified; E87.6 Hypokalemia; Z87.891 Personal history of nicotine dependence; Z87.01 Personal history of pneumonia (recurrent); Z86.73 Personal history of transient ischemic attack (TIA), and cerebral infarction without residual deficits
CPT/HCPCS: 36415; 36569; 36600; 71045; 71046; 71275; 76937; 80048; 80053; 80202; 81000; 82805; 82962; 83605; 83735; 83880; 84100; 84478; 84484; 84703; 85007; 85025; 85027; 85379; 85610; 85730; 86141; 87040; 87070; 87205; 87804; 90471; 90686; 93005; 94002; 94003; 94640; 94660; 94664; 94760; 94761; 94799; 96361; 96374; 96375

== ENCOUNTER 2018-09-28 12:52 | Emergency (ER) | payer SELFPAY ==
[~2018-09-28] VITALS: Ht 185.4 cm; Wt 158.8 kg
[~2018-09-28 12:52] MED LIST changes: +ASPI-983 PO; +NAPR220T66 PO
[2018-09-28 13:23] LABS: BASOPHILS % (AUTO) 0 % (0-10); EOSINOPHILS # (AUTO) 0.2 10^3/uL (0.0-0.3); EOSINOPHILS % (AUTO) 2 % (0-10); HEMATOCRIT 47 % (35-52); HEMOGLOBIN 15.4 G/DL (11.5-16.0); LYMPHOCYTES # (AUTO) 1.6 X 10^3 (1.0-4.0); LYMPHOCYTES % (AUTO) 21 % (12-44); MEAN CORPUSCULAR HEMOGLOBIN 30 PG (25-34); MEAN CORPUSCULAR HGB CONC 33 G/DL (32-36); MEAN CORPUSCULAR VOLUME 90 FL (80-99); MEAN PLATELET VOLUME 8.9 FL (7.4-10.4); MONOCYTES # (AUTO) 0.6 X 10^3 (0.0-1.0); MONOCYTES % (AUTO) 7 % (0-12); NEUTROPHILS # (AUTO) 5.6 X 10^3 (1.8-7.8); NEUTROPHILS % (AUTO) 70 % (42-75); PLATELET COUNT 330 10^3/uL (130-400); RED CELL DISTRIBUTION WIDTH 13.3 % (10.0-14.5); WHITE BLOOD COUNT 7.9 10^3/uL (4.3-11.0)
[2018-09-28 13:30] LABS: INR 0.9 (0.8-1.4); PROTHROMBIN TIME PATIENT 12.7 SEC (12.2-14.7)
[2018-09-28 13:35] LABS: ALANINE AMINOTRANSFERASE 31 U/L (0-55); ALKALINE PHOSPHATASE 132 U/L (40-136); BILIRUBIN,TOTAL 0.4 MG/DL (0.1-1.0); BUN/CREATININE RATIO 16; CALCIUM 9.7 MG/DL (8.5-10.1); CARBON DIOXIDE 26 MMOL/L (21-32); CHLORIDE 99 MMOL/L (98-107); CREATININE SERUM 0.69 MG/DL (0.60-1.30); GFR ESTIMATED > 60; GLUCOSE 275 MG/DL (70-105); MAGNESIUM 1.4 MG/DL (1.8-2.4); POTASSIUM 4.3 MMOL/L (3.6-5.0); SODIUM 137 MMOL/L (135-145); TOTAL PROTEIN 6.9 GM/DL (6.4-8.2)
--- NOTE | 2018-09-28 13:42 | ED Chest Pain ---
General Chief Complaint: Chest Pain Stated Complaint: CHEST PAIN History of Present Illness Date Seen by Provider: Sep 28, 2018 Time Seen by Provider: 13:05 Initial Comments 38-year-old female was awoken at 2 AM with chest pain and difficulty breathing. She has a history of respiratory disease. She has not seen Dr. Knott as her insurance has recently lapsed. 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: No NTG SL AUTOMOBILE UPHOLSTERER: No Associated Symptoms: denies symptoms Allergies and Home Medications Allergies Coded Allergies: fentanyl (Verified Allergy, Severe, SOA, 03/13/18) morphine (Verified Allergy, Severe, SOA, 02/12/17) Penicillins (Verified Allergy, Unknown, Pt has received Cefepime in the past, 05/08/18) codeine (Verified Allergy, Unknown, 02/12/17) hydromorphone (Verified Allergy, Unknown, 02/12/17) latex (Verified Allergy, Unknown, 02/12/17) shellfish derived (Verified Allergy, Unknown, 05/04/18) Home Medications Albuterol Sulfate 1 Puff Puff, 2 PUFF INH Q6H PRN for SHORTNESS OF BREATH, (Repo rted) Aspirin 81 Mg Tablet.dr, 81 MG PO DAILY, (Reported) Loratadine 10 Mg Tablet, 10 MG PO DAILY, (Reported) LAST FILLED #30 02-19-18 Ranitidine HCl 150 Mg Tablet, 150 MG PO DAILY, (Reported) Sitagliptin Phos/Metformin HCl 1 Tab Tablet, 1 TAB PO BID, (Reported) LAST FILLED #60 02-19-18 Patient Home Medication List Home Medication List Reviewed: Yes Review of Systems Review of Systems Constitutional: no symptoms reported, see HPI Cardiovascular: See HPI, Chest Pain Gastrointestinal: See HPI; Denies Abdominal Pain, Denies Diarrhea; Nausea; Denies Vomiting All Other Systems Reviewed Negative Unless Noted: Yes Past Sdtgcyw-Knwlgi-Roryly Hx Past Med/Social Hx: Reviewed Nursing Past Med/Soc Hx Patient Social History Type Used: Cigarettes Former Smoker, Quit: Mar 24, 2016 2nd Hand Smoke Exposure: No Recent Foreign Travel: No Contact w/Someone Who Travel: No Recent Hopitalizations: No Immunizations Up To Date Tetanus Booster (TDap): Unknown PED Vaccines UTD: Yes Seasonal Allergies Seasonal Allergies: No Past Medical History Surgeries: Yes ( X 2; BTL; BREAST BIOPSY-BENIGN) Breast, Section, Gallbladder, Tubal Ligation Respiratory: Yes Sleep Apnea Currently Using CPAP: No Currently Using BIPAP: No Cardiac: No Neurological: Yes Stroke Female 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 1.0oz. 177.521036on; 53.0 BMI Method:Stated General Appearance: No Apparent Distress, WD/WN HEENT: PERRL/EOMI, TMs Normal, Normal ENT Inspection, Pharynx Normal Neck: Full Range of Motion, Normal Inspection, Non Tender, Supple Respiratory: Lungs Clear, Normal Breath Sounds Cardiovascular: Regular Rate, Rhythm, No Murmur, Normal Peripheral Pulses Gastrointestinal: Normal Bowel Sounds, Non Tender, Soft Neurologic/Psychiatric: Alert, Oriented x3, No Motor/Sensory Deficits, Normal Mood/Affect Skin: Normal Color, Warm/Dry Lymphatic: No Adenopathy Procedures/Interventions Date of ETT Placement: May 05, 2018 Time of ETT Placement: 1550 Progress/Results/Core Measures Results/Orders Lab Results Laboratory Tests Test 09/28/18 13:10 09/28/18 15:33 Range/Units White Blood Count 7.9 4.3-11.0 10^3/uL Red Blood Count 5.17 4.35-5.85 10^6/uL Hemoglobin 15.4 11.5-16.0 G/DL Hematocrit 47 35-52 % Mean Corpuscular Volume 90 80-99 FL Mean Corpuscular Hemoglobin 30 25-34 PG Mean Corpuscular Hemoglobin Concent 33 32-36 G/DL Red Cell Distribution Width 13.3 10.0-14.5 % Platelet Count 330 130-400 10^3/uL Mean Platelet Volume 8.9 7.4-10.4 FL Neutrophils (%) (Auto) 70 42-75 % Lymphocytes (%) (Auto) 21 12-44 % Monocytes (%) (Auto) 7 0-12 % Eosinophils (%) (Auto) 2 0-10 % Basophils (%) (Auto) 0 0-10 % Neutrophils # (Auto) 5.6 1.8-7.8 X 10^3 Lymphocytes # (Auto) 1.6 1.0-4.0 X 10^3 Monocytes # (Auto) 0.6 0.0-1.0 X 10^3 Eosinophils # (Auto) 0.2 0.0-0.3 10^3/uL Basophils # (Auto) 0.0 0.0-0.1 10^3/uL Prothrombin Time 12.7 12.2-14.7 SEC INR Comment 0.9 0.8-1.4 Activated Partial Thromboplast Time 27 24-35 SEC Sodium Level 137 135-145 MMOL/L Potassium Level 4.3 3.6-5.0 MMOL/L Chloride Level 99 98-107 MMOL/L Carbon Dioxide Level 26 21-32 MMOL/L Anion Gap 12 5-14 MMOL/L Blood Urea Nitrogen 11 7-18 MG/DL Creatinine 0.69 0.60-1.30 MG/DL Estimat Glomerular Filtration Rate > 60 BUN/Creatinine Ratio 16 Glucose Level 275 H 70-105 MG/DL Calcium Level 9.7 8.5-10.1 MG/DL Corrected Calcium 9.7 8.5-10.1 MG/DL Magnesium Level 1.4 L 1.8-2.4 MG/DL Total Bilirubin 0.4 0.1-1.0 MG/DL Aspartate Amino Transf (AST/SGOT) 28 5-34 U/L Alanine Aminotransferase (ALT/SGPT) 31 0-55 U/L Alkaline Phosphatase 132 40-136 U/L Myoglobin 18.8 10.0-92.0 NG/ML Troponin I < 0.028 < 0.028 <0.028 NG/ML B-Type Natriuretic Peptide < 10.0 <100.0 PG/ML Total Protein 6.9 6.4-8.2 GM/DL Albumin 4.0 3.2-4.5 GM/DL My Orders Orders - BELÉN SULLIVAN Cbc With Automated Diff (09/28/18 13:15) Magnesium (09/28/18 13:15) Chest 1 View, Ap/Pa Only (09/28/18 13:15) Ekg Tracing (09/28/18 13:15) Cardiac Profile 1 (09/28/18 13:15) Comprehensive Metabolic Panel (09/28/18 13:15) Myoglobin Serum (09/28/18 13:15) Protime With Inr (09/28/18 13:15) Partial Thromboplastin Time (09/28/18 13:15) O2 (09/28/18 13:15) Monitor-Rhythm Ecg Trace Only (09/28/18 13:15) Ed Iv/Invasive Line Start (09/28/18 13:15) BNP (09/28/18 13:15) Aspirin Chewable Tablet (Baby Aspirin Ch (09/28/18 13:15) Ondansetron Injection (Zofran Injectio (09/28/18 13:15) Ed Iv/Invasive Line Start (09/28/18 13:17) Ns Iv 1000 Ml (Sodium Chloride 0.9%) (09/28/18 13:17) Albuterol/Ipra Inhalation Soln (Duoneb I (09/28/18 14:15) Svn Small Volume Nebulizer (09/28/18 14:04) Troponin I (09/28/18 15:04) Ketorolac Injection (Toradol Injection) (09/28/18 15:04) Orphenadrine Injection (Norflex Injectio (09/28/18 15:04) Medications Given in ED Current Medications Medications Dose Ordered Sig/Maurice Route Start Time Stop Time Status Last Admin Dose Admin Albuterol/ Ipratropium 3 ml ONCE ONCE INH 09/28/18 14:15 09/28/18 14:16 DC 09/28/18 14:33 3 ML Aspirin 324 mg ONCE ONCE PO 09/28/18 13:15 09/28/18 13:17 DC 09/28/18 13:51 324 MG Ondansetron HCl 8 mg ONCE ONCE IVP 09/28/18 13:15 09/28/18 13:18 DC 09/28/18 13:51 8 MG Vital Signs/I&O 09/28/18 09/28/18 09/28/18 09/28/18 13:00 13:00 14:34 16:58 Temp 98.2 Pulse 86 85 Resp 16 16 B/P (MAP) 113/75 (88) 147/87 (107) Pulse Ox 96 94 98 O2 Delivery Nasal Cannula Nasal Cannula Nasal Cannula O2 Flow Rate 3.00 3.0 2.00 Progress Progress Note : Time: 13:05 Progress Note Patient seen and evaluated, will obtain chest pain workup including labs, EKG and chest x-ray. ASA 324 mg and 1400 patient reports pain is unchanged. Labs, EKG and CXR all essentially normal. Will give Duoneb 1500 Toradol 30 mg IV and repeat Troponin, if this test is negative will plan d/c to home. 1630 Patient reports s/s have improved. No SOA or chest pain. Discharge instructions and return precautions reviewed. Initial ECG Impression Date: Sep 28, 2018 Initial ECG Impression Time: 13:01 Initial ECG Rate: 92 Initial ECG Rhythm: Normal Sinus Initial ECG Intervals: Normal Initial ECG Intervals NM 168, QRSD 84, QT 388, QTC 481. [place] P 71, QRS 97, T 67. Initial ECG Impression: Normal Initial ECG Comparisson: Unchanged Comment Reviewed with Dr. Alonzo, agreed with interpretation. Diagnostic Imaging Diagonstic Imaging: Xray Plain Films/CT/US/NM/MRI: chest Comments NAME: [facility]AD[facility]AV [facility] REC#: [id number] PT STATUS: REG ER : 1980 PHYSICIAN: BELÉN SULLIVAN ADMIT DATE: 09/28/18/ER Draft Date of Exam:09/28/18 CHEST 1 VIEW, AP/PA ONLY Indication: Severe chest pain. Time of exam: 1:29 PM Correlation is made with prior study from 05/09/2018. Right hemidiaphragm is chronically elevated. The lungs appear clear. No infiltrate, effusion or pneumothorax is seen. Heart size is stable. Impression: No acute cardiopulmonary process is detected. Dictated on workstation # [id number] Dict: 09/28/18 1340 Trans: 09/28/18 1342 CVB [id number] Interpreted by: CIERRA METCALF MD Electronically signed by: Reviewed: Reviewed by Me Departure Impression Primary Impression: Chest wall pain Disposition: 01 HOME, SELF-CARE Condition: Improved Departure-Patient Inst. Decision time for Depature: 16:30 Referrals: CONNIE MALAVE MD (PCP/Family) Primary Care Physician Patient Instructions: Chest Pain That Is Not Caused by the Heart (DC) Add. Discharge Instructions: Continue to take your home medications as ordered. Use your inhaler 2 puffs with onset of shortness of breath. Schedule follow up with Dr. Knott Follow-up with your primary care provider if symptoms are not improving or worse n. You may alternate between ibuprofen 600 mg and Tylenol 650 mg every 4 hours for pain or fever. Return to emergency department for new, urgent health care problems. All discharge instructions reviewed with patient and/or family. Voiced understanding. Copy Copies To 1: CONNIE MALAVE MD Copies To 2: CLOVIS KNOTT AMY ARNP Sep 28, 2018 13:41
[2018-09-28] MEDS: ASPIRIN 81 MG CHEW (CHILDREN'S ASA) PO ONE (13:51)
[2018-09-28] MEDS: ONDANSETRON 4 MG/2 ML (SDV) Z0FRAN IVP ONE (13:51)
[2018-09-28] MEDS: NS IV 1000 ML 1,000 ML IV SCH (13:51)
[2018-09-28] MEDS: RT-ALBUTEROL/IPRATROPIUM 3 ML (DUONEB) VIAL INH ONE (14:33)
[2018-09-28] MEDS: KETOROLAC 30 MG/ML VIAL IVP STA (15:29)
[2018-09-28] MEDS: ORPHENADRINE 60 MG/2 ML (NORFLEX) AMP IV STA (15:29)
[2018-09-28 16:58] VITALS: BP 147/87
== END 2018-09-28 16:58 | disposition home or self-care (01) ==
LOC: EDUNIT# 12:52 → ER 12:53
DX: R07.89 Other chest pain (principal); G47.30 Sleep apnea, unspecified; E11.9 Type 2 diabetes mellitus without complications; F41.9 Anxiety disorder, unspecified; F32.9 Major depressive disorder, single episode, unspecified; Z86.73 Personal history of transient ischemic attack (TIA), and cerebral infarction without residual deficits; Z88.5 Allergy status to narcotic agent; Z88.0 Allergy status to penicillin; Z91.040 Latex allergy status; Z79.82 Long term (current) use of aspirin; Z79.84 Long term (current) use of oral hypoglycemic drugs; Z98.51 Tubal ligation status; Z82.49 Family history of ischemic heart disease and other diseases of the circulatory system
CPT/HCPCS: 36415; 71045; 80053; 83735; 83874; 83880; 84484; 85025; 85610; 85730; 93005; 93041; 94640; 96361; 96374; 96375

== ENCOUNTER 2018-10-29 22:24 | Emergency (ER) | payer SELFPAY ==
[~2018-10-29] VITALS: Ht 185.4 cm; Wt 158.8 kg
[2018-10-29] MEDS ORDERED: RT-ALBUTEROL/IPRATROPIUM 3 ML (DUONEB) VIAL INH ONE (23:00)
[2018-10-29] MEDS ORDERED: ASPIRIN 81 MG CHEW (CHILDREN'S ASA) PO ONE (23:00)
[2018-10-29 23:03] LABS: HEMATOCRIT 43 % (35-52); HEMOGLOBIN 14.5 G/DL (11.5-16.0); MEAN CORPUSCULAR HEMOGLOBIN 30 PG (25-34); MEAN CORPUSCULAR HGB CONC 34 G/DL (32-36); MEAN CORPUSCULAR VOLUME 90 FL (80-99); WHITE BLOOD COUNT 7.8 10^3/uL (4.3-11.0)
[2018-10-29 23:04] LABS: BASOPHILS % (AUTO) 0 % (0-10); EOSINOPHILS # (AUTO) 0.1 10^3/uL (0.0-0.3); EOSINOPHILS % (AUTO) 2 % (0-10); LYMPHOCYTES # (AUTO) 1.9 X 10^3 (1.0-4.0); LYMPHOCYTES % (AUTO) 24 % (12-44); MEAN PLATELET VOLUME 9.1 FL (7.4-10.4); MONOCYTES # (AUTO) 0.5 X 10^3 (0.0-1.0); MONOCYTES % (AUTO) 6 % (0-12); NEUTROPHILS # (AUTO) 5.3 X 10^3 (1.8-7.8); NEUTROPHILS % (AUTO) 68 % (42-75); PLATELET COUNT 323 10^3/uL (130-400); RED CELL DISTRIBUTION WIDTH 12.7 % (10.0-14.5)
[2018-10-29 23:06] LABS: INR 0.9 (0.8-1.4)
[2018-10-29 23:07] LABS: ALANINE AMINOTRANSFERASE 25 U/L (0-55); ALKALINE PHOSPHATASE 137 U/L (40-136); BILIRUBIN,TOTAL 0.3 MG/DL (0.1-1.0); BUN/CREATININE RATIO 23; CALCIUM 9.6 MG/DL (8.5-10.1); CARBON DIOXIDE 24 MMOL/L (21-32); CHLORIDE 98 MMOL/L (98-107); CREATININE SERUM 0.74 MG/DL (0.60-1.30); GFR ESTIMATED > 60; POTASSIUM 4.1 MMOL/L (3.6-5.0); SODIUM 137 MMOL/L (135-145); TOTAL PROTEIN 7.2 GM/DL (6.4-8.2)
[2018-10-29 23:08] LABS: GLUCOSE 411 MG/DL (70-105)
[2018-10-29] MEDS ORDERED: inSUlin (REGULAR) HUMAN 1 UNIT/0.01 ML (CHARGE PER UNIT) SC ONE (23:15)
[2018-10-29] MEDS ORDERED: NITROGLYCERIN 0.4 MG SL TABS BTL 25'S SL PRN (23:15)
--- NOTE | 2018-10-29 23:19 | ED Respiratory ---
General Chief Complaint: Respiratory Problems Stated Complaint: SOB,CP Source: patient, EMS Exam Limitations: no limitations History of Present Illness Date Seen by Provider: Oct 29, 2018 Time Seen by Provider: 23:02 Initial Comments the patient presents to ER by EMS with chief complaint of shortness of breath is been going on for the past several days. She has a history of COPD on oxygen 3 L by nasal cannula and because she has no insurance she has not been getting her medications except for one small canister of albuterol. She is diabetic insulin- dependent but does not have any insulin. She says her chest started to hurt across the front worse with deep inspiration at around 1700. It's been constant. She has no known coronary disease. Her father has a history of CHF. She been noticing some increased swelling in her feet and feeling of pins and needles in her feet. She says the pain feels like she is breathing against a wall and cannot get enough air and despite having good oxygen saturations per EMS. She has not been laid up in bed, immobilized or had any recent surgeries in the past 6 months. In April she did have what seems to be a COPD exacerbation with high CO2 and was placed in the ICU for several days. He says ever since then she's been on oxygen. She stopped smoking cigarettes half pack a day about 2 years ago. She denies any fevers or chills. She took some Tylenol at 1600 because of a headache. She's had 1500 mg today. She endorses a history of GERD for which she routinely takes Zantac [id number]. She says she has orthopnea with worse chest pain and shortness of breath on laying down flat. She was woken from sleep right before calling the ambulance with the chest pain and shortness of breath. Allergies and Home Medications Allergies Coded Allergies: fentanyl (Verified Allergy, Severe, SOA, 03/13/18) morphine (Verified Allergy, Severe, SOA, 02/12/17) Penicillins (Verified Allergy, Unknown, Pt has received Cefepime in the past, 05/08/18) codeine (Verified Allergy, Unknown, 02/12/17) hydromorphone (Verified Allergy, Unknown, 02/12/17) latex (Verified Allergy, Unknown, 02/12/17) shellfish derived (Verified Allergy, Unknown, 05/04/18) Home Medications Albuterol Sulfate 1 Puff Puff, 2 PUFF INH Q6H PRN for SHORTNESS OF BREATH, (Reported) Aspirin 81 Mg Tablet.dr, 81 MG PO DAILY, (Reported) Insuln Asp Prt/Insulin Aspart 1 Unit/0.01 Ml Susp, 15 UNIT SQ BID Prescribed by: CARSON PACHECO on 10/30/18 001 Loratadine 10 Mg Tablet, 10 MG PO DAILY, (Reported) LAST FILLED #30 02-19-18 Naproxen 500 Mg Tablet, 500 MG PO BID Prescribed by: CARSON PACHECO on 10/30/1815 Ranitidine HCl 150 Mg Tablet, 150 MG PO DAILY, (Reported) Sitagliptin Phos/Metformin HCl 1 Tab Tablet, 1 TAB PO BID, (Reported) LAST FILLED #60 02-19-18 Patient Home Medication List Home Medication List Reviewed: Yes Review of Systems Review of Systems Constitutional: No chills, No diaphoresis EENTM: No ear discharge, No ear pain Respiratory: No cough; short of breath Cardiovascular: chest pain, edema; No Hx of Intervention, No palpitations, No syncope, No vascular heart diseas Gastrointestinal: No abdominal pain, No constipation, No diarrhea Genitourinary: No discharge, No dysuria Musculoskeletal: No back pain, No gout Past Xcehqfm-Durada-Rarikd Hx Patient Social History Alcohol Use: Denies Use Recreational Drug Use: Yes Drug of Choice: marijuana Smoking Status: Former Smoker Type Used: Cigarettes Former Smoker, Quit: Mar 24, 2016 2nd Hand Smoke Exposure: No Recent Foreign Travel: No Contact w/Someone Who Travel: No Recent Hopitalizations: No Immunizations Up To Date Tetanus Booster (TDap): Unknown PED Vaccines UTD: Yes Seasonal Allergies Seasonal Allergies: No Past Medical History Surgeries: Yes ( X 2; BTL; BREAST BIOPSY-BENIGN) Breast, Section, Gallbladder, Tubal Ligation Respiratory: Yes Sleep Apnea Currently Using CPAP: No Currently Using BIPAP: No Cardiac: No Neurological: Yes Stroke Female Reproductive Disorders: Denies 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 1.0oz. 158.982048dp; 53.0 BMI Method:Stated General Appearance: WD/WN, mild distress, obese Eyes: Bilateral Eye Normal Inspection, Bilateral Eye PERRL, Bilateral Eye EOMI HEENT: normal ENT inspection, pharynx normal Neck: full range of motion, normal inspection Respiratory: No chest non-tender; lungs clear, no respiratory distress, no accessory muscle use, decreased breath sounds, other (anterior chest wall pain reproduced by direct palpation) Cardiovascular: normal peripheral pulses, regular rate, rhythm Gastrointestinal: normal bowel sounds, non tender, soft Extremities: normal range of motion, no calf tenderness, normal capillary refill, pedal edema (trace bilateral ankle edema) Neurologic/Psychiatric: alert, oriented x 3, other (anxious affect) Skin: normal color, warm/dry Procedures/Interventions Date of ETT Placement: May 05, 2018 Time of ETT Placement: 1550 Progress/Results/Core Measures Suspected Sepsis SIRS Temperature: Pulse: Respiratory Rate: Laboratory Tests 10/29/18 22:29: White Blood Count 7.8 Blood Pressure / Mean: Laboratory Tests 10/29/18 22:29: Creatinine 0.74, INR Comment 0.9, Platelet Count 323, Total Bilirubin 0.3 Results/Orders Lab Results Laboratory Tests Test 10/29/18 22:29 10/29/18 23:14 Range/Units White Blood Count 7.8 4.3-11.0 10^3/uL Red Blood Count 4.80 4.35-5.85 10^6/uL Hemoglobin 14.5 11.5-16.0 G/DL Hematocrit 43 35-52 % Mean Corpuscular Volume 90 80-99 FL Mean Corpuscular Hemoglobin 30 25-34 PG Mean Corpuscular Hemoglobin Concent 34 32-36 G/DL Red Cell Distribution Width 12.7 10.0-14.5 % Platelet Count 323 130-400 10^3/uL Mean Platelet Volume 9.1 7.4-10.4 FL Neutrophils (%) (Auto) 68 42-75 % Lymphocytes (%) (Auto) 24 12-44 % Monocytes (%) (Auto) 6 0-12 % Eosinophils (%) (Auto) 2 0-10 % Basophils (%) (Auto) 0 0-10 % Neutrophils # (Auto) 5.3 1.8-7.8 X 10^3 Lymphocytes # (Auto) 1.9 1.0-4.0 X 10^3 Monocytes # (Auto) 0.5 0.0-1.0 X 10^3 Eosinophils # (Auto) 0.1 0.0-0.3 10^3/uL Basophils # (Auto) 0.0 0.0-0.1 10^3/uL Prothrombin Time 12.0 L 12.2-14.7 SEC INR Comment 0.9 0.8-1.4 Activated Partial Thromboplast Time 26 24-35 SEC D-Dimer 0.42 0.00-0.49 UG/ML Sodium Level 137 135-145 MMOL/L Potassium Level 4.1 3.6-5.0 MMOL/L Chloride Level 98 98-107 MMOL/L Carbon Dioxide Level 24 21-32 MMOL/L Anion Gap 15 H 5-14 MMOL/L Blood Urea Nitrogen 17 7-18 MG/DL Creatinine 0.74 0.60-1.30 MG/DL Estimat Glomerular Filtration Rate > 60 BUN/Creatinine Ratio 23 Glucose Level 411 *H 70-105 MG/DL Calcium Level 9.6 8.5-10.1 MG/DL Corrected Calcium 9.6 8.5-10.1 MG/DL Magnesium Level 2.0 1.8-2.4 MG/DL Total Bilirubin 0.3 0.1-1.0 MG/DL Aspartate Amino Transf (AST/SGOT) 20 5-34 U/L Alanine Aminotransferase (ALT/SGPT) 25 0-55 U/L Alkaline Phosphatase 137 H 40-136 U/L Myoglobin 13.4 10.0-92.0 NG/ML Troponin I < 0.028 <0.028 NG/ML B-Type Natriuretic Peptide < 10.0 <100.0 PG/ML Total Protein 7.2 6.4-8.2 GM/DL Albumin 4.0 3.2-4.5 GM/DL Blood Gas Puncture Site LT RAD Blood Gas Patient Temperature 99.3 Arterial Blood pH 7.37 7.37-7.43 Arterial Blood Partial Pressure CO2 49 H 35-45 MMHG Arterial Blood Partial Pressure O2 90 79-93 MMHG Arterial Blood HCO3 27 23-27 MMOL/L Arterial Blood Total CO2 28.8 21.0-31.0 MMOL/L Arterial Blood Oxygen Saturation 97 94-100 % Arterial Blood Base Excess 2.6 H -2.5-2.5 MMOL/L [place] Test YES-POS Blood Gas Ventilator Setting NO Blood Gas Inspired Oxygen 3 My Orders Orders - TARA,CARSON J Cbc With Automated Diff (10/29/18 22:53) Magnesium (10/29/18 22:53) Chest 1 View, Ap/Pa Only (10/29/18 22:53) Ekg Tracing (10/29/18 22:53) Cardiac Profile 1 (10/29/18:53) Comprehensive Metabolic Panel (10/29/18:53) Myoglobin Serum (10/29/18:53) Protime With Inr (10/29/18:53) Partial Thromboplastin Time (10/29/18:53) O2 (10/29/18 22:53) Monitor-Rhythm Ecg Trace Only (10/29/18:53) Lipid Panel (10/30/18 06:00) Ed Iv/Invasive Line Start (10/29/18 22:53) BNP (10/29/18:53) Fibrin Degradation Products (10/29/18:53) Aspirin Chewable Tablet (Baby Aspirin Ch (10/29/18 23:00) Albuterol/Ipra Inhalation Soln (Duoneb I (10/29/18 23:00) Svn Small Volume Nebulizer (10/29/18 22:53) Nitroglycerin 0.4 Mg Btl 25's (Nitrostat (10/29/18 23:15) Insulin (Regular) Human (Humulin R (Per (10/29/18 23:15) Arterial Blood Gas (10/29/18 23:15) Arterial Blood Draw (10/29/18 23:14) Lidocaine 2% Viscous 15 Ml (Xylocaine Vi (10/29/18 23:30) Famotidine Tablet (Pepcid Tablet) (10/29/18 23:30) Antacid Suspension (Mylanta Suspension (10/29/18 23:30) Antacid Suspension (Mylanta Suspension (10/29/18 23:26) Lidocaine 2% Viscous 15 Ml (Xylocaine Vi (10/29/18 23:26) Ketorolac Injection (Toradol Injection) (10/30/18 00:15) Accucheck Stat ONCE (10/30/18 00:05) Insulin (Regular) Human (Humulin R (Per (10/30/18 00:30) Medications Given in ED Current Medications Medications Dose Ordered Sig/Maurice Route Start Time Stop Time Status Last Admin Dose Admin Al Hydrox/Mg Hydrox/Simethicone 30 ml ONCE ONCE PO 10/29/18 23:30 10/29/18 23:32 DC 10/29/18 23:34 30 ML Albuterol/ Ipratropium 3 ml ONCE ONCE INH 10/29/18 23:00 10/29/18 23:01 DC 10/29/18 23:17 3 ML Aspirin 324 mg ONCE ONCE PO 10/29/18 23:00 10/29/18 23:01 DC 10/29/18 22:45 324 MG Insulin Human Regular 15 unit ONCE ONCE SC 10/29/18 23:15 10/29/18 23:16 DC 10/29/18 23:35 15 UNIT Ketorolac Tromethamine 60 mg ONCE ONCE IVP 10/30/18 00:15 10/30/18 00:16 DC 10/30/18 00:12 60 MG Lidocaine HCl 15 ml ONCE ONCE PO 10/29/18 23:30 10/29/18 23:32 DC 10/29/18 23:35 15 ML Vital Signs/I&O 10/29/18 10/29/18 10/29/18 22:25 22:25 23:18 Temp 100.2 Pulse 94 Resp 24 B/P (MAP) 113/55 (74) Pulse Ox 94 94 95 O2 Delivery Nasal Cannula Nasal Cannula O2 Flow Rate 3.00 3.00 3.00 10/30/18 00:00 Intake Total 1000 ml Balance 1000 ml Capillary Refill : Progress Note #1: Time: 23:18 Progress Note We have given her aspirin and we'll start with a DuoNeb and if that does not help and her blood pressure will tolerate it we'll try a nitroglycerin. ENT was obtained given her family history and are slight ankle edema and complained of orthopnea. We'll get a chest x-ray and try GI cocktail since she has a history of GERD as well. Progress Note #2: Time: 00:06 Progress Note DuoNeb did not help and she did not have adventitious lung sounds on arrival. Her oxygen use is at baseline and her oxygen sats are fine. Vitals are otherwise unremarkable. Her chest pain did not improve with GI cocktail and her pain started about 5-6 hours prior to her troponin which was undetectable. I suspect this is costochondritis as it is reproducible on direct palpation and on deep inspiration. She does not have a history of coronary disease with going to give her some ketorolac and recheck her blood sugar after the insulin was given. We send her home on Naprosyn. She's not a good candidate for steroids because her blood sugar being so high. When trying get her started on some NovoLog 70/30 until she can get into see primary care. She says she is working on getting her Medicaid reactivated. The first dose of insulin did significantly help her blood sugar however any give her another 10 units so that nursing staff can teach her how to drop and some give it to herself. ECG Initial ECG Impression Date: Oct 29, 2018 Initial ECG Impression Time: 22:23 Initial ECG Rate: 94 Initial ECG Rhythm: Normal Sinus Initial ECG Intervals: Normal Initial ECG Impression: Normal Initial ECG Comparisson: Unchanged Comment No acute ST elevation or depression. Diagnostic Imaging Diagonstic Imaging: Xray Plain Films/CT/US/NM/MRI: chest (1v) Comments Elevated right hemidiaphragm otherwise no infiltrate or acute cardiopulmonary processes noted. Reviewed: Reviewed by Me Departure Impression Primary Impression: Costochondritis, acute Additional Impression: Hyperglycemia due to type 2 diabetes mellitus Qualified Codes: E11.65 - Type 2 diabetes mellitus with hyperglycemia; Z79.4 - intermediate (current) use of insulin Disposition: 01 HOME, SELF-CARE Condition: Stable Departure-Patient Inst. Decision time for Depature: 00:16 Referrals: CONNIE MALAVE MD (PCP/Family) Primary Care Physician Patient Instructions: Costochondritis (DC), Diabetes and Diet, Diabetes Type 2 (DC) Add. 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 You may also use dybt-[id number]-[id number] Aleve/naproxen 2 tablets twice daily. Tylenol 1000 mg every 8 hours as needed. Heating pads or topical creams such as icy hot/Biofreeze etc. applied to the chest. 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 All discharge instructions reviewed with patient and/or family. Voiced understanding. Scripts Lancets (Blood Lancets) 1 Each Each EACH MC DAILY PRN PRN for HYPOGLYCEMIA, #50 0 Refills Prov: CARSON PACHECO 10/30/18 Insuln Asp Prt/Insulin Aspart (Novolog Mix 70-30 Vial) 1 Unit/0.01 Ml Susp 15 UNIT SQ BID for 30 Days, #1 EA 0 Refills Prov: CARSON PACHECO 10/30/18 Syring W-Ndl,Disp,Insul,0.5 ml (Insulin Syringe) 1 Each Disp.syrin EACH MC BID for Hyperglycemia, #100 0 Refills Prov: CARSON PACHECO 10/30/18 Naproxen (Naprosyn) 500 Mg Tablet 500 MG PO BID for 14 Days, #30 TAB 0 Refills Prov: CARSON PACHECO 10/30/18 Copy Copies To 1: LILLIAM ALVARENGA TITUS J Oct 29, 2018 23:19
[2018-10-29 23:24] LABS: ABG BASE EXCESS 2.6 MMOL/L (-2.5-2.5); ABG OXYGEN SATURATION 97 % (94-100); ABG PCO2 49 MMHG (35-45); ABG PH 7.37 (7.37-7.43); ABG PO2 90 MMHG (79-93); ABG TCO2 28.8 MMOL/L (21.0-31.0)
[2018-10-29 23:25] LABS: ALLENS TEST YES-POS; INSPIRED O2 3; PATIENT TEMP 99.3; VENTILATOR NO
[2018-10-29] MEDS ORDERED: ANTACID SUSP 30 ML UDC (MYLANTA) ONE (23:26)
[2018-10-29] MEDS ORDERED: LIDOCAINE 2% VISCOUS 15 ML UDC ONE (23:26)
[2018-10-29] MEDS ORDERED: FAMOTIDINE 20 MG (PEPCID) TABLET PO STA (23:30)
[2018-10-29] MEDS ORDERED: ANTACID SUSP 30 ML UDC (MYLANTA) PO ONE (23:30)
[2018-10-29] MEDS ORDERED: LIDOCAINE 2% VISCOUS 15 ML UDC PO ONE (23:30)
[2018-10-30] MEDS ORDERED: KETOROLAC 30 MG/ML VIAL IVP ONE (00:15)
[2018-10-30] MEDS ORDERED: INSA70301U SQ (00:16)
[2018-10-30] MEDS ORDERED: NAPR-1071 PO (00:16)
[2018-10-30] MEDS ORDERED: LANC-954 MC (00:16)
[2018-10-30] MEDS ORDERED: SYRI-820 MC (00:16)
[2018-10-30 00:28] VITALS: BP 118/74
[2018-10-30] MEDS ORDERED: inSUlin (REGULAR) HUMAN 1 UNIT/0.01 ML (CHARGE PER UNIT) SC ONE (00:30)
--- NOTE | 2018-10-30 07:25 | Diagnostic Imaging Report ---
INDICATION: Shortness of air. TECHNIQUE: Single frontal view of the chest. COMPARISON: 09/28/2018. FINDINGS: There is stable elevation of the right hemidiaphragm. The left lung is normal in size. There is no pleural effusion or pneumothorax. No focal consolidation is seen. The cardiac silhouette is stable in size. No acute osseous abnormality is seen. IMPRESSION: Stable elevated right hemidiaphragm with no acute pulmonary abnormality seen. Dictated by: Dictated on workstation # [id number]
--- NOTE | 2018-10-31 15:41 | NUR ---
Pharmacy called because prescription for insulin was too expensive. Prescription changed to Novolin 70/[address] Martin.
== END 2018-10-30 00:28 | disposition home or self-care (01) ==
LOC: EDUNIT# 22:24 → ER 22:24
DX: E11.65 Type 2 diabetes mellitus with hyperglycemia (principal); M94.0 Chondrocostal junction syndrome [Tietze]; J44.9 Chronic obstructive pulmonary disease, unspecified; K21.9 Gastro-esophageal reflux disease without esophagitis; G47.30 Sleep apnea, unspecified; F41.9 Anxiety disorder, unspecified; F32.9 Major depressive disorder, single episode, unspecified; Z86.73 Personal history of transient ischemic attack (TIA), and cerebral infarction without residual deficits; Z87.891 Personal history of nicotine dependence; Z88.5 Allergy status to narcotic agent; Z88.8 Allergy status to other drugs, medicaments and biological substances; Z88.0 Allergy status to penicillin; Z91.040 Latex allergy status; Z99.81 Dependence on supplemental oxygen; Z79.4 Long term (current) use of insulin; Z79.82 Long term (current) use of aspirin; Z98.51 Tubal ligation status; Z82.49 Family history of ischemic heart disease and other diseases of the circulatory system
CPT/HCPCS: 36415; 36600; 71045; 80053; 82805; 82962; 83735; 83874; 83880; 84484; 85025; 85379; 85610; 85730; 94640

== ENCOUNTER 2018-12-03 17:02 | Emergency (ER) | payer SELFPAY ==
[~2018-12-03] VITALS: Ht 172 cm; Wt 172.0 kg
[~2018-12-03 17:02] MED LIST changes: +INSA70301U SQ; +LANC-954 MC; +SYRI-820 MC
[2018-12-03] MEDS ORDERED: RT-ALBUTEROL/IPRATROPIUM 3 ML (DUONEB) VIAL INH ONE (17:15)
[2018-12-03 17:21] LABS: BASOPHILS % (AUTO) 0 % (0-10); EOSINOPHILS # (AUTO) 0.1 10^3/uL (0.0-0.3); EOSINOPHILS % (AUTO) 1 % (0-10); HEMATOCRIT 44 % (35-52); HEMOGLOBIN 14.6 G/DL (11.5-16.0); LYMPHOCYTES # (AUTO) 2.3 X 10^3 (1.0-4.0); LYMPHOCYTES % (AUTO) 32 % (12-44); MEAN CORPUSCULAR HEMOGLOBIN 30 PG (25-34); MEAN CORPUSCULAR HGB CONC 34 G/DL (32-36); MEAN CORPUSCULAR VOLUME 90 FL (80-99); MONOCYTES # (AUTO) 0.5 X 10^3 (0.0-1.0); MONOCYTES % (AUTO) 7 % (0-12); NEUTROPHILS # (AUTO) 4.3 X 10^3 (1.8-7.8); NEUTROPHILS % (AUTO) 59 % (42-75); PLATELET COUNT 329 10^3/uL (130-400); RED CELL DISTRIBUTION WIDTH 12.8 % (10.0-14.5); WHITE BLOOD COUNT 7.3 10^3/uL (4.3-11.0)
[2018-12-03 17:37] LABS: ALANINE AMINOTRANSFERASE 27 U/L (0-55); ALBUMIN 4.1 GM/DL (3.2-4.5); ALKALINE PHOSPHATASE 130 U/L (40-136); BILIRUBIN,TOTAL 0.5 MG/DL (0.1-1.0); BUN/CREATININE RATIO 18; CALCIUM 9.7 MG/DL (8.5-10.1); CARBON DIOXIDE 29 MMOL/L (21-32); CHLORIDE 97 MMOL/L (98-107); CREATININE SERUM 0.73 MG/DL (0.60-1.30); GFR ESTIMATED > 60; GLUCOSE 378 MG/DL (70-105); POTASSIUM 4.3 MMOL/L (3.6-5.0); SODIUM 136 MMOL/L (135-145); TOTAL PROTEIN 7.2 GM/DL (6.4-8.2)
--- NOTE | 2018-12-03 17:54 | Diagnostic Imaging Report ---
INDICATION: Cough COMPARISON: 10/29/2018 FINDINGS: Frontal and lateral views the chest demonstrate clear lungs bilaterally. The heart size is normal. There is no pneumothorax. Osseous structures are normal. IMPRESSION: No acute findings. Normal chest. Dictated by: Dictated on workstation # [id number]
[2018-12-03] MEDS ORDERED: ALBU2.5V4 INH (18:22)
[2018-12-03] MEDS ORDERED: RT-ALBUINH IH (18:22)
--- NOTE | 2018-12-03 18:25 | ED Respiratory ---
General Chief Complaint: Respiratory Problems Stated Complaint: SOB Nursing Triage Note: ARRIVED VIA AMB WITH COMPLAINTS OF SOA AND COUGHING UP BLOOD. Source: patient Exam Limitations: no limitations History of Present Illness Date Seen by Provider: Dec 03, 2018 Time Seen by Provider: 17:05 Initial Comments This 38-year-old woman presents to the emergency room with complaints of shortness of breath and cough. She believes she coughed up a small amount of blood multiple times today. She is afebrile. She has history of COPD and uses supplemental oxygen by nasal cannula at home. She has been ill for about 2-3 days. She denies use of any blood thinners. She does not smoke. Dr. Knott's her real estate management specialist and Dr. Malave is her primary care provider. She uses an albuterol inhaler but does not have any nebulizer therapy available. Allergies and Home Medications Allergies Coded Allergies: fentanyl (Verified Allergy, Severe, SOA, 03/13/18) morphine (Verified Allergy, Severe, SOA, 02/12/17) Penicillins (Verified Allergy, Unknown, Pt has received Cefepime in the past, 05/08/18) codeine (Verified Allergy, Unknown, 02/12/17) hydromorphone (Verified Allergy, Unknown, 02/12/17) latex (Verified Allergy, Unknown, 02/12/17) shellfish derived (Verified Allergy, Unknown, 05/04/18) Home Medications Albuterol Sulfate 1 Puff Puff, 2 PUFF INH Q6H PRN for SHORTNESS OF BREATH, (Reported) Albuterol Sulfate 1 Puff Puff, 1-4 PUFF IH Q4H PRN for WHEEZING 1 PUFF = 90 MCG Prescribed by: REY MONTIEL on 12/03/181821 Albuterol Sulfate 2.5 Mg/3 Ml Vial.neb, 2.5 MG INH Q4H PRN for WHEEZING Prescribed by: REY MONTIEL on 12/03/181821 Aspirin 81 Mg Tablet.dr, 81 MG PO DAILY, (Reported) Insuln Asp Prt/Insulin Aspart 1 Unit/0.01 Ml Susp, 15 UNIT SQ BID Prescribed by: CARSON PACHECO on 10/30/18 0016 Loratadine 10 Mg Tablet, 10 MG PO DAILY, (Reported) LAST FILLED #30 02-19-18 Naproxen 500 Mg Tablet, 500 MG PO BID Prescribed by: CARSON PACHECO on 10/30/18 0016 Ranitidine HCl 150 Mg Tablet, 150 MG PO DAILY, (Reported) Sitagliptin Phos/Metformin HCl 1 Tab Tablet, 1 TAB PO BID, (Reported) LAST FILLED #60 02-19-18 Patient Home Medication List Home Medication List Reviewed: Yes Review of Systems Review of Systems Constitutional: no symptoms reported EENTM: no symptoms reported Respiratory: see HPI Cardiovascular: no symptoms reported Gastrointestinal: no symptoms reported Genitourinary: no symptoms reported : No Musculoskeletal: no symptoms reported Skin: no symptoms reported Psychiatric/Neurological: No Symptoms Reported Hematologic/Lymphatic: No Symptoms Reported Past Oinflli-Hacigl-Nrzoqk Hx Past Med/Social Hx: Reviewed and Corrections made Patient Social History Alcohol Use: Denies Use Recreational Drug Use: Yes Drug of Choice: POT Smoking Status: Former Smoker Type Used: Cigarettes Former Smoker, Quit: Mar 24, 2016 2nd Hand Smoke Exposure: No Recent Foreign Travel: No Contact w/Someone Who Travel: No Recent Infectious Disease Expo: No Recent Hopitalizations: No Physical Abuse: No Sexual Abuse: No Immunizations Up To Date Tetanus Booster (TDap): Unknown PED Vaccines UTD: Yes Seasonal Allergies Seasonal Allergies: No Past Medical History Surgeries: Yes ( X 2; BTL; BREAST BIOPSY-BENIGN) Breast, Section, Gallbladder, Tubal Ligation Respiratory: Yes Sleep Apnea, COPD (Requiring supplemental oxygen) Currently Using CPAP: No Currently Using BIPAP: No Cardiac: No Neurological: Yes Stroke : No Female Reproductive Disorders: Denies 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 1.0oz. 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 nml as tested, no motor/sensory deficits, alert, normal mood/affect, oriented x 3 Skin: normal color, warm/dry Procedures/Interventions Date of ETT Placement: May 05, 2018 Time of ETT Placement: 1550 Progress/Results/Core Measures Suspected Sepsis Recent Fever Within 48 Hours: No Infection Criteria Present: Suspected New Infection New/Unexplained Altered Menta: No Sepsis Screen: No Definite Risk SIRS Temperature: Pulse: 98 Respiratory Rate: 16 Laboratory Tests 12/03/18 17:00: White Blood Count 7.3 Blood Pressure 141 /87 Mean: 105 Laboratory Tests 12/03/18 17:00: Creatinine 0.73, Platelet Count 329, Total Bilirubin 0.5 Results/Orders Lab Results Laboratory Tests Test 12/03/18 17:00 Range/Units White Blood Count 7.3 4.3-11.0 10^3/uL Red Blood Count 4.83 4.35-5.85 10^6/uL Hemoglobin 14.6 11.5-16.0 G/DL Hematocrit 44 35-52 % Mean Corpuscular Volume 90 80-99 FL Mean Corpuscular Hemoglobin 30 25-34 PG Mean Corpuscular Hemoglobin Concent 34 32-36 G/DL Red Cell Distribution Width 12.8 10.0-14.5 % Platelet Count 329 130-400 10^3/uL Mean Platelet Volume 9.0 7.4-10.4 FL Neutrophils (%) (Auto) 59 42-75 % Lymphocytes (%) (Auto) 32 12-44 % Monocytes (%) (Auto) 7 0-12 % Eosinophils (%) (Auto) 1 0-10 % Basophils (%) (Auto) 0 0-10 % Neutrophils # (Auto) 4.3 1.8-7.8 X 10^3 Lymphocytes # (Auto) 2.3 1.0-4.0 X 10^3 Monocytes # (Auto) 0.5 0.0-1.0 X 10^3 Eosinophils # (Auto) 0.1 0.0-0.3 10^3/uL Basophils # (Auto) 0.0 0.0-0.1 10^3/uL D-Dimer 0.47 0.00-0.49 UG/ML Sodium Level 136 135-145 MMOL/L Potassium Level 4.3 3.6-5.0 MMOL/L Chloride Level 97 L 98-107 MMOL/L Carbon Dioxide Level 29 21-32 MMOL/L Anion Gap 10 5-14 MMOL/L Blood Urea Nitrogen 13 7-18 MG/DL Creatinine 0.73 0.60-1.30 MG/DL Estimat Glomerular Filtration Rate > 60 BUN/Creatinine Ratio 18 Glucose Level 378 H 70-105 MG/DL Calcium Level 9.7 8.5-10.1 MG/DL Corrected Calcium 9.6 8.5-10.1 MG/DL Total Bilirubin 0.5 0.1-1.0 MG/DL Aspartate Amino Transf (AST/SGOT) 20 5-34 U/L Alanine Aminotransferase (ALT/SGPT) 27 0-55 U/L Alkaline Phosphatase 130 40-136 U/L Total Protein 7.2 6.4-8.2 GM/DL Albumin 4.1 3.2-4.5 GM/DL Micro Results Microbiology 12/03/18 Influenza Types A,B Antigen (NETO) - Final, Complete My Orders Orders - REY RAYMUNDO MD Chest Pa/Lat (2 View) (12/03/18 17:12) Ed Iv/Invasive Line Start (12/03/18 17:12) Albuterol/Ipra Inhalation Soln (Duoneb I (12/03/18 17:15) Svn Small Volume Nebulizer (12/03/18 17:12) Cbc With Automated Diff (12/03/18 17:12) Comprehensive Metabolic Panel (12/03/18 17:12) Influenza A And B Antigens (12/03/18 17:12) Fibrin Degradation Products (12/03/18 17:12) Sputum Culture (12/03/18 17:30) Medications Given in ED Current Medications Medications Dose Ordered Sig/Maurice Route Start Time Stop Time Status Last Admin Dose Admin Albuterol/ Ipratropium 3 ml ONCE ONCE INH 12/03/18 17:15 12/03/18 17:16 DC 12/03/18 17:23 3 ML Vital Signs/I&O 12/03/18 12/03/18 12/03/18 17:02 17:25 18:36 Temp 36.7 Pulse 98 88 Resp 16 16 B/P (MAP) 141/87 (105) 136/88 (105) Pulse Ox 100 93 97 O2 Delivery Room Air Room Air Nasal Cannula O2 Flow Rate 3.00 Capillary Refill : Less Than 3 Seconds Blood Pressure Mean: 105 Progress Note : Progress Note Workup was unremarkable including d-dimer and chest x-ray. A DuoNeb treatment was administered with improvement in symptoms. Patient was prescribed a nebulizer machine and medications. A renewal on her inhaler was also given. Close follow-up with Dr. Knott was encouraged. Diagnostic Imaging Diagonstic Imaging: Xray Plain Films/CT/US/NM/MRI: chest Comments Chest x-ray viewed by me and report reviewed rate see report below: NAME: MADHAV BOX MED REC#: [id number] PT STATUS: REG ER : 1980 PHYSICIAN: REY RAYMUNDO MD ADMIT DATE: 12/03/18/ER Signed Date of Exam:12/03/18 CHEST PA/LAT (2 VIEW) INDICATION: Cough COMPARISON: 10/29/2018 FINDINGS: Frontal and lateral views the chest demonstrate clear lungs bilaterally. The heart size is normal. There is no pneumothorax. Osseous structures are normal. IMPRESSION: No acute findings. Normal chest. Dictated by: Dictated on workstation # [id number] Dict: 12/03/181749 Trans: 12/03/181750 [facility] [id number] Interpreted by: SINDHU LATIF Electronically signed by: SINDHU LATIF 12/03/181750 Departure Impression Primary Impression: Upper respiratory infection Qualified Codes: J06.9 - Acute upper respiratory infection, unspecified Additional Impression: COPD exacerbation Disposition: 01 HOME, SELF-CARE Condition: Improved Departure-Patient Inst. Decision time for Depature: 18:21 Referrals: CONNIE MALAVE MD (PCP/Family) Primary Care Physician Patient Instructions: Exacerbation of COPD Add. Discharge Instructions: Use your inhaler as prescribed. Follow-up with Dr. Knott as soon as possible. Return to the emergency room if you have worsening symptoms. All discharge instructions reviewed with patient and/or family. Voiced understanding. Scripts Albuterol Sulfate (Albuterol Sulfate) 2.5 Mg/3 Ml Vial.neb 2.5 MG INH Q4H PRN for WHEEZING, #50 EA 1 Refill Prov: REY RAYMUNDO MD 12/03/18 Albuterol Sulfate (PROAIR HFA) 1 Puff Puff 1-4 PUFF IH Q4H PRN for WHEEZING, #1 PUFF 1 PUFF = 90 MCG Prov: REY RAYMUNDO MD 12/03/18 Copy Copies To 1: CLOVIS KNOTT DO Copies To 2: CONNIE MALAVE MD, JOSHUA T MD Dec 03, 2018 18:25
[2018-12-03 18:36] VITALS: BP 136/88
== END 2018-12-03 18:37 | disposition home or self-care (01) ==
LOC: EDUNIT# 17:02 → ER 17:03
DX: J44.1 Chronic obstructive pulmonary disease with (acute) exacerbation (principal); J06.9 Acute upper respiratory infection, unspecified; G47.30 Sleep apnea, unspecified; E11.9 Type 2 diabetes mellitus without complications; F41.9 Anxiety disorder, unspecified; F32.9 Major depressive disorder, single episode, unspecified; Z86.73 Personal history of transient ischemic attack (TIA), and cerebral infarction without residual deficits; Z99.81 Dependence on supplemental oxygen; Z88.5 Allergy status to narcotic agent; Z88.0 Allergy status to penicillin; Z91.040 Latex allergy status; Z91.018 Allergy to other foods; Z79.82 Long term (current) use of aspirin; Z79.4 Long term (current) use of insulin; Z87.891 Personal history of nicotine dependence; Z98.51 Tubal ligation status; Z82.49 Family history of ischemic heart disease and other diseases of the circulatory system
CPT/HCPCS: 36415; 71046; 80053; 85025; 85379; 87070; 87205; 87804; 94640